=== PATIENT | male | born 1945 | race Caucasian/White ===

== ENCOUNTER 2019-10-04 13:32 | Emergency (ER) | payer MEDICARE, SELFPAY ==
[2019-10-04 13:59] VITALS: BP 127/77; PULSE 81; RESP 18; TEMP 36.5; O2SAT 96
[2019-10-04 14:19] LABS: Basophils Absolute Auto 0.03 K/mm3 (0.00-0.10); Basophils Percent Auto 0.5 % (0.0-1.0); Eosinophils Absolute Auto 0.07 K/mm3 (0.02-0.50); Eosinophils Percent Auto 1.1 % (1.0-6.0); Hematocrit 43.9 % (37.0-46.0); Immature Granulocyte Absolute 0.02 K/mm3 (0.00-0.00); Immature Granulocyte Percent A 0.3 % (0.0-0.0); Lymphocytes Absolute Auto 1.16 K/mm3 (1.10-4.50); Lymphocytes Percent Auto 17.7 % (18.0-42.0); Mean Corpuscular HGB Conc 34.2 g/dL (32.0-36.0); Mean Corpuscular Hemoglobin 31.3 pg (27.0-31.0); Mean Corpuscular Volume 91.6 fL (78.0-102.0); Monocytes Absolute Auto 0.43 K/mm3 (0.10-0.90); Monocytes Percent Auto 6.6 % (2.0-11.0); Neutrophils Absolute Auto 4.8 K/mm3 (1.7-7.2); Neutrophils Percent Auto 73.8 % (50.0-70.0); Platelet Count Result 186 K/mm3 (150-420); Red Blood Count 4.79 M/mm3 (4.70-6.10); Red Cell Distribution Width 12.9 % (11.6-14.4); White Blood Count 6.6 K/mm3 (4.8-10.8)
--- NOTE | 2019-10-04 14:21 | ED.GENADULT ---
HPI - General Adult General Chief complaint: Extremity Injury, Upper Stated complaint: reaction to medication muscle cramps History of Present Illness HPI narrative: Edgardo is a 73-year-old man with a past medical history of COPD and heart attack that presented to the ER with muscle cramps and tingling in his left hand. He reports that when he got out of the truck he had bilateral calf cramping as well as pain in his right buttock muscles. around the same time he had numbness in his left hand. He had no decreased coordination hand, decreased strength, or pain. he was started on a Medrol Dosepak and Levaquin 6 days ago For a COPD exacerbation. He believes this is the cause. he has had no redness, or swelling in his calves as well as no prolonged sedentary periods. He has had no chest pain, syncope/near syncope or shortness of breath as well as nausea and vomiting. Related Data Home Medications Medication Instructions Recorded Confirmed ipratropium-albuterol 3 ml INHALATION PRN 10/04/19 10/04/19 ipratropium-albuterol [Combivent 1 puff INHALATION DAILY 10/04/19 10/04/19 Respimat] levofloxacin 500 mg PO DAILY 10/04/19 10/04/19 methylprednisolone 4 mg PO DAILY 10/04/19 10/04/19 Allergies Allergy/AdvReac Type Severity Reaction Status Date / Time No Known Allergies Allergy Verified 10/04/19 13:58 Review of Systems Constitutional: Constitutional: Denies chills and Denies fever(s) Eyes: Eyes: Reports no additional eye complaints ENT: Reports system reviewed and no additional complaints, except as documented Cardiovascular: Cardiovascular: Denies chest pain, Denies rapid heart rate and Denies radiating jaw, neck or arm pain Respiratory: Comments: cough and shortness of breath is not worse than usual Gastrointestinal: Gastrointestinal: Reports no additional gastrointestinal complaints Genitourinary: Genitourinary: Reports no additional male genitourinary complaints Musculoskeletal: Musculoskeletal: Reports no additional musculoskeletal complaints Integumentary/Breasts: Skin/Breast: Reports system reviewed and no additional complaints, except as docu Neurologic: Reports system reviewed and no additional complaints, except as documented Psychiatric: Psychiatric: Reports no additional psychiatric complaints Hematologic/Lymphatic: Hematologic/Lymphatic: Reports no additional hematologic/lymphatic complaints Exam Const: General: no acute distress and alert Orientation/consciousness: patient oriented x3 Limitations: No altered mental status HENMT: Other: normocephalic, atraumatic Eyes: Conjunctivae: conjunctivae normal Pupils: Equal, round and reactive pupils present Neck: Neck: normal visual inspection Chest: Chest palpation & inspection: normal inspection of the chest Resp: Effort & Inspection: normal respiratory effort, not labored, no retractions and no use of accessory muscles Cardio: Rate: regular rate Rhythm: regular rhythm Heart sounds: no murmurs GI: GI Palp: Yes Soft to palpation and No Tenderness to palpation present (GI) Skin: General skin exam: normal color Rashes: no rashes Neuro: General: patient oriented x3 and moves all extremities Extrem: General: normal to inspection Other: Tenderness to palpation over the right piriformis muscle, tenderness over the gastrocnemius Achilles junction bilaterally. Positive Phalen's and prior test on the left hand. 5/5 manager inventory management strength in both hands. normal strength in lower extremities in all planes of motion tested. Psych: Mental Status: mental status grossly normal Course Course Emergency Course: Edgardo was seen and evaluated. While symptoms are likely iatrogenic from Levaquin will order labs to assess for other causes of myalgia /tendinitis. Vital Signs Vital signs: Vital Signs Temperature 36.5 C 10/04/19 13:59 Pulse Rate 81 10/04/19 13:59 Respiratory Rate 18 10/04/19 13:59 Blood Pressure 127/77 10/04/19 13:59 Pulse Oxi
[2019-10-04 14:34] LABS: Alanine Aminotransferase 25 U/L (16-63); Alkaline Phosphatase 61 U/L (46-116); Anion Gap 13.1 mmol/L (7-16); Aspartate Amino Transferase 24 U/L (15-37); Bilirubin,Total 0.4 mg/dL (0.00-1.00); Blood Urea Nitrogen 27 mg/dL (7-18); Calcium 8.9 mg/dL (8.5-10.1); Carbon Dioxide 27 mmol/L (21-32); Chloride 100 mmol/L (98-108); Creatine Kinase 127 U/L (39-308); Estimated CRCL calculation 44 ml/min; Estimated Glomerular Filt Rate > 60; Glucose 111 mg/dL (70-99); Osmolality Calculated 288 mOsm/kg (285-295); Potassium 4.1 mmol/L (3.5-5.1); Sodium 136 mmol/L (136-145); Total Protein 6.6 g/dL (6.4-8.2)
[2019-10-04 15:09] VITALS: RESP 15
== END 2019-10-04 15:10 | disposition home or self-care (01) ==
PROVIDERS: Emergency Provider Family Medicine; PCP Family Medicine
DX: M76.62 Achilles tendinitis, left leg (principal); M76.61 Achilles tendinitis, right leg; J44.9 Chronic obstructive pulmonary disease, unspecified
CPT/HCPCS: 36415; 80053; 82550; 85025; 99282; 99283

== ENCOUNTER 2020-06-06 17:50 | Inpatient (IN) | payer MEDICARE, SELFPAY ==
[2020-06-06] VITALS (12 sets, daily range): BP systolic 117–142; BP diastolic 59–82; PULSE 68–90; RESP 18–32; TEMP 36.4–37.1; O2SAT 88–100; BMI 20.9
--- NOTE | ~2020-06-06 | XR_ITS ---
EXAMINATION: XR chest 1V portable DATE: 06/06/2020 18:30 INDICATION: COPD presenting with shortness of breath TECHNIQUE: frontal view of the chest was obtained. COMPARISON: Chest radiograph dated 10/01/[address] dated 03/19/2019 FINDINGS: Hyperexpansion of lungs consistent with emphysema. Bibasilar linear atelectasis/scarring. Small nodul e in the left lower lung zone projecting over the anterior left seventh rib which can be seen on CT d ated 09/22/2018 likely sequela of old granulomatous disease. No pulmonary edema, pleural effusion or pn eumothorax. The cardiomediastinal silhouette is normal. IMPRESSION: 1. Emphysema with mild bibasilar atelectasis/scarring. Reviewed, dictated and finalized at [facility]. S AND PARTS ATTENDANT
--- NOTE | 2020-06-06 18:04 | ECG_ITS ---
Measurements Intervals [place] Rate: 80 P: 89 WV: 148 QRS: -23 QRSD: 96 T: 72 QT: 352 QTc: 408 Interpretive Statements SINUS RHYTHM INCOMPLETE RIGHT BUNDLE BRANCH BLOCK LOW QRS VOLTAGE IN LIMB LEADS BASELINE ARTIFACT- AVR, AVL, V1-V6 BORDERLINE ECG Electronically Signed On 06-06-2020 18:56:23 CASING TRIMMER by Hector Vicente D.O.
[2020-06-06 18:39] LABS: Base Excess ABG 2.2 mmol/L (0-2); HCO3 ABG 29.7 mmol/L (23-29); Oxygen Content ABG 19.4 %vol (16.0-22.0); Oxygen Saturation ABG 99.6 % (95-97); Oxyhemoglobin 94.5 % (94-100); PCO2 ABG 58.1 mmHg (35-45); Total Hemoglobin 14.4 g/dL; pH ABG 7.33 (7.35-7.45)
[2020-06-06 18:42] LABS: Basophils Absolute Auto 0.03 K/mm3 (0.00-0.10); Basophils Percent Auto 0.5 % (0.0-1.0); Eosinophils Absolute Auto 0.16 K/mm3 (0.02-0.50); Eosinophils Percent Auto 2.5 % (1.0-6.0); Hematocrit 42.4 % (37.0-46.0); Hemoglobin 13.9 g/dL (12.4-15.3); Immature Granulocyte Absolute 0.02 K/mm3 (0.00-0.00); Immature Granulocyte Percent A 0.3 % (0.0-0.0); Immature Platelet Fraction Pct 9.8 % (1.0-7.0); Lymphocytes Absolute Auto 0.67 K/mm3 (1.10-4.50); Lymphocytes Percent Auto 10.4 % (18.0-42.0); Mean Corpuscular HGB Conc 32.8 g/dL (32.0-36.0); Mean Corpuscular Hemoglobin 31.7 pg (27.0-31.0); Mean Corpuscular Volume 96.8 fL (78.0-102.0); Mean Platelet Volume 11.9 fl (8.7-11.0); Monocytes Absolute Auto 0.38 K/mm3 (0.10-0.90); Monocytes Percent Auto 5.9 % (2.0-11.0); Neutrophils Absolute Auto 5.2 K/mm3 (1.7-7.2); Neutrophils Percent Auto 80.4 % (50.0-70.0); Platelet Count Result 147 K/mm3 (150-420); Red Blood Count 4.38 M/mm3 (4.70-6.10); Red Cell Distribution Width 13.4 % (11.6-14.4); White Blood Count 6.4 K/mm3 (4.8-10.8)
[2020-06-06 18:43] LABS: Device NASAL CANNULA; Modified Allen's Test Pass; Site Drawn RIGHT RADIAL
[2020-06-06 18:50] LABS: D Dimer 0.49 mg/L (0.19-0.50)
[2020-06-06 18:54] LABS: BNP 17.7 pg/mL (0-100)
[2020-06-06 18:57] LABS: Alanine Aminotransferase 26 U/L (16-63); Albumin Level 4.1 g/dL (3.4-5.0); Alkaline Phosphatase 94 U/L (46-116); Anion Gap 5 mmol/L (8-16); Aspartate Amino Transferase 25 U/L (15-37); Bilirubin,Total 0.3 mg/dL (0.00-1.00); Blood Urea Nitrogen 20 mg/dL (7-18); Calcium 8.9 mg/dL (8.5-10.1); Carbon Dioxide 32 mmol/L (21-32); Chloride 102 mmol/L (98-108); Estimated CRCL calculation 53 ml/min; Estimated Glomerular Filt Rate > 60; Glucose 106 mg/dL (70-99); Osmolality Calculated 290 mOsm/kg (285-295); Potassium 4.3 mmol/L (3.5-5.1); SARS-CoV-2 Ag Negative (Negative); Sodium 139 mmol/L (136-145); Total Protein 7.2 g/dL (6.4-8.2)
[2020-06-06 18:58] LABS: Troponin I < 0.02 ng/mL (0.00-0.056)
--- NOTE | 2020-06-06 19:32 | ED.SOB ---
HPI - SOB/Dyspnea General Chief Complaint: Shortness of Breath/Dyspnea Stated Complaint: amb Time Seen by Provider: 06/06/20 18:30 Source: patient Mode of arrival: ambulatory Limitations: no limitations History of Present Illness HPI Narrative: Patient states he has been short of breath for the past several days. He has had no chest pain, no fever, no chills. He has not had any more cough than that of his usual. Shortness of breath has been moderately severe and has been ongoing, not relieved by measures at home. That is to say, his shortness was not relieved by a nebulizer at home. He went out to feed the animals and was short of breath enough he could not make it back. Related Data Home Medications Medication Instructions Recorded Confirmed ipratropium-albuterol 3 ml INHALATION Q4-5H PRN 10/04/19 06/06/20 ipratropium-albuterol [Combivent 1 puff INHALATION DAILY 10/04/19 06/06/20 Respimat] Allergies Allergy/AdvReac Type Severity Reaction Status Date / Time No Known Allergies Allergy Verified 10/04/19 13:58 Review of Systems Constitutional: Constitutional: Reports no additional constitutional complaints Comments: no fever, no chills Eyes: Eyes: Reports no additional eye complaints ENT: Reports system reviewed and no additional complaints, except as documented Cardiovascular: Cardiovascular: Reports no additional cardiovascular complaints Gastrointestinal: Gastrointestinal: Reports no additional gastrointestinal complaints Genitourinary: Genitourinary: Reports no additional male genitourinary complaints Musculoskeletal: Musculoskeletal: Reports no additional musculoskeletal complaints Integumentary/Breasts: Skin/Breast: Reports system reviewed and no additional complaints, except as docu Neurologic: Reports system reviewed and no additional complaints, except as documented Psychiatric: Psychiatric: Reports no additional psychiatric complaints Endocrine: Endocrine: Reports no additional endocrine complaints Hematologic/Lymphatic: Hematologic/Lymphatic: Reports no additional hematologic/lymphatic complaints Allergic/Immunologic: Allergic/Immunologic: Reports no additional allergic/immunologic complaints FOR[facility]LY [facility] Past Medical History Medical History Myocardial infarction acute Surgical History Surgical History H/O elbow surgery H/O knee surgery Family History Family History Father CAD in [place] artery Mother CHF exacerbation Social History Social History Smoking packs per day: 0.75 Smoking cigarettes per day: 15.0 Years smoked: 60 Smoking pack-years: 45.00 Smoking status: Current every day smoker Tobacco type: cigarettes Gender identity (if verbalized by the patient): Male Exam Const: General: alert and ill appearing Orientation/consciousness: patient oriented x3 Other: Appears acutely short of breath. This was after he was given albuterol 5mg in the ambulance, and a steroid. HENMT: Head: normal to inspection Face and sinus: normal facial exam Throat: posterior oropharynx normal Eyes: Conjunctivae: conjunctivae normal Pupils: Equal, round and reactive pupils present Neck: Neck: normal visual inspection Chest: Chest palpation & inspection: normal inspection of the chest Resp: Effort & Inspection: labored and uses accessory muscles Other: mild increased work of breathing, wheezes throughout, decreased breath sounds throughout. Cardio: Rate: regular rate Rhythm: regular rhythm GI: GI Palp: Yes Soft to palpation Other: nontender Back/Spine/Pelvis: Back: no CVA tenderness Skin: General skin exam: normal color Neuro: General: patient oriented x3 and moves all extremities Speech: normal speech Extrem: General: normal to inspection Psych: Men
[2020-06-06] MEDS: ALBUTEROL SULFATE NEB 2.5 MG/3 ML INH 5 MG INHALATION (19:33)
[2020-06-06] MEDS: DEXAMETHASONE SOD PHOS INJ 4 MG/ML VIAL IV PUSH ×2 (19:40→23:55)
--- NOTE | 2020-06-06 20:31 | PC.NURSE ---
2014 PT HAVING DISTRESS DOCTOR CALLED TO ROOM PTS DISCHARGE CANCELED AND PT IS BEING ADMITTED NOW
--- NOTE | 2020-06-06 21:20 | PC.NURSE ---
Patient admitted to room 209 from ER per stretcher. Patient noted to have tripod positioning and dyspnea. O2 is on @ 3 lpm/nc. Patient able to answer admission questions with breaks in between questions to try and catch his breath. Lungs very diminished in all lung car. Call light in reach.
[2020-06-06] MEDS: NICOTINE (*PBKC) 21 MG PATCH 1 PATCH (21:50)
--- NOTE | 2020-06-06 22:09 | ADMGEN ---
This patient, Edgardo Cain, was admitted to 2nd Floor Room 209-1. Patient oriented to hospital policies and general routines including ID bracelet, bed and alarms, visiting hours, pain management, procedures, bathroom and other care routines, personal items, smoking policy, room service/diet, and visiting hours. Information on how to activate the Rapid Response Team has been discussed. Patient are encouraged to report perceived risks to care and to ask questions if they do not understand what they are told or what they should do.
[2020-06-06] MEDS: IPRATROPIUM 0.5 MG/ALBUTEROL SULFATE 2.5 MG AMPUL.NEB 3 ML INHALATION (23:16)
--- NOTE | 2020-06-06 23:20 | PC.NURSE ---
Patient lying in bed with dyspnea noted. Patient currently doing nebulizer treatment per J Counts RT. Per RT patient's dyspnea is the same as when he was in ER.
[2020-06-06] MEDS: methylPREDNISolone SOD SUCC 125 MG VIAL 60 MG IV PUSH (23:54)
[2020-06-07] VITALS (17 sets, daily range): BP systolic 99–144; BP diastolic 55–84; PULSE 64–94; RESP 16–24; TEMP 36.6–37.1; O2SAT 92–100
--- NOTE | 2020-06-07 02:50 | PC.NURSE ---
Patient sitting on side of bed with obvious dyspnea. Patient has dry cough and is requesting something to help him catch his breath and stop the coughing. SpO2 is 95% on 3 lpm/nc. Patient has his cannula in his mouth, saying it helps better because his nose is stuffed up and the oxygen can't get through. Charge nurse notified of patient's request. Call light in reach.
--- NOTE | 2020-06-07 02:58 | PC.NURSE ---
Dr. Medina notified of pt's c/o coughing and shortness of breath. SAO2 is 95% with oxygen on at 3 liters per nasal cannula. New orders received and noted.
[2020-06-07] MEDS: guaiFENesin/CODEINE 100/10 MG 5 ML SYRUP 10 ML PO (03:10)
--- NOTE | 2020-06-07 03:45 | PC.NURSE ---
Patient lying back in bed. Dyspnea improved but not completely. O2 continues @ 3 lpm/nc. Patient has the cannula in his nose now. Patient says the cough syrup has helped and he's going to try to get some sleep now.
[2020-06-07] MEDS: methylPREDNISolone SOD SUCC 125 MG VIAL 60 MG IV PUSH ×3 (05:17→16:59)
[2020-06-07] MEDS: DEXAMETHASONE SOD PHOS INJ 4 MG/ML VIAL IV PUSH (05:18)
[2020-06-07] MEDS: IPRATROPIUM 0.5 MG/ALBUTEROL SULFATE 2.5 MG AMPUL.NEB 3 ML INHALATION ×5 (05:40→22:41)
--- NOTE | 2020-06-07 06:10 | PC.NURSE ---
Patient says he's feeling a little bit better now. O2 continues @ 3 lpm/nc. Patient sitting on side of bed drinking coffee. Call light in reach.
[2020-06-07 07:47] LABS: Troponin I < 0.02 ng/mL (0.00-0.056)
--- NOTE | 2020-06-07 08:51 | PC.NURSE ---
called to room, feeling more sob, states always happens when done eating, rescue inhaler was taken from him, oxygen level 90-91% room air, oxygen re applied 2 L NC at this time
[2020-06-07] MEDS: NICOTINE (*PBKC) 21 MG PATCH 1 PATCH TRANSDERM (08:56)
[2020-06-07] MEDS: AZITHROMYCIN 250 MG TABLET 500 MG PO (08:57)
--- NOTE | 2020-06-07 10:59 | PC.NURSE ---
walked to bathroom and noted worsening dyspnea, states felt like it did last night, not able to get his air, noted discoloration to face, oxygen re applied and increased to 4 L NC for sats upper 70's, slowly increased to 90-92% on 4 L NC at this time, still feels air hunger and will call to see if we can get his neb treatment early
--- NOTE | 2020-06-07 11:08 | PC.NURSE ---
less distress at this time, receiving neb, oxygen decreased back to 2 L NC while on neb
--- NOTE | 2020-06-07 13:06 | PM.IMHP ---
H&P: HPI History of Present Illness Date/Time: 06/07/20 13:06 <ASAF Etienne - Last Filed: 06/07/20 13:30> Chief complaint: COPD EXCERBATION <ASAF Etienne - Last Filed: 06/07/20 13:30> Narrative: Edgardo Cain is a 74 year old male that presented to our ED with shortness of breath. Patient has a past medical history of CVA , tobacco dependence and COPD. According to patient for approximately 2 months he has been feeling short of breath with an excessive productive cough with yellowish sputum according to patient. Notes that he has been having chest, flank and mid back pain discomfort due to excessive coughing. Patient noted that approximately 2 week ago his appetite started decreasing he became more fatigued. Patient noted that this day of admission into the ED he attempted to go outside to feed his animals and was unable to make it back home due to his shortness of breath. Patient is anxious to discharge home he has a with sciatic issues and is unable to walk. I explained to patient that he must first take care of himself, if he is unable to breathe he will not be able to take care of . Patient agreed to stay in the hospital for 1 more day for treatment. The patient denies CP, palpitation, extremity numbness, lightheadedness, dizziness, constipation, diarrhea, chills, or fever. <ASAF Etienne - Last Filed: 06/07/20 13:30> Review of Systems Review of Systems: All systems reviewed & are unremarkable except as noted in HPI and below (10 point system review) <ASAF Etienne - Last Filed: 06/07/20 13:30> [facility] Past Medical History Medical History: Medical History Myocardial infarction acute <ASAF Etienne - Last Filed: 06/07/20 13:30> Surgical History Surgical History: Surgical History H/O elbow surgery H/O knee surgery <ASAF Etienne - Last Filed: 06/07/20 13:30> Family History Family History: Family History Father CAD in [place] artery Mother CHF exacerbation <ASAF Etienne - Last Filed: 06/07/20 13:30> Social History Social History: Social History Smoking packs per day: 1 Smoking cigarettes per day: 20.0 Years smoked: 60 Smoking pack-years: 60.00 Smoking status: Current every day smoker Tobacco type: cigarettes Alcohol intake: former Substance use: never Gender identity (if verbalized by the patient): Male Sexual Orientation (if Verbalized by the Patient): Straight or Heterosexual Spiritual care concerns: No <ASAF Etienne - Last Filed: 06/07/20 13:30> Meds Home Medications and Allergies Home medications: Home Medications Medication Instructions Recorded Confirmed Type ipratropium-albuterol 3 ml INHALATION Q4-5H PRN 10/04/19 06/06/20 History ipratropium-albuterol [Combivent 1 puff INHALATION DAILY 10/04/19 06/06/20 History Respimat] dexamethasone 8 mg PO DAILY #10 tablet 06/06/20 Rx sulfamethoxazole-trimethoprim 1 tablet PO Q12H #14 tablet 06/06/20 Rx [Bactrim DS] <ASAF Etienne - Last Filed: 06/07/20 13:30> Allergies/Adverse reactions: Allergies Allergy/AdvReac Type Severity Reaction Status Date / Time levofloxacin AdvReac Intermediate Other Unverified 06/07/20 13:25 <ASAF Etienne - Last Filed: 06/07/20 13:30> Vital Signs Vital Signs - 24 hr 06/06/20 18:00 06/06/20 18:08 06/06/20 18:16 Temperature 98.7 F Pulse Rate 87 86 Respiratory Rate 22 H 32 H Blood Pressure 142/80 H 142/82 H Pulse Oximetry 100 98 98 06/06/20 18:32 06/06/20 19:00 06/06/20 19:34 Temperature Pulse Rate 86 74 81 Respiratory Rate 22 H 20 Blood Pressure 117/59 L Pulse Oximetry 100 99 06/06/20 19:47
--- NOTE | 2020-06-07 14:10 | PC.NURSE ---
Increased WALKER using urinal, oxygen in creased due to feeling more SOB, sats 89% before increase
--- NOTE | 2020-06-07 16:31 | PC.NURSE ---
Patient called nurse and c/o chest pain. When asking patient to show where the pain was he ran his hand up and down the left side of his body and stated the pain was like a muscular pain and rated it as a 2 out of 10. Patient continues to work hard at breathing. Vital signs BP 143/72, P 82, RESP 22, SPO2 97% with O2 @ 2LPM/NC, temp 99.2. Attempted to call MD, unable to reach MD will try again.
--- NOTE | 2020-06-07 16:44 | PC.NURSE ---
notified of patient c/o chest pain. New order received to Tylenol 1 Gram.
[2020-06-07] MEDS: BENZONATATE 100 MG CAPSULE PO (16:46)
[2020-06-07] MEDS: ACETAMINOPHEN 500 MG TABLET 1000 MG PO (17:00)
[2020-06-08] VITALS (17 sets, daily range): BP systolic 102–118; BP diastolic 52–67; PULSE 20–102; RESP 14–24; TEMP 36.6–37.3; O2SAT 94–100
[2020-06-08] MEDS: methylPREDNISolone SOD SUCC 125 MG VIAL 60 MG IV PUSH ×4 (00:34→17:38)
[2020-06-08] MEDS: IPRATROPIUM 0.5 MG/ALBUTEROL SULFATE 2.5 MG AMPUL.NEB 3 ML INHALATION ×7 (02:35→22:30)
[2020-06-08] MEDS: BENZONATATE 100 MG CAPSULE PO ×2 (09:03→12:27)
[2020-06-08] MEDS: NICOTINE (*PBKC) 21 MG PATCH 1 PATCH TRANSDERM (09:03)
[2020-06-08] MEDS: ENOXAPARIN 40 MG/0.4 ML SYRINGE SUB-Q (09:04)
[2020-06-08 09:25] LABS: Hematocrit 41.9 % (37.0-46.0); Hemoglobin 13.6 g/dL (12.4-15.3); Mean Corpuscular HGB Conc 32.5 g/dL (32.0-36.0); Mean Corpuscular Hemoglobin 31.3 pg (27.0-31.0); Mean Corpuscular Volume 96.3 fL (78.0-102.0); Mean Platelet Volume 11.4 fl (8.7-11.0); Platelet Count Result 160 K/mm3 (150-420); Red Blood Count 4.35 M/mm3 (4.70-6.10); Red Cell Distribution Width 13.2 % (11.6-14.4); White Blood Count 15.3 K/mm3 (4.8-10.8)
[2020-06-08 09:26] LABS: Base Excess ABG 2.3 mmol/L (0-2); Oxygen Content ABG 18.9 %vol (16.0-22.0); Oxygen Saturation ABG 96.7 % (95-97); Oxyhemoglobin 95.3 % (94-100); PCO2 ABG 47.4 mmHg (35-45); Total Hemoglobin 14.1 g/dL; pH ABG 7.39 (7.35-7.45)
[2020-06-08 09:27] LABS: Device NASAL CANNULA; Modified Allen's Test Pass; Site Drawn RIGHT RADIAL
[2020-06-08 09:45] LABS: Alanine Aminotransferase 29 U/L (16-63); Albumin Level 3.8 g/dL (3.4-5.0); Alkaline Phosphatase 85 U/L (46-116); Anion Gap 6 mmol/L (8-16); Aspartate Amino Transferase 32 U/L (15-37); Bilirubin,Total 0.2 mg/dL (0.00-1.00); Blood Urea Nitrogen 30 mg/dL (7-18); Calcium 9.1 mg/dL (8.5-10.1); Carbon Dioxide 32 mmol/L (21-32); Chloride 98 mmol/L (98-108); Estimated CRCL calculation 42 ml/min; Estimated Glomerular Filt Rate > 60; Glucose 214 mg/dL (70-99); Osmolality Calculated 294 mOsm/kg (285-295); Potassium 4.6 mmol/L (3.5-5.1); Sodium 136 mmol/L (136-145); Total Protein 6.9 g/dL (6.4-8.2)
--- NOTE | 2020-06-08 11:01 | WPDPN ---
Progress Note: A&P Assessment and Plan (1) COPD exacerbation: Code(s): J44.1 - Chronic obstructive pulmonary disease with (acute) exacerbation Status: Acute Assessment and Plan: Chest x-ray indicates emphysema Blood gas indicated respiratory acidosis Troponin negative times 2 BNP 17.7 Covid negative EKG sinus rhythm with a heart rate of 80 Levaquin originally started on patient discontinued due to history of tendon rupture started azithromycin Continue nebulizers in inhalers, and guaifenesin COPD education provided Patient will have to follow-up with the physical therapy manager on discharge (2) Shortness of breath: Code(s): R06.02 - Shortness of breath Status: Acute Assessment and Plan: Secondary to COPD referred to COPD (3) COVID-19 ruled out: Code(s): Z03.818 - Encounter for observation for suspected exposure to other biological agents ruled out Status: Acute Assessment and Plan: Covid negative (4) Decreased appetite: Code(s): R63.0 - Anorexia Status: Acute Assessment and Plan: Possibly secondary to COPD exacerbation Review of Systems Review of Systems: All systems reviewed & are unremarkable except as noted in HPI and below (10 point system review) Exam Narrative: Exam Narrative: GENERAL: Frail elderly man, in no apparent distress. HEAD: normocephalic, atraumatic. EYES: PERRL. Sclera clear/white. Vision is grossly intact. EARS: External ears normal, auditory canals clear and without drainage, TMs normal without perforation. Hearing grossly intact. NOSE: External nose normal with no obvious nasal discharge, nares without redness, no rhinorrhea. THROAT: Mucous membranes moist, posterior pharynx clear. NECK: Neck supple, non-tender without lymphadenopathy, masses or thyromegaly. CARDIOVASCULAR: Regular rate and rhythm without murmurs, gallops, or rubs. RESPIRATORY: Wheezes with diminished breath sounds throughout and labored breathing GASTROINTESTINAL: Abdomen soft, non-tender, nondistended. Bowel sounds are active. No hepato-splenomegaly, or palpable masses. No guarding. SKIN: warm, intact with no suspicious lesions or rash, good texture and turgor. NEURO: awake, alert, and oriented to person, place and time. There were no obvious focal neurologic abnormalities. Steady gait EXTREMITIES: Normal range of motion. No edema. No calf tenderness. Negative Homans sign bilaterally. BACK: Nontender without deformity or crepitance. No flank tenderness. Objective Data Vital Signs Vital Signs: Vital Signs - 24 hr 06/07/20 11:06 06/07/20 11:13 06/07/20 12:00 Temperature Pulse Rate 83 84 90 Respiratory Rate 24 H 22 H 22 H Blood Pressure Pulse Oximetry 98 98 92 06/07/20 16:00 06/07/20 16:56 06/07/20 17:04 Temperature 98.7 F Pulse Rate 78 87 78 Respiratory Rate 22 H 20 22 H Blood Pressure 118/74 Pulse Oximetry 94 96 99 06/07/20 19:17 06/07/20 19:26 06/07/20 19:52 Temperature 98.0 F Pulse Rate 71 68 65 Respiratory Rate 20 20 18 Blood Pressure 99/62 L Pulse Oximetry 97 99 98 06/07/20 22:42 06/07/20 22:50 06/07/20 23:52 Temperature 98.1 F Pulse Rate 86 94 64 Respiratory Rate 24 H 22 H 16 Blood Pressure 101/62 Pulse Oximetry 93 98 100 06/08/20 02:37 06/08/20 02:57 06/08/20 04:00 Temperature 98.6 F Pulse Rate 63 60 74 Respiratory Rate 16 14 16 Blood Pressure 118/67 Pulse Oximetry 100 100 99 06/08/20 05:36 06/08/20 05:47 06/08/20 07:30 Temperature 98 F Pulse Rate 84 84 88 Respiratory Rate 22 H 20 20 Blood Pressure 102/52 L Pulse Oximetry 98 99 98 06/08/20 10:08 06/08/20 10:16 Temperature Pulse Rate 75 76 Respiratory Rate 20 20 Blood Pressure Pulse Oximetry 97 99 Intake/Output Intake/Output: Intake & Output 06/05/20 06/06/20 06/07/20 06/08/20 23:59 23:59 23:59 23:59 Intake Total 1230 450 Output Total 675 Balance 555 450 Meds/Results Medications: Active Medi
[2020-06-08] MEDS: ACETYLCYSTEINE 20% INHAL SOLN 800 MG/4 ML VIAL 200 MG INHALATION ×2 (14:41→22:18)
[2020-06-09] VITALS (13 sets, daily range): BP systolic 99–111; BP diastolic 52–65; PULSE 64–88; RESP 14–22; TEMP 36.6–36.8; O2SAT 87–99
[2020-06-09] MEDS: methylPREDNISolone SOD SUCC 125 MG VIAL 60 MG IV PUSH ×2 (00:04→05:28)
[2020-06-09] MEDS: IPRATROPIUM 0.5 MG/ALBUTEROL SULFATE 2.5 MG AMPUL.NEB 3 ML INHALATION ×2 (05:31→10:04)
[2020-06-09] MEDS: ACETYLCYSTEINE 20% INHAL SOLN 800 MG/4 ML VIAL 200 MG INHALATION (05:32)
[2020-06-09 08:03] LABS: Hematocrit 42.5 % (37.0-46.0); Hemoglobin 13.9 g/dL (12.4-15.3); Mean Corpuscular HGB Conc 32.7 g/dL (32.0-36.0); Mean Corpuscular Hemoglobin 31.4 pg (27.0-31.0); Mean Corpuscular Volume 95.9 fL (78.0-102.0); Mean Platelet Volume 11.5 fl (8.7-11.0); Platelet Count Result 158 K/mm3 (150-420); Red Blood Count 4.43 M/mm3 (4.70-6.10); Red Cell Distribution Width 13.4 % (11.6-14.4); White Blood Count 14.3 K/mm3 (4.8-10.8)
[2020-06-09 08:37] LABS: Alanine Aminotransferase 38 U/L (16-63); Albumin Level 3.7 g/dL (3.4-5.0); Alkaline Phosphatase 75 U/L (46-116); Anion Gap 6 mmol/L (8-16); Aspartate Amino Transferase 37 U/L (15-37); Bilirubin,Total 0.3 mg/dL (0.00-1.00); Blood Urea Nitrogen 34 mg/dL (7-18); Calcium 9.1 mg/dL (8.5-10.1); Carbon Dioxide 31 mmol/L (21-32); Chloride 100 mmol/L (98-108); Estimated CRCL calculation 54 ml/min; Estimated Glomerular Filt Rate > 60; Glucose 165 mg/dL (70-99); Osmolality Calculated 295 mOsm/kg (285-295); Potassium 4.7 mmol/L (3.5-5.1); Sodium 137 mmol/L (136-145); Total Protein 6.7 g/dL (6.4-8.2)
--- NOTE | 2020-06-09 08:46 | HOMEO2EVAL ---
Home Oxygen Evaluation RC: Home Oxygen (O2) Evaluation Start: 06/09/20 07:56 Freq: ONCE Status: Active Protocol: RPE Activity Type Activity Date Activity User E-Sign Co-Sign Detail Recorded Client Recorded Date Recorded By Document 06/09/20 08:26 CARLITOS [id number] 06/09/20 08:46 CARLITOS Document 06/09/20 08:28 CARLITOS [id number] 06/09/20 08:46 CARLITOS Document 06/09/20 08:30 CARLITOS [id number] 06/09/20 08:46 CARLITOS 06/09/20 06/09/20 06/09/20 08:26 08:28 08:30 Home O2 Evaluation Test Phase Resting Exercise Exercise Oxygen Delivery Room Air Room Air Nasal Cannula Oxygen Flow Rate (L/min) 2 Pulse Oximetry (90-100 %) 94 87 L 93 Pulse Rate (60-100 beats/min) 74 88 88 Activity Tolerance Good Good Rating of Perceived Dyspnea (PD) +3 Moderate +2 Mild, Some Difficulty, But Difficulty, Can Continue Noticeable to the Observer Rate of Perceived Exertion (PE) 12 12 Ambulation Distance (feet) 115 215 Home Oxygen Evaluation Comments patient walked Sp02 >92% on n/ 115 feet on c at 2 lpm room air during exercise pushing wheelchair, Sp02 dropped to 87%. will add 02 at 2 lpm Treatment Charges O2 Evaluation
[2020-06-09] MEDS: ENOXAPARIN 40 MG/0.4 ML SYRINGE SUB-Q (09:16)
[2020-06-09] MEDS: NICOTINE (*PBKC) 21 MG PATCH 1 PATCH TRANSDERM (09:16)
--- NOTE | 2020-06-09 10:20 | PM.DS ---
DS: Admitting Diagnosis Admitting Diagnosis Admitting Diagnosis: COPD EXCERBATION DS: Discharge Diagnosis Discharge Diagnosis (1) COPD exacerbation: Code(s): J44.1 - Chronic obstructive pulmonary disease with (acute) exacerbation Status: Acute Assessment and Plan: Chest x-ray indicates emphysema Blood gas indicated respiratory acidosis Troponin negative times 2 BNP 17.7 Covid negative EKG sinus rhythm with a heart rate of 80 Levaquin originally started on patient discontinued due to history of tendon rupture started azithromycin Continue nebulizers in inhalers, and guaifenesin COPD education provided Patient will have to follow-up with the specialties operator on discharge . Appt with Dr. Jerez made Patient will discharge home with brovana bid , pulmicort 0.25 mcg and ipratropium-albuterol 3ml q4-5h prn ordered for nebulization. Patient will also discharge with prednisone 40 mg for 1 week and 20 there after, and zithro for 10 day. Patient educated on smoking cession and informed that smoking worsen his copd Home oxygen eval indicate he require 2l nc with activity. Appointment made with specialties operator Dr. Jerez. (2) Shortness of breath: Code(s): R06.02 - Shortness of breath Status: Acute Assessment and Plan: improved Secondary to COPD referred to COPD (3) COVID-19 ruled out: Code(s): Z03.818 - Encounter for observation for suspected exposure to other biological agents ruled out Status: Acute Assessment and Plan: Covid negative (4) Decreased appetite: Code(s): R63.0 - Anorexia Status: Acute Assessment and Plan: Possibly secondary to COPD exacerbation DS: Summary Time Spent with Patient Time attestation: Total time spent providing and/or coordinating discharge services: Exam Narrative: Exam Narrative: GENERAL: Frail elderly man, in no apparent distress. HEAD: normocephalic, atraumatic. EYES: PERRL. Sclera clear/white. Vision is grossly intact. EARS: External ears normal, auditory canals clear and without drainage, TMs normal without perforation. Hearing grossly intact. NOSE: External nose normal with no obvious nasal discharge, nares without redness, no rhinorrhea. THROAT: Mucous membranes moist, posterior pharynx clear. NECK: Neck supple, non-tender without lymphadenopathy, masses or thyromegaly. CARDIOVASCULAR: Regular rate and rhythm without murmurs, gallops, or rubs. RESPIRATORY: Wheezes with diminished breath sounds throughout no longer with labored breathing GASTROINTESTINAL: Abdomen soft, non-tender, nondistended. Bowel sounds are active. No hepato-splenomegaly, or palpable masses. No guarding. SKIN: warm, intact with no suspicious lesions or rash, good texture and turgor. NEURO: awake, alert, and oriented to person, place and time. There were no obvious focal neurologic abnormalities. Steady gait EXTREMITIES: Normal range of motion. No edema. No calf tenderness. Negative Homans sign bilaterally. BACK: Nontender without deformity or crepitance. No flank tenderness. DS: Data Data Completed and Pending Labs on day of discharge: Labs from last 24 hours 06/09/20 06/09/20 07:49 07:49 WBC 14.3 H RBC 4.43 L Hgb 13.9 Hct 42.5 MCV 95.9 MCH 31.4 H MCHC 32.7 RDW 13.4 Plt Count 158 MPV 11.5 H Sodium 137 Potassium 4.7 Chloride 100 Carbon Dioxide 31 Anion Gap 6 L BUN 34 H Creatinine 0.87 Estim Creat Clear Calc 54 Estimated GFR > 60 Glucose 165 H Calculated Osmolality 295 Calcium 9.1 Total Bilirubin 0.3 AST 37 ALT 38 Alkaline Phosphatase 75 Total Protein 6.7 Albumin 3.7 Discharge Plan Discharge Attending physician on discharge: Wilfrido Durbin Discharging Clinician: Marcellus Mills Anticipated Discharge Date/Time: 06/09/20 07:49 Patient Disposition: Home, Self-Care Activity: as tolerated Diet: heart healthy Discharge Instructi
--- NOTE | 2020-06-09 13:41 | PC.NURSE ---
1300 oxygen delivered. called to check on him, explained that he is discharged. explained the need to follow up with dr. mendoza in [place] for the first one and then after that appointment can do the rest of follow ups in [place] office.she vocalizes an understanding.
--- NOTE | 2020-06-12 11:24 | PC.NURSE ---
Patient's states the pharmacy didn't receive his medication scripts. Anesthesiology Physician Assistant investigating. Also states the IV was left in place. removed catheter at home.
== END 2020-06-09 13:15 | disposition home or self-care (01) | DRG 192 ==
LOC: CHSED 20:18 → CHS2ND 21:03
PROVIDERS: Nurse Practitioner; Admitting Provider Emergency Medicine; Emergency Provider Emergency Medicine; Visit Provider Emergency Medicine
DX: J44.1 Chronic obstructive pulmonary disease with (acute) exacerbation (principal); I25.2 Old myocardial infarction; Z20.828 Contact with and (suspected) exposure to other viral communicable diseases; Z87.891 Personal history of nicotine dependence
CPT/HCPCS: 36415; 36600; 71045; 80053; 82805; 83880; 84484; 85025; 85027; 85055; 85380; 87426; 93005; 94618; 94640; 94667; 94668; 96374; 99285; A9270; J0456; J1100; J1650; J1956; J2930

== ENCOUNTER 2021-10-04 18:50 | Emergency (ER) | payer MEDICARE, SELFPAY ==
--- NOTE | ~2021-10-04 | CT_ITS ---
CT lumbar spine wo con DATE: 10/04/2021 19:24 INDICATION: Lower back pain radiating to both legs, with numbness, after lifting injury TECHNIQUE: Axial images through the lumbar spine. Sagittal and coronal reconstructions. Exam dose: 183.96 mGy-cm total exam DLP. COMPARISON: None FINDINGS: There is prominent diffuse osteopenia. There is minimal anterior wedge compression fracture of L3 No other fracture, bone destruction, spondylolysis or spondylolisthesis is evident. There is moderate degenerative disc disease at L5-S1 and mild degenerative change at the remaining rain mbar interspaces. There is evidence of fusiform infrarenal abdominal aortic aneurysm, not completely included in this e xamination and therefore not able to be measured. IMPRESSION: Mild anterior wedge compression fracture deformity of L3 of uncertain age Severe osteopenia Moderate degenerative disease at L5-S1, mild degenerative change at the remainder of the lumbar spine Infrarenal abdominal aortic aneurysm Reviewed, dictated and finalized at [facility]. Reviewed, dictated and finalized at [facility]. IMPRESSION: Mild anterior wedge compression fracture deformity of L3 of uncerta in age Severe osteopenia Moderate degenerative disease at L5-S1, mild degenerative change at the remaind er of the lumbar spine Infrarenal abdominal aortic aneurysm
[2021-10-04 19:00] VITALS: BP 144/64; PULSE 71; RESP 20; TEMP 36.8; O2SAT 96
--- NOTE | 2021-10-04 19:46 | ED.BACK ---
HPI - Back Pain/Injury General Chief Complaint: Back Pain/Injury Stated Complaint: amb Time Seen by Provider: 10/04/21 19:46 Source: patient and EMS Mode of arrival: EMS Limitations: no limitations History of Present Illness HPI Narrative: this is a 75-year-old gentleman brought in by EMS after he was doing some lifting heard a pop in his lower back and causing some radiation into his right lower leg with no paresthesias no saddle paresthesias no fever chills pain level currently is about a 3/10, the patient did not take any medication prior to arrival. MD elicited complaint: back pain and back injury Onset (ago): hour(s) Timing: other ( pain tolerable when lying still) Severity: mild Pain scale (0-10): 3 Similar Symptoms Previously: No Location: lumbar spine Radiation: right upper leg Exacerbating factors: movement and walking Relieving factors: immobilization Related Data Home Medications Medication Instructions Recorded Confirmed ipratropium-albuterol 3 ml INHALATION Q4-5H PRN 10/04/19 10/04/21 ipratropium-albuterol [Combivent 2 puff INHALATION DAILY 10/04/21 10/04/21 Respimat] montelukast 10 mg PO DAILY 10/04/21 10/04/21 Allergies Allergy/AdvReac Type Severity Reaction Status Date / Time levofloxacin AdvReac Intermediate Other Verified 06/08/20 13:05 Review of Systems Review of Systems: All systems reviewed & are unremarkable except as noted in HPI and below PMFSH Past Medical History Medical History Myocardial infarction acute Surgical History Surgical History H/O elbow surgery H/O knee surgery Family History Family History Father CAD in [place] artery Mother CHF exacerbation Social History Social History Smoking packs per day: 1 Smoking cigarettes per day: 20.0 Years smoked: 60 Smoking pack-years: 60.00 Smoking status: Current every day smoker Tobacco type: cigarettes Alcohol intake: former Substance use: never Gender identity (if verbalized by the patient): Male Sexual Orientation (if Verbalized by the Patient): Straight or Heterosexual Spiritual care concerns: No Exam Const: General: no acute distress Orientation/consciousness: patient oriented x3 Eyes: Conjunctivae: conjunctivae normal Pupils: Equal, round and reactive pupils present Neck: Neck: normal visual inspection Chest: Chest palpation & inspection: normal inspection of the chest Resp: Effort & Inspection: normal respiratory effort Cardio: Rate: regular rate Rhythm: regular rhythm GI: Auscultation: normal bowel sounds : Testes: Testes normal Back/Spine/Pelvis: Back: no CVA tenderness Skin: General skin exam: normal color Neuro: General: patient oriented x3 Extrem: Other: Lower back pain with a positive straight leg raising test on the right Psych: Mental Status: mental status grossly normal Affect: normal affect Course Course Emergency Course: CT scan of lumbar spine reviewed with patient, the patient declined any pain medication. Critical Care Time Critical Care Time Critical Care Time: No Discharge Plan Discharge Clinical Impression: Lumbar radiculopathy Sciatica Qualifiers: Laterality: right Qualified Code(s): M54.31 - Sciatica, right side Compression fracture of lumbar vertebra Qualifiers: Encounter type: initial encounter Lumbar vertebra fracture level: L3 Qualified Code(s): S32.030A - Wedge compression fracture of third lumbar vertebra, initial encounter for closed fracture Patient Disposition: Home, Self-Care Condition: Stable Instructions: Antibiotic Form, Sciatica (ED), Lumbar Radiculopathy (ED) Additional Instructions: Advised take Tylenol or Motrin for back pain and follow-up primary care physician if symptoms persist
[2021-10-04 20:11] VITALS: BP 150/74; PULSE 77; RESP 20; TEMP 36.6; O2SAT 94
== END 2021-10-04 20:17 | disposition home or self-care (01) ==
PROVIDERS: Emergency Provider Emergency Medicine
DX: M54.16 Radiculopathy, lumbar region (principal); S32.030A Wedge compression fracture of third lumbar vertebra, initial encounter for closed fracture; X50.9XXA Other and unspecified overexertion or strenuous movements or postures, initial encounter
CPT/HCPCS: 72131; 99284

== ENCOUNTER 2021-12-18 19:43 | Emergency (ER) | payer MEDICARE, SELFPAY ==
--- NOTE | ~2021-12-18 | XR_ITS ---
EXAMINATION: XR lumbar spine 2-3V DATE: 12/18/2021 20:40 INDICATION: Low back pain TECHNIQUE: Anteroposterior and lateral views of the lumbar spine, and cone-down lateral view of the l umbosacral junction were obtained. COMPARISON: CT, 10/04/2021 FINDINGS: There are superior endplate fractures of the L3 and L4 vertebral bodies, [facility] Bone alignment is normal. There is moderate loss of intervertebral disc space height at L4-5. Calcified atherosclerosis is noted. IMPRESSION: 1. Compression fractures of L3 and L4, new since the comparison CT examination. Reviewed, dictated and finalized at [facility].
--- NOTE | ~2021-12-18 | CT_ITS ---
EXAMINATION: CTA chest PE protocol DATE: 12/18/2021 21:50 INDICATION: Shortness of breath TECHNIQUE: Computed tomography angiography (CTA) of the chest was performed with 100 mL Omnipaque-350 intravenous contrast timed to evaluate the pulmonary arteries. Coronal maximum intensity projection 3D-reconstructions were created by the technologist. The dose-length product (DLP) was 189.02 mGy-cm. Automated exposure control and iterative reconstruction technique were employed. COMPARISON: 03/19/2019 FINDINGS: The pulmonary arteries are well-opacified. No pulmonary embolism is identified. There is ch ronic elevation of the right hemidiaphragm. No pathologically enlarged thoracic lymph nodes are ident ified. The heart size is normal. There is moderate emphysema. The lungs are free of acute opacities. There appear to be secretions in the bilateral mainstem bronchi. There is no pleural effusion or pneu mothorax. There is mild atelectasis. Compression fractures have developed in the T4, T5, T6, T7, T8, and L3 vertebral bodies. IMPRESSION: 1. No pulmonary embolism or acute cardiopulmonary abnormality. 2. New compression fractures of the upper thoracic spine and of L3. Reviewed, dictated and finalized at location [facility].
--- NOTE | ~2021-12-18 | XR_ITS ---
EXAMINATION: XR chest 1V portable INDICATION: Shortness of breath TECHNIQUE: Portable AP chest at 2024 hours COMPARISON: 06/06/2020 FINDINGS: The lungs are hyperinflated but free of acute opacities. There is mild atelectasis of the l klaudia bases. There is no pleural effusion or pneumothorax. The cardiomediastinal silhouette is normal. IMPRESSION: 1. No acute cardiopulmonary abnormality. Reviewed, dictated and finalized at [facility].
[2021-12-18 19:50] VITALS: BP 135/68; PULSE 71; RESP 28; TEMP 36.9; O2SAT 97
--- NOTE | 2021-12-18 19:54 | ED.SOB ---
HPI - SOB/Dyspnea General Chief Complaint: Shortness of Breath/Dyspnea Stated Complaint: amb Time Seen by Provider: 12/18/21 19:54 Source: patient Mode of arrival: ambulatory History of Present Illness HPI Narrative: 76-year-old male, smoker with a history of COPD on home oxygen and oral steroid, recent L3 compression fracture presents to the ER with -- worsening shortness of breath. He got Solu-Medrol breathing treatment en route to the hospital. -- Worsening of his low back pain. He was out in the sun working in his yard today. MD elicited complaint: shortness of breath and cough Pertinent past history: COPD Onset (ago): day(s) ( started today) Context: occurred during exertion and trauma/injury ( worsening back pain) Timing: intermittent Severity: severe Relieving factors: oxygen Known history of: COPD Treatment prior to arrival: oxygen, bronchodilator and other ( Solu-Medrol) Related Data Home oxygen amount: 2 liters Home Medications Medication Instructions Recorded Confirmed ipratropium 0.5 mg-albuterol 3 mg 3 ml inhalation Q4-5H PRN 10/04/19 12/18/21 (2.5 mg base)/3 mL nebulization Shortness Of Breath soln ipratropium 20 mcg-albuterol 100 2 puff inhalation DAILY 10/04/21 12/18/21 mcg/actuation mist for inhalation (Combivent Respimat) prednisone 10 mg tablet 10 tablet PO DAILY 12/18/21 12/18/21 Allergies Allergy/AdvReac Type Severity Reaction Status Date / Time levofloxacin AdvReac Intermediate Other Verified 06/08/20 13:05 Review of Systems Review of Systems: All systems reviewed & are unremarkable except as noted in HPI and below Constitutional: Constitutional: Reports as per HPI and Reports no additional constitutional complaints Eyes: Eyes: Reports as per HPI and Reports no additional eye complaints ENT: Reports system reviewed and no additional complaints, except as documented and Reports as per HPI Cardiovascular: Cardiovascular: Reports as per HPI and Reports no additional cardiovascular complaints Respiratory: Respiratory: Reports as per HPI, Reports chest congestion, Reports cough, Reports dyspnea and Reports wheezing Gastrointestinal: Gastrointestinal: Reports as per HPI and Reports no additional gastrointestinal complaints Genitourinary: Genitourinary: Reports no additional male genitourinary complaints and Reports as per HPI Musculoskeletal: Musculoskeletal: Reports back pain Comments: severe lumbar back pain since September. His back pain became he started working out dose today Integumentary/Breasts: Skin/Breast: Reports system reviewed and no additional complaints, except as docu Neurologic: Reports system reviewed and no additional complaints, except as documented and Reports as per HPI Psychiatric: Psychiatric: Reports no additional psychiatric complaints and Reports as per HPI Endocrine: Endocrine: Reports no additional endocrine complaints and Reports as per HPI Hematologic/Lymphatic: Hematologic/Lymphatic: Reports no additional hematologic/lymphatic complaints and Reports as per HPI Allergic/Immunologic: Allergic/Immunologic: Reports no additional allergic/immunologic complaints and Reports as per HPI PMFSH Past Medical History Medical History Myocardial infarction acute Surgical History Surgical History H/O elbow surgery H/O knee surgery Family History Family History Father CAD in [place] artery Mother CHF exacerbation Social History Social History Smoking packs per day: 1 Smoking cigarettes per day: 20.0 Years smoked: 60 Smoking pack-years: 60.00 Smoking status: Current every day smoker Tobacco type: cigarettes Alcohol intake: former Substance use: never Gender identity (if verbalized by the patient): Male Sexual Or
--- NOTE | 2021-12-18 19:56 | ECG_ITS ---
Measurements Intervals [place] Rate: 62 P: 80 IA: 131 QRS: 75 QRSD: 98 T: 76 QT: 415 QTc: 424 Interpretive Statements SINUS RHYTHM INCOMPLETE RIGHT BUNDLE BRANCH BLOCK LOW QRS VOLTAGE IN PRECORDIAL LEADS ST ELEVATION IN ANT/INF LEADS- PROBABLY EARLY REPOLARIZATION ABNORMALITY BASELINE ARTIFACT- I, II, III, V1-V4 BORDERLINE ECG Electronically Signed On 12-18-2021 20:42:55 CDT by Hector Vicente D.O.
[2021-12-18 20:05] VITALS: PULSE 64
[2021-12-18] MEDS: IPRATROPIUM 0.5 MG/ALBUTEROL SULFATE 2.5 MG AMPUL.NEB 3 ML INHALATION (20:06)
[2021-12-18 20:10] LABS: Basophils Absolute Auto 0.04 K/mm3 (0.00-0.10); Basophils Percent Auto 0.6 % (0.0-1.0); Eosinophils Absolute Auto 0.27 K/mm3 (0.02-0.50); Eosinophils Percent Auto 4.4 % (1.0-6.0); Hematocrit 37.3 % (37.0-46.0); Hemoglobin 11.7 g/dL (12.4-15.3); Immature Granulocyte Absolute 0.03 K/mm3 (0.00-0.00); Immature Granulocyte Percent A 0.5 % (0.0-0.0); Lymphocytes Absolute Auto 1.54 K/mm3 (1.10-4.50); Mean Corpuscular HGB Conc 31.4 g/dL (32.0-36.0); Mean Corpuscular Volume 98.7 fL (78.0-102.0); Mean Platelet Volume 11.5 fl (8.7-11.0); Monocytes Absolute Auto 0.54 K/mm3 (0.10-0.90); Monocytes Percent Auto 8.8 % (2.0-11.0); Neutrophils Absolute Auto 3.8 K/mm3 (1.7-7.2); Neutrophils Percent Auto 60.7 % (50.0-70.0); Platelet Count Result 161 K/mm3 (150-420); Red Blood Count 3.78 M/mm3 (4.70-6.10); Red Cell Distribution Width 13.9 % (11.6-14.4); White Blood Count 6.2 K/mm3 (4.8-10.8)
[2021-12-18 20:14] VITALS: PULSE 60; RESP 20; O2SAT 100
[2021-12-18] MEDS: KETOROLAC 30 MG/ML VIAL (*BKC) IV PUSH (20:15)
[2021-12-18 20:25] LABS: Partial Thromboplastin Time 25.8 SEC (23.90-30.70); Prothrombin Time 10.4 Seconds (9.50-12.10)
[2021-12-18 20:29] LABS: D Dimer 0.61 mg/L (0.19-0.50)
[2021-12-18 20:33] LABS: Alanine Aminotransferase 22 U/L (16-63); Albumin Level 3.5 g/dL (3.4-5.0); Alkaline Phosphatase 103 U/L (46-116); Anion Gap 5 mmol/L (8-16); Aspartate Amino Transferase 20 U/L (15-37); Bilirubin,Total 0.3 mg/dL (0.00-1.00); Blood Urea Nitrogen 29 mg/dL (7-18); Calcium 8.8 mg/dL (8.5-10.1); Carbon Dioxide 33 mmol/L (21-32); Chloride 103 mmol/L (98-108); Estimated CRCL calculation 43 ml/min; Estimated Glomerular Filt Rate > 60; Glucose 94 mg/dL (70-99); NT Pro B Type Natriuretic Pept 79 pg/mL (0-450); Osmolality Calculated 297 mOsm/kg (285-295); Potassium 3.7 mmol/L (3.5-5.1); Sodium 141 mmol/L (136-145); Total Protein 6.2 g/dL (6.4-8.2); Troponin I 10.1 ng/L (0.00-60.4)
[2021-12-18 21:05] VITALS: BP 119/72; PULSE 68; RESP 20; O2SAT 97
[2021-12-18 21:18] LABS: Add Urine Microscopic? YES; Appearance Urine Clear (Clear); Bilirubin Urine 1+ (Negative); Blood Urine Negative (Negative); Color Urine Dark Yellow (Yellow); Glucose Urine UA Negative (Negative); Ketones Urine Negative (Negative); Leukocyte Esterase Ur Negative (Negative); Nitrate Urine Negative (Negative); Protein Urine Trace (Negative); Specific Grav Ur >= 1.030 (1.010-1.020); Urobilinogen Urine 0.2 mg/dL (0.2-1.0); pH Urine 5.5 (5.0-8.0)
[2021-12-18 21:22] LABS: Bacteria Urine Trace /hpf; Mucus Urine Heavy /lpf; RBC Urine 0-2 /hpf (0-2); WBC Urine 0-3 /hpf (0-3)
[2021-12-18] MEDS: LACTATED RINGERS 500 ML 999 ML IV CONT (21:27)
[2021-12-18 22:17] VITALS: BP 119/68; PULSE 61; RESP 20; O2SAT 97
[2021-12-18 22:20] VITALS: BP 122/70; PULSE 65; RESP 20; TEMP 36.6; O2SAT 98
== END 2021-12-18 22:36 | disposition home or self-care (01) ==
PROVIDERS: Emergency Provider Internal Medicine Critical Care Medicine
DX: J44.1 Chronic obstructive pulmonary disease with (acute) exacerbation (principal); S32.039A Unspecified fracture of third lumbar vertebra, initial encounter for closed fracture; S32.049A Unspecified fracture of fourth lumbar vertebra, initial encounter for closed fracture; F17.200 Nicotine dependence, unspecified, uncomplicated
CPT/HCPCS: 36415; 71045; 71275; 72100; 80053; 81001; 83880; 84484; 85025; 85380; 85610; 85730; 93005; 94640; 96361; 96374; 99284; J1885; J7120; Q9967

== ENCOUNTER 2022-01-01 21:21 | Emergency (ER) | payer MEDICARE, SELFPAY ==
--- NOTE | ~2022-01-01 | XR_ITS ---
XR chest 1V portable DATE: 01/01/2022 23:17 INDICATION: Dyspnea. COPD. TECHNIQUE: Portable upright AP chest on 01/01/2022 at 2322 hours COMPARISON: 12/18/2021 CTA chest FINDINGS: There is mild atelectasis at the lung bases, right greater than left. Bilateral hyperinflation consistent with COPD. Heart size appears normal. Is aortic calcification and mild unfolding. Prominent central pulmonary arteries, suggesting pulmonary hypertension. Diffuse osteopenia. IMPRESSION: Mild infiltrate or atelectasis at the lung bases, greater on the right COPD with suggestion of pulmonary hypertension Aortic atherosclerosis Osteopenia Reviewed, dictated and finalized at [facility]. IMPRESSION: Mild infiltrate or atelectasis at the lung bases, greater on the ri ght COPD with suggestion of pulmonary hypertension Aortic atherosclerosis Osteopenia
[2022-01-01 22:26] VITALS: BP 115/66; PULSE 75; RESP 19; TEMP 36.6; O2SAT 97
[2022-01-01 22:30] VITALS: BP 109/67; PULSE 53; RESP 17; O2SAT 96
[2022-01-01 23:01] VITALS: BP 117/74; PULSE 55; RESP 16; O2SAT 100
--- NOTE | 2022-01-01 23:03 | ECG_ITS ---
Measurements Intervals [place] Rate: 55 P: 85 ME: 151 QRS: 12 QRSD: 92 T: 71 QT: 354 QTc: 339 Interpretive Statements SINUS BRADYCARDIA NONSPECIFIC ST AND T-WAVE ABNORMALITIES ABNORMAL ECG COMPARED TO ECG 12/18/2021 20:11:17 SINUS BRADYCARDIA NOW PRESENT T-WAVE ABNORMALITY NOW PRESENT Electronically Signed On 01-02-2022 10:02:36 CDT by Beto Owens M.D.
[2022-01-01 23:32] LABS: Base Excess ABG 4.5 mmol/L (0-2); HCO3 ABG 29.7 mmol/L (23-29); Oxygen Content ABG 16.3 %vol (16.0-22.0); Oxygen Saturation ABG 94.5 % (95-97); Oxyhemoglobin 93.8 % (94-100); PCO2 ABG 46.9 mmHg (35-45); Total Hemoglobin 12.3 g/dL (12.0-18.0); pH ABG 7.42 (7.35-7.45)
[2022-01-01 23:35] LABS: Basophils Absolute Auto 0.01 K/mm3 (0.00-0.10); Basophils Percent Auto 0.2 % (0.0-1.0); Eosinophils Absolute Auto 0.19 K/mm3 (0.02-0.50); Eosinophils Percent Auto 3.3 % (1.0-6.0); Hematocrit 35.5 % (37.0-46.0); Hemoglobin 11.3 g/dL (12.4-15.3); Immature Granulocyte Absolute 0.02 K/mm3 (0.00-0.00); Immature Granulocyte Percent A 0.3 % (0.0-0.0); Lymphocytes Absolute Auto 0.72 K/mm3 (1.10-4.50); Lymphocytes Percent Auto 12.4 % (18.0-42.0); Mean Corpuscular HGB Conc 31.8 g/dL (32.0-36.0); Mean Corpuscular Hemoglobin 30.9 pg (27.0-31.0); Mean Platelet Volume 10.7 fl (8.7-11.0); Monocytes Absolute Auto 0.45 K/mm3 (0.10-0.90); Monocytes Percent Auto 7.8 % (2.0-11.0); Neutrophils Absolute Auto 4.4 K/mm3 (1.7-7.2); Platelet Count Result 186 K/mm3 (150-420); Red Blood Count 3.66 M/mm3 (4.70-6.10); Red Cell Distribution Width 14.3 % (11.6-14.4); White Blood Count 5.8 K/mm3 (4.8-10.8)
[2022-01-01 23:39] LABS: Device NASAL CANNULA; Modified Allen's Test Pass; Site Drawn RIGHT RADIAL
[2022-01-01] MEDS: ACETAMINOPHEN 325 MG TABLET 650 MG PO (23:44)
[2022-01-01 23:58] LABS: Alanine Aminotransferase 23 U/L (16-63); Albumin Level 3.4 g/dL (3.4-5.0); Alkaline Phosphatase 134 U/L (46-116); Anion Gap 4 mmol/L (8-16); Aspartate Amino Transferase 22 U/L (15-37); Bilirubin,Total 0.4 mg/dL (0.00-1.00); Blood Urea Nitrogen 36 mg/dL (7-18); CRP < 0.2 mg/dL (0.0-0.9); Calcium 8.9 mg/dL (8.5-10.1); Carbon Dioxide 34 mmol/L (21-32); Chloride 101 mmol/L (98-108); D Dimer 0.74 mg/L (0.19-0.50); Estimated CRCL calculation 40 ml/min; Estimated Glomerular Filt Rate > 60; Glucose 110 mg/dL (70-99); Magnesium 2.4 mg/dL (1.8-2.4); NT Pro B Type Natriuretic Pept 118 pg/mL (0-450); Osmolality Calculated 297 mOsm/kg (285-295); Potassium 3.9 mmol/L (3.5-5.1); Sodium 139 mmol/L (136-145); Total Protein 6.3 g/dL (6.4-8.2); Troponin I 11.2 ng/L (0.00-60.4)
[2022-01-02] VITALS: BP 116/64; PULSE 54; RESP 15; O2SAT 98
--- NOTE | 2022-01-02 00:04 | ED.GENADULT ---
HPI - General Adult General Chief complaint: Shortness of Breath/Dyspnea Stated complaint: AMB History of Present Illness HPI narrative: The patient is a 76-year-old male with history of COPD, who continues to smoke but has decreased his cigarette use significantly. He will use 1 cigarette today. He is normally on 2 L nasal cannula for COPD, and he increases that as needed. Has a history of a myocardial infarction. He was seen here 12/18/2021 for COPD exacerbation. At that time, the D-dimer was minimally elevated. CT scan of the lungs revealed no pulmonary embolus or significant pneumonia. He was discharged home on prednisone. He now returns with worsening shortness of breath over the last 1-2 days. EMS was notified. He was given an albuterol treatment on route. He is placed on 5 L nasal cannula with saturations of 90% arrival. He did have wheezing. He also has back pain at the site of a lumbar compression fracture that was diagnosed recently and a CT scan of the chest. He has dyspnea, and a cough but it is nonproductive. He feels fatigued. No chest pain or pressure. No abdominal pain. No nausea vomiting. No fevers or chills or diaphoresis or rhinorrhea or nasal congestion or sore throat or urinary symptoms. Related Data Home Medications Medication Instructions Recorded Confirmed ipratropium 0.5 mg-albuterol 3 mg 3 ml inhalation Q4-5H PRN 10/04/19 01/01/22 (2.5 mg base)/3 mL nebulization Shortness Of Breath soln ipratropium 20 mcg-albuterol 100 2 puff inhalation DAILY 10/04/21 01/01/22 mcg/actuation mist for inhalation (Combivent Respimat) Allergies Allergy/AdvReac Type Severity Reaction Status Date / Time levofloxacin AdvReac Intermediate Other Verified 01/01/22 22:25 Review of Systems Review of Systems: All systems reviewed & are unremarkable except as noted in HPI and below Constitutional: Constitutional: Reports no additional constitutional complaints, Denies anorexia, Denies body ache(s), Denies chills, Denies excessive sweating, Reports fatigue, Denies fever(s), Denies frequent falls, Denies headache(s), Reports malaise and Denies poor appetite Eyes: Eyes: Reports no additional eye complaints, Denies blurry vision, Denies change in vision, Denies irritation, Denies itchy eyes and Denies photophobia ENT: Reports system reviewed and no additional complaints, except as documented, Reports Normal hearing present, Denies change in voice, Denies dysphagia, Denies vertigo, Denies dizziness, Denies ear discharge, Denies headache(s), Denies hearing loss, Denies hoarseness, Denies nasal congestion, Denies neck pain, Denies sinus pressure, Denies sore throat and Denies throat swelling Cardiovascular: Cardiovascular: Reports no additional cardiovascular complaints, Denies chest pain, Denies syncope, Denies rapid heart rate, Denies irregular heart rhythm, Denies leg edema, Reports dyspnea and Denies slow heart rate Respiratory: Respiratory: Reports no additional respiratory complaints, Reports cough, Reports dyspnea, Denies stridor and Reports wheezing Gastrointestinal: Gastrointestinal: Reports no additional gastrointestinal complaints, Denies abdominal pain, Denies melena, Denies hematochezia, Denies dysphagia, Denies diarrhea, Denies nausea and Denies vomiting Genitourinary: Genitourinary: Denies hematuria, Denies oliguria, Denies dysuria, Denies flank pain, Denies urinary frequency and Denies urinary urgency Musculoskeletal: Musculoskeletal: Reports no additional musculoskeletal complaints, Denies abnormal gait, Denies back pain, Denies myalgias, Denies arthralgias, Denies joint swelling, Denies limited range of motion, Denies muscle cramps, Denies muscle weakness, Denies neck pain and Denies numbness Integumentary/Breasts: Skin/Breast: Reports system reviewed and no additional complaints, except as docu, Denies breast pain, Denies change in pigmentation, Denies pruritus, Denies erythema and Denies wounds Neur
[2022-01-02 00:13] LABS: Influenza A QL RT-PCR Negative (Negative); Influenza B QL RT-PCR Negative (Negative); SARS-CoV-2 RNA PCR Negative (Negative)
[2022-01-02 00:14] LABS: Lactic Acid Reflex 0.8 mmol/L (0.4-2.0)
[2022-01-02] MEDS: IPRATROPIUM 0.5 MG/ALBUTEROL SULFATE 2.5 MG AMPUL.NEB 3 ML INHALATION (00:23)
[2022-01-02 00:24] VITALS: PULSE 57; RESP 16; O2SAT 94
[2022-01-02] MEDS: methylPREDNISolone SOD SUCC 125 MG VIAL IV PUSH (00:28)
[2022-01-02] MEDS: MAGNESIUM SULF 2 GM/WATER 50ML 2 GM/50 ML BAG IVPB (00:29)
[2022-01-02 00:35] VITALS: PULSE 49; RESP 16
[2022-01-02 00:49] LABS: Erythrocyte Sedimentation Rate 22 mm/hr (0-20)
[2022-01-02 01:01] VITALS: BP 114/73; PULSE 53; RESP 16; O2SAT 96
[2022-01-02] MEDS: AZITHROMYCIN 250 MG TABLET 500 MG PO (01:17)
[2022-01-02 01:56] VITALS: BP 121/70; PULSE 53; RESP 17; TEMP 36.3; O2SAT 95
== END 2022-01-02 01:59 | disposition home or self-care (01) ==
PROVIDERS: Emergency Provider Emergency Medicine
DX: J44.1 Chronic obstructive pulmonary disease with (acute) exacerbation (principal); J18.9 Pneumonia, unspecified organism; Z20.822 Contact with and (suspected) exposure to COVID-19; F17.200 Nicotine dependence, unspecified, uncomplicated
CPT/HCPCS: 36600; 71045; 80053; 82805; 83605; 83735; 83880; 84484; 85025; 85380; 85652; 86140; 87502; 93005; 94640; 96365; 96367; 96375; 99284; A9270; C9803; J0692; J2930; J3475; U0003; U0005

== ENCOUNTER 2022-01-24 10:11 | Outpatient (CLI) | payer MEDICARE, SELFPAY ==
--- NOTE | ~2022-01-24 | DEXA_ITS ---
Bone Density Report Name: MARCELLO FERGUSON Age: 76 Sex: Male Ethnicity: White Date of : 1945 Indication: screening for osteoporosis; Referring Provider: Rigo Jules Study: Bone densitometry was performed. Exam Date: January 24, 2022 Accession number: [id number] Bone Density: Region BMD T-score Z-score Classification AP Spine(L1-L4) 0.692 -3.6 -2.5 Osteoporosis Femoral Neck (Left) 0.483 -3.3 -1.9 Osteoporosis Total Hip (Left) 0.618 -2.7 -1.8 Osteoporosis Femoral Neck (Right) 0.527 -3.0 -1.5 Osteoporosis Total Hip (Right) 0.647 -2.6 -1.6 Osteoporosis Femoral Neck Mean 0.505 -3.1 -1.7 Osteoporosis Total Hip Mean 0.633 -2.6 -1.7 Osteoporosis World Health Organization criteria for BMD impression classify patients as: Normal (T-score at or above -1.0), Osteopenia (T-score between -1.0 and -2.5), or Osteoporosis (T-score at or below -2.5). 10-year Fracture Risk: FRAX not reported because: Some T-score for Spine Total or Hip Total or Femoral Neck at or below -2.5 Clinical Information Provided by Patient: Smokes Patient maximum height was 66 No regular weight bearing exercise Drinks caffeinated beverages Impression: The patient has osteoporosis, based on the Total Spine T-score. The patient has risk factors, including: smoking. Discussion: HIGH RISK OF FRACTURE. BONE DENSITY IS UNDESIRABLY LOW AT ONE OR MORE SKELETAL SITES, CONSISTENT WITH OSTEOPOROSIS. ALSO, BONE DENSITY IS LOWER THAN EXPECTED FOR AGE, SEX AND RACE AT ONE OR MORE SKELETAL SITES; RECOMMEND A DILIGENT SEARCH FOR SECONDARY CAUSES OF BONE LOSS. This patient's lowest T-score meets the World Health Organization's (WHO) criteria for osteoporosis at one or more sites (T-score -2.5 or below). In untreated patients, the risk of osteoporotic fracture increases approximately two-fold for each 1.0 SD decrease in T-score. Low bone density is not the only risk factor for fracture; also consider factors such as patient's age, frailty or poor health, risk of falling, risk of injury, previous osteoporotic fracture, family history of osteoporosis, cigarette smoking, low body weight, etc. Not everyone with low bone mineral density has osteoporosis; osteomalacia and other metabolic bone disorders should also be considered. Patients who have osteoporosis should be evaluated for specific diseases and conditions (secondary causes) that may cause or contribute to bone loss. The National Osteoporosis Foundation (NOF) recommends pharmacologic intervention for men with BMD at this level (a T-score of -2.5 or below). Also, this patient's bone mineral density is below the range considered normal for healthy age-, sex and race-matched controls at least one site (Z-score -2.0 or below). This warrants careful evaluation for diseases and condit
== END 2022-01-24 10:12 | disposition home or self-care (01) ==
LOC: CHSIMG 10:13
PROVIDERS: PCP Family Medicine; Visit Provider Family Medicine
DX: M48.56XA Collapsed vertebra, not elsewhere classified, lumbar region, initial encounter for fracture (principal)
CPT/HCPCS: 77080

== ENCOUNTER 2022-05-11 17:04 | Observation (INO) | payer MEDICARE, SELFPAY ==
[2022-05-11] VITALS (8 sets, daily range): BP systolic 136–152; BP diastolic 66–86; PULSE 54–85; RESP 18–26; TEMP 36.3–36.7; O2SAT 95–98; BMI 17.8
--- NOTE | ~2022-05-11 | XR_ITS ---
EXAMINATION: XR chest 1V portable DATE: 05/11/2022 17:51 INDICATION: Dyspnea, cough and wheezing TECHNIQUE: frontal view of the chest was obtained. COMPARISON: Chest radiograph dated 01/01/2022 FINDINGS: No interval change in mild linear discoid atelectasis/scarring at the bilateral lower lung zones. No new airspace opacities, pulmonary edema, pleural effusion or pneumothorax. The cardiomediastinal silh ouette is normal. A couple chronic midthoracic compression fractures. IMPRESSION: 1. Unchanged mild linear discoid atelectasis/scarring at the bilateral lower lung zones. Reviewed, dictated and finalized at location A. IMPRESSION: 1. Unchanged mild linear discoid atelectasis/scarring at the bilateral lower rain ng zones.
--- NOTE | ~2022-05-11 | CT_ITS ---
EXAMINATION: CTA chest PE protocol DATE: 05/12/2022 11:17 INDICATION: Shortness of breath TECHNIQUE: Computed tomography angiography (CTA) of the chest was performed with 100 mL Omnipaque-350 intravenous contrast timed to evaluate the pulmonary arteries. Coronal maximum intensity projection 3D-reconstructions were created by the technologist. The dose-length product (DLP) was 262.16 mGy-cm. Automated exposure control and iterative reconstruction technique were employed. COMPARISON: 12/18/2021 FINDINGS: The pulmonary arteries are well-opacified. No pulmonary embolism is identified. There is mo derate emphysema. There is mild atelectasis of the lower lobes. No pleural effusion or pneumothorax. No pathologically enlarged thoracic lymph nodes are identified. The heart size is normal. There are m ultiple compression fractures of thoracic spine. There is a new burst fracture of T12 and a worsening compression fracture of L2. There are multiple healing right-sided rib fractures IMPRESSION: 1. No pulmonary embolus. 2. Mild atelectasis of the lower lobes. 3. New burst fracture of T12 an multiple healing right-sided rib fractures. Reviewed, dictated and finalized at location F.
--- NOTE | 2022-05-11 17:32 | ED.GENADULT ---
HPI - General Adult General Chief complaint: Shortness of Breath/Dyspnea Stated complaint: ambulance Time Seen by Provider: 05/11/22 17:15 History of Present Illness HPI narrative: The patient is a 76-year-old male with a history of COPD, on 2 L oxygen most of the time. He does continue to smoke. He presents with a chronic smoker's cough which is nonproductive. Over the last 2-3 days, the patient has experienced worsening dyspnea. He is taking his nebulizers that he uses at home but he still has shortness of breath. he called EMS due to worsening dyspnea as well as chest discomfort. The discomfort is located in his ribs as he coughs. It is worse by deep breathing or coughing. He does have wheezing. He is referred here for further evaluation by EMS. EMS administered Solu-Medrol 125 mg and increase his oxygen from 2 L to 4 L. One DuoNeb was also administered. He does have compression fractures of the lumbar spine as noted on the CT PE protocol November 2021. He has intermittent spasms of the mid thoracic back. The patient denies any fevers or chills or diaphoresis. No abdominal pain. No nausea vomiting. No other complaints. Related Data Home Medications Medication Instructions Recorded Confirmed ipratropium 0.5 mg-albuterol 3 mg 3 ml inhalation Q4-5H PRN 10/04/19 05/11/22 (2.5 mg base)/3 mL nebulization Shortness Of Breath soln ipratropium 20 mcg-albuterol 100 2 puff inhalation DAILY 10/04/21 05/11/22 mcg/actuation mist for inhalation (Combivent Respimat) Allergies Allergy/AdvReac Type Severity Reaction Status Date / Time levofloxacin AdvReac Intermediate Other Verified 05/11/22 17:15 Review of Systems Review of Systems: All systems reviewed & are unremarkable except as noted in HPI and below Constitutional: Constitutional: Reports no additional constitutional complaints, Denies body ache(s), Denies chills, Denies excessive sweating, Reports fatigue, Denies fever(s), Denies frequent falls, Denies headache(s), Reports malaise and Denies poor appetite Eyes: Eyes: Reports no additional eye complaints, Denies blurry vision, Denies change in vision, Denies irritation, Denies itchy eyes and Denies photophobia ENT: Reports system reviewed and no additional complaints, except as documented, Reports Normal hearing present, Denies change in voice, Denies dysphagia, Denies vertigo, Denies dizziness, Denies ear discharge, Denies headache(s), Denies hearing loss, Denies hoarseness, Denies nasal congestion, Denies neck pain, Denies sinus pressure, Denies sore throat and Denies throat swelling Cardiovascular: Cardiovascular: Reports no additional cardiovascular complaints, Reports chest pain, Denies syncope, Denies rapid heart rate, Denies irregular heart rhythm, Denies leg edema, Denies radiating jaw, neck or arm pain, Denies dyspnea and Denies slow heart rate Respiratory: Respiratory: Reports no additional respiratory complaints, Reports chest congestion, Reports cough, Reports dyspnea, Denies stridor and Reports wheezing Gastrointestinal: Gastrointestinal: Reports no additional gastrointestinal complaints, Denies abdominal pain, Denies melena, Denies hematochezia, Denies dysphagia, Denies diarrhea, Denies nausea and Denies vomiting Genitourinary: Genitourinary: Denies hematuria, Denies oliguria, Denies dysuria, Denies flank pain, Denies urinary frequency and Denies urinary urgency Musculoskeletal: Musculoskeletal: Reports no additional musculoskeletal complaints, Reports abnormal gait, Reports back pain, Denies myalgias, Denies arthralgias, Denies joint swelling, Denies limited range of motion, Reports muscle cramps, Denies muscle weakness, Denies neck pain and Denies numbness Integumentary/Breasts: Skin/Breast: Reports system reviewed and no additional complaints, except as docu, Denies breast pain, Denies change in pigmentation, Denies pruritus, Denies erythema and Denies wounds Neurologic: Reports system reviewed and no addition
--- NOTE | 2022-05-11 17:37 | ECG_ITS ---
Measurements Intervals [place] Rate: 58 P: 69 NM: 154 QRS: -34 QRSD: 92 T: 52 QT: 362 QTc: 357 Interpretive Statements SINUS BRADYCARDIA WITH OCCASIONAL VENTRICULAR PREMATURE COMPLEXES LEFT AXIS DEVIATION [QRS AXIS < -30] LOW QRS VOLTAGE IN PRECORDIAL LEADS [QRS DEFLECTION < 1.0 mV IN CHEST LEADS] NONSPECIFIC T-WAVE CHANGES BASELINE ARTIFACT COMPARED TO ECG 01/01/2022 23:13:39 NO SIGNIFICANT CHANGE Electronically Signed On 05-11-2022 18:56:55 CDT by Cielo Sharif M.D.
[2022-05-11] MEDS: MORPHINE SULFATE (*CRX) 4 MG/ML INJ IV PUSH ×2 (17:59→20:34)
[2022-05-11] MEDS: MAGNESIUM SULF 2 GM/WATER 50ML 2 GM/50 ML BAG IVPB (18:01)
[2022-05-11] MEDS: IPRATROPIUM 0.5 MG/ALBUTEROL SULFATE 2.5 MG AMPUL.NEB 3 ML INHALATION (18:04)
[2022-05-11 18:25] LABS: Base Excess ABG 3.4 mmol/L (0-2); HCO3 ABG 28.8 mmol/L (23-29); Oxygen Saturation ABG 96.9 % (95-97); Oxyhemoglobin 95.1 % (94-100); PCO2 ABG 46.8 mmHg (35-45); Total Hemoglobin 13.4 g/dL (12.0-18.0); pH ABG 7.41 (7.35-7.45)
[2022-05-11 18:26] LABS: Basophils Absolute Auto 0.02 K/mm3 (0.00-0.10); Basophils Percent Auto 0.4 % (0.0-1.0); Device NASAL CANNULA; Eosinophils Absolute Auto 0.09 K/mm3 (0.02-0.50); Eosinophils Percent Auto 1.9 % (1.0-6.0); Hematocrit 36.2 % (37.0-46.0); Hemoglobin 11.6 g/dL (12.4-15.3); Immature Granulocyte Absolute 0.02 K/mm3 (0.00-0.00); Immature Granulocyte Percent A 0.4 % (0.0-0.0); Lymphocytes Absolute Auto 0.45 K/mm3 (1.10-4.50); Lymphocytes Percent Auto 9.5 % (18.0-42.0); Mean Corpuscular Hemoglobin 31.8 pg (27.0-31.0); Mean Corpuscular Volume 99.2 fL (78.0-102.0); Modified Allen's Test Pass; Monocytes Absolute Auto 0.21 K/mm3 (0.10-0.90); Monocytes Percent Auto 4.4 % (2.0-11.0); Neutrophils Percent Auto 83.4 % (50.0-70.0); Platelet Count Result 154 K/mm3 (150-420); Red Blood Count 3.65 M/mm3 (4.70-6.10); Red Cell Distribution Width 13.4 % (11.6-14.4); Site Drawn RIGHT RADIAL; White Blood Count 4.7 K/mm3 (4.8-10.8)
[2022-05-11 18:48] LABS: D Dimer 0.52 mg/L (0.19-0.50)
[2022-05-11 18:55] LABS: Alanine Aminotransferase 21 U/L (16-63); Albumin Level 3.5 g/dL (3.4-5.0); Alkaline Phosphatase 101 U/L (46-116); Anion Gap 6 mmol/L (8-16); Aspartate Amino Transferase 24 U/L (15-37); Bilirubin,Total 0.1 mg/dL (0.00-1.00); Blood Urea Nitrogen 32 mg/dL (7-18); Calcium 8.6 mg/dL (8.5-10.1); Carbon Dioxide 33 mmol/L (21-32); Chloride 107 mmol/L (98-108); Estimated CRCL calculation 38 ml/min; Estimated Glomerular Filt Rate > 60; Glucose 135 mg/dL (70-99); Magnesium 2.2 mg/dL (1.8-2.4); NT Pro B Type Natriuretic Pept 190 pg/mL (0-450); Osmolality Calculated 310 mOsm/kg (285-295); Potassium 3.4 mmol/L (3.5-5.1); Sodium 146 mmol/L (136-145); Total Protein 6.3 g/dL (6.4-8.2); Troponin I 16.9 ng/L (0.00-60.4)
[2022-05-11 18:59] LABS: CRP < 0.5 mg/dL (0.0-0.9)
[2022-05-11 19:31] LABS: SARS-CoV-2 RNA PCR Negative (Negative)
[2022-05-11 19:41] LABS: Erythrocyte Sedimentation Rate 18 mm/hr (0-20)
[2022-05-11] MEDS: POTASSIUM BICARBONATE 25 MEQ TABEF 50 MEQ PO (19:49)
--- NOTE | 2022-05-11 19:59 | PC.NURSE ---
Addendum entered by Malena Jesus RN 05/11/22 20:00: spasms when attempted to get from stretcher to w/c to go home. pt states he will not beable to go home like this, in so much pain. pt requesting to speak with the er physician and requesting to be admitted. erp notified and will be at bedside masood to discuss plan of care. Original Note: pt treatment completed. discharge instructions provided and signed by pt. pt c/o of sever back
--- NOTE | 2022-05-11 20:05 | PC.NURSE ---
pt's friend toni is at bedside conversing with pt. pt sitting on bedside waiting erp
[2022-05-11] MEDS: ORPHENADRINE CITRATE 30 MG/ML 2 ML VIAL 60 MG IV PUSH (20:35)
--- NOTE | 2022-05-11 20:38 | PC.NURSE ---
bp - 139/79. pt denies pain at this time after morphine administered.
--- NOTE | 2022-05-11 21:18 | ADMGEN ---
This patient, Edgardo Cain, was admitted to 2nd Floor Room 226-2. Patient/family oriented to hospital policies and general routines including ID bracelet, bed and alarms, visiting hours, pain management, procedures, bathroom and other care routines, personal items, smoking policy, room service/diet, and visiting hours. Information on how to activate the Rapid Response Team has been discussed. Patient/Family are encouraged to report perceived risks to care and to ask questions if they do not understand what they are told or what they should do.
[2022-05-11] MEDS: guaiFENesin 12 HR 600 MG TABCR PO (21:50)
[2022-05-11] MEDS: methylPREDNISolone SOD SUCC 40 MG VIAL IV PUSH (21:52)
[2022-05-11] MEDS: BENZONATATE 100 MG CAPSULE 200 MG PO (21:52)
[2022-05-12] VITALS (12 sets, daily range): BP systolic 130–142; BP diastolic 65–84; PULSE 47–78; RESP 12–20; TEMP 36.5–37; O2SAT 95–100
[2022-05-12] MEDS: IPRATROPIUM 0.5 MG/ALBUTEROL SULFATE 2.5 MG AMPUL.NEB 3 ML INHALATION ×3 (00:13→12:10)
[2022-05-12 05:47] LABS: Hematocrit 37.9 % (37.0-46.0); Hemoglobin 11.6 g/dL (12.4-15.3); Mean Corpuscular HGB Conc 30.6 g/dL (32.0-36.0); Mean Corpuscular Hemoglobin 30.5 pg (27.0-31.0); Mean Corpuscular Volume 99.7 fL (78.0-102.0); Mean Platelet Volume 11.7 fl (8.7-11.0); Platelet Count Result 154 K/mm3 (150-420); Red Cell Distribution Width 13.2 % (11.6-14.4); White Blood Count 5.7 K/mm3 (4.8-10.8)
[2022-05-12 06:04] LABS: Alanine Aminotransferase 18 U/L (16-63); Albumin Level 3.4 g/dL (3.4-5.0); Alkaline Phosphatase 97 U/L (46-116); Anion Gap 7 mmol/L (8-16); Aspartate Amino Transferase 23 U/L (15-37); Bilirubin,Total 0.2 mg/dL (0.00-1.00); Blood Urea Nitrogen 26 mg/dL (7-18); Calcium 8.5 mg/dL (8.5-10.1); Carbon Dioxide 32 mmol/L (21-32); Chloride 104 mmol/L (98-108); Estimated CRCL calculation 55 ml/min; Estimated Glomerular Filt Rate > 60; Glucose 140 mg/dL (70-99); Magnesium 2.2 mg/dL (1.8-2.4); Osmolality Calculated 302 mOsm/kg (285-295); Potassium 4.4 mmol/L (3.5-5.1); Sodium 143 mmol/L (136-145); Total Protein 6.3 g/dL (6.4-8.2)
[2022-05-12] MEDS: guaiFENesin 12 HR 600 MG TABCR PO ×2 (09:26→21:24)
[2022-05-12] MEDS: BENZONATATE 100 MG CAPSULE 200 MG PO ×3 (09:27→16:59)
--- NOTE | 2022-05-12 09:30 | PC.NURSE ---
Pt short of breath after searching through his personal belongings while laying in bed. Asked Are you sure I'm okay to go home? SOCIAL STUDIES TEACHER notified of situation.
--- NOTE | 2022-05-12 09:45 | PC.NURSE ---
Pt called out yelling that he could not breathe. Refused to put oxygen in nose. Insistent that it only works with nasal canula in mouth. ROOF PANEL HANGER called to room. O2 sat 88-91%. Pt states he can't go home, because he won't be there long.
--- NOTE | 2022-05-12 09:50 | PM.IMHP ---
H&P: HPI History of Present Illness Date/Time: 05/12/22 09:50 Chief Complaint: Shortness of breath dyspnea Narrative: This is a 76-year-old male that presented to the emergency department with complaints of shortness of breath. Patient has a past medical history of COPD home oxygen at 2 L and nicotine dependence. According to patient for the last 2 days he has been experiencing worsening shortness of breath. Patient does have a nebulizer and has increased his use of his nebulizers due to shortness of breath. He also has a chronic uncontrolled cough more than likely due to smoking. Patient did inform me that his passed on Friday which should be causing him more anxiety. Patient was adamant about discharging today according to patient he had things to do and one of them was going to get his urn. While preparing to discharge patient screamed that he cannot breathe his sats were 87 and above which is probably baseline for him. He also continues to complain of back pain and spasms due to a old fracture patient will remain for an additional day. 139/84, 95% on 2 L nasal cannula, 12, 47, 97.7, WBCs 4.7, hemoglobin 11.6, hematocrit 36.2, platelets 154, sodium 146, potassium 3.4, BUN 32, creatinine 0.90, glucose 135, magnesium 2.2, AST 24, ALT 21, total bilirubin 0.1, troponin 16.9, BNP 190, COVID-negative chest x-ray unchanged EKG with sinus bradycardia heart rate of 58 which is not new for patient his last EKG on 01/01/2022 also indicated sinus bradycardia. Patient continues to complain of shortness of breath and back pain. Review of Systems Review of Systems: All systems reviewed & are unremarkable except as noted in HPI and below PMFSH Past Medical History Medical History Myocardial infarction acute Surgical History Surgical History H/O elbow surgery H/O knee surgery Family History Family History Father CAD in [place] artery Mother CHF exacerbation Social History Social History Smoking packs per day: 1 Smoking cigarettes per day: 20.0 Years smoked: 60 Smoking pack-years: 60.00 Smoking status: Heavy tobacco smoker Tobacco type: cigarettes Alcohol intake: former Substance use: never Substance use type: does not use Gender identity (if verbalized by the patient): Male Sexual Orientation (if Verbalized by the Patient): Straight or Heterosexual Spiritual care concerns: No Has the Lack of Transportation Kept You From Medical Appointments or From Getting Medications?: Yes Within the Past 12 Months, Were You Worried Whether Your Food Would Run Out Before You Got Money to Buy More?: Never True What is Your Housing Situation Today?: I Have Housing Are You Worried That in the Next 2 Months, You May Not Have Your Own Housing to Live In?: No Do You Have Trouble Paying Your Heating Or Electricity Bill?: No Do You Have Trouble Paying For Medicines?: No Are You Currently Unemployed and Looking for Work?: No Highest Level of Education Completed: Trade/Vocational Certificate Do You Have Trouble With Childcare or the Care of a Family Member?: No Meds Home Medications and Allergies Home Medications Medication Instructions Recorded Confirmed Type ipratropium 0.5 mg-albuterol 3 mg 3 ml inhalation Q4-5H PRN 10/04/19 05/11/22 History (2.5 mg base)/3 mL nebulization Shortness Of Breath soln arformoterol 15 mcg/2 mL solution 2 ml inhalation BID #120 mL 06/09/20 05/11/22 Rx for nebulization (Brovana) budesonide 0.25 mg/2 mL suspension 0.25 mg (2 mL) inhalation BID #60 06/09/20 05/11/22 Rx for nebulization (Pulmicort) mL ipratropium 20 mcg-albuterol 100 2 puff inhalation DAILY 10/04/21 05/11/22 History mcg/actuation mist for inhalation (Combivent Respimat) benzonatate 1
[2022-05-12] MEDS: HYDROcodone/acetaminophen (*CRX) 5-325 MG TABLET 1 TAB PO (16:58)
[2022-05-12] MEDS: ARFORMOTEROL TARTRATE 15 MCG/2 ML NEB 30 MCG INHALATION (17:53)
[2022-05-12] MEDS: BUDESONIDE RESPULE NEB 0.25 MG/2 ML AMP INHALATION (17:53)
--- NOTE | 2022-05-12 18:50 | PC.NURSE ---
Charting by Radha Perla, student nurse reviewed and agreed with by this nurse.
[2022-05-12] MEDS: traZODone HCL 50 MG TABLET PO (21:24)
[2022-05-12] MEDS: CYCLOBENZAPRINE HCL 10 MG TABLET PO (21:24)
--- NOTE | 2022-05-12 22:28 | PC.NURSE ---
Yasir Mills, Hospitalist notified of CTA results.
[2022-05-13] VITALS: BP 145/72; PULSE 56; RESP 20; TEMP 36.9; O2SAT 98
[2022-05-13] MEDS: HYDROcodone/acetaminophen (*CRX) 5-325 MG TABLET 1 TAB PO ×2 (03:22→13:04)
[2022-05-13 05:32] LABS: Hemoglobin 10.7 g/dL (12.4-15.3); Immature Platelet Fraction Pct 9.3 % (1.0-7.0); Mean Corpuscular HGB Conc 30.6 g/dL (32.0-36.0); Mean Corpuscular Hemoglobin 30.8 pg (27.0-31.0); Mean Corpuscular Volume 100.9 fL (78.0-102.0); Mean Platelet Volume 11.5 fl (8.7-11.0); Platelet Count Result 138 K/mm3 (150-420); Red Blood Count 3.47 M/mm3 (4.70-6.10); Red Cell Distribution Width 13.4 % (11.6-14.4); White Blood Count 5.3 K/mm3 (4.8-10.8)
[2022-05-13 08:00] VITALS: BP 152/71; PULSE 52; RESP 24; TEMP 37.2; O2SAT 100
[2022-05-13] MEDS: BUDESONIDE RESPULE NEB 0.25 MG/2 ML AMP INHALATION (08:03)
[2022-05-13] MEDS: BENZONATATE 100 MG CAPSULE 200 MG PO (08:05)
[2022-05-13] MEDS: guaiFENesin 12 HR 600 MG TABCR PO (08:05)
[2022-05-13 09:13] VITALS: PULSE 57; RESP 18; O2SAT 95
[2022-05-13] MEDS: ARFORMOTEROL TARTRATE 15 MCG/2 ML NEB 30 MCG INHALATION (09:13)
--- NOTE | 2022-05-13 11:09 | PM.DS ---
DS: Admitting Diagnosis Discharge Date 05/13/2022 Admitting Diagnosis copd exacerbation, DS: Discharge Diagnosis Discharge Diagnosis (1) COPD exacerbation: Code(s): J44.1 - Chronic obstructive pulmonary disease with (acute) exacerbation Status: Acute Assessment and Plan: More than like end-stage COPD Patient with 2 L nasal cannula at home Patient continues to Will continue Solu-Medrol along with DuoNeb azithromycin and Rocephin Continue oxygen as needed (2) Anxiety: Code(s): F41.9 - Anxiety disorder, unspecified Status: Acute Assessment and Plan: Due to a recent loss of his Patient will discharge home with Ativan instructed to contact his primary care physician if he experience any depression (3) Back pain: Code(s): M54.9 - Dorsalgia, unspecified Status: Acute Assessment and Plan: Due to low back fractures, found to have a new T12 fracture Will continue pain medication along with muscle relaxant Patient will discharge home with muscle relaxant, [place], abdominal binder for stability to back and a follow-up with orthopedic surgery Patient declined PT OT (4) Shortness of breath: Code(s): R06.02 - Shortness of breath Status: Acute Assessment and Plan: Secondary to COPD and smoking Continue home oxygen COVID-negative (5) Elevated d-dimer: Code(s): R79.89 - Other specified abnormal findings of blood chemistry Status: Acute Assessment and Plan: Chronic elevated D-dimer CTA negative for PE (6) Electrolyte imbalance: Code(s): E87.8 - Other disorders of electrolyte and fluid balance, not elsewhere classified Status: Acute Assessment and Plan: Potassium 3.4>wnl [id number] (7) Nicotine abuse: Code(s): Z72.0 - Tobacco use Status: Acute Assessment and Plan: Educated on sensation (8) T12 burst fracture: Code(s): S22.081A - Stable burst fracture of T11-T12 vertebra, initial encounter for closed fracture Status: Acute Assessment and Plan: CTA indicate T12 burst fx appointment made for orth surgeon to f/u with pt/ot declined by patient Patient will discharge with ABD binder to stabilized back, not able to order TLSO. will need to get from ortho. He will also discharge with pain medication DS: Summary Hospital Course Reason for hospitalization: sob and back pain Hospital Course: This is a 76-year-old male that presented to the emergency department with complaints of shortness of breath.? Patient has a past medical history of COPD home oxygen at 2 L and nicotine dependence.? According to patient for the last 2 days he has been experiencing worsening shortness of breath.? Patient does have a nebulizer and has increased his use of his nebulizers due to shortness of breath.? He also has a chronic uncontrolled cough more than likely due to smoking.? Patient did inform me that his passed on Friday which should be causing him more anxiety.? Patient was adamant about discharging today according to patient he had things to do and one of them was going to get his urn.? While preparing to discharge patient screamed that he cannot breathe and his back hurt . patient was found to have a new t12 fx. He does have a history of having multiple spinal fractures diagnosed with osteoporosis and receives monthly shots. I did speak with patient's primary care physician Dr. Skinner who recommended Dr. Marley is orthopedic surgeon. Dr. May does not see spinal fractures and recommended as a orthopedic surgeon to specialize in spinal fractures. Patient will need to follow-up with the orthopedic surgeon. We will will to get him TLSO patient will discharge home with a abdominal binder for stability. He was instructed to be careful to prevent fall due to the use of narcotics. The patient denies CP, palpitation, extremity numbness, lightheadedness, dizziness, constipatio
[2022-05-13 11:33] VITALS: BP 152/71; PULSE 52; RESP 24; TEMP 37.2; O2SAT 99
[2022-05-13 14:30] VITALS: O2SAT 98
--- NOTE | 2022-05-20 11:13 | PC.NURSE ---
Unable to contact for discharge call back.
== END 2022-05-13 14:30 | disposition home or self-care (01) ==
LOC: CHSED 19:14 → CHS2ND 20:29
PROVIDERS: Nurse Practitioner; Admitting Provider Internal Medicine; Emergency Provider Emergency Medicine; PCP Family Medicine; Visit Provider Internal Medicine
DX: J44.1 Chronic obstructive pulmonary disease with (acute) exacerbation (principal); S22.081A Stable burst fracture of T11-T12 vertebra, initial encounter for closed fracture; E87.8 Other disorders of electrolyte and fluid balance, not elsewhere classified; M81.0 Age-related osteoporosis without current pathological fracture; R79.1 Abnormal coagulation profile; I25.2 Old myocardial infarction; F41.9 Anxiety disorder, unspecified; F17.210 Nicotine dependence, cigarettes, uncomplicated; Z20.822 Contact with and (suspected) exposure to COVID-19; Z99.81 Dependence on supplemental oxygen
CPT/HCPCS: 36415; 36600; 71045; 71275; 80053; 82805; 83735; 83880; 84484; 85025; 85027; 85055; 85380; 85652; 86140; 87040; 93005; 94640; 96365; 96366; 96367; 96368; 96375; 96376; 99285; A9270; C9803; G0378; J0456; J0696; J2270; J2360; J2920; J3475; Q9967; U0003; U0005

== ENCOUNTER 2022-07-17 20:43 | Emergency (ER) | payer MEDICARE, SELFPAY ==
[2022-07-17] VITALS (22 sets, daily range): BP systolic 152–190; BP diastolic 79–103; PULSE 58–79; RESP 20; TEMP 36.7; O2SAT 95–100
--- NOTE | ~2022-07-17 | CT_ITS ---
EXAMINATION: CTA abdomen pelvis DATE: 07/17/2022 22:57 INDICATION: rectal bleeding, abdominal pain TECHNIQUE: Computed tomography (CT) of the abdomen and pelvis was performed with 100 mL Omnipaque-350 intravenous contrast timed to the arterial phase. Automated exposure control and iterative reconstru ction technique were employed. The dose-length product was 271.15 mGy-cm. COMPARISON: CTPA 05/12/2022, CT lumbar spine 10/04/2021. FINDINGS: Lower thorax: Emphysematous change. Right basilar scarring. Liver: Normal. Biliary/Gallbladder: Gallbladder is normal. No bile duct dilation. Pancreas: No mass or duct dilation. Spleen: Normal. Adrenals:No mass. Kidneys: Bilateral cortical thinning. No suspicious mass. No hydronephrosis or obstructing calculus. GI tract: Hyperdense material layering in the dependent gastric fundus. Small focus of mild hyperdens ity projecting over the distal sigmoid (image [id number]). No small or large bowel dilation. Appendix no t visualized and may be surgically absent or obscured by the paucity of abdominal fat. Mesentery/Peritoneum: No ascites, mass, or free air. Retroperitoneum: No mass. Atherosclerotic abdominal aortic and/or arterial calcifications. 3.4 cm fus iform infrarenal abdominal aortic aneurysm. Pelvis: Bladder wall thickening likely secondary to outlet compromise from marked prostatomegaly. Soft Tissues: Soft tissues and body wall unremarkable. Bones: No acute osseous finding. Unchanged T12 compression fracture. Multilevel superior endplate de formities as can be seen with osteoporosis. IMPRESSION: 1. Dependent hyperdensity in the gastric fundus may represent hyperdense ingested material versus con trast extravasation. Correlate with clinical findings and consider referral for endoscopy. 2. Hyperdense focus over the distal sigmoid likely representing normal bowel content noting that smal l volume extravasation could appear similar. If there are symptoms of lower GI bleeding consider a [facility] medicine GI bleeding study. Reviewed, dictated and finalized at location K. SCAPING SUPERVISOR IMPRESSION: 1. Dependent hyperdensity in the gastric fundus may represent hyperdense ingest ed material versus contrast extravasation. Correlate with clinical findings and consider referral for endoscopy. 2. Hyperdense focus over the distal sigmoid likely representing normal bowel co ntent noting that small volume extravasation could appear similar. If there are symptoms of lower GI bleeding consider a nuclear medicine GI bleeding study.
--- NOTE | ~2022-07-17 | XR_ITS ---
EXAMINATION: XR chest 1V portable Exam Date/Time: 07/17/2022 21:12 MOBILE EQUIPMENT OPERATOR HISTORY: dyspnea, diarrhea today hx mi, smoker, on 4L NC Comparison: 05/11/2022. RESULT: Lines, tubes, and devices: None. Lungs and pleura: Emphysematous change. Left basilar scar/atelectasis. Cardiomediastinal silhouette: Stable. Other: No acute osseous or upper abdominal finding. IMPRESSION: No acute cardiopulmonary process. Reviewed, dictated and finalized at location K. LE EQUIPMENT OPERATOR
--- NOTE | 2022-07-17 21:04 | ED.GENADULT ---
HPI - General Adult General Chief complaint: GI Bleed Stated complaint: ambulance Time Seen by Provider: 07/17/22 21:03 History of Present Illness HPI narrative: Edgarod is a 76M with a PMH of COPD, osteoporosis, T12 fx, and previous PR that came in with rectal bleeding. He reports that he has been on the toilet with watery diarrhea all day. About 2 hours ago he noticed blood coming from his rectum and it was on the floor. After this he called EMS. He admits being tired and having some dyspnea but no chest pain, vomiting, fevers, chills or cough. Related Data Home Medications Medication Instructions Recorded Confirmed ipratropium 0.5 mg-albuterol 3 mg 3 ml inhalation Q4-5H PRN 10/04/19 07/17/22 (2.5 mg base)/3 mL nebulization Shortness Of Breath soln ipratropium 20 mcg-albuterol 100 2 puff inhalation DAILY 10/04/21 07/17/22 mcg/actuation mist for inhalation (Combivent Respimat) Allergies Allergy/AdvReac Type Severity Reaction Status Date / Time levofloxacin AdvReac Intermediate Other Verified 05/11/22 17:15 Review of Systems Review of Systems: All systems reviewed & are unremarkable except as noted in HPI and below PMFSH Past Medical History Medical History Myocardial infarction acute Surgical History Surgical History H/O elbow surgery H/O knee surgery Family History Family History Father CAD in [place] artery Mother CHF exacerbation Social History Social History Smoking packs per day: 1 Smoking cigarettes per day: 20.0 Years smoked: 60 Smoking pack-years: 60.00 Smoking status: Heavy tobacco smoker Tobacco type: cigarettes Alcohol intake: former Substance use: never Substance use type: does not use Lack of Transportation: YES Lack of Food: Never True Current Housing: I Have Housing Concerned About Future Housing: No Difficulty Paying Gas/Electric Bills: No Difficulty Paying for Meds: No Currently Unemployed: No Education: Trade/Vocational Certificate Difficulty w/ Childcare or Family Care: No Gender identity (if verbalized by the patient): Male Sexual Orientation (if Verbalized by the Patient): Straight or Heterosexual Spiritual care concerns: No Exam Const: General: no acute distress, alert and ill appearing chronically; No confusion Nutritional Appearance: well nourished Orientation/consciousness: patient oriented x3 Limitations: no limitations and No altered mental status Other: cachectic appearing HENMT: Head: normal to inspection Ears: external ears normal Face/Nose/Sinus: Normal external nose present Eyes: Conjunctivae: conjunctivae normal Pupils: Equal, round and reactive pupils present EOM: EOMs intact bilaterally Neck: Neck: normal visual inspection Chest: Chest palpation & inspection: normal inspection of the chest Resp: Effort & Inspection: normal respiratory effort Auscultation: clear to auscultation bilaterally Other: Very prolonged expiratory phase Cardio: Rate: regular rate Rhythm: regular rhythm GI: Inspection: non-distended GI Palp: Yes Tenderness to palpation present (GI), Yes Guarding due to palpation present (GI), No Rigid due to palpation and Yes Rebound tenderness present Auscultation: normal bowel sounds Other: Diffusely TTP, worst in the epigastric region Dried blood around rectum and in undergarments : General: Yes no CVA tenderness Skin: General skin exam: normal color Neuro: General: patient oriented x3 and moves all extremities Cranial nerves: Yes Nystagmus not present Extrem: General: normal to inspection Psych: Mental Status: mental status grossly normal Course Course Emergency Course: Ordered labs, CXR, morphine and fluids EXAMINATION:? XR chest 1V port
[2022-07-17 21:15] LABS: Basophils Absolute Auto 0.02 K/mm3 (0.00-0.10); Basophils Percent Auto 0.2 % (0.0-1.0); Eosinophils Absolute Auto 0.01 K/mm3 (0.02-0.50); Eosinophils Percent Auto 0.1 % (1.0-6.0); Hematocrit 41.2 % (37.0-46.0); Hemoglobin 13.5 g/dL (12.4-15.3); Immature Granulocyte Absolute 0.06 K/mm3 (0.00-0.00); Immature Granulocyte Percent A 0.5 % (0.0-0.0); Lymphocytes Absolute Auto 0.45 K/mm3 (1.10-4.50); Lymphocytes Percent Auto 3.4 % (18.0-42.0); Mean Corpuscular HGB Conc 32.8 g/dL (32.0-36.0); Mean Corpuscular Hemoglobin 32.1 pg (27.0-31.0); Mean Corpuscular Volume 97.9 fL (78.0-102.0); Mean Platelet Volume 12.2 fl (8.7-11.0); Monocytes Absolute Auto 0.53 K/mm3 (0.10-0.90); Neutrophils Absolute Auto 12.3 K/mm3 (1.7-7.2); Neutrophils Percent Auto 91.8 % (50.0-70.0); Platelet Count Result 147 K/mm3 (150-420); Red Blood Count 4.21 M/mm3 (4.70-6.10); Red Cell Distribution Width 13.3 % (11.6-14.4); White Blood Count 13.3 K/mm3 (4.8-10.8)
[2022-07-17] MEDS: MORPHINE SULFATE (*CRX) 4 MG/ML INJ IV PUSH (21:17)
[2022-07-17] MEDS: SODIUM CHLORIDE 0.9% IV 1,000 ML 999 ML IV CONT (21:17)
[2022-07-17 21:28] LABS: Prothrombin Time 10.9 Seconds (9.50-12.10)
[2022-07-17 21:30] LABS: Alanine Aminotransferase 22 U/L (16-63); Albumin Level 3.6 g/dL (3.4-5.0); Alkaline Phosphatase 165 U/L (46-116); Anion Gap 4 mmol/L (8-16); Aspartate Amino Transferase 32 U/L (15-37); Bilirubin,Total 0.4 mg/dL (0.00-1.00); Blood Urea Nitrogen 17 mg/dL (7-18); Calcium 8.8 mg/dL (8.5-10.1); Carbon Dioxide 44 mmol/L (21-32); Chloride 98 mmol/L (98-108); Estimated Glomerular Filt Rate > 60; Glucose 169 mg/dL (70-99); Lipase 35 U/L (16-77); Magnesium 2.4 mg/dL (1.8-2.4); Osmolality Calculated 307 mOsm/kg (285-295); Sodium 146 mmol/L (136-145); Total Protein 6.6 g/dL (6.4-8.2)
[2022-07-17 21:32] LABS: CRP < 0.5 mg/dL (0.0-0.9); Potassium 2.2 mmol/L (3.5-5.1)
--- NOTE | 2022-07-17 21:33 | ECG_ITS ---
Measurements Intervals [place] Rate: 61 P: 68 [place]: 157 QRS: -58 QRSD: 94 T: 61 QT: 380 QTc: 384 Interpretive Statements SINUS RHYTHM WITH OCCASIONAL SUPRAVENTRICULAR PREMATURE COMPLEXES LEFT AXIS DEVIATION [QRS AXIS < -30] COMPARED TO ECG 05/11/2022 17:59:01 NO DIFFERENCE Electronically Signed On 07-19-2022 14:33:05 HEEL NAILING MACHINE OPERATOR by Russell Jones M.D.
[2022-07-17 21:35] LABS: Lactic Acid Reflex 2.3 mmol/L (0.4-2.0)
[2022-07-17] MEDS: PANTOPRAZOLE SODIUM IV 40 MG VIAL 80 MG IV PUSH (21:37)
[2022-07-17] MEDS: POTASSIUM CHLORIDE 20 MEQ TABLET 40 MEQ PO (21:39)
[2022-07-17] MEDS: KCL 20 MEQ/SW 100 ML 100 ML 50 MEQ IVPB (21:39)
[2022-07-17 22:28] LABS: Appearance Urine Clear (Clear); Bilirubin Urine Negative (Negative); Blood Urine Negative (Negative); Glucose Urine UA Negative (Negative); Ketones Urine Negative (Negative); Leukocyte Esterase Ur Negative LEU/UL (Negative); Nitrate Urine Negative (Negative); Protein Urine Trace (Negative); Urobilinogen Urine 0.2 mg/dL (0.2-1.0)
[2022-07-17 22:34] LABS: Add Urine Microscopic? YES; Color Urine Dark Yellow (Yellow)
[2022-07-17 22:35] LABS: Bacteria Urine Trace /hpf; RBC Urine 0-2 /hpf (0-2); WBC Urine 0-3 /hpf (0-3)
[2022-07-18] VITALS: BP 158/92; PULSE 63; O2SAT 98
[2022-07-18 00:01] VITALS: PULSE 63; O2SAT 98
[2022-07-18 00:13] LABS: Reflex Lactic Acid Yes or No Add Lactic
[2022-07-18 00:15] VITALS: PULSE 66; O2SAT 100
[2022-07-18 00:30] VITALS: PULSE 62; O2SAT 100
[2022-07-18 00:45] VITALS: PULSE 62; O2SAT 100
[2022-07-18 00:54] LABS: Lactic Acid 1.5 mmol/L (0.4-2.0)
[2022-07-18 01:22] VITALS: BP 154/84; PULSE 60; RESP 20; TEMP 36.7; O2SAT 99
== END 2022-07-18 01:23 | disposition short-term general hospital (02) ==
PROVIDERS: Emergency Provider Family Medicine; PCP Family Medicine
DX: K62.5 Hemorrhage of anus and rectum (principal); R06.00 Dyspnea, unspecified; J44.9 Chronic obstructive pulmonary disease, unspecified; M81.0 Age-related osteoporosis without current pathological fracture; I25.2 Old myocardial infarction; F17.210 Nicotine dependence, cigarettes, uncomplicated; Z79.51 Long term (current) use of inhaled steroids
CPT/HCPCS: 36415; 71045; 74174; 80053; 81001; 83605; 83690; 83735; 85025; 85610; 86140; 93005; 96365; 96366; 96368; 96375; 99285; A9270; C9113; J0696; J2270; J3480; J7030; Q9967

== ENCOUNTER 2025-01-30 14:13 | Inpatient (IN) | payer MEDICARE, SELFPAY ==
[2025-01-30] VITALS (19 sets, daily range): BP systolic 121–158; BP diastolic 70–97; PULSE 50–75; RESP 20–35; TEMP 36.3–36.7; O2SAT 97–100; BMI 18.7
--- NOTE | ~2025-01-30 | XR_ITS ---
XR chest 1V portable Ordering provider: Vic Juarez MD History: 79 years Male with . Fall/ weakness/ AMS . Comparison: July 17, 2022 FINDINGS: MEDIASTINUM: The cardiac silhouette is not enlarged. Slightly prominent moraima. LUNGS: No infiltrates, effusions or pneumothorax. Underlying fibrotic changes OTHER: No free air under the diaphragm. IMPRESSION: No acute cardiopulmonary pathology. Reviewed, dictated and finalized at location A.
--- NOTE | ~2025-01-30 | CT_ITS ---
CT brain wo con Ordering provider: Vic Juarez MD History: 79 years Male with . Fall/ weakness/ AMS . Comparison: None. Technique: CT of the head without contrast. Radiation reduction technique utilized.The dose-length pr oduct was 605.33 mGy-cm. FINDINGS: BRAIN PARENCHYMA AND CSF SPACES: Mild leukoaraiosis and diffuse cortical atrophy. Mild atheromatous d isease. 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 No midline shift, mass effect or hemorrhage. The brain parenchyma and CSF spaces are otherwise normal. VISUALIZED PARANASAL SINUSES: Right maxillary sinus disease. Bilateral ethmoid sinus disease. Otherwi se, Well aerated. MASTOIDS: Well aerated. BONES: The bones appear intact. SOFT TISSUES: Visualized nasopharynx is normal. Superficial soft tissues are normal. IMPRESSION: No acute intracranial findings. Reviewed, dictated and finalized at location A.
--- OUTSIDE RECORDS SUMMARY | 2025-01-30 14:16 | XMS_ITS | Clinical Summary ---
Author Organization [facility] Address [address] [place] [address] Care Team Providers Care Cell Operation Supervisor Name Role Phone Rigo Jules MD Primary Care Provider [phone] Allergies Active Allergy Reactions Criticality Noted Date Comments Levofloxacin Unknown 07/18/2022 Medications COMBIVENT RESPIMAT 20-100 MCG/ACT inhaler Inhale 1 puff into the lungs 4 (four) times daily. 07/03/2022 Active montelukast (SINGULAIR) 10 MG tablet Take 1 tablet (10 mg total) by mouth nightly at bedtime. Active ibandronate (BONIVA) 150 MG tablet Take 1 tablet (150 mg total) by mouth every 30 (thirty) days. Active Active Problems Problem Noted Date Diagnosed Date Acute respiratory failure wi th hypoxia and hypercapnia ([facility]) 03/14/2024 Rectal bleeding 07/18/2022 Immunizations Immunization Administration Dates Next Due Fluzone 6 Months+ Quad (0.5 mL Prefilled Syringe) 07/19/2022(Deferred: Patient/family declined) Social History Tobacco Use Types Packs/Day Years Used Date Smoking Tobacco: Smoker, Current Status Unknown Smokeless Tobacco: Never Tobacco Cessation:Ready to Q uit: Not Asked; Counseling Given: Not Answered Alcohol Use Standard Drinks/Week Comments Not Currently 0 (1 standard drink = 0.6 oz pur e alcohol) [facility] Utilities Answer Date Recorded In the past 12 months has th e electric, gas, oil, or water company threatened to shut off services in your home? Patient unable to answer 03/15/2024 Humiliation, Afraid, Rape, a nd Kick questionnaire Answer Date Recorded Within the last year, have y ou been afraid of your partner or ex-partner? Patient unable to answer 03/15/2024 Within the last year, have y ou been humiliated or emotionally abused in other ways by your partner or ex-partner? Patient unable to answer 03/15/2024 Within the last year, have y ou been kicked, hit, slapped, or otherwise physically hurt by your partner or ex-partner? Patient unable to answer 03/15/2024 Within the last year, have y ou been raped or forced to have any kind of sexual activity by your partner or ex-partner? Patient unable to answer 03/15/2024 Overall Financial Resource Strain (CARDIA) Answe r Date Recorded How hard is it for you to pa y for the very basics like food, housing, medical care, and heating? Patient unable to answer 03/15/2024 Hunger Vital Sign Answer Date Recorded Within the past 12 months, y ou worried that your food would run out before you got the money to buy more. Patient unable to answer 03/15/2024 Within the past 12 months, t he food you bought just didn't last and you didn't have money to get more. Patient unable to answer 03/15/2024 PRAPARE - Transportation Answer Date Re corded In the past 12 months, has l ack of transportation kept you from medical appointments or from getting medications? Patient unable to answer 03/15/2024 In the past 12 months, has l ack of transportation kept you from meetings, work, or from getting things needed for daily living? Patient unable to answer 03/15/2024 Housing Stability Vital Sign Answer Cristobal e Recorded In the last 12 months, was t here a time when you were not able to pay the mortgage or rent on time? No 07/18/2022 In the last 12 months, how many places have you lived? 1 07/18/2022 In the last 12 months, was t here a time when you did not have a steady place to sleep or slept in a assisted (including now)? No 07/18/2022 Housing Stability Vital Sign Answer Cristobal e Recorded In the last 12 months, was t here a time when you were not able to pay the mortgage or rent on time? Patient unable to answer 03/15/2024 In the past 12 months, how m any times have you moved where you were living? 0 03/15/2024 At any time in the past 12 m [facility], were you homeless or living in a assisted (including now)? Patient unable to answer 03/15/2024 Sex and Gender Information Value Date Recorded Sex Assigned at Not on file Legal Sex Male 5:12 PM CDT Gender Identity Not on file Sexual Orientation Not on file Last Filed Vital Signs Vital Sign Reading Time Taken Comments Blood Pressure 100/50 03/26/2024 8:41 AM CDT Pulse 64 03/26/2024 8:41 AM CDT Temperature 36.4 C (97.5 F) 03/26/2024 8:41 AM CDT Respiratory Rate 18 03/26/2024 8:41 AM CDT Oxygen Saturation 96% 03/26/2024 8:41 AM CDT Inhaled Oxygen Concentration - - Weight 57.7 kg (127 lb 3.3 oz) 03/16/2024 4:15 A M CDT Height 167.6 cm (5' 6) 03/14/2024 11:55 AM CDT Body Mass Index 20.53 03/14/2024 11:55 AM CDT Plan of Treatment Health Maintenance Due Date Last Done Comments DTaP, Tdap and Td Vaccines ( 1 - Tdap) 11/03/1964 Annual Medicare Wellness Visit 2009 RSV Immunization or 60+ Years (1 - 1-dose 75+ series) 11/03/2019 Zoster Vaccines (2 of 2) 03/06/2021 01/09/2021 COVID-19 Vaccine (4 - 2023-2 5 season) 2024 06/09/2023, 11/03/2020, 10/06/2020 Pneumococcal Vaccine: 50+ Years Completed 01/31/2022, 03/23/2021 Meningococcal B Vaccine Aged Out No l onger eligible based on patient's age to complete this topic Meningococcal Vaccine Aged Out No guy yosvany eligible based on patient's age to complete this topic RSV Immunizations Under 20 Months Aged Out No longer eligible b ased on patient's age to complete this topic Goals Goal Patient Goal Type Associated Problems Recent Progress Patient-Stated? Author Safety - able to safely ambulate at home; tripping hazards removed from the home Lifestyle No Rajeev Maldonadona M, RN Insurance MEDICARE [facility] Advance Directives * Full Code (Latest Code Status on File) Date Activated Date Inactivated Comments 03/15/2024 12:13 PM 03/26/2024 3:59 PM * Full Code Date Activated Date Inactivated Comments 07/18/2022 2:30 AM 07/20/2022 10:46 AM Care Teams Cell Operation Supervisor Relationship Specialty Start Date End Date Rigo Jules MD [address] [place] [address] PCP - General FAMILY PRACTICE 03/15/24
--- OUTSIDE RECORDS SUMMARY | 2025-01-30 14:16 | XMS_ITS ---
Author Organization Unknown Address [address] [place] [phone] Phone Care Team Providers Care Telehealth Case Manager Name Role Phone SAMUEL MENARDPORFIRIO Attending Unavailable HENRIK SR [facility] Provider Immunization Immunization Date Status Additional Notes Code Code System pneumococcal polysaccharide PPV23 01/31/2022 Completed 33 CVX Pneumococcal conjugate PCV 13 03/23/2021 Completed 133 CVX Influenza, split virus, quadrivalent, PF 03/23/2021 Completed 150 CVX zoster recombinant 01/09/2021 Completed 187 CVX Influenza, adjuvanted, quadrivalent, PF 06/09/2023 Completed 205 CVX COVID-19, mRNA, LNP-S, PF, 1 00 mcg/0.5mL dose or 50 mcg/0.25mL dose 10/06/2020 Completed 207 CVX COVID-19, mRNA, LNP-S, PF, 1 00 mcg/0.5mL dose or 50 mcg/0.25mL dose 11/03/2020 Completed 207 CVX COVID-19, mRNA, LNP-S, PF, maryann-sucrose, 30 mcg/0.3 mL 06/09/2023 Completed 309 CVX Results LACTIC ACID - Collect Date/T sheng: 03/13/2024 03:50 [facility] ID: [id number] [place], [place], [phone] LOINC: 49622-9 Test Value Unit Reference Range Code Code System Flag LACTIC ACID 0.7 mmol/L L=0.7 H=2.1 61277-1 LOINC ARTERIAL BLOOD GAS - Collect Date/Time: 03/13/2024 02:00 [facility] ID: [id number] [address] [place], [place], [phone] LOINC: 57638-9 Test Value Unit Reference Range Code Code System Flag pH 7.43 L=7.35 H=7.45 2753-2 LOINC PO2 138.0 mmHg L=80.0 H=100 34666-9 LOINC H PCO2 53.0 mmHg L=35.0 H=45.0 18115-3 LOINC H BE 9.9 mmol/L L=0.0 H=2.0 00793-9 LOINC H BEecf 10.6 mmol/L L=0.0 H=2.0 73151-6 LOINC H HCO3 35.2 mmol/L L=22.0 H=26.0 14513-7 LOINC H A-aDO2 52 mmHg L=7 H=13 40491-1 LOINC H O2Hb 93.8 % L=85.0 H=100 49059-2 LOINC sO2m 99.0 % L=85.0 H=100 [place] [address]-0 LOINC PUNCTURE SITE RIGHT RADIAL FIO2 36 % RESPIRATORY 4 PLEX COVID FLU RSV PCR - Collect Date/Time: 03/13/2024 01:45 [facility] ID: [id number] [address] [place] [address], [id number] LOINC: 29980-7 Test Value Unit Reference Range Code Code System Flag SARS CoV2 PCR NEGATIVE FLU A PCR NEGATIVE FLU B PCR NEGATIVE RSV PCR NEGATIVE SEND TO [facility]? NO COMPREHENSIVE METABOLIC PANE L - Collect Date/Time: 03/13/2024 00:25 [facility] ID: [id number] [address] [place] [address], [phone] LOINC: 77920-7 Test Value Unit Reference Range Code Code System Flag FASTING UNKNOWN BUN 17 mg/dL L=7 H=20 3094-0 LOINC CREATININE 0.80 mg/dL L=0.66 H=1.25 2160-0 LOINC GLUCOSE 143 mg/dL L=74 H=106 2345-7 LOINC H SODIUM 140 mmol/L L=132 H=144 2951-2 LOINC POTASSIUM 4.3 mmol/L L=3.5 H=5.1 2823-3 LOINC CHLORIDE 99 mmol/L L=98 H=107 2075-0 LOINC CO2 33.0 mmol/L L=22.0 H=30.0 2028-9 LOINC H ANION GAP 12 L=10 H=20 83077-4 LOINC OSMOLALITY 294 mOs/kG L=280 H=296 26455-3 LOINC BUN/CREAT 21.3 3097-3 LOINC CALCIUM 9.1 mg/dL L=8.3 H=10.5 11841-7 LOINC AST 35 U/L L=15 H=46 1920-8 LOINC ALT 20 U/L L=9 H=72 1742-6 LOINC ALKALINE PHOS 67 U/L L=38 H=126 6768-6 LOINC TOTAL BILI 0.6 mg/dL L=0.2 H=1.3 1975-2 LOINC ALBUMIN 4.5 G/dL L=3.5 H=5.0 1751-7 LOINC TOTAL PROTEIN 7.3 g/L L=6.3 H=8.2 2885-2 LOINC A/G RATIO 1.6 80871-0 LOINC AGE 78 75802-7 LOINC eGFR NON-AFR 99 ml/min eGFR AFR AMER 120 ml/min LACTIC ACID - Collect Date/T sheng: 03/13/2024 00:25 [facility] ID: [id number] [place] [address], [id number] LOINC: 10470-0 Test Value Unit Reference Range Code Code System Flag LACTIC ACID 1.9 mmol/L L=0.7 H=2.1 76621-8 LOINC PROCALCITONIN - Collect Date /Time: 03/13/2024 00:25 [facility] ID: [id number] [place] [address], [id number] LOINC: 36462-8 Test Value Unit Reference Range Code Code System Flag PROCALCITONIN 0.11 ng/mL L=0.00 H=0.08 H PROTIME - Collect Date/Time: 03/13/2024 00:25 [facility] ID: [id number] [address] [place] [address], [phone] LOINC: 65335-9 Test Value Unit Reference Range Code Code System Flag PT 10.6 Sec L=9.7 H=11.7 25367-8 LOINC INR 1.0 Sec L=0.9 H=1.1 66915-7 LOINC PTT - Collect Date/Time: 00:25 [facility] ID: [id number] [address] [place] [address], [phone] LOINC: 54156-8 Test Value Unit Reference Range Code Code System Flag PTT 25.4 Sec L=23.0 H=31.2 CBC W/ DIFF - Collect Date/T sheng: 03/13/2024 00:25 [facility] ID: [id number] [address] [place] [address], [phone] LOINC: 30612-3 Test Value Unit Reference Range Code Code System Flag WBC 9.3 10^3uL L=4.8 H=10.8 RBC 3.91 10^6uL L=4.60 H=6.20 L HEMOGLOBIN 11.9 g/dL L=14.0 H=18.0 718-7 LOINC L HEMATOCRIT 38.2 VOL% L=42.0 H=52.0 4544-3 LOINC L MCV 97.7 fL L=80.0 H=94.0 H MCH 30.4 pg L=27.0 H=32.0 MCHC 31.2 g/dL L=32.0 H=36.0 L PLATELETS 125 10^3uL L=100 H=400 59313-5 LOINC RDW 13.7 % L=11.7 H=15.5 %GRAN 87.8 % L=40.0 H=70.0 94102-1 LOINC H %LYMPH 4.5 % L=20.0 H=45.0 736-9 LOINC L %MONO 6.3 % L=2.0 H=10.0 57276-1 LOINC %EOS 0.6 % L=0.0 H=6.0 713-8 LOINC %BASO 0.1 % L=0.0 H=3.0 706-2 LOINC #NEUT 8.2 10^3uL L=1.9 H=7.6 87656-7 LOINC H #LYMPH 0.4 10^3uL L=0.9 H=4.9 18443-6 LOINC L #MONO 0.6 10^3uL L=0.1 H=0.9 57038-8 LOINC #EOS 0.1 10^3uL L=0.0 H=0.6 712-0 LOINC #BASO 0.01 10^3uL L=0.00 H=0.10 20020-7 LOINC #IM GRANS 0.1 10^3uL L=0.0 H=7.0 34771-9 LOINC %IM GRANS 0.7 % L=0.0 H=5.0 97204-2 LOINC %NRB 0.0 L=0.0 H=0.2 61203-9 LOINC #NRB 0.000 L=0.000 H=0.012 59322-5 LOINC MANUAL DIFF NOT INDICATED RBC MORPH NOT INDICATED TROPONIN LEVEL - Collect Cristobal e/Time: 03/13/2024 00:25 [facility] ID: [id number] [address] [place], [place], [phone] LOINC: 57774-3 Test Value Unit Reference Range Code Code System Flag TROPONIN < 0.012 ng/mL L=0.000 H=0.033 98787-3 LOINC CHEST 1V - Completed: 2023 01:23 LOINC: EXAM DESCRIPTION: CHEST 1V REASON FOR STUDY: Shortness of Breath HX COPD Home O2 4-5liters Smoker Comparison 04-14-15 Duration: 25 years TECHNIQUE: Single radiographic view of the chest acquired. COMPARISON: Chest x-ray of April 14, 2015. FINDINGS: LUNGS/PLEURA: No focal consolidation or pneumothorax. No pleural effusion. HEART/MEDIASTINUM: Cardiac silhouette is within normal limits. There is atherosclerosis of the aorta. The descending aorta is tortuous. Remaining mediastinal silhouettes are unremarkable. HARDWARE/LINES/TUBES: EKG leads overlie the film. BONES: No acute findings. IMPRESSION: No acute cardiopulmonary abnormality. THIS IS AN ELECTRONICALLY VERIFIED FINAL REPORT 03/13/2024 2:06 AM - Electronically signed by Sherry Balbuena M.D. SN: SN Report ID: [id number] Reading Location: [id number] Social History Type Status Start Date End Date Code Code Syst em Smoking History Current every day smoker 965386275 SNOMED CT Sex Male Vital Signs Vital Sign Value Unit Phillips Value Phillips Unit Date/Time Recent/Initial? Code Code System Body Mass Index 18.30 kg/m2 03/13/2024 05:19 Initial 90918 -5 [facility] Systolic Blood Pressure 118 mm[Hg] 03/13/2024 09:38 Most Recent 8480- 6 INC Diastolic Blood Pressure 65 mm[Hg] 03/13/2024 09:38 Most Recent 8462- 4 [facility] Systolic Blood Pressure 133 mm[Hg] 03/13/2024 05:11 Initial 8480- 6 INC Diastolic Blood Pressure 76 mm[Hg] 03/13/2024 05:11 Initial 8462- 4 INC Body Surface Area 1.51 m2 03/13/2024 05:19 Initial 3140- 1 LOINC Height 165.100 0 cm 65.00 in 03/13/2024 05:19 Initial 8302- 2 LOINC O2 Saturation 99 % 2023 10:45 Most Recent 39960 -5 LOINC O2 Saturation 97 % 2023 05:11 Initial 42731 -5 LOINC Inhaled Oxygen Flow Rate 3.00 L/min 03/13/2024 10:45 Most Recent 3151- 8 LOINC Inhaled Oxygen Flow Rate 4.50 L/min 03/13/2024 05:11 Initial 3151- 8 LOINC Pulse 64.0 /min 03/13/2024 10:45 Most Recent 8867- 4 LOINC Pulse 74.0 /min 03/13/2024 05:11 Initial 8867- 4 LOINC Respiration 18 /min 03/13/20 10:45 Most Recent 9279- 1 LOINC Respiration 18 /min 03/13/20 05:11 Initial 9279- 1 LOINC Temperature 36.6 Nicolasa 97.9 F 03/13/20 09:38 Most Recent 8310- 5 LOINC Temperature 36.7 Nicolasa 98.1 F 03/13/20 05:11 Initial 8310- 5 LOINC Weight 49.90 kg 110.00 lbs 03/13/2024 05:19 Initial 23641 -7 [facility] Medications Medication Start Date End Date Route Frequency Dose Code Code System Medication Instructions Home Meds guaiFENesin DM 10MG/5ML-100MG/5ML Oral Syrup 03/13/2024 03/26/2024 ORAL NEEDED EVERY 4 HOURS 10 mL 701759 RxNorm TAKE 10 mL ORAL NEEDED EVERY 4 HOURS Combivent Respimat 100MCG-20MCG/1Act Inhalation [place] 03/13/2024 Unknown INHALAT ION FOUR TIMES A DAY 1 unit( s) 8404157 RxNorm 1 EACH INHALATIO N FOUR TIMES A DAY Ipratropium [place]oshoni-Albuterol Sulfate 0.5MG/3ML-3MG/3ML Inhalation Solution 03/13/2024 03/26/2024 INHALAT ION TWICE A DAY 1 unit( s) 5745719 RxNorm 1 EACH INHALATIO N TWICE A DAY predniSONE 20MG Oral Tablet 03/13/2024 03/26/2024 BY MOUTH TWICE A DAY 2 TABLE T 087811 RxNorm TAKE 2 TABLET BY MOUTH TWICE A DAY x 3 days. thenTAKE 2 TABLET BY MOUTH ONCE A DAY x 3 days Zithromax 500MG Oral Tablet 03/13/2024 03/26/2024 BY MOUTH ONCE A DAY 1 TABLE T 623266 RxNorm TAKE 1 TABLET BY MOUTH ONCE A DAY starting on 03/14/2024 Benzonatate 100MG Oral Capsule, Liquid Filled 04/07/2024 Unknown ORAL NEEDED 3 TIMES A DAY 100 SHANNON GRAMS 917977 RxNorm TAKE 100 MILLIGRAM S ORAL NEEDED 3 TIMES A DAY Budesonide 0.5MG/2ML Inhalation Suspension 04/07/2024 Unknown NEBULIZ ER RESP BID 0.5 SHANNON GRAMS 311452 RxNorm 0.5 MILLIGRAM S NEBULIZER RESP BID Ibandronate Sodium 150MG Oral Tablet 04/07/2024 Unknown ORAL MONTHLY 150 SHANNON GRAMS 202278 RxNorm TAKE 150 MILLIGRAM S ORAL MONTHLY Montelukast Sodium 10MG Oral Tablet 04/07/2024 Unknown ORAL AT BEDTIME 10 SHANNON GRAMS 167234 RxNorm TAKE 10 MILLIGRAM S ORAL AT BEDTIME amLODIPine Besylate 10MG Oral Tablet 04/07/2024 Unknown ORAL ONCE A DAY 10 SHANNON GRAMS 264724 RxNorm TAKE 10 MILLIGRAM S ORAL ONCE A DAY insulin lispro 100U/1ML Injection Solution 04/07/2024 Unknown SUBCUTA NEOUS SLIDING SCALE 822176 RxNorm INJECT INTO 0-6 EACH SUBCUTANE OUS SLIDING SCALE Assessment You had the following problems:MODERATE COPDTOBACCO USE DISORDERACUTE HYPOXEMIC AND HYPERCAPNIC RESPIRATORY FAILURECHRONIC RESPIRATORY FAILURE WITH HYPOXIATYPE 2 DMPRIMARY HYPERTENSION Hospital Discharge Instructions Should you have any questions prior to discharge, please contact a member of your healthcare team. If you have left the hospital and have any questions, please contact your primary care physician. Discharge Date:03/13/24 Discharge Time:11:11 Mode of Discharge:Wheelchair. Diet:Regular. Activity:Stay indoors as much as possible for the next one week Pending Lab Results:no pending lab results IV Site Information:Observe area for, redness, swelling, pain, drainage, or red streaks.If these symptoms occur, please contact your physician.Gauge: ,Location: , Date inserted:. Additional Information:Resume normal home oxygen use Belongings:Home medications sent with patient, Belongings sent with patient. Answer Below for DC to Home ONLYD/C to home Notify Physician For:Fever, Cough, Symptoms/Condition worsen. Symptoms To Look For After Discharge:Activity intolerance, increased work at breathing, increased wheezing.increased oxygen needs, any other abnormal symptoms. Discharge Plan:Education given on Diagnosis(es), Medication list & instructions given.New med changes or DC'd meds discussed, Educated on anticipated problems.Aware of symptom mngment & interventions, Educated on diet and activity.Aware of follow up appt within 1 week.Aware of signs&symptoms that may develop, Discussed when to call MD or 911. Acknowledges Receipt/Understanding Of:Discharge instructions, Follow up appointment.Follow up instructions for no PCP. Reason For Referral Reason for Referral: Call and schedule a follow up appointment with your PCP after discharge from hospital. Receiving Provider: [place] [address] Procedures Procedure Name Date Status Code Code Systcornelio m Closed fracture of left arm completed 00966942 1740958 SNOMEDCT Arthroscopic procedure of knee joint completed 819462072 SNOMEDCT Problems Problem Start Date Resolved Date Status Code Code System MODERATE COPD active 926149323 SNOMED -CT TOBACCO USE DISORDER active 81366283 SNOMED-CT ACUTE HYPOXEMIC AND HYPERCAPNIC RESPIRATORY FAILURE active 513113418 SNOMED-CT CHRONIC RESPIRATORY FAILURE WITH HYPOXIA active 52912636 SNOMED-CT TYPE 2 DM active 58314467 SNOMED-CT PRIMARY HYPERTENSION active 41323937 SNOMED-CT CHRONIC ARTHRITIS 03/13/2024 resolved 69130980 S NOMED-CT SEVERE COPD 03/13/2024 resolved 182931280 SNOMED- CT Allergies and Adverse Reactions Allergy Substance Reaction Severity Start Date Concern Status Co de Code System LEVOFLOXACIN Active 31945 RxNorm Plan of Treatment White Follow Up Visit 03/13/2022 Pulmonary Function Test 01/25/2022 Abdulfattah Established Patient 023 Abdulfattah Established Patient 023 Abdulfattah Established Patient 024 Abdulfattah Established Patient 024 Encounters Encounter Diagnosis Start Date Code Code Sys tem Chronic obstructive pulmonar y disease with (acute) exacerbation 03/13/2024 SNOMED-CT Personal Care Team Section Discharge Summary Notes [facility] 03/13/2024 11:49 Demographics Patient Name Age Sex Visit Number Admission Date/Time Attending Physician Room and Bed MARCELLO CAIN 1945 78 years Male [id number] 03/13/2024 00:22 [place] [address] 03/13/2024 ADMISSION & FINAL DIAGNOSIS: Problem List Moderate COPD Tobacco use disorder Acute hypoxemic and hypercapnic respiratory failure Chronic respiratory failure with hypoxia Full Code Status BRIEF HISTORY: INITIAL OBSERVATION: 03/13/2024: Probation And Parole Officer: Patient is a 78-year-old man with chronic tobacco abuse, COPD oxygen dependent 4 L nasal cannula who had arrived at the emergency room with complaints of worsening shortness of breath. Patient has been woken up early this morning with an acute worsening of shortness of breath and active wheezing. Patient had attempted to improve his symptoms by using the SVN treatments he had at home as well as albuterol inhalers. However, it was not successful in helping him maintain his breathing so he called 911. EMS had given patient a DuoNeb treatment and route prior to his arrival to the emergency room. Prior to this morning patient did not have any worsening of his chronic symptoms. No fevers or chills. No nausea vomiting or diarrhea. Patient does admit to some pleuritic chest discomfort but denies any chest pressure. No constipation or diarrhea. Patient wears his oxygen at home to keep saturations at 88% and above. Patient continues to smoke tobacco on a daily basis. Review of laboratory studies in the emergency room chemistries were unremarkable and noncontributory with the exception of the CO2 which was slightly elevated at 33 and a glucose of 143. Patient's renal function was intact with a GFR greater than 60. Patient's procalcitonin was actually slightly elevated at 0.11 with a lactic acid of 1.9 and 0.7. White blood cell count 9.3, hemoglobin 11.9, MCV of 97.7, platelet count of 125 with a left shift neutrophil predominance 87.8%. Patient's ABG showed a pH of 7.43, PaO2 of 138, pCO2 of 53, bicarb of 35.2. FiO2 of 36%. Respiratory viral panel was negative for RSV, influenza A//B and COVID-19. Blood cultures are currently pending. Troponin was less than 0.012. LFTs were unremarkable and noncontributory. X-ray of the chest showed no acute cardiopulmonary abnormality. Despite multiple SVN DuoNeb treatments in the emergency room as well as magnesium administration and 125 mg of IV Solu-Medrol patient was still having difficulty with short sentences, accessory muscle use and decreased movement even though improved from when he first arrived. Despite all this patient has been able to maintain his oxygen saturations greater than 88% on his home oxygen levels of 4 L. Patient will be placed on observation services for issues of acute COPD exacerbation Active Problem List: -Acute on chronic respiratory failure with hypoxia/hypercapnia -Acute COPD exacerbation -Chronic tobacco use disorder with daily use Medical Decision Making 03/13/2024: -Patient is being placed on observation services for acute COPD exacerbation secondary to an acute on chronic respiratory failure with hypoxia/hypercapnia. It is unclear what the specific trigger is however patient does have evidence of a left shift and elevated procalcitonin despite patient's chest x-ray being relatively negative. That being said we will place patient on 500 mg of IV azithromycin if not for treatment of a possible bacterial bronchitis then to at least help with inflammation. We will continue with Solu-Medrol and scheduled DuoNeb treatments. Incentive spirometry every hour while awake. And antitussives as needed. Diet: Cardiac diet DVT Prophy: Heparin 5000 subcutaneous every 8 hours, SCDs DISCHARGE: Later in the day, 03/13: Dr Robledo: Mr Cain says he is on 4L O2/NC at home and is on that now. He feels almost back to his baseline. He wants to go home today. Exam showed poor air entry, but no wheezing. D/C to home today. Prednisone taper Azithromycin PO x 2 more day. Return if worsening symptoms. SOCIAL DETERMINANTS OF HEALTH (SDOH) IMPACTING CARE: I discussed these social determinants of health with the patient and received the following answers: 1) Food Insecurity - none 2) Housing Instability - none 3) Transportation Needs - none 4) Utility Difficulties - none 5) Interpersonal safety - none EXAM: Most Recent Vital Signs BP (mm/Hg) BP Position/Site Heart Rate Resp Temp (F) SPO2% O2 Device Height (in) Weight (kg) 118/65 Lying/Right Arm 64 18 97.9 Oral 99 % O2 Cannula 65 in 49.9 kg GENERAL: Alert and oriented, in no distress. HEART: Regular rate and rhythm LUNGS: Clear to auscultation bilaterally, but decreased air entry noted. ABDOMEN: Soft, nontender, nondistended EXTREMITIES: No edema. NEUROLOGIC: Without focal neurologic deficits. LABS: Lab Results: Last 8 Hours Test Results Units Reference Range Ordered Collected Status LACTIC ACID 0.7 mmol/L L=0.7 H=2.1 03/13/2024 03:21 03/13/2024 03:50 final MEDICATIONS: Discharge Medications Medication Dosage Route Frequency Prescribing MD Special Instructions guaiFENesin DM 10MG/5ML-100MG/5ML Oral Syrup 10 mL ORAL NEEDED EVERY 4 HOURS PRIMO JIMMY A TAKE 10 mL ORAL NEEDED EVERY 4 HOURS Combivent Respimat 100MCG-20MCG/1Act Inhalation [place] 1 EACH INHALATION FOUR TIMES A DAY PRIMO JIMMY A 1 EACH INHALATION FOUR TIMES A DAY Ipratropium [place]-Albuterol Sulfate 0.5MG/3ML-3MG/3ML Inhalation Solution 1 EACH INHALATION TWICE A DAY PRIMO JIMMY A 1 EACH INHALATION TWICE A DAY predniSONE 20MG Oral Tablet 2 TABLET BY MOUTH TWICE A DAY PRIMO JIMMY A TAKE 2 TABLET BY MOUTH TWICE A DAY x 3 days. then TAKE 2 TABLET BY MOUTH ONCE A DAY x 3 days Zithromax 500MG Oral Tablet 1 TABLET BY MOUTH ONCE A DAY PRIMO JIMMY A TAKE 1 TABLET BY MOUTH ONCE A DAY starting on 03/14/2024 40 minutes of time spent performing discharge services. [facility] HIE Discharge Summary Scanned image Imaging Narrative Notes History and Physical Notes [facility] 03/13/2024 05:13 Active Problem List: -Acute on chronic respiratory failure with hypoxia/hypercapnia -Acute COPD exacerbation -Chronic tobacco use disorder with daily use Medical Decision Making 03/13/2024: -Patient is being placed on observation services for acute COPD exacerbation secondary to an acute on chronic respiratory failure with hypoxia/hypercapnia. It is unclear what the specific trigger is however patient does have evidence of a left shift and elevated procalcitonin despite patient's chest x-ray being relatively negative. That being said we will place patient on 500 mg of IV azithromycin if not for treatment of a possible bacterial bronchitis then to at least help with inflammation. We will continue with Solu-Medrol and scheduled DuoNeb treatments. Incentive spirometry every hour while awake. And antitussives as needed. Diet: Cardiac diet DVT Prophy: Heparin 5000 subcutaneous every 8 hours, SCDs Disposition: Patient is likely to be hospitalized for less than 48 hours As clarification, on 03/13/2024, patient should be admitted for hospital observation services under my care. This encounter was completed via telemedicine (audio/video) with nursing at bedside to assist with clinical exam. SOC Audio/Visual Equipment is using HIPAA compliant web platform. Participants design and sales consultant: Bedside RN, patient, physician on-call Patient Location: [place], [place] Provider Location: [facility] Physician design and sales consultant: John Barboza MD Seen in emergency room awaiting bed placement: Yes Status of patient: Observation Patient aware of remote access and use of Telemedicine and agrees to continue with care. John Barboza MD Internal Medicine Hospitalist Date of service: 03/13/2024 Chief complaint: SOB Allergies: NKDA CODE STATUS: Full Code History: Patient is a 78-year-old man with chronic tobacco abuse, COPD oxygen dependent 4 L nasal cannula who had arrived at the emergency room with complaints of worsening shortness of breath. Patient has been woken up early this morning with an acute worsening of shortness of breath and active wheezing. Patient had attempted to improve his symptoms by using the SVN treatments he had at home as well as albuterol inhalers. However, it was not successful in helping him maintain his breathing so he called 911. EMS had given patient a DuoNeb treatment and route prior to his arrival to the emergency room. Prior to this morning patient did not have any worsening of his chronic symptoms. No fevers or chills. No nausea vomiting or diarrhea. Patient does admit to some pleuritic chest discomfort but denies any chest pressure. No constipation or diarrhea. Patient wears his oxygen at home to keep saturations at 88% and above. Patient continues to smoke tobacco on a daily basis. Review of laboratory studies in the emergency room chemistries were unremarkable and noncontributory with the exception of the CO2 which was slightly elevated at 33 and a glucose of 143. Patient's renal function was intact with a GFR greater than 60. Patient's procalcitonin was actually slightly elevated at 0.11 with a lactic acid of 1.9 and 0.7. White blood cell count 9.3, hemoglobin 11.9, MCV of 97.7, platelet count of 125 with a left shift neutrophil predominance 87.8%. Patient's ABG showed a pH of 7.43, PaO2 of 138, pCO2 of 53, bicarb of 35.2. FiO2 of 36%. Respiratory viral panel was negative for RSV, influenza A//B and COVID-19. Blood cultures are currently pending. Troponin was less than 0.012. LFTs were unremarkable and noncontributory. X-ray of the chest showed no acute cardiopulmonary abnormality. Despite multiple SVN DuoNeb treatments in the emergency room as well as magnesium administration and 125 mg of IV Solu-Medrol patient was still having difficulty with short sentences, accessory muscle use and decreased movement even though improved from when he first arrived. Despite all this patient has been able to maintain his oxygen saturations greater than 88% on his home oxygen levels of 4 L. Patient will be placed on observation services for issues of acute COPD exacerbation Physical Exam: (Clinical exam was done via telemedicine with nursing at bedside to assist with clinical exam, some portions of clinical exam from emergency room provider/nursing was used for reference) General: Mild distress, looks uncomfortable HEENT: NCAT, EOMI, Moist Mucous Membranes CV: S1S2 w/ tachycardia, (-) MRC, peripheral pulses intact and symmetrical Resp: Patient has scattered expiratory wheezing, diminished air movement at the bases of both lungs and midlung car., Prolonged expiration, tachypnea GI: Snt, nd w/ bs Musculoskeletal: MAL, (-) pedal edema Skin: No obvious rash or lesion, normal skin color, appropriate skin turgor, dry Neuro: No acute/new focal/gross neurological deficits appreciated, no facial asymmetry or weakness noted during interview/exam Psych: Alert and oriented x3, appropriate mood and affect Labs/imaging/medications/vitals/relevant electronic medical records have personally been reviewed by me Patient screened for food insecurity, housing instability, transportation needs, utility difficulties, and interpersonal safety. All Problems: No Problems Available All Allergies (Active and Inactive) Allergen Type Reaction Severity Status No Known Drug Allergies Medication active Active Home Meds: No Home Medications Available Ordered & Completed Meds Table Ordered Medication Start Date/Time Dosage Route Frequency Status SOLU-medrol (methylPRED) 40MG/ML AOV 03/13/2024 04:29 40 MG IV PUSH Q8H active IPRATROP/ALBUTE (DUONEB) 0.5MG/2.5MG 3ML 03/13/2024 04:29 3 ML NEBULIZER RESP QID active BENZONATATE (TESSALON) 100MG CAP 03/13/2024 04:30 100 MG ORAL PRN Q8H active guaiFENesin DM 200MG-20MG/10ML 03/13/2024 04:30 10 ML ORAL PRN Q4H active Discharge Medications: No Discharge Medications Available Vital Signs: Last 24 Hours Date/Time BP (mm/Hg) BP Position/Site MAP (mm/Hg) Heart Rate Pulse Site Resp Temp (C) Temp (F) SPO2% O2 L/min FiO2 O2 Device Blood Sugar Pain Score Weight (kg) Weight (lbs/ozs) Scale BSA 03/13/2024 05:11 133/76 Lying/Right Arm 95 74 Radial 18 36.7 Oral 98.1 Oral 97 % 4.50 O2 Cannula Intake/Output: Last 16 Hours: No Intake/Output Available Surgery List: No Surgical History Available Device List(Active and Inactive): No Implantable Devices Available Abnormal Results: Last 24 Hours Test Results Units Reference Range Ordered Collected Status PO2 138.0 H mmHg L=80.0 H=100 03/13/2024 01:22 03/13/2024 02:00 final PCO2 53.0 H mmHg L=35.0 H=45.0 03/13/2024 01:22 03/13/2024 02:00 final BE 9.9 H mmol/L L=0.0 H=2.0 03/13/2024 01:22 03/13/2024 02:00 final BEecf 10.6 H mmol/L L=0.0 H=2.0 03/13/2024 01:22 03/13/2024 02:00 final HCO3 35.2 H mmol/L L=22.0 H=26.0 03/13/2024 01:22 03/13/2024 02:00 final A-aDO2 52 H mmHg L=7 H=13 03/13/2024 01:22 03/13/2024 02:00 final RBC 3.91 L 10^6uL L=4.60 H=6.20 03/13/2024 01:22 03/13/2024 00:25 final HEMOGLOBIN 11.9 L g/dL L=14.0 H=18.0 03/13/2024 01:22 03/13/2024 00:25 final HEMATOCRIT 38.2 L VOL% L=42.0 H=52.0 03/13/2024 01:22 03/13/2024 00:25 final MCV 97.7 H fL L=80.0 H=94.0 03/13/2024 01:22 03/13/2024 00:25 final MCHC 31.2 L g/dL L=32.0 H=36.0 03/13/2024 01:22 03/13/2024 00:25 final %GRAN 87.8 H % L=40.0 H=70.0 03/13/2024 01:22 03/13/2024 00:25 final %LYMPH 4.5 L % L=20.0 H=45.0 03/13/2024 01:22 03/13/2024 00:25 final #NEUT 8.2 H 10^3uL L=1.9 H=7.6 03/13/2024 01:22 03/13/2024 00:25 final #LYMPH 0.4 L 10^3uL L=0.9 H=4.9 03/13/2024 01:22 03/13/2024 00:25 final GLUCOSE 143 H mg/dL L=74 H=106 03/13/2024 01:22 03/13/2024 00:25 final CO2 33.0 H mmol/L L=22.0 H=30.0 03/13/2024 01:22 03/13/2024 00:25 final PROCALCITONIN 0.11 H ng/mL L=0.00 H=0.08 03/13/2024 01:22 03/13/2024 00:25 final Environmental Health: No Environment Available Immunization Last Administered List Pneumococcal conjugate PCV 13, 03/23/2021 COVID-19, mRNA, LNP-S, PF, 100 mcg/0.5mL dose or 50 mcg/0.25mL dose, 11/03/2020 pneumococcal polysaccharide PPV23, 01/31/2022 Influenza vaccine, quadrivalent, adjuvanted, 06/09/2023 COVID-19, mRNA, LNP-S, PF, maryann-sucrose, 30 mcg/0.3 mL, 06/09/2023 zoster recombinant, 01/09/2021 influenza, injectable, quadrivalent, preservative free, 03/23/2021 Smoking Status: Current every day smoker, Cessation Education: Family History List: No Family History Available
--- OUTSIDE RECORDS SUMMARY | 2025-01-30 14:16 | XMS_ITS ---
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 Name Role Phone CITLALY PALENCIA Attending Unavailable HENRIK REMBERTO Primary Unavailable Immunization Immunization Date Status Additional Notes Code [...] 30 mcg/0.3 mL 06/09/2023 Completed 309 CVX Social History Type Status Start Date End Date Code Code Syst em Smoking History Current every day smoker 004258451 SNOMED CT Sex Male Medications Medication Start Date End Date Route Frequency Dose Code Code System Medication Instructions Home Meds guaiFENesin DM 10MG/5ML-100MG/5ML Oral Syrup 03/13/2024 03/26/2024 ORAL NEEDED EVERY 4 HOURS 10 mL [id number] RxNorm TAKE 10 mL ORAL NEEDED EVERY 4 HOURS Combivent Respimat 100MCG-20MCG/1Act Inhalation [place] 03/13/2024 Unknown INHALAT ION FOUR TIMES A DAY 1 unit( s) [id number] RxNorm 1 EACH INHALATIO N FOUR TIMES A DAY Ipratropium [place]-Albuterol Sulfate 0.5MG/3ML-3MG/3ML Inhalation Solution 03/13/2024 03/26/2024 INHALAT ION TWICE A DAY 1 unit( s) [id number] RxNorm 1 EACH INHALATIO N TWICE A DAY predniSONE 20MG Oral Tablet 03/13/2024 03/26/2024 BY MOUTH TWICE A DAY 2 TABLE T [id number] RxNorm TAKE 2 TABLET BY MOUTH TWICE A DAY x 3 days. thenTAKE 2 TABLET BY MOUTH ONCE A DAY x 3 days Zithromax 500MG Oral Tablet 03/13/2024 03/26/2024 BY MOUTH ONCE A DAY 1 TABLE T [id number] RxNorm TAKE 1 TABLET BY MOUTH ONCE A DAY starting on 03/14/2024 Benzonatate 100MG Oral Capsule, Liquid Filled 04/07/2024 Unknown ORAL NEEDED 3 TIMES A DAY 100 SHANNON GRAMS [id number] RxNorm TAKE 100 MILLIGRAM S ORAL NEEDED 3 TIMES A DAY Budesonide 0.5MG/2ML Inhalation Suspension 04/07/2024 Unknown NEBULIZ ER RESP BID 0.5 SHANNON GRAMS [id number] RxNorm 0.5 MILLIGRAM S NEBULIZER RESP BID Ibandronate Sodium 150MG Oral Tablet 04/07/2024 Unknown ORAL MONTHLY 150 SHANNON GRAMS [id number] RxNorm TAKE 150 MILLIGRAM S ORAL MONTHLY Montelukast Sodium 10MG Oral Tablet 04/07/2024 Unknown ORAL AT BEDTIME 10 SHANNON GRAMS [id number] RxNorm TAKE 10 MILLIGRAM S ORAL AT BEDTIME amLODIPine Besylate 10MG Oral Tablet 04/07/2024 Unknown ORAL ONCE A DAY 10 SHANNON GRAMS [id number] RxNorm TAKE 10 MILLIGRAM S ORAL ONCE A DAY insulin lispro 100U/1ML Injection Solution 04/07/2024 Unknown SUBCUTA NEOUS SLIDING SCALE [id number] RxNorm INJECT INTO 0-6 EACH SUBCUTANE OUS [...] questions, please contact your primary care physician. Reason For Referral No Data Found Problems Problem Start Date Resolved Date Status Code Code System MODERATE COPD active 567943612 SNOMED -CT TOBACCO USE DISORDER active 61343434 SNOMED-CT ACUTE HYPOXEMIC AND HYPERCAPNIC RESPIRATORY FAILURE active 602711641 SNOMED-CT CHRONIC RESPIRATORY FAILURE WITH HYPOXIA active 28017500 SNOMED-CT TYPE 2 DM active 17263474 SNOMED-CT PRIMARY HYPERTENSION active 28639279 SNOMED-CT CHRONIC ARTHRITIS 03/13/2024 resolved 37502523 S NOMED-CT SEVERE COPD 03/13/2024 resolved 912654474 SNOMED- CT Allergies and Adverse Reactions Allergy Substance Reaction Severity Start Date Concern Status Co de Code System LEVOFLOXACIN Active 02235 RxNorm Plan of Treatment White Follow Up Visit 03/13/2022 Pulmonary Function Test 01/25/2022 Abdulfattah Established Patient 023 Abdulfattah Established Patient 023 Abdulfattah Established Patient 024 Abdulfattah Established Patient 024 Encounters Encounter Diagnosis Start Date Code Code Sys tem Chronic obstructive lung disease 12/03/2023 [id number] SNOMED-CT Personal Care Team Section Procedures Notes [facility] 12/13/2023 16:44 Six Minute Walk 6MWT revealed baseline SPO2 at rest on room air 94%. Patient walked less than 50 feet and SPO2 dropped to 85%, patient had significant desaturation with walking and O2 was applied at 2 LPM, with no improvement in SPO2. O2 was increased to 3 LPM with no improvement, so O2 was increased to 4 LPM. SPO2 would only improve to 88%, so O2 was increased to 6 LPM and SPO2 improved to 91-92%. Patient may benefit from using oxygen at 6LPM with activity.
--- OUTSIDE RECORDS SUMMARY | 2025-01-30 14:17 | XMS_ITS ---
Author Organization Unknown Address [id number] [place] [phone] Phone Care Team Providers Care Digester Operator Name Role Phone Unavailable [employer] Unavailable MEENA Gandhi Attending Unavailable HENRIK REMBERTO Primary Unavailable MEENA Gandhi Transferring Provider Immunization Immunization Date Status Additional [...] mcg/0.3 mL 06/09/2023 Completed 309 CVX Results BEDSIDE GLUCOSE - Collect Da te/Time: 04/07/2024 11:41 [facility] ID: [id number] [place], [place], [id number] LOINC: 89043-1 Test Value Unit Reference Range Code Code System Flag BEDSIDE GLUCOSE 172 mg/dl L=74 H=106 56443-2 LOINC H BEDSIDE GLUCOSE - Collect Da te/Time: 04/07/2024 05:55 [facility] ID: [id number] [address] [place] [address], [id number] LOINC: 54687-8 Test Value Unit Reference Range Code Code System Flag BEDSIDE GLUCOSE 107 mg/dl L=74 H=106 12848-7 LOINC H BEDSIDE GLUCOSE - Collect Da te/Time: 04/06/2024 20:07 [facility] ID: [id number] [address] [place] [address], [id number] LOINC: 70374-0 Test Value Unit Reference Range Code Code System Flag BEDSIDE GLUCOSE 157 mg/dl L=74 H=106 19111-0 LOINC H BEDSIDE GLUCOSE - Collect Da te/Time: 04/06/2024 16:36 [facility] ID: [id number] [address] [place] [address], [id number] LOINC: 10534-8 Test Value Unit Reference Range Code Code System Flag BEDSIDE GLUCOSE 99 mg/dl L=74 H=106 46284-8 LOINC BEDSIDE GLUCOSE - Collect Da te/Time: 04/06/2024 12:26 [facility] ID: [id number] [address] [place] [address], [id number] LOINC: 25905-5 Test Value Unit Reference Range Code Code System Flag BEDSIDE GLUCOSE 188 mg/dl L=74 H=106 87773-9 LOINC H BEDSIDE GLUCOSE - Collect Da te/Time: 04/06/2024 06:02 [facility] ID: [id number] [address] [place] [address], [id number] LOINC: 92355-5 Test Value Unit Reference Range Code Code System Flag BEDSIDE GLUCOSE 100 mg/dl L=74 H=106 83637-2 LOINC BEDSIDE GLUCOSE - Collect Da te/Time: 04/05/2024 20:24 [facility] ID: [id number] [address] [place] [address], [id number] LOINC: 81894-1 Test Value Unit Reference Range Code Code System Flag BEDSIDE GLUCOSE 121 mg/dl L=74 H=106 70478-4 LOINC H BEDSIDE GLUCOSE - Collect Da te/Time: 04/05/2024 16:35 [facility] ID: [id number] [address] [place] [address], [id number] LOINC: 45757-1 Test Value Unit Reference Range Code Code System Flag BEDSIDE GLUCOSE 137 mg/dl L=74 H=106 72263-9 LOINC H BEDSIDE GLUCOSE - Collect Da te/Time: 04/05/2024 11:00 [facility] ID: [id number] [address] [place] [address], [id number] LOINC: 01137-1 Test Value Unit Reference Range Code Code System Flag BEDSIDE GLUCOSE 182 mg/dl L=74 H=106 14702-7 LOINC H BEDSIDE GLUCOSE - Collect Da te/Time: 04/05/2024 06:35 [facility] ID: [id number] [address] [place] [address], [id number] LOINC: 24472-6 Test Value Unit Reference Range Code Code System Flag BEDSIDE GLUCOSE 95 mg/dl L=74 H=106 66729-9 LOINC BEDSIDE GLUCOSE - Collect Da te/Time: 04/04/2024 20:45 [facility] ID: [id number] [address] [place] [address], [id number] LOINC: 41584-6 Test Value Unit Reference Range Code Code System Flag BEDSIDE GLUCOSE 107 mg/dl L=74 H=106 84649-1 LOINC H BEDSIDE GLUCOSE - Collect Da te/Time: 04/04/2024 16:27 [facility] ID: [id number] [address] [place] [address], [id number] LOINC: 89552-5 Test Value Unit Reference Range Code Code System Flag BEDSIDE GLUCOSE 80 mg/dl L=74 H=106 50429-3 LOINC BEDSIDE GLUCOSE - Collect Da te/Time: 04/04/2024 11:27 [facility] ID: [id number] [address] [place] [address], [id number] LOINC: 27121-0 Test Value Unit Reference Range Code Code System Flag BEDSIDE GLUCOSE 131 mg/dl L=74 H=106 87901-4 LOINC H BEDSIDE GLUCOSE - Collect Da te/Time: 04/04/2024 05:47 [facility] ID: [id number] [address] [place] [address], [id number] LOINC: 88652-3 Test Value Unit Reference Range Code Code System Flag BEDSIDE GLUCOSE 77 mg/dl L=74 H=106 01967-8 LOINC BEDSIDE GLUCOSE - Collect Da te/Time: 04/03/2024 21:26 [facility] ID: [id number] [address] [place] [address], [id number] LOINC: 88056-4 Test Value Unit Reference Range Code Code System Flag BEDSIDE GLUCOSE 84 mg/dl L=74 H=106 72991-3 LOINC BEDSIDE GLUCOSE - Collect Da te/Time: 04/03/2024 12:04 [facility] ID: [id number] [address] [place] [address], [id number] LOINC: 64818-1 Test Value Unit Reference Range Code Code System Flag BEDSIDE GLUCOSE 100 mg/dl L=74 H=106 82948-4 LOINC BEDSIDE GLUCOSE - Collect Da te/Time: 04/03/2024 06:29 [facility] ID: [id number] [address] [place] [address], [id number] LOINC: 57317-7 Test Value Unit Reference Range Code Code System Flag BEDSIDE GLUCOSE 71 mg/dl L=74 H=106 09238-1 LOINC L BEDSIDE GLUCOSE - Collect Da te/Time: 04/02/2024 20:50 [facility] ID: [id number] [address] [place] [address], [id number] LOINC: 99109-2 Test Value Unit Reference Range Code Code System Flag BEDSIDE GLUCOSE 74 mg/dl L=74 H=106 36318-0 [facility] BEDSIDE GLUCOSE - Collect Da te/Time: 04/02/2024 17:07 [facility] ID: [id number] [address] [place] [address], [id number] LOINC: 78259-4 Test Value Unit Reference Range Code Code System Flag BEDSIDE GLUCOSE 81 mg/dl L=74 H=106 05169-5 [facility] BEDSIDE GLUCOSE - Collect Da te/Time: 04/02/2024 11:27 [facility] ID: [id number] [address] [place] [address], [id number] LOINC: 16849-4 Test Value Unit Reference Range Code Code System Flag BEDSIDE GLUCOSE 82 mg/dl L=74 H=106 43355-9 [facility] BEDSIDE GLUCOSE - Collect Da te/Time: 04/02/2024 06:36 [facility] ID: [id number] [address] [place] [address], [id number] LOINC: 11631-3 Test Value Unit Reference Range Code Code System Flag BEDSIDE GLUCOSE 96 mg/dl L=74 H=106 93863-7 [facility] BEDSIDE GLUCOSE - Collect Da te/Time: 04/01/2024 21:08 [facility] ID: [id number] [address] [place] [address], [id number] LOINC: 51911-7 Test Value Unit Reference Range Code Code System Flag BEDSIDE GLUCOSE 92 mg/dl L=74 H=106 67421-8 LOINC BEDSIDE GLUCOSE - Collect Da te/Time: 04/01/2024 16:33 [facility] ID: [id number] [address] [place] [address], [id number] LOINC: 63197-4 Test Value Unit Reference Range Code Code System Flag BEDSIDE GLUCOSE 104 mg/dl L=74 H=106 32322-5 LOINC BEDSIDE GLUCOSE - Collect Da te/Time: 04/01/2024 11:12 [facility] ID: [id number] [address] [place] [address], [id number] LOINC: 88640-8 Test Value Unit Reference Range Code Code System Flag BEDSIDE GLUCOSE 93 mg/dl L=74 H=106 47409-1 LOINC BEDSIDE GLUCOSE - Collect Da te/Time: 04/01/2024 06:36 [facility] ID: [id number] [address] [place] [address], [id number] LOINC: 80458-0 Test Value Unit Reference Range Code Code System Flag BEDSIDE GLUCOSE 85 mg/dl L=74 H=106 85587-5 LOINC BEDSIDE GLUCOSE - Collect Da te/Time: 03/31/2024 20:43 [facility] ID: [id number] [address] [place] [address], [id number] LOINC: 00605-7 Test Value Unit Reference Range Code Code System Flag BEDSIDE GLUCOSE 121 mg/dl L=74 H=106 49394-7 LOINC H BEDSIDE GLUCOSE - Collect Da te/Time: 03/31/2024 16:36 [facility] ID: [id number] [address] [place] [address], [id number] LOINC: 85188-3 Test Value Unit Reference Range Code Code System Flag BEDSIDE GLUCOSE 160 mg/dl L=74 H=106 92800-6 LOINC H BEDSIDE GLUCOSE - Collect Da te/Time: 03/31/2024 11:12 [facility] ID: [id number] [address] [place], [place], [id number] LOINC: 58605-1 Test Value Unit Reference Range Code Code System Flag BEDSIDE GLUCOSE 145 mg/dl L=74 H=106 92141-8 LOINC H ARTERIAL BLOOD GAS - Collect Date/Time: 03/31/2024 07:58 [facility] ID: [id number] [address] [place] [address], [id number] LOINC: 42438-7 Test Value Unit Reference Range Code Code System Flag pH 7.49 L=7.35 H=7.45 2753-2 LOINC H PO2 83.0 mmHg L=80.0 H=100 04009-1 LOINC PCO2 33.0 mmHg L=35.0 H=45.0 40773-1 LOINC L BE 2.4 mmol/L L=0.0 H=2.0 51886-4 LOINC H BEecf 1.3 mmol/L L=0.0 H=2.0 32402-2 LOINC HCO3 24.9 mmol/L L=22.0 H=26.0 08608-7 LOINC A-aDO2 77 mmHg L=7 H=13 21337-3 LOINC H O2Hb 93.6 % L=85.0 H=100 73178-4 LOINC sO2m 97.0 % L=85.0 H=100 JERSON TEST NOT PERFORMED 31199-3 LOINC PUNCTURE SITE RIGHT BRACHIA FIO2 28 % BEDSIDE GLUCOSE - Collect Da te/Time: 03/31/2024 06:00 [facility] ID: [id number] [address] [place] [address], [id number] LOINC: 59564-4 Test Value Unit Reference Range Code Code System Flag BEDSIDE GLUCOSE 84 mg/dl L=74 H=106 54078-2 LOINC BEDSIDE GLUCOSE - Collect Da te/Time: 03/30/2024 19:58 [facility] ID: [id number] [address] [place] [address], [id number] LOINC: 21497-9 Test Value Unit Reference Range Code Code System Flag BEDSIDE GLUCOSE 120 mg/dl L=74 H=106 56971-6 LOINC H BEDSIDE GLUCOSE - Collect Da te/Time: 03/30/2024 16:18 [facility] ID: [id number] [address] [place] [address], [id number] LOINC: 84286-8 Test Value Unit Reference Range Code Code System Flag BEDSIDE GLUCOSE 133 mg/dl L=74 H=106 72544-3 LOINC H BEDSIDE GLUCOSE - Collect Da te/Time: 03/30/2024 11:12 [facility] ID: [id number] [address] [place] [address], [id number] LOINC: 43625-1 Test Value Unit Reference Range Code Code System Flag BEDSIDE GLUCOSE 123 mg/dl L=74 H=106 25449-7 LOINC H TROPONIN LEVEL - Collect Cristobal e/Time: 03/30/2024 06:30 [facility] ID: [id number] [address] [place] [address], [id number] LOINC: 49734-0 Test Value Unit Reference Range Code Code System Flag TROPONIN < 0.012 ng/mL L=0.000 H=0.033 19753-1 LOINC BEDSIDE GLUCOSE - Collect Da te/Time: 03/30/2024 06:16 [facility] ID: [id number] [address] [place] [address], [id number] LOINC: 70971-7 Test Value Unit Reference Range Code Code System Flag BEDSIDE GLUCOSE 79 mg/dl L=74 H=106 66829-6 LOINC BEDSIDE GLUCOSE - Collect Da te/Time: 03/29/2024 21:24 [facility] ID: [id number] [address] [place] [address], [id number] LOINC: 75101-0 Test Value Unit Reference Range Code Code System Flag BEDSIDE GLUCOSE 105 mg/dl L=74 H=106 45321-3 LOINC BEDSIDE GLUCOSE - Collect Da te/Time: 03/29/2024 16:07 [facility] ID: [id number] [address] [place] [address], [id number] LOINC: 75519-5 Test Value Unit Reference Range Code Code System Flag BEDSIDE GLUCOSE 147 mg/dl L=74 H=106 59642-1 [facility] BEDSIDE [facility]UCOSE - Collect Da te/Time: 03/29/2024 11:04 [facility] ID: [id number] [address] [place] [address], [id number] LOINC: 35679-8 Test Value Unit Reference Range Code Code System Flag BEDSIDE GLUCOSE 88 mg/dl L=74 H=106 76685-3 [facility] BEDSIDE GLUCOSE - Collect Da te/Time: 03/29/2024 05:58 [facility] ID: [id number] [address] [place] [address], [id number] LOINC: 67782-4 Test Value Unit Reference Range Code Code System Flag BEDSIDE GLUCOSE 76 mg/dl L=74 H=106 54576-4 [facility] BEDSIDE GLUCOSE - Collect Da te/Time: 03/28/2024 20:10 [facility] ID: [id number] [address] [place] [address], [id number] LOINC: 78918-9 Test Value Unit Reference Range Code Code System Flag BEDSIDE GLUCOSE 220 mg/dl L=74 H=106 96390-9 LOINC H BEDSIDE GLUCOSE - Collect Da te/Time: 03/28/2024 16:56 [facility] ID: [id number] [address] [place] [address], [id number] LOINC: 41469-6 Test Value Unit Reference Range Code Code System Flag BEDSIDE GLUCOSE 187 mg/dl L=74 H=106 96843-8 LOINC H BEDSIDE GLUCOSE - Collect Da te/Time: 03/28/2024 11:47 [facility] ID: [id number] [address] [place] [address], [id number] LOINC: 25222-0 Test Value Unit Reference Range Code Code System Flag BEDSIDE GLUCOSE 178 mg/dl L=74 H=106 01334-8 LOINC H BEDSIDE GLUCOSE - Collect Da te/Time: 03/28/2024 07:18 [facility] ID: [id number] [address] [place] [address], [id number] LOINC: 67379-6 Test Value Unit Reference Range Code Code System Flag BEDSIDE GLUCOSE 107 mg/dl L=74 H=106 16534-8 LOINC H BEDSIDE GLUCOSE - Collect Da te/Time: 03/27/2024 20:14 [facility] ID: [id number] [address] [place] [address], [id number] LOINC: 69309-1 Test Value Unit Reference Range Code Code System Flag BEDSIDE GLUCOSE 88 mg/dl L=74 H=106 92903-1 LOINC BEDSIDE GLUCOSE - Collect Da te/Time: 03/27/2024 16:49 [facility] ID: [id number] [address] [place] [address], [id number] LOINC: 81992-5 Test Value Unit Reference Range Code Code System Flag BEDSIDE GLUCOSE 80 mg/dl L=74 H=106 93864-1 LOINC BEDSIDE GLUCOSE - Collect Da te/Time: 03/27/2024 11:31 [facility] ID: [id number] [address] [place], [place], [id number] LOINC: 44185-7 Test Value Unit Reference Range Code Code System Flag BEDSIDE GLUCOSE 114 mg/dl L=74 H=106 34611-5 LOINC H COMPREHENSIVE METABOLIC PANE L - Collect Date/Time: 03/27/2024 06:55 [facility] ID: [id number] [address] [place] [address], [id number] LOINC: 62364-5 Test Value Unit Reference Range Code Code System Flag FASTING UNKNOWN BUN 37 mg/dL L=7 H=20 3094-0 LOINC H CREATININE 1.10 mg/dL L=0.66 H=1.25 2160-0 LOINC GLUCOSE 77 mg/dL L=74 H=106 2345-7 LOINC SODIUM 134 mmol/L L=132 H=144 2951-2 LOINC POTASSIUM 4.1 mmol/L L=3.5 H=5.1 2823-3 LOINC CHLORIDE 98 mmol/L L=98 H=107 2075-0 LOINC CO2 30.0 mmol/L L=22.0 H=30.0 8-9 LOINC ANION GAP 10 L=10 H=20 62798-2 LOINC OSMOLALITY 285 mOs/kG L=280 H=296 39737-9 LOINC BUN/CREAT 33.6 3097-3 LOINC CALCIUM 8.7 mg/dL L=8.3 H=10.5 28324-2 LOINC AST 52 U/L L=15 H=46 1920-8 LOINC H ALT 89 U/L L=9 H=72 1742-6 LOINC H ALKALINE PHOS 110 U/L L=38 H=126 6768-6 LOINC TOTAL BILI 0.7 mg/dL L=0.2 H=1.3 1975-2 LOINC ALBUMIN 3.0 G/dL L=3.5 H=5.0 175-7 LOINC L TOTAL PROTEIN 5.5 g/L L=6.3 H=8.2 2885-2 LOINC L A/G RATIO 1.2 25659-1 LOINC AGE 78 26420-6 LOINC eGFR NON-AFR 69 ml/min eGFR AFR AMER 83 ml/min CBC W/ DIFF - Collect Date/T sheng: 03/27/2024 06:55 [facility] ID: [id number] [address] [place], [place], [id number] LOINC: 83864-3 Test Value Unit Reference Range Code Code System Flag WBC 17.7 10^3uL L=4.8 H=10.8 H RBC 3.51 10^6uL L=4.60 H=6.20 L HEMOGLOBIN 10.5 g/dL L=14.0 H=18.0 718-7 LOINC L HEMATOCRIT 32.5 VOL% L=42.0 H=52.0 4544-3 LOINC L MCV 92.6 fL L=80.0 H=94.0 MCH 29.9 pg L=27.0 H=32.0 MCHC 32.3 g/dL L=32.0 H=36.0 PLATELETS 310 10^3uL L=100 H=400 31162-6 LOINC RDW 14.4 % L=11.7 H=15.5 %GRAN 89.7 % L=40.0 H=70.0 87430-4 LOINC H %LYMPH 3.1 % L=20.0 H=45.0 736-9 LOINC L %MONO 6.1 % L=2.0 H=10.0 67421-3 LOINC %EOS 0.1 % L=0.0 H=6.0 713-8 LOINC %BASO 0.1 % L=0.0 H=3.0 706-2 LOINC #NEUT 15.8 10^3uL L=1.9 H=7.6 83747-8 LOINC H #LYMPH 0.6 10^3uL L=0.9 H=4.9 64865-4 LOINC L #MONO 1.1 10^3uL L=0.1 H=0.9 30610-9 LOINC H #EOS 0.0 10^3uL L=0.0 H=0.6 712-0 LOINC #BASO 0.02 10^3uL L=0.00 H=0.10 61982-2 LOINC #IM GRANS 0.2 10^3uL L=0.0 H=7.0 42624-9 LOINC %IM GRANS 0.9 % L=0.0 H=5.0 39609-0 LOINC %NRB 0.0 L=0.0 H=0.2 22601-7 LOINC #NRB 0.000 L=0.000 H=0.012 26321-5 LOINC MANUAL DIFF NOT INDICATED RBC MORPH NOT INDICATED BEDSIDE GLUCOSE - Collect Da te/Time: 03/27/2024 06:06 [facility] ID: [id number] [address] [place] [address], [id number] LOINC: 64830-5 Test Value Unit Reference Range Code Code System Flag BEDSIDE GLUCOSE 72 mg/dl L=74 H=106 11134-4 LOINC L BEDSIDE GLUCOSE - Collect Da te/Time: 03/26/2024 20:38 [facility] ID: [id number] [address] [place] [address], [id number] LOINC: 90805-2 Test Value Unit Reference Range Code Code System Flag BEDSIDE GLUCOSE 125 mg/dl L=74 H=106 81056-2 LOINC H MRSA SCREEN (NASAL ONLY) - C ollect Date/Time: 03/26/2024 17:56 [facility] ID: [id number] [address] [place] [address], [id number] LOINC: 39231-9 Test Value Unit Reference Range Code Code System Flag MRSA SCREEN PRELIM NOT APPLICABLE MRSA SCREEN FINAL NO MRSA COLONIZATION 41561-1 LOINC SEND TO [facility]? NO CHEST 1V - Completed: 2023 08:47 LOINC: EXAM DESCRIPTION: CHEST 1V REASON FOR STUDY: follow up Duration: 03/27 TECHNIQUE: 1 radiographic view(s) of the chest. COMPARISON: 03/13/2024 FINDINGS: LUNGS: Scattered airspace opacities, most prominent in the right and left upper lobes. No pneumothorax. Suspected trace bilateral pleural effusions. There is elevation of the right hemidiaphragm. HEART/MEDIASTINUM: Cardiac silhouette normal in size. Mediastinal and hilar contours appear normal. LINES/TUBES: None. BONES: No acute osseous abnormality. IMPRESSION: Multifocal pneumonia, most prominently involving the right and left upper lobes. Suspected trace bilateral pleural effusions. THIS IS AN ELECTRONICALLY VERIFIED FINAL REPORT 03/31/2024 8:44 AM - Electronically signed by Jr Melgar M.D. KR: ROSANNA Report ID: [id number] Reading Location: [place] [address] CHEST 2V - Completed: 2023 06:32 LOINC: EXAM DESCRIPTION: CHEST 2V REASON FOR STUDY: Possible Aspiration Pneumonia HX COPD Smoker Intubated at [facility] Admitted here 03-26-24 Comparison 03-13-24 Duration: . TECHNIQUE: Frontal and lateral radiographic views of the chest acquired. COMPARISON: Chest x-ray of March 13, 2024. FINDINGS: LUNGS/PLEURA: Lungs are hypoventilatory with diffusely increased interstitial marking through out the lungs bilaterally new patchy airspace disease in the upper lung zones bilaterally. There is blunting of the costophrenic angles bilaterally, new from previous. HEART/MEDIASTINUM: Cardiac silhouette is within normal limits. There is atherosclerosis of the aorta. Remaining mediastinal silhouettes are unremarkable. HARDWARE/LINES/TUBES: None. BONES: No acute findings. IMPRESSION: New bilateral airspace disease suspicious for pneumonia. Small new bilateral pleural effusions. Recommend clinical correlation and follow-up short interval chest x-ray in 4-6 weeks to ensure resolution. THIS IS AN ELECTRONICALLY VERIFIED FINAL REPORT 03/27/2024 6:58 AM - Electronically signed by Sherry Balbuena M.D. SN: SN Report ID: [id number] Reading Location: [place] [id number] Social History Type Status Start Date End Date Code Code Syst em Smoking History Current every day smoker 552404801 SNOMED CT Sex Male Vital Signs Vital Sign Value Unit Posey Value Posey Unit Date/Time Recent/Initial? Code Code System Body Mass Index 17.12 kg/m2 03/26/2024 16:55 Initial 80039 -5 LOINC Systolic Blood Pressure 114 mm[Hg] 04/07/2024 05:17 Most Recent 8480- 6 LOINC Diastolic Blood Pressure 67 mm[Hg] 04/07/2024 05:17 Most Recent 8462- 4 LOINC Systolic Blood Pressure 114 mm[Hg] 03/26/2024 16:55 Initial 8480- 6 LOINC Diastolic Blood Pressure 67 mm[Hg] 03/26/2024 16:55 Initial 8462- 4 LOINC Body Surface Area 1.50 m2 03/26/2024 16:55 Initial 3140- 1 LOINC Height 167.640 0 cm 66.00 in 03/26/2024 16:55 Initial 8302- 2 LOINC O2 Saturation 98 % 2023 10:48 Most Recent 17644 -5 LOINC O2 Saturation 98 % 2023 16:56 Initial 92227 -5 LOINC Inhaled Oxygen Flow Rate 2.00 L/min 04/07/2024 10:48 Most Recent 3151- 8 LOINC Inhaled Oxygen Flow Rate 3.00 L/min 03/26/2024 16:56 Initial 3151- 8 LOINC Fraction of Inspired Oxygen 97 % 03/27/2024 05:45 Initial 3150- 0 LOINC Pulse 72.0 /min 04/07/2024 10:48 Most Recent 8867- 4 LOINC Pulse 68.0 /min 03/26/2024 16:55 Initial 8867- 4 LOINC Respiration 18 /min 04/07/20 24 10:48 Most Recent 9279- 1 LOINC Respiration 24 /min 03/26/20 24 16:55 Initial 9279- 1 LOINC Temperature 36.6 Nicolasa 97.9 F 04/07/20 24 05:17 Most Recent 8310- 5 LOINC Temperature 36.7 Nicolasa 98.1 F 03/26/20 24 16:55 Initial 8310- 5 LOINC Weight 41.20 kg 90.83 lbs 04/07/2024 05:17 Most Recent 15305 -7 [facility] Weight 48.10 kg 106.04 lbs 03/26/2024 16:55 Initial 34553 -7 [facility] Medications Medication Start Date End Date Route Frequency Dose Code Code System Medication Instructions Home Meds guaiFENesin DM 10MG/5ML-100MG/5ML Oral Syrup 03/13/2024 03/26/2024 ORAL NEEDED EVERY 4 HOURS 10 mL [id number] RxNorm TAKE 10 mL ORAL NEEDED EVERY 4 HOURS Combivent Respimat 100MCG-20MCG/1Act Inhalation [place] 03/13/2024 Unknown INHALAT ION FOUR TIMES A DAY 1 unit( s) [id number] RxNorm 1 EACH INHALATIO N FOUR TIMES A DAY Ipratropium Bryan-Albuterol Sulfate 0.5MG/3ML-3MG/3ML Inhalation Solution 03/13/2024 03/26/2024 INHALAT ION TWICE A DAY 1 unit( s) [id number] RxNorm 1 EACH INHALATIO N TWICE A DAY predniSONE 20MG Oral Tablet 03/13/2024 03/26/2024 BY MOUTH TWICE A DAY 2 TABLE T [id number] RxNorm TAKE 2 TABLET BY MOUTH TWICE A DAY x 3 days. thenTAKE 2 TABLET BY MOUTH ONCE A DAY x 3 days Zithromax 500MG Oral Tablet 03/13/2024 03/26/2024 BY MOUTH ONCE A DAY 1 TABLE T [id number] RxNorm TAKE 1 TABLET BY MOUTH ONCE A DAY starting on 03/14/2024 Benzonatate 100MG Oral Capsule, Liquid Filled 04/07/2024 Unknown ORAL NEEDED 3 TIMES A DAY 100 SHANNON GRAMS [id number] RxNorm TAKE 100 MILLIGRAM S ORAL NEEDED 3 TIMES A DAY Budesonide 0.5MG/2ML Inhalation Suspension 04/07/2024 Unknown NEBULIZ ER RESP BID 0.5 SHANNON GRAMS [id number] RxNorm 0.5 MILLIGRAM S NEBULIZER RESP BID Ibandronate Sodium 150MG Oral Tablet 04/07/2024 Unknown ORAL MONTHLY 150 SHANNON GRAMS [id number] RxNorm TAKE 150 MILLIGRAM S ORAL MONTHLY Montelukast Sodium 10MG Oral Tablet 04/07/2024 Unknown ORAL AT BEDTIME 10 SHANNON GRAMS [id number] RxNorm TAKE 10 MILLIGRAM S ORAL AT BEDTIME amLODIPine Besylate 10MG Oral Tablet 04/07/2024 Unknown ORAL ONCE A DAY 10 SHANNON GRAMS [id number] RxNorm TAKE 10 MILLIGRAM S ORAL ONCE A DAY insulin lispro 100U/1ML Injection Solution 04/07/2024 Unknown SUBCUTA NEOUS SLIDING SCALE [id number] RxNorm INJECT INTO 0-6 EACH SUBCUTANE OUS [...] please contact your primary care physician. Discharge Date:04/07/24 Discharge Time:14:00 Mode of Discharge:Wheelchair. Diet:3 CHO, pureed food Activity:As tolerated. Help You May Need When You Leave The Hospital:[facility] Discharge Plan:Education given on Diagnosis(es), Medication list & instructions given.New med changes or DC'd meds discussed, Educated on anticipated problems.Aware of symptom mngment & interventions, Educated on diet and activity.Aware of follow up appt within 1 week.Aware of signs&symptoms that may develop, Discussed when to call MD or 911. Additional Information:2L Oxygen Acknowledges Receipt/Understanding Of:Discharge instructions, Medication instructions, Follow up appointment. Reason For Referral Reason for Referral: [facility] WILL FOLLOW AT HOME. Receiving Provider: [facility] [address] Problems Problem Start Date Resolved Date Status Code Code System MODERATE COPD active 743524976 SNOMED -CT TOBACCO USE DISORDER active 34014261 SNOMED-CT ACUTE HYPOXEMIC AND HYPERCAPNIC RESPIRATORY FAILURE active 279334667 SNOMED-CT CHRONIC RESPIRATORY FAILURE WITH HYPOXIA active 79558652 SNOMED-CT TYPE 2 DM active 84751634 SNOMED-CT PRIMARY HYPERTENSION active 80009349 SNOMED-CT CHRONIC ARTHRITIS 03/13/2024 resolved 54202821 S NOMED-CT SEVERE COPD 03/13/2024 resolved 658942643 SNOMED- CT Allergies and Adverse Reactions Allergy Substance Reaction Severity Start Date Concern Status Co de Code System LEVOFLOXACIN Active 27029 RxNorm Plan of Treatment White Follow Up Visit 03/13/2022 Pulmonary Function Test 01/25/2022 [place] Established Patient 023 Abdulfatta Established Patient 023 Abdulfatta Established Patient 024 Abdulfatta Established Patient 024 Encounters Encounter Diagnosis Start Date Code Code Sys tem Pneumonitis due to inhalation of food and vomit 2023 SNOMED-CT Personal Care Team Section Discharge Summary Notes [facility] 04/07/2024 10:56 Demographics Patient Name Age Sex Visit Number Admission Date/Time Attending Physician Room and Bed MARCELLO CAIN 1945 78 years Male [id number] 03/26/2024 15:59 Jimmy Robledo 116 04/07/2024 ADMISSION & FINAL DIAGNOSIS: Problem List Moderate COPD Tobacco use disorder Acute hypoxemic and hypercapnic respiratory failure Chronic respiratory failure with hypoxia Type 2 DM Primary hypertension Full Code Status BRIEF HISTORY: INITIAL SWING BED: 03/27/2024: Dr Robledo: Mr Marcello Cain is a 78 y/o WM who lives at home and is a patient of Dr. Jules. Mr Cain is placed under Swing Bed Status onto the Hospitalist Service this evening for PT/OT status post Aspiration PNA and after being discharged from [facility] in [place], [place] today. 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 He was found unconscious on the ground at home. Mr Cain was intubated and placed in the ICU but was extubated quickly. He was found to have a PNA and most likely an aspiration PNA. Initially on Meropenem and Doxycycline, ID saw and recommended Bactrim to continue after D/C. He had not had the diagnosis of DM 2 or HTN, but was diagnosed with both during this hospitalization. He is on higher dose steroids, which is more than likely the cause of his hyperglycemia. He is admitted here for PT/OT and to finish his PO antibiotics for his PNA. Aspiration PNA - Discussed with: Hospitalist at [facility], [place], [place] Treatments: Bactrim per ID recs PT/OT/ST consulted DISPOSITION: Plan is for PT/OT until he is strong enough to go home. 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 VTE Prophy - Ambulate at least TID with PT/OT CODE STATUS - Full Code per discussion with Mr Cain SWING BED: 04/02: Dr Myers: Notes his fustration about limitations on his diet. ASSESSMENT AND PLAN: 1. Aspiration pneumonia clinically better however patient still has difficulties with swallowing as this treated about his limitations on his diet. States that he wants to start a regular diet and seems to be considering hospice as an option. Plan for family meeting on Friday to further discuss this 2. COPD continue current nebulizers. 3. Diabetes mellitus type 2 4. Hypertension. 5. Tobacco use disorder. SWING BED DISCHARGE: 04/07: Dr Robledo: D/C to home today with [facility] Aspiration PNA - Continue Pureed diet at home. 3 CHO. He feels much better overall. His dietary intake has improved over the past 48 hours. He will go home today on Hospice. 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 This is much better for his hypercapnia Home on 2L/NC Continue nebs. No steroids on board. DM 2 - No insulin needed. He hasn't been on Lantus since we stopped his prednisone. SS insulin has been utilized very infrequently, so he doesn't need a SS insulin for home, assuming he will follow the 3 CHO diet. Primary HTN - Continue Amlodipine upon D/C Tobacco Use Disorder - Mr Cain will continue to smoke after D/C, he says. CODE STATUS - Remains a Full Code upon D/C SOCIAL DETERMINANTS OF HEALTH (SDOH) IMPACTING CARE: I discussed these social determinants of health with the patient and received the following answers: 1) Food Insecurity - none 2) Housing Instability - none 3) Transportation Needs - Lives at home alone, needs help getting to appointment 4) Utility Difficulties - none 5) Interpersonal safety - none EXAM: Most Recent Vital Signs BP (mm/Hg) BP Position/Site Heart Rate Resp Temp (F) SPO2% O2 Device Height (in) Weight (kg) 114/67 Lying/Right Arm 66 18 97.9 Oral 97 % O2 Cannula 66 in 41.2 kg Cardiovascular: Regular rhythm, S1S2 normal. ABSENT: edema Respiratory: Poor Air Entry, minimal scattered wheezes/rales. Abdomen: soft. ABSENT: tenderness, distention LABS: Lab Results: Last 8 Hours Test Results Units Reference Range Ordered Collected Status BEDSIDE GLUCOSE 107 H mg/dl L=74 H=106 04/07/2024 05:55 04/07/2024 05:55 final MEDICATIONS: Discharge Medications Medication Dosage Route Frequency Prescribing MD Special Instructions Combivent Respimat 100MCG-20MCG/1Act Inhalation [place] 1 EACH INHALATION FOUR TIMES A DAY MEENA JIMMY A 1 EACH INHALATION FOUR TIMES A DAY Benzonatate 100MG Oral Capsule, Liquid Filled 100 MILLIGRAMS ORAL NEEDED 3 TIMES A DAY MEENA JIMMY A TAKE 100 MILLIGRAMS ORAL NEEDED 3 TIMES A DAY Budesonide 0.5MG/2ML Inhalation Suspension 0.5 MILLIGRAMS NEBULIZER RESP BID MEENA JIMMY A 0.5 MILLIGRAMS NEBULIZER RESP BID Ibandronate Sodium 150MG Oral Tablet 150 MILLIGRAMS ORAL MONTHLY MEENA JIMMY A TAKE 150 MILLIGRAMS ORAL MONTHLY Montelukast Sodium 10MG Oral Tablet 10 MILLIGRAMS ORAL AT BEDTIME MEENA JIMMY A TAKE 10 MILLIGRAMS ORAL AT BEDTIME amLODIPine Besylate 10MG Oral Tablet 10 MILLIGRAMS ORAL ONCE A DAY MEENA JIMMY A TAKE 10 MILLIGRAMS ORAL ONCE A DAY insulin lispro 100U/1ML Injection Solution SUBCUTANEOUS SLIDING SCALE MEENA JIMMY A INJECT INTO 0-6 EACH SUBCUTANEOUS SLIDING SCALE 45 minutes of time spent performing discharge services. [facility] HIE Discharge Summary Scanned image Imaging Narrative Notes History and Physical Notes [facility] 03/26/2024 18:02 Demographics Patient Name Age Sex Visit Number Admission Date/Time Attending Physician Room and Bed MARCELLO CAINAYNE 1945 78 years Male [id number] 03/26/2024 15:59 Jimmy Meena 116 03/26/2024 HISTORY OF PRESENT ILLNESS: Mr Marcello Cain is a 78 y/o WM who lives at home and is a patient of Dr. Jules. Mr Cain is placed under Swing Bed Status onto the Hospitalist Service this evening for PT/OT status post Aspiration PNA and after being discharged from [facility] in [place], [place] today. 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 He was found unconscious on the ground at home. Mr Cain was intubated and placed in the ICU but was extubated quickly. He was found to have a PNA and most likely an aspiration PNA. Initially on Meropenem and Doxycycline, ID saw and recommended Bactrim to continue after D/C. He had not had the diagnosis of DM 2 or HTN, but was diagnosed with both during this hospitalization. He is on higher dose steroids, which is more than likely the cause of his hyperglycemia. He is admitted here for PT/OT and to finish his PO antibiotics for his PNA. FAMILY HISTORY: Family History List: No Family History Available PAST SURGICAL HISTORY: Surgery List Closed fracture of left arm, Arthroscopic procedure of knee joint, SOCIAL HISTORY: Smoking Status: Current every day smoker, Cessation Education: Home Meds List insulin lispro 100U/1ML Injection Solution amLODIPine Besylate 10MG Oral Tablet Benzonatate 100MG Oral Capsule, Liquid Filled Sulfamethoxazole/Trimethoprim 800MG-160MG Oral Tablet Budesonide 0.5MG/2ML Inhalation Suspension Lantus 100U/1ML Subcutaneous Solution predniSONE 20MG Oral Tablet Montelukast Sodium 10MG Oral Tablet Combivent Respimat 100MCG-20MCG/1Act Inhalation [place] Boniva 150MG Oral Tablet REVIEW OF SYSTEMS: Constitutional: DENIES: fatigue, weakness, chills, fever, weight change Eyes: DENIES: vision change Cardiovascular: DENIES: chest pain, chest pressure, edema, palpitations/fluttering Respiratory: REPORTS: Cough, mild. Dyspnea on exertion Gastrointestinal: DENIES: abdominal pain, constipation, diarrhea, nausea, vomiting Genitourinary: REPORTS: no symptoms Musculoskeletal: DENIES: back pain, joint pain, Psychiatric: DENIES: anxiety, depression, hallucinations-auditory, hallucinations-visual, panic attack, suicidal ideations ALLERGIES: Allergy List LEVOFLOXACIN, Medication HOME MEDICATION(S): I reviewed the patient's medicine list, see Med Rec which I performed, as well as discussion in the A/P below PHYSICAL EXAM: Constitutional: well-developed, cachectic NAD Integumentary: dry, warm Head: atraumatic, normocephalic Eyes: EOMs intact Cardiovascular: Regular rhythm, S1S2 normal. ABSENT: edema Respiratory: Poor Air Entry, mild scattered wheezes/rales. Abdomen: soft. ABSENT: tenderness, distention Musculoskeletal/Extremities: ROM grossly intact Neurological: ABSENT: gross deficits Psychiatric: affect appropriate, alert, insight appropriate Psychiatric: Orientation: oriented to : person, place time VITALS: Most Recent Vital Signs BP (mm/Hg) BP Position/Site Heart Rate Resp Temp (F) SPO2% O2 Device Height (in) Weight (kg) 114/67 Lying/Left Arm 68 24 98.1 Oral 98 % O2 Cannula 66 in 48.1 kg LABS: Abnormal Results: Last 8 Hours: No Labs Available Ordered Meds List: No Current Medications Available MEDICAL DECISION MAKING: ASSESSMENT AND PLAN: INITIAL SWING BED: 03/27/2024: Dr Robledo: Aspiration PNA - Discussed with: Hospitalist at [place], [place] Treatments: Bactrim per ID recs PT/OT/ST consulted DISPOSITION: Plan is for PT/OT until he is strong enough to go home. 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 VTE Prophy - Ambulate at least TID with PT/OT CODE STATUS - Full Code per discussion with Mr Cain SOCIAL DETERMINANTS OF HEALTH (SDOH) IMPACTING CARE: I discussed these social determinants of health with the patient and received the following answers: 1) Food Insecurity - none 2) Housing Instability - none 3) Transportation Needs - Lives at home alone, needs help getting to appointment 4) Utility Difficulties - none 5) Interpersonal safety - none Progress Notes [facility] 04/02/2024 12:11 Demographics Patient Name Age Sex Visit Number Admission Date/Time Attending Physician Room and Bed MARCELLO CAIN 1945 78 years Male [id number] 03/26/2024 15:59 Jimmy Robledo 116 04/02/2024 Hospital Course 78-year-old male with a history of COPD who was hospitalized in [place] in ICU for acute respiratory failure and pneumonia and was transferred here for further physical therapy occupational therapy. He is very frustrated with his limitations of his diet due to concern of aspiration speech therapy is working with him he is talking about potentially wanting to stop all treatment and restarted regular diet with consideration for hospice. Will have a family meeting on Friday to further discuss what his wishes are with his family and what he prefers. SUBJECTIVE DATA: Notes his fustration about limitations on his diet. OBJECTIVE DATA: Vital signs have been reviewed Lab(s) have been ordered and/or reviewed Intake/Output has been reviewed Radiologic/Diagnostic testing has been ordered and/or reviewed Home Meds List Combivent Respimat 100MCG-20MCG/1Act Inhalation [place] amLODIPine Besylate 10MG Oral Tablet Benzonatate 100MG Oral Capsule, Liquid Filled Budesonide 0.5MG/2ML Inhalation Suspension Lantus 100U/1ML Subcutaneous Solution insulin lispro 100U/1ML Injection Solution Sulfamethoxazole/Trimethoprim 800MG-160MG Oral Tablet predniSONE 20MG Oral Tablet Montelukast Sodium 10MG Oral Tablet Ibandronate Sodium 150MG Oral Tablet Ordered Meds List accucheck, ACHS ACETAMINOPHEN (TYLENOL) 325MG TAB, PRN Q6H ONDANSETRON ODT (ZOFRAN) 4MG TAB, PRN Q6H FAMOTIDINE (PEPCID) 20MG TAB, PRN BID CALCIUM CARB (TUMS) 200 EL: 500MG TAB, PRN QID POLYETHYLENE GLYCOL (MIRALAX) : 17GM PKG, PRN DAILY SENNA (SENOKOT) 8.6MG TAB, PRN BID MELATONIN 3MG TABLET, QHS INSULIN ASPART (NovoLOG) 100UNITS/ML PEN, PRN amLODIPine (NORVASC) 5MG TAB, DAILY BENZONATATE (TESSALON) 100MG CAP, PRN TID MONTELUKAST (SINGULAIR) 10MG TAB, QHS IPRATROP/ALBUTE (DUONEB) 0.5MG/2.5MG 3ML, RESP QID IPRATROP/ALBUTE (DUONEB) 0.5MG/2.5MG 3ML, PRN Q6H BUDESONIDE (PULMICORT) 0.5MG/2ML NEB, RESP BID zzNF-IBANDRONATE 150MG, MONTHLY SULFAMETHOX/TRIMETHO DS 800MG/160MG TAB, BID LAB(S): Lab Results: Last 8 Hours Test Results Units Reference Range Ordered Collected Status BEDSIDE GLUCOSE 82 mg/dl L=74 H=106 04/02/2024 11:27 04/02/2024 11:27 final BEDSIDE GLUCOSE 96 mg/dl L=74 H=106 04/02/2024 06:36 04/02/2024 06:36 final PHYSICAL EXAM: Most Recent Vital Signs BP (mm/Hg) BP Position/Site Heart Rate Resp Temp (F) SPO2% O2 Device Height (in) Weight (kg) 103/68 Lying/Left Arm 71 22 97.8 Oral 95 % hfnc 66 in 43.4 kg GENERAL: Alert and oriented, in no distress. HEART: Regular rate and rhythm, S1, S2, no murmur. LUNGS: Diminished bilaterally ABDOMEN: Soft, nontender, nondistended. Bowel sounds present. EXTREMITIES: No edema. No calf tenderness. Good distal pulses. Moving extremities. DIAGNOSTICS: ASSESSMENT AND PLAN: 1. Aspiration pneumonia clinically better however patient still has difficulties with swallowing as this treated about his limitations on his diet. States that he wants to start a regular diet and seems to be considering hospice as an option. Plan for family meeting on Friday to further discuss this 2. COPD continue current nebulizers. 3. Diabetes mellitus type 2 4. Hypertension. 5. Tobacco use disorder. Patient's CODE STATUS to be changed to DNR/DNI per patient's request SOCIAL DETERMINANTS OF HEALTH (SDOH) IMPACTING CARE:none Critical Care Time: (If applicable) Tobacco Cessation/Time: (If applicable) Total Clinical Time: (If applicable)
--- NOTE | 2025-01-30 14:19 | ED.FALL ---
HPI - Fall General Chief Complaint: Weakness Stated Complaint: eval for SNF placement Time Seen by Provider: 01/30/25 14:18 Source: patient, EMS and RN notes reviewed Mode of arrival: EMS Limitations: dementia History of Present Illness HPI Narrative: patient is an 79-year-old male with mild dementia and declining illness on hospice for COPD using 3 L nasal cannula here with a fall and general weakness. Patient has been at various nursing homes and recently moved home with a new addition to the house for him however the family has not been able to take care of him anymore at this time. Hospice has sent this patient in for further evaluation of his weakness and fall. His only obvious injuries per the patient and per findings is his left wrist skin tear. Patient claims he did not hit his head or neck or any other injuries as he sat himself down to the floor. EMS found him sitting on the floor which correlated with his story. He said he has been trying to do more walking from bed bound. Hospice called Adult Services recently as he is not been taken care of properly at home and was sent in for further planning for half-way placements due to poor living arrangements. Patient is here for the weakness and fall. MD complaint: fall Onset (ago): hour(s) ( One) Fall from: standing Fall witnessed: no Place fall occurred: home Loss of consciousness: unsure Prolonged down time: no Symptoms prior to fall: dizziness Context: other ( patient was trying to walk and got dizzy and sat down on the floor/ mild fall without obvious injuries except left wrist skin tear) Location of injury: genitals ( patient also has a left penis nodular irritation which he claims is due to him picking at his skin) and other ( left wrist skin tear) Severity: mild Severity scale (1-10): 1 Quality: other ( no pain in general) Associated symptoms (after fall): weakness, shortness of breath ( chronically) and other ( dizziness initially which appears to be resolved at this time) Related Data Home Medications ?Medication ?Instructions ?Recorded ?Confirmed ?Last Taken ?Type ipratropium 0.5 mg-albuterol 3 mg 3 ml inhalation Q4-5H PRN 10/04/19 07/17/22 07/17/22 History (2.5 mg base)/3 mL nebulization Shortness Of Breath 0.5 soln ipratropium 20 mcg-albuterol 100 2 puff inhalation DAILY 10/04/21 07/17/22 07/17/22 History mcg/actuation mist for inhalation 2 (Combivent Respimat) Allergies Allergy/AdvReac Type Severity Reaction Status Date / Time levofloxacin AdvReac Intermediate Other Verified 01/30/25 14:25 Review of Systems Review of Systems: All systems reviewed & are unremarkable except as noted in HPI and below Constitutional: Constitutional: Reports no additional constitutional complaints Eyes: Eyes: Reports no additional eye complaints ENT: Reports system reviewed and no additional complaints, except as documented Cardiovascular: Cardiovascular: Reports no additional cardiovascular complaints Respiratory: Respiratory: Reports no additional respiratory complaints Gastrointestinal: Gastrointestinal: Reports no additional gastrointestinal complaints Genitourinary: Genitourinary: Reports no additional male genitourinary complaints Musculoskeletal: Musculoskeletal: Reports no additional musculoskeletal complaints Integumentary/Breasts: Skin/Breast: Reports system reviewed and no additional complaints, except as docu Neurologic: Reports system reviewed and no additional complaints, except as documented Psychiatric: Psychiatric: Reports no additional psychiatric complaints Endocrine: Endocrine: Reports no additional endocrine complaints Hematologic/Lymphatic: Hematologic/Lymphatic: Reports no additional hematologic/lymphatic complaints Allergic/Immunologic: Allergic/Immunologic: Reports no additional allergic/immunologic complaints PMFSH Past Medical History Medical History Myocardial infarction acute Surgical History Surgical History H/O knee surgery H/O elbow surgery Family History Family History Father CAD in [place] & [place] artery Mother CHF exacerbation Social History Social History Smoking packs per day: 1 Smoking cigarettes per day: 20.0 Years smoked: 60 Smoking pack-years: 60.00 Smoking status: Heavy tobacco smoker Tobacco type: cigarettes Alcohol intake: former Substance use: never Substance use type: does not use Lack of Transportation: YES Lack of Food: Never True Current Housing: I Have Housing Concerned About Future Housing: No Difficulty Paying Gas/Electric Bills: No Difficulty Paying for Meds: No Currently Unemployed: No Education: Trade/Vocational Certificate Difficulty w/ Childcare or Family Care: No Gender identity (if verbalized by the patient): Male Sexual Orientation (if Verbalized by the Patient): Straight or Heterosexual Spiritual care concerns: No Exam Const: General: no acute distress Nutritional Appearance: thin Orientation/consciousness: No patient oriented x3 ( x2 oriented) Limitations: other limitations ( Baseline mild dementia) HENMT: Head: normal to inspection Ears: external ears normal Face/Nose/Sinus: Normal external nose present Eyes: Conjunctivae: conjunctivae normal Pupils: Equal, round and reactive pupils present EOM: EOMs intact bilaterally Neck: Neck: normal visual inspection Chest: Chest palpation & inspection: normal inspection of the chest Resp: Effort & Inspection: normal respiratory effort and not labored Auscultation: clear to auscultation bilaterally and no crackles Cardio: Rate: regular rate Rhythm: regular rhythm Heart sounds: no murmurs GI: Inspection: non-distended GI Palp: Yes Soft to palpation and No Tenderness to palpation present (GI) Auscultation: normal bowel sounds : General: Yes bladder normal to palpation Penis: No normal penis ( left lateral penis has a half a cm nodularity /no infection) Back/Spine/Pelvis: Back: no CVA tenderness Skin: General skin exam: normal color Rashes: no rashes Wounds: wound noted Neuro: General: No patient oriented x3 ( oriented x2), moves all extremities, no meningeal signs, no focal motor deficits and CN's II-XI intact bilaterally Cranial nerves: Yes Nystagmus not present Speech: normal speech Gait exam (Neuro): gait abnormal ( poor gait chronically) Other: fast exam negative, NIH is 0, GCS is 15 Extrem: General: abnormal to inspection Other: left wrist flexor surface thenar side has a small skin tear with flap and no infection Psych: Affect: normal affect Attitude: cooperative Course Vital Signs Vital signs: Vital Signs Temperature 36.7 C 01/30/25 14:13 Pulse Rate 57 L 01/30/25 14:13 Respiratory Rate 24 H 01/30/25 14:13 Blood Pressure 137/85 01/30/25 14:13 Pulse Oximetry 99 01/30/25 14:13 Oxygen Delivery Nasal Cannula 01/30/25 14:13 Oxygen Flow Rate 3 01/30/25 14:13 Temperature 36.7 C 01/30/25 14:13 Pulse Rate 57 L 01/30/25 14:13 Respiratory Rate 24 H 01/30/25 14:13 Blood Pressure 137/85 01/30/25 14:13 Pulse Oximetry 99 01/30/25 14:13 Oxygen Delivery Nasal Cannula 01/30/25 14:13 Oxygen Flow Rate 3 01/30/25 14:13 MDM - Fall MDM Narrative Medical decision making narrative: patient is an 79-year-old male on hospice due to COPD/0 2 and here for weakness and a fall today. Patient will get a workup at this time for weakness and further likely admit for safety and half-way placement again at this time. Hospice did not feel that he was taking care of properly at home and the authorities were already notified. we will admit patient for generalized weakness and evaluation. Further he does not feel safe at home/ hospice concerned about home environment and we will admit for observation at this time for further executive secretary social welfare evaluation and half-way placement. Patient was in the process of half-way placement at this time. Lab Data Attestation: I reviewed the patient's lab results. 01/30/25 14:36 01/30/25 14:36 Labs: Lab Results 01/30/25 01/30/25 Range/Units 14:36 15:34 WBC 9.8 (4.8-10.8) K/mm3 RBC 4.32 L (4.70-6.10) M/mm3 Hgb 12.9 (12.4-15.3) g/dL Hct 41.2 (37.0-46.0) % MCV 95.4 (78.0-102.0) fL MCH 29.9 (27.0-31.0) pg MCHC 31.3 L (32-36) g/dL RDW 14.3 (11.6-14.4) % Plt Count 238 (150-420) K/mm3 MPV 10.5 (8.7-11.0) fl Immature Gran % (Auto) Yarn Texturing Machine Operator Neut % (Auto) Yarn Texturing Machine Operator Lymph % (Auto) Yarn Texturing Machine Operator Walker % (Auto) Yarn Texturing Machine Operator Eos % (Auto) Yarn Texturing Machine Operator Baso % (Auto) Yarn Texturing Machine Operator Lymph # (Auto) Yarn Texturing Machine Operator Walker # (Auto) Yarn Texturing Machine Operator Eos # (Auto) Yarn Texturing Machine Operator Baso # (Auto) Yarn Texturing Machine Operator Abs Immat Gran (auto) Yarn Texturing Machine Operator Absolute Neuts (auto) Yarn Texturing Machine Operator Absolute Nucleated RBC Yarn Texturing Machine Operator Total Counted 100 Neutrophils % (Manual) 85 H (46-73) % Band Neutrophils % 0 (0-6) % Lymphocytes % (Manual) 8 L (18-44) % Monocytes % (Manual) 3 (3-9) % Eosinophils % (Manual) 2 (1-6) % Myelocytes % 2 % Nucleated RBC % Yarn Texturing Machine Operator Abs Neuts (Manual) 8.33 H (1.3-6.7) K/mm3 Abs Lymphs (Manual) 0.78 L (1.1-4.5) K/mm3 Abs Monocytes (Manual) 0.29 (0.1-0.90) K/mm3 Absolute Eos (Manual) 0.19 (0.02-0.50) K/mm3 Platelet Estimate Adequate (Adequate) Schistocytes Not Reportable Sodium 139 (137-145) mmol/L Potassium 4.1 (3.4-5.0) mmol/L Chloride 102 (98-107) mmol/L Carbon Dioxide 30 (22-30) mmol/L Anion Gap 7 (4-12) mmol/L BUN 20 (9-20) mg/dL Creatinine 0.93 (0.7-1.3) mg/dL Estim Creat Clear Calc 52 ml/min Estimated GFR > 60 (59 - ) Glucose 135 H (65-110) mg/dL Calculated Osmolality 292 (285-295) mOsm/kg Lactic Acid 2.7 H (0.4-2.0) mmol/L Calcium 9.0 (8.4-10.2) mg/dL Total Bilirubin 0.6 (0.2-1.3) mg/dL AST 37 (17-59) U/L ALT 38 (6-50) U/L Alkaline Phosphatase 84 (38-126) U/L Troponin I < 0.012 (0.000-0.034) ng/mL Total Protein 6.5 (6.3-8.2) g/dL Albumin 3.9 (3.5-5.1) g/dL Urine Color Light yellow (Yellow) Urine Appearance Sl cloudy A (Clear) Urine pH 7.5 (5.0-8.0) Ur Specific [place] 1.015 (1.010-1.020) Urine Protein Negative (Negative) Urine Glucose (UA) Negative (Negative) Urine Ketones Negative (Negative) Ur Blood (Man) Negative (Negative) Urine Nitrate Negative (Negative) Urine Bilirubin Negative (Negative) Urine Urobilinogen 0.2 (0.2-1.0) mg/dL Leukocyte Esterase Rfl 3+ H (Negative) GIL/UL Urine RBC None seen (0-2) /hpf Urine WBC 21-30 H (0-3) /hpf Urine Bacteria 2+ H (None) /hpf Imaging Data Attestation: I personally reviewed and interpreted this imaging study as follows: Radiologist's impression: chest x-ray is negative for acute process CT scan of the head is negative for acute process ECG Data EKG #1: Attestation: I personally reviewed and interpreted this ECG as follows: ECG completion date: 01/30/25 ECG completion time: 14:37 Interpretation: low voltage EKG Interpretation: bradycardia, sinus rhythm, no ectopy, non-specific ST changes, normal QRS, normal QT and left axis Discharge Plan Discharge Clinical Impression: General weakness, Feels unsafe at home, Dehydration Patient Disposition: [facility] Condition: Stable Patient Language: Macedonian Prescriptions: No Action ipratropium-albuterol 0.5 mg-3 mg(2.5 mg base)/3 mL solution for nebulization 3 ml INHALATION Q4-5H PRN (Reason: Shortness Of Breath) arformoterol [Brovana] 15 mcg/2 mL solution for nebulization 2 ml inhalation BID Qty: 120 3RF budesonide [Pulmicort] 0.25 mg/2 mL suspension for nebulization 0.25 mg inhalation BID Qty: 60 2RF Combivent Respimat 20-100 mcg/actuation mist 2 puff INHALATION DAILY cyclobenzaprine 10 mg Tablet 10 mg PO Q8H PRN (Reason: Muscle Spasm) Qty: 30 0RF benzonatate 100 mg Capsule 200 mg PO TID Qty: 30 0RF cefdinir 300 mg capsule 300 mg PO Q12H 7 Days Qty: 14 0RF guaifenesin [Mucus Relief ER] 600 mg Tablet Extended Release 12hr 600 mg PO Q12HR Qty: 30 0RF lorazepam [Ativan] 1 mg tablet 1 mg PO TID PRN (Reason: anxiety) Qty: 30 0RF methylprednisolone [Medrol (Ricardo)] 4 mg tablets,dose pack See Rx Instructions .ROUTE .COMPLEX Qty: 21 0RF Rx Instructions: orally per package directions hydrocodone-acetaminophen 10-325 mg tablet 1 tablet PO Q6H PRN (Reason: pain) Qty: 30 0RF Follow-up/Referrals: UNKNOWN,DOCTOR [Non-Staff] - Time of Disposition: 15:43
--- NOTE | 2025-01-30 14:24 | ECG_ITS ---
Test Date: 2025-01-30 14:45:11 Measurements Intervals Moore Rate: 55 P: 50 TN: 160 QRS: -33 QRSD: 85 T: 31 QT: 428 QTc: 411 Interpretive Statements SINUS BRADYCARDIA POSSIBLE RIGHT VENTRICULAR CONDUCTION DELAY [RSR (QR) IN V1/V2] No previous ECG available for comparison Electronically Signed On 01-31-2025 15:49:17 CDT by Scott Palacios M.D.
[2025-01-30 14:47] LABS: Hematocrit 41.2 % (37.0-46.0); Hemoglobin 12.9 g/dL (12.4-15.3); Mean Corpuscular HGB Conc 31.3 g/dL (32-36); Mean Corpuscular Hemoglobin 29.9 pg (27.0-31.0); Mean Corpuscular Volume 95.4 fL (78.0-102.0); Platelet Count Result 238 K/mm3 (150-420); Red Blood Count 4.32 M/mm3 (4.70-6.10); White Blood Count 9.8 K/mm3 (4.8-10.8)
[2025-01-30] MEDS: TETANUS,DIPHTHERIA,AC PERTUSSIS ADULT 0.5 ML (ADACEL) IM (14:50)
[2025-01-30 14:53] LABS: Alanine Aminotransferase 38 U/L (6-50); Albumin Level 3.9 g/dL (3.5-5.1); Alkaline Phosphatase 84 U/L (38-126); Anion Gap 7 mmol/L (4-12); Aspartate Amino Transferase 37 U/L (17-59); Bilirubin,Total 0.6 mg/dL (0.2-1.3); Blood Urea Nitrogen 20 mg/dL (9-20); Calcium 9.0 mg/dL (8.4-10.2); Carbon Dioxide 30 mmol/L (22-30); Chloride 102 mmol/L (98-107); Estimated CRCL calculation 52 ml/min; Estimated Glomerular Filt Rate > 60; Glucose 135 mg/dL (65-110); Osmolality Calculated 292 mOsm/kg (285-295); Potassium 4.1 mmol/L (3.4-5.0); Sodium 139 mmol/L (137-145); Total Protein 6.5 g/dL (6.3-8.2)
[2025-01-30 14:55] LABS: Band Neutrophils Percent 0 % (0-6); Eosinophils Absolute Manual 0.19 K/mm3 (0.02-0.50); Eosinophils Percent Manual 2 % (1-6); Lymphocytes Absolute Manual 0.78 K/mm3 (1.1-4.5); Lymphocytes Percent Manual 8 % (18-44); Monocytes Absolute Manual 0.29 K/mm3 (0.1-0.90); Monocytes Percent Manual 3 % (3-9); Myelocytes Percent 2 %; Neutrophils Absolute Manual 8.33 K/mm3 (1.3-6.7); Neutrophils Percent Manual 85 % (46-73); Total Cells Counted 100
[2025-01-30 15:04] LABS: Troponin I < 0.012 ng/mL (0.000-0.034)
[2025-01-30] MEDS: SODIUM CHLORIDE 0.9% IV 500 ML 999 ML IV CONT (15:09)
--- OUTSIDE RECORDS SUMMARY | 2025-01-30 15:23 | XMS_ITS ---
Author Organization Unknown Address [address] [place] [address] [phone] Phone Care Team Providers Care Loader Operator Supervisor Name Role Phone CITLALY PALENCIA Attending Unavailable [...] em Smoking History Current every day smoker 359443027 SNOMED CT Sex Male Medications Medication Start Date End Date Route Frequency Dose Code Code System Medication Instructions Home Meds guaiFENesin DM 10MG/5ML-100MG/5ML Oral Syrup 03/13/2024 03/26/2024 ORAL NEEDED EVERY 4 HOURS 10 mL 345120 RxNorm TAKE 10 mL ORAL NEEDED EVERY 4 HOURS Combivent Respimat 100MCG-20MCG/1Act Inhalation Bessie 03/13/2024 Unknown INHALAT ION FOUR TIMES A DAY 1 unit( s) 6554739 RxNorm 1 EACH INHALATIO N FOUR TIMES A DAY Ipratropium Monroe-Albuterol Sulfate 0.5MG/3ML-3MG/3ML Inhalation Solution 03/13/2024 03/26/2024 INHALAT ION TWICE A DAY 1 unit( s) [id number] RxNorm 1 EACH INHALATIO N TWICE A DAY predniSONE 20MG Oral Tablet 03/13/2024 03/26/2024 BY MOUTH TWICE A DAY 2 TABLE T [id number] RxNorm TAKE 2 TABLET BY MOUTH TWICE A DAY x 3 days. thenTAKE 2 TABLET BY MOUTH ONCE A DAY x 3 days Zithromax 500MG Oral Tablet 03/13/2024 03/26/2024 BY MOUTH ONCE A DAY 1 TABLE T [id number] RxNorm TAKE 1 TABLET BY MOUTH ONCE A DAY starting on 03/14/2024 Benzonatate 100MG Oral Capsule, Liquid Filled 04/07/2024 Unknown ORAL NEEDED 3 TIMES A DAY 100 SHANNON GRAMS [id number] RxNorm TAKE 100 MILLIGRAM S ORAL NEEDED 3 TIMES A DAY Budesonide 0.5MG/2ML Inhalation Suspension 04/07/2024 Unknown NEBULIZ ER RESP BID 0.5 SHANNON GRAMS [id number] RxNorm 0.5 MILLIGRAM S NEBULIZER RESP BID Ibandronate Sodium 150MG Oral Tablet 04/07/2024 Unknown ORAL MONTHLY 150 SHANNON GRAMS [id number] RxNorm TAKE 150 MILLIGRAM S ORAL MONTHLY Montelukast Sodium 10MG Oral Tablet 04/07/2024 Unknown ORAL AT BEDTIME 10 SHANNON GRAMS [id number] RxNorm TAKE 10 MILLIGRAM S ORAL AT BEDTIME amLODIPine Besylate 10MG Oral Tablet 04/07/2024 Unknown ORAL ONCE A DAY 10 SHANNON GRAMS [id number] RxNorm TAKE 10 MILLIGRAM S ORAL ONCE A DAY insulin lispro 100U/1ML Injection Solution 04/07/2024 Unknown SUBCUTA NEOUS SLIDING SCALE [id number] RxNorm INJECT INTO 0-6 EACH SUBCUTANE OUS [...] Status Code Code System MODERATE COPD active 243867219 SNOMED -CT TOBACCO USE DISORDER active 21489184 SNOMED-CT ACUTE HYPOXEMIC AND HYPERCAPNIC RESPIRATORY FAILURE active 700735370 SNOMED-CT CHRONIC RESPIRATORY FAILURE WITH HYPOXIA active 31420269 SNOMED-CT TYPE 2 DM active 44838000 SNOMED-CT PRIMARY HYPERTENSION active 54034618 SNOMED-CT CHRONIC ARTHRITIS 03/13/2024 resolved 96731227 S NOMED-CT SEVERE COPD 03/13/2024 resolved 231544926 SNOMED- CT Allergies and Adverse Reactions Allergy Substance Reaction Severity Start Date Concern Status Co de Code System LEVOFLOXACIN Active 42238 RxNorm Plan of Treatment White Follow Up Visit 03/13/2022 Pulmonary Function Test 01/25/2022 Abdulfattah Established Patient 023 Abdulfattah Established Patient 023 Abdulfattah Established Patient 024 Abdulfattah Established Patient 024 Encounters Encounter Diagnosis Start Date Code Code Sys tem Chronic obstructive lung disease 12/03/2023 86128950 SNOMED-CT Personal Care Team Section Procedures Notes [facility] 12/13/2023 16:44 Six Minute Walk 6MWT revealed [...]
--- OUTSIDE RECORDS SUMMARY | 2025-01-30 15:23 | XMS_ITS | Clinical Summary ---
Author Organization [facility] Address [address] [place] [address] Care Team Providers Care Mechanic Assistant Name Role Phone Rigo Jules MD Primary Care Provider [phone] Allergies Active Allergy Reactions Criticality Noted Date [...] respiratory failure wi th hypoxia and hypercapnia ([facility]) 03/14/2024 Rectal bleeding 07/18/2022 Immunizations Immunization Administration [...] drink = 0.6 oz pur e alcohol) [facility] Utilities Answer Date Recorded In the [...] place to sleep or slept in a retirement (including now)? No 07/18/2022 Housing Stability Vital [...] any time in the past 12 m [facility], were you homeless or living in a retirement (including now)? Patient unable to answer 03/15/2024 [...] No Rajeev Maldonadona M, RN Insurance MEDICARE [facility] Advance Directives * Full Code (Latest Code Status on File) Date Activated Date Inactivated Comments 03/15/2024 12:13 PM 03/26/2024 3:59 PM * Full Code Date Activated Date Inactivated Comments 07/18/2022 2:30 AM 07/20/2022 10:46 AM Care Teams Mechanic Assistant Relationship Specialty Start Date End Date Rigo Jules MD [address] [place] [address] PCP - General FAMILY PRACTICE 03/15/24
--- OUTSIDE RECORDS SUMMARY | 2025-01-30 15:23 | XMS_ITS ---
Author Organization Unknown Address [address] [place] [phone] Phone Care Team Providers Care Splitting Machine Operator Name Role Phone SAMUEL MENARDPORFIRIO Attending Unavailable HENRIK SR Primary [facility] Transferring Provider Immunization Immunization Date Status Additional [...] ACID - Collect Date/T sheng: 03/13/2024 03:50 [facility] ID: [id number] [place], [place], [phone] LOINC: 18566-8 Test Value Unit Reference Range Code Code System Flag LACTIC ACID 0.7 mmol/L L=0.7 H=2.1 60799-9 LOINC ARTERIAL BLOOD GAS - Collect Date/Time: 03/13/2024 02:00 [facility] ID: [id number] [address] [place] [address], [phone] LOINC: 97051-7 Test Value Unit Reference Range Code Code System Flag pH 7.43 L=7.35 H=7.45 2753-2 LOINC PO2 138.0 mmHg L=80.0 H=100 05429-0 LOINC H PCO2 53.0 mmHg L=35.0 H=45.0 70608-0 LOINC H BE 9.9 mmol/L L=0.0 H=2.0 34689-0 LOINC H BEecf 10.6 mmol/L L=0.0 H=2.0 03192-4 LOINC H HCO3 35.2 mmol/L L=22.0 H=26.0 88683-9 LOINC H A-aDO2 52 mmHg L=7 H=13 74571-7 LOINC H O2Hb 93.8 % L=85.0 H=100 32081-0 LOINC sO2m 99.0 % L=85.0 H=100 [place] [address]-8 LOINC PUNCTURE SITE RIGHT RADIAL FIO2 36 % RESPIRATORY 4 PLEX COVID FLU RSV PCR - Collect Date/Time: 03/13/2024 01:45 [facility] ID: [id number] [address] [place] [address], [phone] LOINC: 97947-0 Test Value Unit Reference Range Code Code System Flag SARS CoV2 PCR NEGATIVE FLU A PCR NEGATIVE FLU B PCR NEGATIVE RSV PCR NEGATIVE SEND TO [facility]? NO COMPREHENSIVE METABOLIC PANE L - Collect Date/Time: 03/13/2024 00:25 [facility] ID: [id number] [address] [place] [address], [phone] LOINC: 31303-2 Test Value Unit Reference Range Code Code [...] LOINC H ANION GAP 12 L=10 H=20 33085-3 LOINC OSMOLALITY 294 mOs/kG L=280 H=296 49937-4 LOINC BUN/CREAT 21.3 3097-3 LOINC CALCIUM 9.1 mg/dL L=8.3 H=10.5 66530-1 LOINC AST 35 U/L L=15 H=46 1920-8 LOINC ALT 20 U/L L=9 H=72 1742-6 LOINC ALKALINE PHOS 67 U/L L=38 H=126 6768-6 LOINC TOTAL BILI 0.6 mg/dL L=0.2 H=1.3 1975-2 LOINC ALBUMIN 4.5 G/dL L=3.5 H=5.0 1751-7 LOINC TOTAL PROTEIN 7.3 g/L L=6.3 H=8.2 2885-2 LOINC A/G RATIO 1.6 16252-2 LOINC AGE 78 51872-9 LOINC eGFR NON-AFR 99 ml/min eGFR AFR AMER 120 ml/min LACTIC ACID - Collect Date/T sheng: 03/13/2024 00:25 [facility] ID: [id number] [address] [place] [address], [phone] LOINC: 88932-8 Test Value Unit Reference Range Code Code System Flag LACTIC ACID 1.9 mmol/L L=0.7 H=2.1 93217-7 LOINC PROCALCITONIN - Collect Date /Time: 03/13/2024 00:25 [facility] ID: [id number] [address] [place] [address], [phone] LOINC: 34606-3 Test Value Unit Reference Range Code Code System Flag PROCALCITONIN 0.11 ng/mL L=0.00 H=0.08 H PROTIME - Collect Date/Time: 03/13/2024 00:25 [facility] ID: [id number] [address] [place] [address], [phone] LOINC: 26516-5 Test Value Unit Reference Range Code Code System Flag PT 10.6 Sec L=9.7 H=11.7 54147-6 LOINC INR 1.0 Sec L=0.9 H=1.1 59197-7 LOINC PTT - Collect Date/Time: 00:25 [facility] ID: [id number] [address] [place] [address], [phone] LOINC: 58544-0 Test Value Unit Reference Range Code Code System Flag PTT 25.4 Sec L=23.0 H=31.2 CBC W/ DIFF - Collect Date/T sheng: 03/13/2024 00:25 [facility] ID: [id number] [address] [place] [address], [phone] LOINC: 12558-8 Test Value Unit Reference Range Code Code System Flag WBC 9.3 10^3uL L=4.8 H=10.8 RBC 3.91 10^6uL L=4.60 H=6.20 L HEMOGLOBIN 11.9 g/dL L=14.0 H=18.0 718-7 LOINC L HEMATOCRIT 38.2 VOL% L=42.0 H=52.0 4544-3 LOINC L MCV 97.7 fL L=80.0 H=94.0 H MCH 30.4 pg L=27.0 H=32.0 MCHC 31.2 g/dL L=32.0 H=36.0 L PLATELETS 125 10^3uL L=100 H=400 04713-1 LOINC RDW 13.7 % L=11.7 H=15.5 %GRAN 87.8 % L=40.0 H=70.0 65905-3 LOINC H %LYMPH 4.5 % L=20.0 H=45.0 736-9 LOINC L %MONO 6.3 % L=2.0 H=10.0 88384-2 LOINC %EOS 0.6 % L=0.0 H=6.0 713-8 LOINC %BASO 0.1 % L=0.0 H=3.0 706-2 LOINC #NEUT 8.2 10^3uL L=1.9 H=7.6 73931-2 LOINC H #LYMPH 0.4 10^3uL L=0.9 H=4.9 60326-5 LOINC L #MONO 0.6 10^3uL L=0.1 H=0.9 79774-2 LOINC #EOS 0.1 10^3uL L=0.0 H=0.6 712-0 LOINC #BASO 0.01 10^3uL L=0.00 H=0.10 92085-9 LOINC #IM GRANS 0.1 10^3uL L=0.0 H=7.0 79440-3 LOINC %IM GRANS 0.7 % L=0.0 H=5.0 82786-3 LOINC %NRB 0.0 L=0.0 H=0.2 81267-8 LOINC #NRB 0.000 L=0.000 H=0.012 92700-4 LOINC MANUAL DIFF NOT INDICATED RBC MORPH NOT INDICATED TROPONIN LEVEL - Collect Cristobal e/Time: 03/13/2024 00:25 [facility] ID: [id number] [address] [place], [place], [phone] LOINC: 13836-2 Test Value Unit Reference Range Code Code System Flag TROPONIN < 0.012 ng/mL L=0.000 H=0.033 66688-8 LOINC CHEST 1V - Completed: 2023 01:23 [...] Sherry Balbuena M.D. SN: SN Report ID: [id number] Reading Location: [id number] Social History Type Status Start Date End Date Code Code Syst em Smoking History Current every day smoker 349609014 SNOMED CT Sex Male Vital Signs Vital Sign Value Unit Tensas Value Tensas Unit Date/Time Recent/Initial? Code Code System Body Mass Index 18.30 kg/m2 03/13/2024 05:19 Initial 35708 -5 [facility] Systolic Blood Pressure 118 mm[Hg] 03/13/2024 09:38 Most Recent 8480- 6 INC Diastolic Blood Pressure 65 mm[Hg] 03/13/2024 09:38 Most Recent 8462- 4 [facility] Systolic Blood Pressure 133 mm[Hg] 03/13/2024 05:11 Initial 8480- 6 INC Diastolic Blood Pressure 76 mm[Hg] 03/13/2024 05:11 Initial 8462- 4 INC Body Surface Area 1.51 m2 03/13/2024 05:19 Initial 3140- 1 LOINC Height 165.100 0 cm 65.00 in 03/13/2024 05:19 Initial 8302- 2 LOINC O2 Saturation 99 % 2023 10:45 Most Recent 68523 -5 LOINC O2 Saturation 97 % 2023 05:11 Initial 65704 -5 LOINC Inhaled Oxygen Flow Rate 3.00 [...] 49.90 kg 110.00 lbs 03/13/2024 05:19 Initial 79341 -7 [facility] Medications Medication Start Date End Date Route Frequency Dose Code Code System Medication Instructions Home Meds guaiFENesin DM 10MG/5ML-100MG/5ML Oral Syrup 03/13/2024 03/26/2024 ORAL NEEDED EVERY 4 HOURS 10 mL 730528 RxNorm TAKE 10 mL ORAL NEEDED EVERY 4 HOURS Combivent Respimat 100MCG-20MCG/1Act Inhalation Eldon 03/13/2024 Unknown INHALAT ION FOUR TIMES A DAY 1 unit( s) 0366433 RxNorm 1 EACH INHALATIO N FOUR TIMES A DAY Ipratropium [place]lejo-Albuterol Sulfate 0.5MG/3ML-3MG/3ML Inhalation Solution 03/13/2024 03/26/2024 INHALAT ION TWICE A DAY 1 unit( s) 0102275 RxNorm 1 EACH INHALATIO N TWICE A DAY predniSONE 20MG Oral Tablet 03/13/2024 03/26/2024 BY MOUTH TWICE A DAY 2 TABLE T 890186 RxNorm TAKE 2 TABLET BY MOUTH TWICE A DAY x 3 days. thenTAKE 2 TABLET BY MOUTH ONCE A DAY x 3 days Zithromax 500MG Oral Tablet 03/13/2024 03/26/2024 BY MOUTH ONCE A DAY 1 TABLE T 847013 RxNorm TAKE 1 TABLET BY MOUTH ONCE A DAY starting on 03/14/2024 Benzonatate 100MG Oral Capsule, Liquid Filled 04/07/2024 Unknown ORAL NEEDED 3 TIMES A DAY 100 SHANNON GRAMS 367931 RxNorm TAKE 100 MILLIGRAM S ORAL NEEDED 3 TIMES A DAY Budesonide 0.5MG/2ML Inhalation Suspension 04/07/2024 Unknown NEBULIZ ER RESP BID 0.5 SHANNON GRAMS 843607 RxNorm 0.5 MILLIGRAM S NEBULIZER RESP BID Ibandronate Sodium 150MG Oral Tablet 04/07/2024 Unknown ORAL MONTHLY 150 SHANNON GRAMS 116776 RxNorm TAKE 150 MILLIGRAM S ORAL MONTHLY Montelukast Sodium 10MG Oral Tablet 04/07/2024 Unknown ORAL AT BEDTIME 10 SHANNON GRAMS 153809 RxNorm TAKE 10 MILLIGRAM S ORAL AT BEDTIME amLODIPine Besylate 10MG Oral Tablet 04/07/2024 Unknown ORAL ONCE A DAY 10 SHANNON GRAMS 449467 RxNorm TAKE 10 MILLIGRAM S ORAL ONCE A DAY insulin lispro 100U/1ML Injection Solution 04/07/2024 Unknown SUBCUTA NEOUS SLIDING SCALE 399536 RxNorm INJECT INTO 0-6 EACH SUBCUTANE OUS [...] from hospital. Receiving Provider: [place] [address] Procedures Procedure Name Date Status Code Code Systcornelio m Closed fracture of left arm completed 42031878 6586489 SNOMEDCT Arthroscopic procedure of knee joint completed 131900411 SNOMEDCT Problems Problem Start Date Resolved Date Status Code Code System MODERATE COPD active 520825027 SNOMED -CT TOBACCO USE DISORDER active 24680175 SNOMED-CT ACUTE HYPOXEMIC AND HYPERCAPNIC RESPIRATORY FAILURE active 683962956 SNOMED-CT CHRONIC RESPIRATORY FAILURE WITH HYPOXIA active 01183228 SNOMED-CT TYPE 2 DM active 02985544 SNOMED-CT PRIMARY HYPERTENSION active 96608807 SNOMED-CT CHRONIC ARTHRITIS 03/13/2024 resolved 72312806 S NOMED-CT SEVERE COPD 03/13/2024 resolved 721374371 SNOMED- CT Allergies and Adverse Reactions Allergy Substance Reaction Severity Start Date Concern Status Co de Code System LEVOFLOXACIN Active 14136 RxNorm Plan of Treatment White Follow Up Visit 03/13/2022 Pulmonary Function Test 01/25/2022 Abdulfattah Established Patient 023 Abdulfattah Established Patient 023 Abdulfattah Established Patient 024 Abdulfattah Established Patient 024 Encounters Encounter Diagnosis Start Date Code Code Sys tem Chronic obstructive pulmonar y disease with (acute) exacerbation 03/13/2024 SNOMED-CT Personal Care Team Section Discharge Summary Notes [facility] 03/13/2024 11:49 Demographics Patient Name Age Sex Visit Number Admission Date/Time Attending Physician Room and Bed MARCELLO CAIN 1945 78 years Male [id number] 03/13/2024 00:22 [place] [address] 03/13/2024 ADMISSION & FINAL DIAGNOSIS: Problem List Moderate COPD Tobacco use disorder Acute hypoxemic and hypercapnic respiratory failure Chronic respiratory failure with hypoxia Full Code Status BRIEF HISTORY: INITIAL OBSERVATION: 03/13/2024: Multimedia Artist: Patient is a 78-year-old man with chronic [...] EVERY 4 HOURS Combivent Respimat 100MCG-20MCG/1Act Inhalation Eldon 1 EACH INHALATION FOUR TIMES A DAY PRIMO JIMMY A 1 EACH INHALATION FOUR TIMES A DAY Ipratropium [place]-Albuterol Sulfate 0.5MG/3ML-3MG/3ML Inhalation Solution 1 EACH INHALATION [...] minutes of time spent performing discharge services. [facility] HIE Discharge Summary Scanned image Imaging Narrative Notes History and Physical Notes [facility] 03/13/2024 05:13 Active Problem List: -Acute on [...] is using HIPAA compliant web platform. Participants button bradder: Bedside RN, patient, physician on-call Patient Location: [place], [place] Provider Location: [facility] Physician button bradder: John Barboza MD Seen in emergency room [...]
--- OUTSIDE RECORDS SUMMARY | 2025-01-30 15:24 | XMS_ITS ---
Author Organization Unknown Address [address] [place] [phone] Phone Care Team Providers Care Admission Nurse Coordinator Name Role Phone Unavailable Xwatchlist Unavailable PRIMO Gandhi Attending Unavailable HENRIK REMBERTO Primary Unavailable PRIMO Gandhi Transferring Provider [phone] Immunization Immunization Date Status Additional Notes Code [...] GLUCOSE - Collect Da te/Time: 04/07/2024 11:41 [facility] ID: [id number] [place], [address] LOINC: 43894-2 Test Value Unit Reference Range Code Code System Flag BEDSIDE GLUCOSE 172 mg/dl L=74 H=106 27399-4 LOINC H BEDSIDE GLUCOSE - Collect Da te/Time: 04/07/2024 05:55 [facility] ID: [id number] [address] [place], [address] LOINC: 11794-6 Test Value Unit Reference Range Code Code System Flag BEDSIDE GLUCOSE 107 mg/dl L=74 H=106 18959-6 LOINC H BEDSIDE GLUCOSE - Collect Da te/Time: 04/06/2024 20:07 [facility] ID: [id number] [address] [place], [address] LOINC: 43842-9 Test Value Unit Reference Range Code Code System Flag BEDSIDE GLUCOSE 157 mg/dl L=74 H=106 51557-0 LOINC H BEDSIDE GLUCOSE - Collect Da te/Time: 04/06/2024 16:36 [facility] ID: [id number] [address] [place], [address] LOINC: 38334-9 Test Value Unit Reference Range Code Code System Flag BEDSIDE GLUCOSE 99 mg/dl L=74 H=106 05453-9 LOINC BEDSIDE GLUCOSE - Collect Da te/Time: 04/06/2024 12:26 [facility] ID: [id number] [address] [place], [address] LOINC: 42139-0 Test Value Unit Reference Range Code Code System Flag BEDSIDE GLUCOSE 188 mg/dl L=74 H=106 35052-2 LOINC H BEDSIDE GLUCOSE - Collect Da te/Time: 04/06/2024 06:02 [facility] ID: [id number] [address] [place], [address] LOINC: 04276-8 Test Value Unit Reference Range Code Code System Flag BEDSIDE GLUCOSE 100 mg/dl L=74 H=106 11316-7 LOINC BEDSIDE GLUCOSE - Collect Da te/Time: 04/05/2024 20:24 [facility] ID: [id number] [address] [place], [address] LOINC: 06708-4 Test Value Unit Reference Range Code Code System Flag BEDSIDE GLUCOSE 121 mg/dl L=74 H=106 25473-8 LOINC H BEDSIDE GLUCOSE - Collect Da te/Time: 04/05/2024 16:35 [facility] ID: [id number] [address] [place], [address] LOINC: 58181-0 Test Value Unit Reference Range Code Code System Flag BEDSIDE GLUCOSE 137 mg/dl L=74 H=106 19936-1 LOINC H BEDSIDE GLUCOSE - Collect Da te/Time: 04/05/2024 11:00 [facility] ID: [id number] [address] [place], [address] LOINC: 72750-6 Test Value Unit Reference Range Code Code System Flag BEDSIDE GLUCOSE 182 mg/dl L=74 H=106 92382-5 LOINC H BEDSIDE GLUCOSE - Collect Da te/Time: 04/05/2024 06:35 [facility] ID: [id number] [address] [place], [address] LOINC: 26656-1 Test Value Unit Reference Range Code Code System Flag BEDSIDE GLUCOSE 95 mg/dl L=74 H=106 48688-1 LOINC BEDSIDE GLUCOSE - Collect Da te/Time: 04/04/2024 20:45 [facility] ID: [id number] [address] [place], [address] LOINC: 67002-0 Test Value Unit Reference Range Code Code System Flag BEDSIDE GLUCOSE 107 mg/dl L=74 H=106 21989-6 LOINC H BEDSIDE GLUCOSE - Collect Da te/Time: 04/04/2024 16:27 [facility] ID: [id number] [address] [place], [address] LOINC: 26308-6 Test Value Unit Reference Range Code Code System Flag BEDSIDE GLUCOSE 80 mg/dl L=74 H=106 55336-8 LOINC BEDSIDE GLUCOSE - Collect Da te/Time: 04/04/2024 11:27 [facility] ID: [id number] [address] [place], [address] LOINC: 77203-8 Test Value Unit Reference Range Code Code System Flag BEDSIDE GLUCOSE 131 mg/dl L=74 H=106 77881-0 LOINC H BEDSIDE GLUCOSE - Collect Da te/Time: 04/04/2024 05:47 [facility] ID: [id number] [address] [place], [address] LOINC: 68933-0 Test Value Unit Reference Range Code Code System Flag BEDSIDE GLUCOSE 77 mg/dl L=74 H=106 60774-8 LOINC BEDSIDE GLUCOSE - Collect Da te/Time: 04/03/2024 21:26 [facility] ID: [id number] [address] [place], [address] LOINC: 76407-2 Test Value Unit Reference Range Code Code System Flag BEDSIDE GLUCOSE 84 mg/dl L=74 H=106 20306-3 LOINC BEDSIDE GLUCOSE - Collect Da te/Time: 04/03/2024 12:04 [facility] ID: [id number] [address] [place], [address] LOINC: 27888-7 Test Value Unit Reference Range Code Code System Flag BEDSIDE GLUCOSE 100 mg/dl L=74 H=106 47280-6 LOINC BEDSIDE GLUCOSE - Collect Da te/Time: 04/03/2024 06:29 [facility] ID: [id number] [address] [place], [address] LOINC: 15028-2 Test Value Unit Reference Range Code Code System Flag BEDSIDE GLUCOSE 71 mg/dl L=74 H=106 67960-4 [facility] BEDSIDE GLUCOSE - Collect Da te/Time: 04/02/2024 20:50 [facility] ID: [id number] [address] [place], [address] LOINC: 20903-4 Test Value Unit Reference Range Code Code System Flag BEDSIDE GLUCOSE 74 mg/dl L=74 H=106 08297-1 [facility] BEDSIDE GLUCOSE - Collect Da te/Time: 04/02/2024 17:07 [facility] ID: [id number] [address] [place], [address] LOINC: 31809-6 Test Value Unit Reference Range Code Code System Flag BEDSIDE GLUCOSE 81 mg/dl L=74 H=106 92323-8 [facility] BEDSIDE GLUCOSE - Collect Da te/Time: 04/02/2024 11:27 [facility] ID: [id number] [address] [place], [address] LOINC: 68520-2 Test Value Unit Reference Range Code Code System Flag BEDSIDE GLUCOSE 82 mg/dl L=74 H=106 39747-8 [facility] BEDSIDE GLUCOSE - Collect Da te/Time: 04/02/2024 06:36 [facility] ID: [id number] [address] [place], [address] LOINC: 33313-8 Test Value Unit Reference Range Code Code System Flag BEDSIDE GLUCOSE 96 mg/dl L=74 H=106 26003-9 [facility] BEDSIDE GLUCOSE - Collect Da te/Time: 04/01/2024 21:08 [facility] ID: [id number] [address] [place], [address] LOINC: 73008-3 Test Value Unit Reference Range Code Code System Flag BEDSIDE GLUCOSE 92 mg/dl L=74 H=106 39336-6 [facility] BEDSIDE GLUCOSE - Collect Da te/Time: 04/01/2024 16:33 [facility] ID: [id number] [address] [place], [address] LOINC: 84759-5 Test Value Unit Reference Range Code Code System Flag BEDSIDE GLUCOSE 104 mg/dl L=74 H=106 52223-4 [facility] BEDSIDE GLUCOSE - Collect Da te/Time: 04/01/2024 11:12 [facility] ID: [id number] [address] [place] [address], [address] LOINC: 94338-2 Test Value Unit Reference Range Code Code System Flag BEDSIDE GLUCOSE 93 mg/dl L=74 H=106 50913-1 [facility] BEDSIDE GLUCOSE - Collect Da te/Time: 04/01/2024 06:36 [facility] ID: [id number] [address] [place] [address], [address] LOINC: 07027-1 Test Value Unit Reference Range Code Code System Flag BEDSIDE GLUCOSE 85 mg/dl L=74 H=106 84003-2 [facility] BEDSIDE GLUCOSE - Collect Da te/Time: 03/31/2024 20:43 [facility] ID: [id number] [address] [place], [address] LOINC: 28478-0 Test Value Unit Reference Range Code Code System Flag BEDSIDE GLUCOSE 121 mg/dl L=74 H=106 84714-0 LOINC H BEDSIDE GLUCOSE - Collect Da te/Time: 03/31/2024 16:36 [facility] ID: [id number] [address] [place], [address] LOINC: 75715-4 Test Value Unit Reference Range Code Code System Flag BEDSIDE GLUCOSE 160 mg/dl L=74 H=106 62936-3 LOINC H BEDSIDE GLUCOSE - Collect Da te/Time: 03/31/2024 11:12 [facility] ID: [id number] [address] [place], [address] LOINC: 13431-4 Test Value Unit Reference Range Code Code System Flag BEDSIDE GLUCOSE 145 mg/dl L=74 H=106 86164-7 LOINC H ARTERIAL BLOOD GAS - Collect Date/Time: 03/31/2024 07:58 [facility] ID: [id number] [address] [place], [address] LOINC: 31574-0 Test Value Unit Reference Range Code Code System Flag pH 7.49 L=7.35 H=7.45 2753-2 LOINC H PO2 83.0 mmHg L=80.0 H=100 92974-0 LOINC PCO2 33.0 mmHg L=35.0 H=45.0 69961-8 LOINC L BE 2.4 mmol/L L=0.0 H=2.0 46380-3 LOINC H BEecf 1.3 mmol/L L=0.0 H=2.0 08196-5 LOINC HCO3 24.9 mmol/L L=22.0 H=26.0 64144-1 LOINC A-aDO2 77 mmHg L=7 H=13 83338-1 LOINC H O2Hb 93.6 % L=85.0 H=100 63229-1 LOINC sO2m 97.0 % L=85.0 H=100 JERSON TEST NOT PERFORMED 66666-2 LOINC PUNCTURE SITE RIGHT BRACHIA FIO2 28 % BEDSIDE GLUCOSE - Collect Da te/Time: 03/31/2024 06:00 [facility] ID: [id number] [address] [place], [address] LOINC: 15557-4 Test Value Unit Reference Range Code Code System Flag BEDSIDE GLUCOSE 84 mg/dl L=74 H=106 40268-1 LOINC BEDSIDE GLUCOSE - Collect Da te/Time: 03/30/2024 19:58 [facility] ID: [id number] [address] [place], [address] LOINC: 63050-6 Test Value Unit Reference Range Code Code System Flag BEDSIDE GLUCOSE 120 mg/dl L=74 H=106 57573-8 LOINC H BEDSIDE GLUCOSE - Collect Da te/Time: 03/30/2024 16:18 [facility] ID: [id number] [address] [place], [address] LOINC: 55136-5 Test Value Unit Reference Range Code Code System Flag BEDSIDE GLUCOSE 133 mg/dl L=74 H=106 09605-0 LOINC H BEDSIDE GLUCOSE - Collect Da te/Time: 03/30/2024 11:12 [facility] ID: [id number] [address] [place] [address], [address] LOINC: 47246-9 Test Value Unit Reference Range Code Code System Flag BEDSIDE GLUCOSE 123 mg/dl L=74 H=106 99483-0 LOINC H TROPONIN LEVEL - Collect Cristobal e/Time: 03/30/2024 06:30 [facility] ID: [id number] [address] [place], [address] LOINC: 54177-1 Test Value Unit Reference Range Code Code System Flag TROPONIN < 0.012 ng/mL L=0.000 H=0.033 86419-6 LOINC BEDSIDE GLUCOSE - Collect Da te/Time: 03/30/2024 06:16 [facility] ID: [id number] [address] [place], [address] LOINC: 37586-8 Test Value Unit Reference Range Code Code System Flag BEDSIDE GLUCOSE 79 mg/dl L=74 H=106 87644-8 LOINC BEDSIDE GLUCOSE - Collect Da te/Time: 03/29/2024 21:24 [facility] ID: [id number] [address] [place], [address] LOINC: 49094-3 Test Value Unit Reference Range Code Code System Flag BEDSIDE GLUCOSE 105 mg/dl L=74 H=106 57935-7 [facility] BEDSIDE GLUCOSE - Collect Da te/Time: 03/29/2024 16:07 [facility] ID: [id number] [address] [place], [address] LOINC: 61934-4 Test Value Unit Reference Range Code Code System Flag BEDSIDE GLUCOSE 147 mg/dl L=74 H=106 28251-4 [facility] H BEDSIDE GLUCOSE - Collect Da te/Time: 03/29/2024 11:04 [facility] ID: [id number] [address] [place], [address] LOINC: 12458-9 Test Value Unit Reference Range Code Code System Flag BEDSIDE GLUCOSE 88 mg/dl L=74 H=106 64539-5 [facility] BEDSIDE GLUCOSE - Collect Da te/Time: 03/29/2024 05:58 [facility] ID: [id number] [address] [place], [address] LOINC: 28460-3 Test Value Unit Reference Range Code Code System Flag BEDSIDE GLUCOSE 76 mg/dl L=74 H=106 57681-0 LOINC BEDSIDE GLUCOSE - Collect Da te/Time: 03/28/2024 20:10 [facility] ID: [id number] [address] [place], [address] LOINC: 96510-5 Test Value Unit Reference Range Code Code System Flag BEDSIDE GLUCOSE 220 mg/dl L=74 H=106 69735-0 LOINC H BEDSIDE GLUCOSE - Collect Da te/Time: 03/28/2024 16:56 [facility] ID: [id number] [address] [place] [address], [address] LOINC: 58740-4 Test Value Unit Reference Range Code Code System Flag BEDSIDE GLUCOSE 187 mg/dl L=74 H=106 15452-9 LOINC H BEDSIDE GLUCOSE - Collect Da te/Time: 03/28/2024 11:47 [facility] ID: [id number] [address] [place], [address] LOINC: 85354-3 Test Value Unit Reference Range Code Code System Flag BEDSIDE GLUCOSE 178 mg/dl L=74 H=106 79400-3 LOINC H BEDSIDE GLUCOSE - Collect Da te/Time: 03/28/2024 07:18 [facility] ID: [id number] [address] [place] [address], [address] LOINC: 50439-1 Test Value Unit Reference Range Code Code System Flag BEDSIDE GLUCOSE 107 mg/dl L=74 H=106 55683-4 LOINC H BEDSIDE GLUCOSE - Collect Da te/Time: 03/27/2024 20:14 [facility] ID: [id number] [address] [place], [address] LOINC: 56519-2 Test Value Unit Reference Range Code Code System Flag BEDSIDE GLUCOSE 88 mg/dl L=74 H=106 84760-6 LOINC BEDSIDE GLUCOSE - Collect Da te/Time: 03/27/2024 16:49 [facility] ID: [id number] [address] [place], [address] LOINC: 72676-6 Test Value Unit Reference Range Code Code System Flag BEDSIDE GLUCOSE 80 mg/dl L=74 H=106 90585-1 LOINC BEDSIDE GLUCOSE - Collect Da te/Time: 03/27/2024 11:31 [facility] ID: [id number] [address] [place], [address] LOINC: 50065-7 Test Value Unit Reference Range Code Code System Flag BEDSIDE GLUCOSE 114 mg/dl L=74 H=106 94647-6 LOINC H COMPREHENSIVE METABOLIC PANE L - Collect Date/Time: 03/27/2024 06:55 [facility] ID: [id number] [address] [place], [address] LOINC: 68778-5 Test Value Unit Reference Range Code Code [...] 8-9 LOINC ANION GAP 10 L=10 H=20 68246-8 LOINC OSMOLALITY 285 mOs/kG L=280 H=296 79238-6 LOINC BUN/CREAT 33.6 3097-3 LOINC CALCIUM 8.7 mg/dL L=8.3 H=10.5 14255-6 LOINC AST 52 U/L L=15 H=46 1920-8 LOINC H ALT 89 U/L L=9 H=72 1742-6 LOINC H ALKALINE PHOS 110 U/L L=38 H=126 6768-6 LOINC TOTAL BILI 0.7 mg/dL L=0.2 H=1.3 1975-2 LOINC ALBUMIN 3.0 G/dL L=3.5 H=5.0 1751-7 LOINC L TOTAL PROTEIN 5.5 g/L L=6.3 H=8.2 2885-2 LOINC L A/G RATIO 1.2 19605-7 LOINC AGE 78 89729-5 LOINC eGFR NON-AFR 69 ml/min eGFR AFR AMER 83 ml/min CBC W/ DIFF - Collect Date/T sheng: 03/27/2024 06:55 [facility] ID: [id number] [address] [place], [address] LOINC: 80762-1 Test Value Unit Reference Range Code Code System Flag WBC 17.7 10^3uL L=4.8 H=10.8 H RBC 3.51 10^6uL L=4.60 H=6.20 L HEMOGLOBIN 10.5 g/dL L=14.0 H=18.0 718-7 LOINC L HEMATOCRIT 32.5 VOL% L=42.0 H=52.0 4544-3 LOINC L MCV 92.6 fL L=80.0 H=94.0 MCH 29.9 pg L=27.0 H=32.0 MCHC 32.3 g/dL L=32.0 H=36.0 PLATELETS 310 10^3uL L=100 H=400 64346-9 LOINC RDW 14.4 % L=11.7 H=15.5 %GRAN 89.7 % L=40.0 H=70.0 95436-0 LOINC H %LYMPH 3.1 % L=20.0 H=45.0 736-9 LOINC L %MONO 6.1 % L=2.0 H=10.0 20365-6 LOINC %EOS 0.1 % L=0.0 H=6.0 713-8 LOINC %BASO 0.1 % L=0.0 H=3.0 706-2 LOINC #NEUT 15.8 10^3uL L=1.9 H=7.6 91558-8 LOINC H #LYMPH 0.6 10^3uL L=0.9 H=4.9 13717-5 LOINC L #MONO 1.1 10^3uL L=0.1 H=0.9 89604-1 LOINC H #EOS 0.0 10^3uL L=0.0 H=0.6 712-0 LOINC #BASO 0.02 10^3uL L=0.00 H=0.10 13756-0 LOINC #IM GRANS 0.2 10^3uL L=0.0 H=7.0 90832-1 LOINC %IM GRANS 0.9 % L=0.0 H=5.0 67186-6 LOINC %NRB 0.0 L=0.0 H=0.2 04597-5 LOINC #NRB 0.000 L=0.000 H=0.012 69233-1 LOINC MANUAL DIFF NOT INDICATED RBC MORPH NOT INDICATED BEDSIDE GLUCOSE - Collect Da te/Time: 03/27/2024 06:06 [facility] ID: [id number] [address] [place], [address] LOINC: 60529-0 Test Value Unit Reference Range Code Code System Flag BEDSIDE GLUCOSE 72 mg/dl L=74 H=106 52309-0 LOINC L BEDSIDE GLUCOSE - Collect Da te/Time: 03/26/2024 20:38 [facility] ID: [id number] [address] [place], [address] LOINC: 00256-3 Test Value Unit Reference Range Code Code System Flag BEDSIDE GLUCOSE 125 mg/dl L=74 H=106 21296-0 LOINC H MRSA SCREEN (NASAL ONLY) - C ollect Date/Time: 03/26/2024 17:56 [facility] ID: [id number] [address] [place], [address] LOINC: 44230-8 Test Value Unit Reference Range Code Code System Flag MRSA SCREEN PRELIM NOT APPLICABLE MRSA SCREEN FINAL NO MRSA COLONIZATION 94170-5 LOINC SEND TO [facility]? NO CHEST 1V - Completed: 2023 08:47 [...] Electronically signed by Jr Melgar M.D. KR: KR Report ID: [id number] Reading Location: [place] [address] CHEST 2V - Completed: 2023 06:32 LOINC: EXAM DESCRIPTION: CHEST 2V REASON FOR STUDY: Possible Aspiration Pneumonia HX COPD Smoker Intubated at [facility] Admitted here 03-26-24 Comparison 03-13-24 Duration: . [...] Sherry Balbuena M.D. SN: SN Report ID: [id number] Reading Location: [id number] Social History Type Status Start Date End Date Code Code Syst em Smoking History Current every day smoker 098201335 SNOMED CT Sex Male Vital Signs Vital Sign Value Unit Sauk Value Sauk Unit Date/Time Recent/Initial? Code Code System Body Mass Index 17.12 kg/m2 03/26/2024 16:55 Initial 14352 -5 LOINC Systolic Blood Pressure 114 mm[Hg] [...] Saturation 98 % 2023 10:48 Most Recent 38126 -5 LOINC O2 Saturation 98 % 2023 16:56 Initial 58693 -5 LOINC Inhaled Oxygen Flow Rate 2.00 L/min 04/07/2024 10:48 Most Recent 3151- 8 LOINC Inhaled Oxygen Flow Rate 3.00 L/min 03/26/2024 16:56 Initial 3151- 8 LOINC Fraction of Inspired Oxygen 97 % 03/27/2024 05:45 Initial 3150- 0 LOINC Pulse 72.0 /min 04/07/2024 10:48 Most Recent 8867- 4 LOINC Pulse 68.0 /min 03/26/2024 16:55 Initial 8867- 4 LOINC Respiration 18 /min 04/07/20 10:48 Most Recent 9279- 1 LOINC Respiration 24 /min 03/26/20 16:55 Initial 9279- 1 LOINC Temperature 36.6 Nicolasa 97.9 F 04/07/20 05:17 Most Recent 8310- 5 LOINC Temperature 36.7 Nicolasa 98.1 F 03/26/20 16:55 Initial 8310- 5 LOINC Weight 41.20 kg 90.83 lbs 04/07/2024 05:17 Most Recent 28640 -7 LOINC Weight 48.10 kg 106.04 lbs 03/26/2024 16:55 Initial 29014 -7 LOINC Medications Medication Start Date End Date Route Frequency Dose Code Code System Medication Instructions Home Meds guaiFENesin DM 10MG/5ML-100MG/5ML Oral Syrup 03/13/2024 03/26/2024 ORAL NEEDED EVERY 4 HOURS 10 mL 040753 RxNorm TAKE 10 mL ORAL NEEDED EVERY 4 HOURS Combivent Respimat 100MCG-20MCG/1Act Inhalation Mcwilliams 03/13/2024 Unknown INHALAT ION FOUR TIMES A DAY 1 unit( s) 5959990 RxNorm 1 EACH INHALATIO N FOUR TIMES A DAY Ipratropium [place]-Albuterol Sulfate 0.5MG/3ML-3MG/3ML Inhalation Solution 03/13/2024 03/26/2024 INHALAT ION TWICE A DAY 1 unit( s) 3217396 RxNorm 1 EACH INHALATIO N TWICE A DAY predniSONE 20MG Oral Tablet 03/13/2024 03/26/2024 BY MOUTH TWICE A DAY 2 TABLE T [id number] RxNorm TAKE 2 TABLET BY MOUTH TWICE A DAY x 3 days. thenTAKE 2 TABLET BY MOUTH ONCE A DAY x 3 days Zithromax 500MG Oral Tablet 03/13/2024 03/26/2024 BY MOUTH ONCE A DAY 1 TABLE T [id number] RxNorm TAKE 1 TABLET BY MOUTH ONCE A DAY starting on 03/14/2024 Benzonatate 100MG Oral Capsule, Liquid Filled 04/07/2024 Unknown ORAL NEEDED 3 TIMES A DAY 100 SHANNON GRAMS [id number] RxNorm TAKE 100 MILLIGRAM S ORAL NEEDED 3 TIMES A DAY Budesonide 0.5MG/2ML Inhalation Suspension 04/07/2024 Unknown NEBULIZ ER RESP BID 0.5 SHANNON GRAMS [id number] RxNorm 0.5 MILLIGRAM S NEBULIZER RESP BID Ibandronate Sodium 150MG Oral Tablet 04/07/2024 Unknown ORAL MONTHLY 150 SHANNON GRAMS 164355 RxNorm TAKE 150 MILLIGRAM S ORAL MONTHLY Montelukast Sodium 10MG Oral Tablet 04/07/2024 Unknown ORAL AT BEDTIME 10 SHANNON GRAMS [id number] RxNorm TAKE 10 MILLIGRAM S ORAL AT BEDTIME amLODIPine Besylate 10MG Oral Tablet 04/07/2024 Unknown ORAL ONCE A DAY 10 SHANNON GRAMS 684286 RxNorm TAKE 10 MILLIGRAM S ORAL ONCE A DAY insulin lispro 100U/1ML Injection Solution 04/07/2024 Unknown SUBCUTA NEOUS SLIDING SCALE 970265 RxNorm INJECT INTO 0-6 EACH SUBCUTANE OUS [...] You May Need When You Leave The Hospital:[facility] Discharge Plan:Education given on Diagnosis(es), Medication [...] appointment. Reason For Referral Reason for Referral: [facility] WILL FOLLOW AT HOME. Receiving Provider: [facility] [place] [address] Problems Problem Start Date Resolved Date Status Code Code System MODERATE COPD active 148060428 SNOMED -CT TOBACCO USE DISORDER active 14178358 SNOMED-CT ACUTE HYPOXEMIC AND HYPERCAPNIC RESPIRATORY FAILURE active 103219665 SNOMED-CT CHRONIC RESPIRATORY FAILURE WITH HYPOXIA active 20511360 SNOMED-CT TYPE 2 DM active 72923951 SNOMED-CT PRIMARY HYPERTENSION active 36127031 SNOMED-CT CHRONIC ARTHRITIS 03/13/2024 resolved 66688043 S NOMED-CT SEVERE COPD 03/13/2024 resolved 217214956 SNOMED- CT Allergies and Adverse Reactions Allergy Substance Reaction Severity Start Date Concern Status Co de Code System LEVOFLOXACIN Active 10355 RxNorm Plan of Treatment White Follow Up Visit 03/13/2022 Pulmonary Function Test 01/25/2022 Abdulfattah Established Patient 023 Abdulfattah Established Patient 023 Abdulfattah Established Patient 024 Abdulfattah Established Patient 024 Encounters Encounter Diagnosis Start Date Code Code Sys tem Pneumonitis due to inhalation of food and vomit 2023 SNOMED-CT Personal Care Team Section Discharge Summary Notes [facility] 04/07/2024 10:56 Demographics Patient Name Age Sex Visit Number Admission Date/Time Attending Physician Room and Bed MARCELLO CAIN EMILI 1945 78 years Male [id number] 03/26/2024 15:59 Major Robledo 116 04/07/2024 ADMISSION & FINAL DIAGNOSIS: [...] Aspiration PNA and after being discharged from [facility] in [place], [place] today. Mr Cain's significant medical history includes: COPD with chronic Hypoxic and Hypercapnic Respiratory Failure (3L O2/NC at home) / Tobacco Use Disorder / H TN / DM 2 Mr Cain was admitted to [facility] on 03/14 for acute on chronic hypercapnic [...] Aspiration PNA - Discussed with: Hospitalist at [facility], [place], [place] Treatments: Bactrim per ID recs PT/OT/ST [...] Dr Robledo: D/C to home today with [facility] Aspiration PNA - Continue Pureed diet at [...] MD Special Instructions Combivent Respimat 100MCG-20MCG/1Act Inhalation [place] 1 EACH INHALATION FOUR TIMES A DAY PRIMO MAJOR A 1 EACH INHALATION FOUR TIMES A DAY Benzonatate 100MG Oral Capsule, Liquid Filled 100 MILLIGRAMS ORAL NEEDED 3 TIMES A DAY PRIMO MAJOR A TAKE 100 MILLIGRAMS ORAL NEEDED 3 TIMES A DAY Budesonide 0.5MG/2ML Inhalation Suspension 0.5 MILLIGRAMS NEBULIZER RESP BID PRIMO MAJOR A 0.5 MILLIGRAMS NEBULIZER RESP BID Ibandronate Sodium 150MG Oral Tablet 150 MILLIGRAMS ORAL MONTHLY PRIMO MAJOR A TAKE 150 MILLIGRAMS ORAL MONTHLY Montelukast Sodium 10MG Oral Tablet 10 MILLIGRAMS ORAL AT BEDTIME PRIMO MAJOR A TAKE 10 MILLIGRAMS ORAL AT BEDTIME amLODIPine Besylate 10MG Oral Tablet 10 MILLIGRAMS ORAL ONCE A DAY PRIMO MAJOR A TAKE 10 MILLIGRAMS ORAL ONCE A DAY insulin lispro 100U/1ML Injection Solution SUBCUTANEOUS SLIDING SCALE PRIMO MAJOR A INJECT INTO 0-6 EACH SUBCUTANEOUS SLIDING SCALE 45 minutes of time spent performing discharge services. [facility] HIE Discharge Summary Scanned image Imaging Narrative Notes History and Physical Notes [facility] 03/26/2024 18:02 Demographics Patient Name Age Sex Visit Number Admission Date/Time Attending Physician Room and Bed MARCELLO CAIN 1945 78 years Male [id number] 03/26/2024 15:59 Major Robledo 116 03/26/2024 HISTORY OF PRESENT ILLNESS: Mr Marcello Cain is a 78 y/o WM who lives at home and is a patient of Dr. Jules. Mr Cain is placed under Swing Bed Status onto the Hospitalist Service this evening for PT/OT status post Aspiration PNA and after being discharged from [facility] in [place], [place] today. Mr Cain's significant medical history includes: COPD with chronic Hypoxic and Hypercapnic Respiratory Failure (3L O2/NC at home) / Tobacco Use Disorder / H TN / DM 2 Mr Cain was admitted to [facility] on 03/14 for acute on chronic hypercapnic [...] 10MG Oral Tablet Combivent Respimat 100MCG-20MCG/1Act Inhalation Mcwilliams Boniva 150MG Oral Tablet REVIEW OF SYSTEMS: [...] Aspiration PNA - Discussed with: Hospitalist at [facility], [place], [place] Treatments: Bactrim per ID recs PT/OT/ST [...] 5) Interpersonal safety - none Progress Notes [facility] 04/02/2024 12:11 Demographics Patient Name Age Sex Visit Number Admission Date/Time Attending Physician Room and Bed MARCELLO CAIN 1945 78 years Male [id number] 03/26/2024 15:59 Majorjohn Robledo 116 04/02/2024 Hospital Course 78-year-old male with a history of COPD who was hospitalized in [place] in ICU for acute respiratory failure and [...] Home Meds List Combivent Respimat 100MCG-20MCG/1Act Inhalation Mcwilliams amLODIPine Besylate 10MG Oral Tablet Benzonatate 100MG [...]
[2025-01-30 15:37] LABS: Add Urine Microscopic? YES; Appearance Urine Sl Cloudy (Clear); Glucose Urine UA Negative (Negative); Leukocyte Esterase Ur 3+ LEU/UL (Negative); Nitrate Urine Negative (Negative); Specific Grav Ur 1.015 (1.010-1.020)
[2025-01-30] MEDS: cefTRIAXone 1 GM in SODIUM CHLORIDE 0.9% IV 50 ML 100 ML IVPB (15:56)
--- NOTE | 2025-01-30 16:30 | ADMGEN ---
This patient, Edgardo Cain, was admitted to 2nd Floor Room 206-1. Patient/family oriented to hospital policies and general routines including ID bracelet, bed and alarms, visiting hours, pain management, procedures, bathroom and other care routines, personal items, smoking policy, room service/diet, and visiting hours. Information on how to activate the Rapid Response Team has been discussed. Patient/Family are encouraged to report perceived risks to care and to ask questions if they do not understand what they are told or what they should do.
[2025-01-31] VITALS: BP 125/77; PULSE 56; RESP 17; TEMP 36.3; O2SAT 98
--- NOTE | 2025-01-31 01:46 | PC.NURSE ---
Amairani from [facility] called for status update. Update given, Amairani states her team will likely call again tomorrow. # for [facility] [phone], if anything is needed.
[2025-01-31 05:30] VITALS: O2SAT 98
[2025-01-31 07:51] VITALS: BP 137/66; PULSE 48; RESP 18; TEMP 36.7; O2SAT 97
--- NOTE | 2025-01-31 09:58 | PM.SD2 ---
Same Day Admit/Disch: HPI History of Present Illness Chief complaint: GENERALIZED WEAKNESS UTI ENDSTAGE COPD Narrative: Edgardo Cain is a 79 year old male [facility] Past Medical History Medical History Myocardial infarction acute Surgical History Surgical History H/O knee surgery H/O elbow surgery Family History Family History Father CAD in [place] artery Mother CHF exacerbation Social History Social History Smoking packs per day: 1 Smoking cigarettes per day: 20.0 Years smoked: 60 Smoking pack-years: 60.00 Smoking status: Never smoker Tobacco type: cigarettes Alcohol intake: never Substance use: never Substance use type: does not use Lack of Transportation: YES Lack of Food: Never True Current Housing: I Have Housing Concerned About Future Housing: No Difficulty Paying Gas/Electric Bills: No Difficulty Paying for Meds: No Currently Unemployed: No Education: Trade/Vocational Certificate Difficulty w/ Childcare or Family Care: No Gender identity (if verbalized by the patient): Male Sexual Orientation (if Verbalized by the Patient): Straight or Heterosexual Spiritual care concerns: No Same Day Admit/Disch: Med Pre-admit Medications Home Medications ?Medication ?Instructions ?Recorded ?Confirmed ?Type ipratropium 0.5 mg-albuterol 3 mg 3 ml inhalation Q4-5H PRN 10/04/19 01/30/25 History (2.5 mg base)/3 mL nebulization Shortness Of Breath soln hydrocodone 10 mg-acetaminophen 1 tablet PO Q6H PRN pain #30 tabs 05/13/22 01/30/25 Rx 325 mg tablet ibandronate 150 mg tablet 150 mg PO MONTHLY 01/30/25 01/30/25 History lorazepam 1 mg tablet (Ativan) 0.5 mg PO Q4H PRN anxiety 01/30/25 01/30/25 History polyethylene glycol 3350 17 17 g PO DAILY@0630 PRN constipation 01/30/25 01/30/25 History gram/dose oral powder prednisone 10 mg tablet 10 mg PO DAILY 01/30/25 01/30/25 History DS: Data Data Completed and Pending Labs on day of discharge: Labs from last 24 hours 01/30/25 01/30/25 01/30/25 15:55 15:34 14:36 WBC 9.8 RBC 4.32 L Hgb 12.9 Hct 41.2 MCV 95.4 MCH 29.9 MCHC 31.3 L RDW 14.3 Plt Count 238 MPV 10.5 Immature Gran % (Auto) Director Of Employer Services Neut % (Auto) Director Of Employer Services Lymph % (Auto) Director Of Employer Services [place] % (Auto) Director Of Employer Services Eos % (Auto) Director Of Employer Services Baso % (Auto) Director Of Employer Services Lymph # (Auto) Director Of Employer Services [place] # (Auto) Director Of Employer Services Eos # (Auto) Director Of Employer Services Baso # (Auto) Director Of Employer Services Abs Immat Gran (auto) Director Of Employer Services Absolute Neuts (auto) Director Of Employer Services Absolute Nucleated RBC Director Of Employer Services Total Counted 100 Neutrophils % (Manual) 85 H Band Neutrophils % 0 Lymphocytes % (Manual) 8 L Monocytes % (Manual) 3 Eosinophils % (Manual) 2 Myelocytes % 2 Nucleated RBC % [employer] Of Employer Services Abs Neuts (Manual) 8.33 H Abs Lymphs (Manual) 0.78 L Abs Monocytes (Manual) 0.29 Absolute Eos (Manual) 0.19 Platelet Estimate Adequate Schistocytes Not Reportable Sodium 139 Potassium 4.1 Chloride 102 Carbon Dioxide 30 Anion Gap 7 BUN 20 Creatinine 0.93 Estim Creat Clear Calc 52 Estimated GFR > 60 Glucose 135 H Calculated Osmolality 292 Lactic Acid 2.3 H 2.7 H Calcium 9.0 Total Bilirubin 0.6 AST 37 ALT 38 Alkaline Phosphatase 84 Troponin I < 0.012 Total Protein 6.5 Albumin 3.9 Urine Color Light yellow Urine Appearance Sl cloudy A Urine pH 7.5 Ur Specific [place] 1.015 Urine Protein Negative Urine Glucose (UA) Negative Urine Ketones Negative Ur Blood (Man) Negative Urine Nitrate Negative Urine Bilirubin Negative Urine Urobilinogen 0.2 Leukocyte Esterase Rfl 3+ H Urine RBC None seen Urine WBC 21-30 H Urine Bacteria 2+ H DS: Summary Time Spent with Patient Time attestation: Total time spent providing and/or coordinating discharge services: Discharge Plan Discharge Attending physician on discharge: Sohail Li Consulting providers: Jessica Casillas Discharging Clinician: Jessica Casillas Anticipated Discharge Date/Time: 01/31/25 09:56 Patient Disposition: Hospice - Home Activity: may shower and as tolerated Diet: regular Discharge Instructions: 1). UTI I have prescribed an oral antibiotic please take incomplete as indicated 2). Hospice care continue with comfort focused care currently with [facility] recommend regular diet and protein shakes with each meal Patient Instructions: Antibiotic Form Patient Language: Welsh Stand Alone Forms: General Discharge Information Follow-up/Referrals: Rigo Jules MD [Primary Care Provider] - Call for Appointment Discharge Medications: Continued ipratropium-albuterol 0.5 mg-3 mg(2.5 mg base)/3 mL solution for nebulization 3 ml INHALATION Q4-5H PRN (Reason: Shortness Of Breath) hydrocodone-acetaminophen 10-325 mg tablet 1 tablet PO Q6H PRN (Reason: pain) Qty: 30 0RF polyethylene glycol 3350 17 gram/dose powder 17 g PO DAILY@0630 PRN (Reason: constipation) lorazepam [Ativan] 1 mg tablet 0.5 mg PO Q4H PRN (Reason: anxiety) prednisone 10 mg tablet 10 mg PO DAILY ibandronate 150 mg tablet 150 mg PO MONTHLY Patient Comments: Give on of the month Date of admission: 01/30/25 15:40 Primary Care Provider: Rigo Jules Admitting Provider: Sohail Li Attending physician on admission: Sohail Li Condition: Stable
--- NOTE | 2025-01-31 11:48 | P.HP_ITS ---
H&P: HPI History of Present Illness Date/Time: 01/31/25 11:48 Chief Complaint: Fall/weakness/unsafe discharge to home Narrative: Patient is a 79 year old male who presented to the emergency department after EMS was called due to potential fall at home and [facility] hospice nurse. Per medical chart [facility] nurse recommended patient come in for evaluation after his son who he currently lives with found him on the ground and thought he had fallen. As stated in the ED reports Adenikegretchen had reported family to EPS for concerns of poor unsafe living conditions. Patient is currently on hospice care living with his son who states he can no longer care for him since he works all day. Patient is not the best historian but reports he is on hospice for end stage COPD and failure to thrive. Patient reported he did not fall but sat down on the floor after he was ambulating to the bathroom and became to weak to make it back to his bed. Patient states he is mostly bedridden but has been trying to get more active but becomes to weak. Patient denied any pain, CP, SOB, N/V, or dizziness. In the ED: Evaluation in the ED showed negative CT head, labs unremarkable other then possible UTI with positive leukocytes, cloudy, bacteria and WBC+. Patient on 3L supplemental oxygen which he chronically wears. Patient was admitted overnight to the medical unit for treatment of UTI and unsafe discharge to home. Patient seen today in no acute distress and no complaints. He is alert and oriented x 4 stated he wanted to return back home. CC is assisting on safe discharge patient owes 2 separate NH and outstanding debt but patient can not return to his own house because there is no labor relations director or running water at this time the son also reports he can not safely care for him anymore. Review of Systems Review of Systems: All systems reviewed & are unremarkable except as noted in HPI and below PMFSH Past Medical History Medical History Failure to thrive Chronic respiratory failure with hypoxia Myocardial infarction acute Surgical History Surgical History H/O knee surgery H/O elbow surgery Family History Family History Father CAD in [place] artery Mother CHF exacerbation Social History Social History Smoking packs per day: 1 Smoking cigarettes per day: 20.0 Years smoked: 60 Smoking pack-years: 60.00 Smoking status: Never smoker Tobacco type: cigarettes Alcohol intake: never Substance use: never Substance use type: does not use Lack of Transportation: YES Lack of Food: Never True Current Housing: I Have Housing Concerned About Future Housing: No Difficulty Paying Gas/Electric Bills: No Difficulty Paying for Meds: No Currently Unemployed: No Education: Trade/Vocational Certificate Difficulty w/ Childcare or Family Care: No Gender identity (if verbalized by the patient): Male Sexual Orientation (if Verbalized by the Patient): Straight or Heterosexual Spiritual care concerns: No Meds Home Medications and Allergies Home Medications ?Medication ?Instructions ?Recorded ?Confirmed ?Type ipratropium 0.5 mg-albuterol 3 mg 3 ml inhalation Q4-5H PRN 10/04/19 01/30/25 History (2.5 mg base)/3 mL nebulization Shortness Of Breath soln hydrocodone 10 mg-acetaminophen 1 tablet PO Q6H PRN pain #30 tabs 05/13/22 01/30/25 Rx 325 mg tablet ibandronate 150 mg tablet 150 mg PO MONTHLY 01/30/25 01/30/25 History lorazepam 1 mg tablet (Ativan) 0.5 mg PO Q4H PRN anxiety 01/30/25 01/30/25 History polyethylene glycol 3350 17 17 g PO DAILY@0630 PRN constipation 01/30/25 01/30/25 History gram/dose oral powder prednisone 10 mg tablet 10 mg PO DAILY 01/30/25 01/30/25 History Allergies Allergy/AdvReac Type Severity Reaction Status Date / Time levofloxacin AdvReac Intermediate Other Verified 01/30/25 14:25 Vital Signs Vital Signs - 24 hr 01/30/25 14:13 01/30/25 14:30 01/30/25 14:33 Temperature 98.0 F Pulse Rate 57 L 58 L 57 L Respiratory Rate 24 H 29 H Blood Pressure 137/85 Pulse Oximetry 99 99 Oxygen Delivery Nasal Cannula Oxygen Flow Rate 3 01/30/25 14:45 01/30/25 14:46 01/30/25 14:48 Temperature Pulse Rate 59 L 70 75 Respiratory Rate 26 H 21 H 30 H Blood Pressure 121/91 H 129/89 Pulse Oximetry 98 98 97 Oxygen Delivery Oxygen Flow Rate 01/30/25 15:02 01/30/25 15:15 01/30/25 15:30 Temperature Pulse Rate 55 L 59 L 58 L Respiratory Rate 28 H 22 H Blood Pressure Pulse Oximetry 97 99 100 Oxygen Delivery Oxygen Flow Rate 01/30/25 15:39 01/30/25 15:45 01/30/25 15:46 Temperature Pulse Rate 58 L 60 63 Respiratory Rate 30 H 20 35 H Blood Pressure 144/78 H 153/97 H Pulse Oximetry 100 98 99 Oxygen Delivery Oxygen Flow Rate 01/30/25 16:00 01/30/25 16:00 01/30/25 16:01 Temperature Pulse Rate 57 L 61 56 L Respiratory Rate 21 H 25 H Blood Pressure 136/89 Pulse Oximetry 99 100 Oxygen Delivery Oxygen Flow Rate 01/30/25 16:22 01/30/25 16:30 01/30/25 16:45 Temperature 97.9 F 97.4 F L Pulse Rate 60 50 L Respiratory Rate 28 H 20 Blood Pressure 158/88 H 143/70 H Pulse Oximetry 97 97 98 Oxygen Delivery Nasal Cannula Nasal Cannula Oxygen Flow Rate 3 3 3 01/30/25 17:13 01/30/25 20:00 01/31/25 00:00 Temperature 97.3 F L Pulse Rate 50 L 56 L Respiratory Rate 20 17 Blood Pressure 125/77 Pulse Oximetry 98 98 98 Oxygen Delivery Nasal Cannula Nasal Cannula Nasal Cannula Oxygen Flow Rate 3 3 3 01/31/25 07:51 Temperature 98.1 F Pulse Rate 48 L Respiratory Rate 18 Blood Pressure 137/66 Pulse Oximetry 97 Oxygen Delivery Nasal Cannula Oxygen Flow Rate 3 Exam Const: General: comfortable and no acute distress Other: Cachectic male on 3L supplemental oxygen HENMT: Ears: TM's normal bilaterally Face/Nose/Sinus: Normal nares present Mouth: Yes moist mucous membranes Eyes: General: appearance normal, both eyes and all related structures Sclera: sclerae normal Pupils: Equal, round and reactive pupils present Neck: Neck: supple and no JVD Resp: Effort & Inspection: normal respiratory effort Auscultation: wheezes (scant) Other: Chronically on 3L supplemental oxygen Cardio: Rate: regular rate Rhythm: regular rhythm GI: GI Palp: Yes Soft to palpation Auscultation: normal bowel sounds Skin: General skin exam: no rashes or lesions noted Wounds: no wounds Other: deep tissue bruising Neuro: Speech: normal speech Sensory Exam: normal sensation Extrem: General: normal to inspection Psych: Mental Status: mental status grossly normal Affect: normal affect H&P: Results Labs Labs: Short CBC 01/30/25 Range/Units 14:36 WBC 9.8 (4.8-10.8) K/mm3 Hgb 12.9 (12.4-15.3) g/dL Hct 41.2 (37.0-46.0) % Plt Count 238 (150-420) K/mm3 BMP 01/30/25 14:36 Sodium 139 Potassium 4.1 Chloride 102 Carbon Dioxide 30 BUN 20 Creatinine 0.93 Glucose 135 H Calcium 9.0 Cardiac Enzymes 01/30/25 Range/Units 14:36 Troponin I < 0.012 (0.000-0.034) ng/mL Liver Function 01/30/25 Range/Units 14:36 Total Bilirubin 0.6 (0.2-1.3) mg/dL AST 37 (17-59) U/L ALT 38 (6-50) U/L Alkaline Phosphatase 84 (38-126) U/L Albumin 3.9 (3.5-5.1) g/dL Urine 01/30/25 Range/Units 15:34 Urine Color Light yellow (Yellow) Urine Appearance Sl cloudy A (Clear) Urine pH 7.5 (5.0-8.0) Ur Specific [place] 1.015 (1.010-1.020) Urine Protein Negative (Negative) Urine Glucose (UA) Negative (Negative) Assessment and Plan Assessment and plan (1) Chronic respiratory failure with hypoxia: Code(s): J96.11 - Chronic respiratory failure with hypoxia Status: Acute Assessment and Plan: Patient on 3L supplemental oxygen at home * Oxygen as needed * continue hospice care at discharge with [facility] (2) COPD (chronic obstructive pulmonary disease): Code(s): J44.9 - Chronic obstructive pulmonary disease, unspecified Status: Acute Assessment and Plan: SEE ABOVE (3) Failure to thrive: Status: Acute Assessment and Plan: Patient on hospice care with [facility] * Continued norco and ativan * Oxygen as needed * regular diet * add protein shake to each meal (4) UTI (urinary tract infection): Code(s): N39.0 - Urinary tract infection, site not specified Status: Acute Assessment and Plan: UA suspicious of UTI * IV Rocephin pending cultures (5) Feels unsafe at home: Code(s): R45.89 - Other symptoms and signs involving emotional state Status: Acute Assessment and Plan: CC and [facility] assisting with discharge plans currently unsafe to return home, EPS has been notified. Review H&P notes (6) General weakness: Code(s): R53.1 - Weakness Status: Acute Assessment and Plan: Secondary to COPD/Failure to thrive an UTI Plan Code status: DNR/DNI/Comfort care Hospice Disposition: Admitted due to weakness and unsafe living conditions unable to return home on hopce care. CC and [facility] Hospice care assisting on safe discharge plans. Quality If No VTE Prophylaxis Answer both mechanical and pharmacologic: Reason no mechanical VTE proph: patient/caregiver refusal Pharmacological Therapy Reason no anticoagulant at DC if Afib or Aflutter: patient/caregiver refusal -Patient's previous records reviewed on admission -ER notes reviewed in detail on admission -discussed all findings and current treatment plan with patient/Family/POA -Consultations reviewed for recommendations -Patient's disposition for safe discharge discussed with shoe parts caser Dictation performed by Videdressing direct speech recognition software, therefore nanofabrication specialist variants and typographical errors may occur. Hospitalist [facility] Advance Care Plan I have confirmed that the patient's Advanced Care Plan is present, code status is documented, or surrogate decision maker is listed in patient medical record.: Yes Medication Reconciliation I have utilized all available resources to obtain, update and review the patients current medications (includes all prescriptions, OTC, herbals, cannabis, and nutritional supplements).: Yes The patient is not eligible for med reconciliation; the patient is in a emergent medical situation where delaying treatment would jeopardize the patients health.: No
--- NOTE | 2025-01-31 15:02 | PC.NURSE ---
IV site discontinued due to patient c/o discomfort at site and no IV medications ordered at this time. Patient awaiting discharge pending placement.
[2025-01-31 16:00] VITALS: BP 126/72; PULSE 52; RESP 16; TEMP 36.4; O2SAT 98
--- NOTE | 2025-01-31 16:23 | PC.NURSE ---
DC order for Discharge placed r/t patient not being discharged today. Placement could not be found by end of day. Will reassess tomorrow. Hospice involved with finding placement.
[2025-01-31 20:00] VITALS: PULSE 55; RESP 16; O2SAT 98
[2025-02-01] VITALS (7 sets, daily range): BP systolic 95–138; BP diastolic 57–70; PULSE 50–95; RESP 14–50; TEMP 36.3–36.5; O2SAT 94–100
--- NOTE | 2025-02-01 08:34 | P.PNIM_ITS ---
Progress Note: A&P Assessment and Plan (1) Chronic respiratory failure with hypoxia: Code(s): J96.11 - Chronic respiratory failure with hypoxia Status: Acute Assessment and Plan: Patient on 3L supplemental oxygen at home * Oxygen as needed * continue hospice care at discharge with [facility] (2) COPD (chronic obstructive pulmonary disease): Code(s): J44.9 - Chronic obstructive pulmonary disease, unspecified Status: Acute Assessment and Plan: SEE ABOVE (3) Failure to thrive: Status: Acute Assessment and Plan: Patient on hospice care with [facility] * Continued norco and ativan * Oxygen as needed * regular diet * add protein shake to each meal (4) UTI (urinary tract infection): Code(s): N39.0 - Urinary tract infection, site not specified Status: Acute Assessment and Plan: UA suspicious of UTI * IV Rocephin pending cultures (5) Feels unsafe at home: Code(s): R45.89 - Other symptoms and signs involving emotional state Status: Acute Assessment and Plan: CC and [facility] assisting with discharge plans currently unsafe to return home, EPS has been notified. Review H&P notes (6) General weakness: Code(s): R53.1 - Weakness Status: Acute Assessment and Plan: Secondary to COPD/Failure to thrive an UTI Plan Code status: DNR/DNI/Comfort care Hospice Disposition: Admitted due to weakness and unsafe living conditions unable to return home on hopsice care. CC and [facility] assisting on safe discharge plans. Time Spent With Patient Time with patient: 15 - 25 minutes Subjective Date/time seen: 02/01/25 08:34 Interval history: Patient is a 79 year old male who presented to the emergency department after EMS was called due to potential fall at home and [facility]ice nurse requested he get evaluated. continues admission for safe discharge planning needs currently his living situation has been reported to EPS. Anna and our CC working of placement. Also treating for possible UTI. 02/01/2025 Patient with no complaints today reports pain is controlled. No CP or worsening SOB. Working on placement. Review of Systems Review of Systems: All systems reviewed & are unremarkable except as noted in HPI and below Exam Const: General: comfortable and no acute distress Other: Cachectic male on 3L supplemental oxygen HENMT: Ears: TM's normal bilaterally Face/Nose/Sinus: Normal nares present Mouth: Yes moist mucous membranes Eyes: General: appearance normal, both eyes and all related structures Sclera: sclerae normal Pupils: Equal, round and reactive pupils present Neck: Neck: supple and no JVD Resp: Effort & Inspection: normal respiratory effort Auscultation: wheezes (scant) Other: Chronically on 3L supplemental oxygen Cardio: Rate: regular rate Rhythm: regular rhythm GI: Auscultation: normal bowel sounds Skin: General skin exam: no rashes or lesions noted Wounds: no wounds Other: deep tissue bruising Neuro: Cranial nerves: Yes Equal, round and reactive pupils present Speech: normal speech Sensory Exam: normal sensation Extrem: General: normal to inspection Psych: Mental Status: mental status grossly normal Affect: normal affect Objective Data Vital Signs Vital Signs: Vital Signs - 24 hr 01/31/25 16:00 01/31/25 20:00 02/01/25 00:00 Temperature 97.6 F 97.4 F L Pulse Rate 52 L 55 L 50 L Respiratory Rate 16 16 20 Blood Pressure 126/72 114/60 Pulse Oximetry 98 98 100 Oxygen Delivery Nasal Cannula Nasal Cannula Nasal Cannula Oxygen Flow Rate 3 3 3 02/01/25 07:48 Temperature 97.7 F Pulse Rate 56 L Respiratory Rate 18 Blood Pressure 138/70 Pulse Oximetry 98 Oxygen Delivery Room Air Oxygen Flow Rate Intake/Output Intake/Output: Intake & Output 01/29/25 01/30/25 01/31/25 02/01/25 23:59 23:59 23:59 23:59 Intake Total 900 1065 300 Output Total 1125 300 Balance 900 -60 0 Meds/Results Medications: Active Medications Generic Name Dose Route Start Last Admin Trade Name Freq PRN Reason Stop Dose Admin Hydrocodone Bitart/Acetaminophen 1 tab 01/30/25 18:44 Hydrocodone/Acetaminophen (*Crx) 10-325 Mg Tablet PO Q6H PRN Pain Rated 7-10 Albuterol/Ipratropium 3 ml 01/30/25 18:54 Ipratropium 0.5 Mg/Albuterol Sulfate 2.5 Mg Ampul.Neb 3 Ml INHALATION Q2H PRN Shortness Of Breath Lorazepam 0.5 mg 01/30/25 19:41 Lorazepam (*Crx) 0.5 Mg Tablet PO Q4H PRN anxiety Polyethylene Glycol 17 gm 01/31/25 06:30 Polyethylene Glycol 3350 17 Gm Powd.Pack PO DAILY@0630 PRN constipation Prednisone 10 mg 01/31/25 09:00 01/31/25 08:58 Prednisone 10 Mg Tablet PO 10 mg DAILY STEPHANE Administration Radiology Results: ITS Impressions Chest X-Ray 01/30/25 15:07 IMPRESSION: No acute cardiopulmonary pathology. Head CT 01/30/25 15:15 IMPRESSION: No acute intracranial findings. Quality Pharmacological Therapy Reason no anticoagulant at DC if Afib or Aflutter: patient/caregiver refusal -Patient's previous records reviewed on admission -ER notes reviewed in detail on admission -discussed all findings and current treatment plan with patient/Family/POA -Consultations reviewed for recommendations -Patient's disposition for safe discharge discussed with correctional casework specialist Dictation performed by [employer] direct speech recognition software, therefore secondary spanish teacher variants and typographical errors may occur. Hospitalist MIPS Advance Care Plan I have confirmed that the patient's Advanced Care Plan is present, code status is documented, or surrogate decision maker is listed in patient medical record.: Yes Medication Reconciliation I have utilized all available resources to obtain, update and review the patients current medications (includes all prescriptions, OTC, herbals, cannabis, and nutritional supplements).: Yes The patient is not eligible for med reconciliation; the patient is in a emergent medical situation where delaying treatment would jeopardize the patients health.: No
--- NOTE | 2025-02-01 09:11 | PC.NURSE ---
Patient has ST with full flap loss that occurred at home on his L wrist. Camp Dishwasher removed soiled dressing, cleansed with NS and applied non stick dressing and paper tape. No s/s infection. Minimal clear drainage noted.
[2025-02-01] MEDS: HYDROcodone/acetaminophen (*CRX) 10-325 MG TABLET 1 TAB PO (12:06)
[2025-02-01] MEDS: LORazepam (*CRX) 0.5 MG TABLET PO (12:42)
--- NOTE | 2025-02-01 12:45 | PC.NURSE ---
Patient had difficulty breathing after interview with [facility] for jail placement. Patient respirations went up to 50 although SPO2 remained 94 to 95% on 3L n/c. Patient repositioned with head more elevated. PRN ativan administered. Patient respirations decreased at this time to 30 and SPO2 at 97%.
--- NOTE | 2025-02-01 14:12 | PC.NURSE ---
Patient resting comfortably. Respirations at 16 and even and unlabored.
[2025-02-02] VITALS (7 sets, daily range): BP systolic 105–130; BP diastolic 59–66; PULSE 50–64; RESP 14–20; TEMP 36.2–36.4; O2SAT 95–100
[2025-02-02] MEDS: HYDROcodone/acetaminophen (*CRX) 10-325 MG TABLET 1 TAB PO (08:02)
[2025-02-02] MEDS: LORazepam (*CRX) 0.5 MG TABLET PO ×2 (08:02→17:20)
[2025-02-02] MEDS: CEPHALEXIN 250 MG CAPSULE PO ×3 (09:45→17:20)
--- NOTE | 2025-02-02 10:36 | P.PNIM_ITS ---
Progress Note: A&P Assessment and Plan (1) Chronic respiratory failure with hypoxia: Code(s): J96.11 - Chronic respiratory failure with hypoxia Status: Acute Assessment and Plan: Patient on 3L supplemental oxygen at home * Oxygen as needed * continue hospice care at discharge with [facility] * Duonebs * continued home prednisone (2) COPD (chronic obstructive pulmonary disease): Code(s): J44.9 - Chronic obstructive pulmonary disease, unspecified Status: Acute Assessment and Plan: SEE ABOVE (3) Failure to thrive: Status: Acute Assessment and Plan: Patient on hospice care with [facility] * Continued norco and ativan * Oxygen as needed * regular diet * add protein shake to each meal (4) UTI (urinary tract infection): Code(s): N39.0 - Urinary tract infection, site not specified Status: Acute Assessment and Plan: UA Proteus mirabilis/penneri * oral kelfex added pending sensitivities (5) Feels unsafe at home: Code(s): R45.89 - Other symptoms and signs involving emotional state Status: Acute Assessment and Plan: CC and Anna assisting with discharge plans currently unsafe to return home, EPS has been notified. Review H&P notes (6) General weakness: Code(s): R53.1 - Weakness Status: Acute Assessment and Plan: Secondary to COPD/Failure to thrive an UTI Plan Code status: DNR/DNI/Comfort care Hospice Disposition: Admitted due to weakness and unsafe living conditions unable to return home on hopsice care. CC and [facility] assisting on safe discharge plans. Time Spent With Patient Time with patient: 15 - 25 minutes Subjective Date/time seen: 02/02/25 10:36 Interval history: Patient is a 79 year old male who presented to the emergency department after EMS was called due to potential fall at home and [facility] hospice nurse requested he get evaluated. continues admission for safe discharge planning needs currently his living situation has been reported to EPS. [facility] and our CC working of placement. Also treating for possible UTI. 02/01/2025 Patient up in chair feeling SOB will schedule duonebs otherwise no other complaints is on is chronic 3L NC. still waiting on placement Review of Systems Review of Systems: All systems reviewed & are unremarkable except as noted in HPI and below Exam Const: General: comfortable and no acute distress Other: Cachectic male on 3L supplemental oxygen HENMT: Ears: TM's normal bilaterally Face/Nose/Sinus: Normal nares present Mouth: Yes moist mucous membranes Eyes: General: appearance normal, both eyes and all related structures Sclera: sclerae normal Pupils: Equal, round and reactive pupils present Neck: Neck: supple and no JVD Resp: Effort & Inspection: normal respiratory effort Auscultation: wheezes (scant) Other: Chronically on 3L supplemental oxygen Cardio: Rate: regular rate Rhythm: regular rhythm GI: Auscultation: normal bowel sounds Skin: General skin exam: no rashes or lesions noted Wounds: no wounds Other: deep tissue bruising Neuro: Cranial nerves: Yes Equal, round and reactive pupils present Speech: normal speech Sensory Exam: normal sensation Extrem: General: normal to inspection Psych: Mental Status: mental status grossly normal Affect: normal affect Objective Data Vital Signs Vital Signs: Vital Signs - 24 hr 02/01/25 12:30 02/01/25 12:41 02/01/25 16:00 Temperature 97.3 F L Pulse Rate 95 79 51 L Respiratory Rate 50 H 30 H 14 Blood Pressure 95/57 L Pulse Oximetry 94 97 97 Oxygen Delivery Nasal Cannula Nasal Cannula Room Air Oxygen Flow Rate 3 3 02/01/25 20:00 02/02/25 00:00 02/02/25 08:00 Temperature 97.5 F L 97.1 F L Pulse Rate 51 L 64 54 L Respiratory Rate 14 18 20 Blood Pressure 105/66 130/61 Pulse Oximetry 97 98 99 Oxygen Delivery Nasal Cannula Nasal Cannula Nasal Cannula Oxygen Flow Rate 3 3 3 Intake/Output Intake/Output: Intake & Output 01/30/25 01/31/25 02/01/25 02/02/25 23:59 23:59 23:59 23:59 Intake Total 900 1065 1070 360 Output Total 1125 600 500 Balance 900 -60 470 -140 Meds/Results Medications: Active Medications Generic Name Dose Route Start Last Admin Trade Name Freq PRN Reason Stop Dose Admin Hydrocodone Bitart/Acetaminophen 1 tab 01/30/25 18:44 02/02/25 08:02 Hydrocodone/Acetaminophen (*Crx) 10-325 Mg Tablet PO 1 tab Q6H PRN Administration Pain Rated 7-10 Albuterol/Ipratropium 3 ml 02/02/25 10:35 Ipratropium 0.5 Mg/Albuterol Sulfate 2.5 Mg Ampul.Neb 3 Ml INHALATION Q6HRT PRN Shortness Of Breath Albuterol/Ipratropium 3 ml 02/02/25 12:30 Ipratropium 0.5 Mg/Albuterol Sulfate 2.5 Mg Ampul.Neb 3 Ml INHALATION Q6HRT STEPHANE Cephalexin HCl 250 mg 02/02/25 09:00 02/02/25 09:45 Cephalexin 250 Mg Capsule PO 250 mg Q6HR STEPHANE Administration Lorazepam 0.5 mg 01/30/25 19:41 02/02/25 08:02 Lorazepam (*Crx) 0.5 Mg Tablet PO 0.5 mg Q4H PRN Administration anxiety Polyethylene Glycol 17 gm 01/31/25 06:30 Polyethylene Glycol 3350 17 Gm Powd.Pack PO DAILY@0630 PRN constipation Prednisone 10 mg 01/31/25 09:00 02/02/25 08:02 Prednisone 10 Mg Tablet PO 10 mg DAILY STEPHANE Administration Radiology Results: ITS Impressions Chest X-Ray 01/30/25 15:07 IMPRESSION: No acute cardiopulmonary pathology. Head CT 01/30/25 15:15 IMPRESSION: No acute intracranial findings. Quality Pharmacological Therapy Reason no anticoagulant at DC if Afib or Aflutter: patient/caregiver refusal -Patient's previous records reviewed on admission -ER notes reviewed in detail on admission -discussed all findings and current treatment plan with patient/Family/POA -Consultations reviewed for recommendations -Patient's disposition for safe discharge discussed with vocational case manager Dictation performed by [employer] direct speech recognition software, therefore criminalist technician variants and typographical errors may occur. Hospitalist MIPS Advance Care Plan I have confirmed that the patient's Advanced Care Plan is present, code status is documented, or surrogate decision maker is listed in patient medical record.: Yes Medication Reconciliation I have utilized all available resources to obtain, update and review the patients current medications (includes all prescriptions, OTC, herbals, cannabis, and nutritional supplements).: Yes The patient is not eligible for med reconciliation; the patient is in a emergent medical situation where delaying treatment would jeopardize the patients health.: No
[2025-02-02] MEDS: IPRATROPIUM 0.5 MG/ALBUTEROL SULFATE 2.5 MG AMPUL.NEB 3 ML INHALATION ×2 (11:48→18:24)
[2025-02-03] VITALS (13 sets, daily range): BP systolic 102–114; BP diastolic 58–71; PULSE 47–65; RESP 14–18; TEMP 36.3–36.5; O2SAT 96–100
[2025-02-03] MEDS: CEPHALEXIN 250 MG CAPSULE PO ×4 (00:59→17:27)
[2025-02-03] MEDS: IPRATROPIUM 0.5 MG/ALBUTEROL SULFATE 2.5 MG AMPUL.NEB 3 ML INHALATION ×4 (01:01→16:50)
--- NOTE | 2025-02-03 09:29 | P.PNIM_ITS ---
Progress Note: A&P Assessment and Plan (1) Chronic respiratory failure with hypoxia: Code(s): J96.11 - Chronic respiratory failure with hypoxia Status: Acute Assessment and Plan: Patient on 3L supplemental oxygen at home * Oxygen as needed * continue hospice care at discharge with [facility] * Duonebs * continued home prednisone (2) COPD (chronic obstructive pulmonary disease): Code(s): J44.9 - Chronic obstructive pulmonary disease, unspecified Status: Acute Assessment and Plan: SEE ABOVE (3) Failure to thrive: Status: Acute Assessment and Plan: Patient on hospice care with [facility] * Continued norco and ativan * Oxygen as needed * regular diet * add protein shake to each meal (4) UTI (urinary tract infection): Code(s): N39.0 - Urinary tract infection, site not specified Status: Acute Assessment and Plan: UA Proteus mirabilis/penneri * oral kelfex added pending sensitivities (5) Feels unsafe at home: Code(s): R45.89 - Other symptoms and signs involving emotional state Status: Acute Assessment and Plan: CC and Anna assisting with discharge plans currently unsafe to return home, EPS has been notified. Review H&P notes (6) General weakness: Code(s): R53.1 - Weakness Status: Acute Assessment and Plan: Secondary to COPD/Failure to thrive an UTI Plan Code status: DNR/DNI/Comfort care Hospice Disposition: Admitted due to weakness and unsafe living conditions unable to return home on hopsice care. CC and [facility] assisting on safe discharge plans. Time Spent With Patient Time with patient: 15 - 25 minutes Subjective Date/time seen: 02/03/25 09:29 Interval history: Patient is a 79 year old male who presented to the emergency department after EMS was called due to potential fall at home and [facility] hospice nurse requested he get evaluated. continues admission for safe discharge planning needs currently his living situation has been reported to [facility]. Anna and our CC working of placement. Also treating for possible UTI. 02/03/2025 Patient in no acute distress resting comfortably reports breathing easier after scheduling nebulizers still remains on his 3 L nasal cannula with no acute distress and no complaints at this time does appear withdrawn and quiet denied any chest pain, dizziness, nausea, vomiting or abdominal pain still currently waiting on potential placement EPS is coming to speak with patient today regarding safe discharge planning. Review of Systems Review of Systems: All systems reviewed & are unremarkable except as noted in HPI and below Exam Const: General: comfortable and no acute distress Other: Cachectic male on 3L supplemental oxygen HENMT: Ears: TM's normal bilaterally Face/Nose/Sinus: Normal nares present Mouth: Yes moist mucous membranes Eyes: General: appearance normal, both eyes and all related structures Sclera: sclerae normal Pupils: Equal, round and reactive pupils present Neck: Neck: supple and no JVD Resp: Effort & Inspection: normal respiratory effort Auscultation: wheezes (scant) Other: Chronically on 3L supplemental oxygen Cardio: Rate: regular rate Rhythm: regular rhythm GI: Auscultation: normal bowel sounds Skin: General skin exam: no rashes or lesions noted Wounds: no wounds Other: deep tissue bruising Neuro: Cranial nerves: Yes Equal, round and reactive pupils present Speech: normal speech Sensory Exam: normal sensation Extrem: General: normal to inspection Psych: Mental Status: mental status grossly normal Affect: normal affect Objective Data Vital Signs Vital Signs: Vital Signs - 24 hr 02/02/25 11:49 02/02/25 12:00 02/02/25 16:00 Temperature 97.5 F L Pulse Rate 52 L 54 L 50 L Respiratory Rate 14 14 18 Blood Pressure 110/59 L Pulse Oximetry 95 96 98 Oxygen Delivery Nasal Cannula Oxygen Flow Rate 3 3 3 02/02/25 20:00 02/03/25 00:00 02/03/25 01:00 Temperature 97.7 F Pulse Rate 55 L 65 65 Respiratory Rate 18 16 18 Blood Pressure 102/71 Pulse Oximetry 100 100 99 Oxygen Delivery Nasal Cannula Nasal Cannula Oxygen Flow Rate 3 3 3 02/03/25 01:10 02/03/25 06:02 02/03/25 06:12 Temperature Pulse Rate 63 50 L 54 L Respiratory Rate 16 16 16 Blood Pressure Pulse Oximetry 99 99 100 Oxygen Delivery Oxygen Flow Rate 3 3 3 Intake/Output Intake/Output: Intake & Output 01/31/25 02/01/25 02/02/25 02/03/25 23:59 23:59 23:59 23:59 Intake Total 1065 1070 1380 300 Output Total 0701 248 3961 600 Balance -60 470 280 -300 Meds/Results Medications: Active Medications Generic Name Dose Route Start Last Admin Trade Name Freq PRN Reason Stop Dose Admin Hydrocodone Bitart/Acetaminophen 1 tab 01/30/25 18:44 02/02/25 08:02 Hydrocodone/Acetaminophen (*Crx) 10-325 Mg Tablet PO 1 tab Q6H PRN Administration Pain Rated 7-10 Albuterol/Ipratropium 3 ml 02/02/25 10:35 Ipratropium 0.5 Mg/Albuterol Sulfate 2.5 Mg Ampul.Neb 3 Ml INHALATION Q6HRT PRN Shortness Of Breath Albuterol/Ipratropium 3 ml 02/02/25 12:30 02/03/25 06:01 Ipratropium 0.5 Mg/Albuterol Sulfate 2.5 Mg Ampul.Neb 3 Ml INHALATION 3 ml Q6HRT STEPHANE Administration Cephalexin HCl 250 mg 02/02/25 09:00 02/03/25 06:28 Cephalexin 250 Mg Capsule PO 250 mg Q6HR STEPHANE Administration Lorazepam 0.5 mg 01/30/25 19:41 02/02/25 17:20 Lorazepam (*Crx) 0.5 Mg Tablet PO 0.5 mg Q4H PRN Administration anxiety Polyethylene Glycol 17 gm 01/31/25 06:30 Polyethylene Glycol 3350 17 Gm Powd.Pack PO DAILY@0630 PRN constipation Prednisone 10 mg 01/31/25 09:00 02/02/25 08:02 Prednisone 10 Mg Tablet PO 10 mg DAILY STEPHANE Administration Radiology Results: ITS Impressions Chest X-Ray 01/30/25 15:07 IMPRESSION: No acute cardiopulmonary pathology. Head CT 01/30/25 15:15 IMPRESSION: No acute intracranial findings. Quality VTE Prophylaxis VTE prophylaxis: mechanical ordered Pharmacological Therapy Reason no anticoagulant at DC if Afib or Aflutter: patient/caregiver refusal -Patient's previous records reviewed on admission -ER notes reviewed in detail on admission -discussed all findings and current treatment plan with patient/Family/POA -Consultations reviewed for recommendations -Patient's disposition for safe discharge discussed with case hardener Dictation performed by [employer] direct speech recognition software, therefore aircraft launch and recovery technician variants and typographical errors may occur. Hospitalist MIPS Advance Care Plan I have confirmed that the patient's Advanced Care Plan is present, code status is documented, or surrogate decision maker is listed in patient medical record.: Yes Medication Reconciliation I have utilized all available resources to obtain, update and review the patients current medications (includes all prescriptions, OTC, herbals, cannabis, and nutritional supplements).: Yes The patient is not eligible for med reconciliation; the patient is in a emergent medical situation where delaying treatment would jeopardize the patients health.: No
[2025-02-04] VITALS (14 sets, daily range): BP systolic 105–112; BP diastolic 54–70; PULSE 50–60; RESP 14–17; TEMP 36.2–36.7; O2SAT 96–100
[2025-02-04] MEDS: IPRATROPIUM 0.5 MG/ALBUTEROL SULFATE 2.5 MG AMPUL.NEB 3 ML INHALATION ×5 (00:16→23:38)
[2025-02-04] MEDS: CEPHALEXIN 250 MG CAPSULE PO ×5 (00:16→23:36)
--- NOTE | 2025-02-04 10:49 | P.PNIM_ITS ---
Progress Note: A&P Assessment and Plan (1) Chronic respiratory failure with hypoxia: Code(s): J96.11 - Chronic respiratory failure with hypoxia Status: Acute Assessment and Plan: Patient on 3L supplemental oxygen at home * Oxygen as needed * continue hospice care at discharge with [facility] * Duonebs * continued home prednisone (2) COPD (chronic obstructive pulmonary disease): Code(s): J44.9 - Chronic obstructive pulmonary disease, unspecified Status: Acute Assessment and Plan: SEE ABOVE (3) Failure to thrive: Status: Acute Assessment and Plan: Patient on hospice care with [facility] * Continued norco and ativan * Oxygen as needed * regular diet * add protein shake to each meal (4) UTI (urinary tract infection): Code(s): N39.0 - Urinary tract infection, site not specified Status: Acute Assessment and Plan: UA Proteus mirabilis/penneri * oral kelfex added pending sensitivities (5) Feels unsafe at home: Code(s): R45.89 - Other symptoms and signs involving emotional state Status: Acute Assessment and Plan: CC and [facility] assisting with discharge plans currently unsafe to return home, EPS has been notified. Review H&P notes (6) General weakness: Code(s): R53.1 - Weakness Status: Acute Assessment and Plan: Secondary to COPD/Failure to thrive an UTI Plan Code status: DNR/DNI/Comfort care Hospice Disposition: Admitted due to weakness and unsafe living conditions unable to return home on hopsice care. CC and [facility] care assisting on safe discharge plans. Time Spent With Patient Time with patient: 15 - 25 minutes Subjective Date/time seen: 02/04/25 10:49 Interval history: Patient is a 79 year old male who presented to the emergency department after EMS was called due to potential fall at home and [facility] hospice nurse requested he get evaluated. continues admission for safe discharge planning needs currently his living situation has been reported to [facility]. Anna and our CC working of placement. Also treating for possible UTI. 02/04/2025 Patient in no acute distress resting comfortably with no complaints appears comfortable says the nebulizer treatments are making his breathing easier. Denies any pain, CP, N/V just weakness. [facility] has cancelled contract with patient still on comfort care while we wait for placement was seen by EPS yesterday for investigation. Review of Systems Review of Systems: All systems reviewed & are unremarkable except as noted in HPI and below Exam Const: General: comfortable and no acute distress Other: Cachectic male on 3L supplemental oxygen HENMT: Ears: TM's normal bilaterally Face/Nose/Sinus: Normal nares present Mouth: Yes moist mucous membranes Eyes: General: appearance normal, both eyes and all related structures Sclera: sclerae normal Pupils: Equal, round and reactive pupils present Neck: Neck: supple and no JVD Resp: Effort & Inspection: normal respiratory effort Auscultation: wheezes (scant) Other: Chronically on 3L supplemental oxygen Cardio: Rate: regular rate Rhythm: regular rhythm GI: Auscultation: normal bowel sounds Skin: General skin exam: no rashes or lesions noted Wounds: no wounds Other: deep tissue bruising Neuro: Cranial nerves: Yes Equal, round and reactive pupils present Speech: normal speech Sensory Exam: normal sensation Extrem: General: normal to inspection Psych: Mental Status: mental status grossly normal Affect: normal affect Objective Data Vital Signs Vital Signs: Vital Signs - 24 hr 02/03/25 11:49 02/03/25 12:00 02/03/25 16:00 Temperature 97.7 F Pulse Rate 64 62 54 L Respiratory Rate 16 14 18 Blood Pressure 114/69 Pulse Oximetry 97 98 97 Oxygen Delivery Room Air Oxygen Flow Rate 3 3 02/03/25 16:51 02/03/25 17:02 02/03/25 20:00 Temperature Pulse Rate 63 63 50 L Respiratory Rate 14 16 16 Blood Pressure Pulse Oximetry 96 98 96 Oxygen Delivery Room Air Oxygen Flow Rate 3 3 02/04/25 00:00 02/04/25 00:16 02/04/25 00:26 Temperature 97.2 F L Pulse Rate 50 L 50 L Respiratory Rate 16 16 Blood Pressure 106/54 L Pulse Oximetry 96 96 97 Oxygen Delivery Nasal Cannula Oxygen Flow Rate 3 3 02/04/25 05:57 02/04/25 06:08 02/04/25 08:00 Temperature 98.1 F Pulse Rate 54 L 52 L 58 L Respiratory Rate 16 16 17 Blood Pressure 112/70 Pulse Oximetry 98 99 98 Oxygen Delivery Nasal Cannula Oxygen Flow Rate 3 3 3 Intake/Output Intake/Output: Intake & Output 02/01/25 02/02/25 02/03/25 02/04/25 23:59 23:59 23:59 23:59 Intake Total 1070 1380 1700 200 Output Total 600 1100 1300 775 Balance 470 280 400 -575 Meds/Results Medications: Active Medications Generic Name Dose Route Start Last Admin Trade Name Freq PRN Reason Stop Dose Admin Hydrocodone Bitart/Acetaminophen 1 tab 01/30/25 18:44 02/02/25 08:02 Hydrocodone/Acetaminophen (*Crx) 10-325 Mg Tablet PO 1 tab Q6H PRN Administration Pain Rated 7-10 Albuterol/Ipratropium 3 ml 02/02/25 10:35 Ipratropium 0.5 Mg/Albuterol Sulfate 2.5 Mg Ampul.Neb 3 Ml INHALATION Q6HRT PRN Shortness Of Breath Albuterol/Ipratropium 3 ml 02/02/25 12:30 02/04/25 05:56 Ipratropium 0.5 Mg/Albuterol Sulfate 2.5 Mg Ampul.Neb 3 Ml INHALATION 3 ml Q6HRT STEPHANE Administration Cephalexin HCl 250 mg 02/02/25 09:00 02/04/25 06:22 Cephalexin 250 Mg Capsule PO 250 mg Q6HR STEPHANE Administration Lorazepam 0.5 mg 01/30/25 19:41 02/02/25 17:20 Lorazepam (*Crx) 0.5 Mg Tablet PO 0.5 mg Q4H PRN Administration anxiety Polyethylene Glycol 17 gm 01/31/25 06:30 Polyethylene Glycol 3350 17 Gm Powd.Pack PO DAILY@0630 PRN constipation Prednisone 10 mg 01/31/25 09:00 02/04/25 09:53 Prednisone 10 Mg Tablet PO 10 mg DAILY STEPHANE Administration Radiology Results: ITS Impressions Chest X-Ray 01/30/25 15:07 IMPRESSION: No acute cardiopulmonary pathology. Head CT 01/30/25 15:15 IMPRESSION: No acute intracranial findings. Quality VTE Prophylaxis VTE prophylaxis: mechanical ordered Pharmacological Therapy Reason no anticoagulant at DC if Afib or Aflutter: patient/caregiver refusal -Patient's previous records reviewed on admission -ER notes reviewed in detail on admission -discussed all findings and current treatment plan with patient/Family/POA -Consultations reviewed for recommendations -Patient's disposition for safe discharge discussed with counseling case manager Dictation performed by [employer] direct speech recognition software, therefore armed guard variants and typographical errors may occur. Hospitalist MIPS Advance Care Plan I have confirmed that the patient's Advanced Care Plan is present, code status is documented, or surrogate decision maker is listed in patient medical record.: Yes Medication Reconciliation I have utilized all available resources to obtain, update and review the patients current medications (includes all prescriptions, OTC, herbals, cannabis, and nutritional supplements).: Yes The patient is not eligible for med reconciliation; the patient is in a emergent medical situation where delaying treatment would jeopardize the patients health.: No
[2025-02-05] VITALS (9 sets, daily range): BP systolic 123–136; BP diastolic 75–76; PULSE 49–56; RESP 17–18; TEMP 36.4–36.8; O2SAT 94–100
[2025-02-05] MEDS: CEPHALEXIN 250 MG CAPSULE PO ×2 (05:35→17:18)
[2025-02-05] MEDS: IPRATROPIUM 0.5 MG/ALBUTEROL SULFATE 2.5 MG AMPUL.NEB 3 ML INHALATION ×2 (05:36→19:19)
[2025-02-05 08:28] LABS: Hematocrit 41.9 % (37.0-46.0); Hemoglobin 13.1 g/dL (12.4-15.3); Mean Corpuscular HGB Conc 31.3 g/dL (32-36); Mean Corpuscular Hemoglobin 29.8 pg (27.0-31.0); Mean Corpuscular Volume 95.2 fL (78.0-102.0); Platelet Count Result 191 K/mm3 (150-420); Red Blood Count 4.40 M/mm3 (4.70-6.10); White Blood Count 8.9 K/mm3 (4.8-10.8)
[2025-02-05 08:39] LABS: Alanine Aminotransferase 43 U/L (6-50); Albumin Level 3.8 g/dL (3.5-5.1); Alkaline Phosphatase 64 U/L (38-126); Anion Gap 3 mmol/L (4-12); Aspartate Amino Transferase 42 U/L (17-59); Bilirubin,Total 0.5 mg/dL (0.2-1.3); Blood Urea Nitrogen 17 mg/dL (9-20); Calcium 8.9 mg/dL (8.4-10.2); Carbon Dioxide 35 mmol/L (22-30); Chloride 101 mmol/L (98-107); Estimated CRCL calculation 53 ml/min; Estimated Glomerular Filt Rate > 60; Glucose 86 mg/dL (65-110); Osmolality Calculated 288 mOsm/kg (285-295); Potassium 3.9 mmol/L (3.4-5.0); Sodium 139 mmol/L (137-145); Total Protein 6.2 g/dL (6.3-8.2)
--- NOTE | 2025-02-05 09:03 | P.PNIM_ITS ---
Progress Note: A&P Assessment and Plan (1) Chronic respiratory failure with hypoxia: Code(s): J96.11 - Chronic respiratory failure with hypoxia Status: Acute Assessment and Plan: Patient on 3L supplemental oxygen at home * Oxygen as needed * continue hospice care at discharge with [facility] * Duonebs * continued home prednisone (2) COPD (chronic obstructive pulmonary disease): Code(s): J44.9 - Chronic obstructive pulmonary disease, unspecified Status: Acute Assessment and Plan: SEE ABOVE (3) Failure to thrive: Status: Acute Assessment and Plan: Patient on hospice care with [facility] * Continued norco and ativan * Oxygen as needed * regular diet * add protein shake to each meal (4) UTI (urinary tract infection): Code(s): N39.0 - Urinary tract infection, site not specified Status: Acute Assessment and Plan: UA Proteus mirabilis/penneri * oral kelfex added pending sensitivities (5) Feels unsafe at home: Code(s): R45.89 - Other symptoms and signs involving emotional state Status: Acute Assessment and Plan: CC and [facility] assisting with discharge plans currently unsafe to return home, EPS has been notified. Review H&P notes (6) General weakness: Code(s): R53.1 - Weakness Status: Acute Assessment and Plan: Secondary to COPD/Failure to thrive an UTI Plan Code status: DNR/DNI/Comfort care Hospice Disposition: Admitted due to weakness and unsafe living conditions unable to return home on hospice care. CC working on placement consulted [facility] Time Spent With Patient Time with patient: 15 - 25 minutes Subjective Date/time seen: 02/05/25 09:03 Interval history: Patient is a 79 year old male who presented to the emergency department after EMS was called due to potential fall at home and [facility] hospice nurse requested he get evaluated. continues admission for safe discharge planning needs currently his living situation has been reported to [facility]. Anna and our CC working of placement. Also treating for possible UTI. 02/05/2025 Patient with no complaints and no acute issues. Labs unremarkable still pending placement for safe discharge. [facility] consulted since Anna had to discharge from their services Review of Systems Review of Systems: All systems reviewed & are unremarkable except as noted in HPI and below Exam Const: General: comfortable and no acute distress Other: Cachectic male on 3L supplemental oxygen HENMT: Ears: TM's normal bilaterally Face/Nose/Sinus: Normal nares present Mouth: Yes moist mucous membranes Eyes: General: appearance normal, both eyes and all related structures Sclera: sclerae normal Pupils: Equal, round and reactive pupils present Neck: Neck: supple and no JVD Resp: Effort & Inspection: normal respiratory effort Auscultation: wheezes (scant) Other: Chronically on 3L supplemental oxygen Cardio: Rate: regular rate Rhythm: regular rhythm GI: Auscultation: normal bowel sounds Skin: General skin exam: no rashes or lesions noted Wounds: no wounds Other: deep tissue bruising Neuro: Cranial nerves: Yes Equal, round and reactive pupils present Speech: normal speech Sensory Exam: normal sensation Extrem: General: normal to inspection Psych: Mental Status: mental status grossly normal Affect: normal affect Objective Data Vital Signs Vital Signs: Vital Signs - 24 hr 02/04/25 11:32 02/04/25 11:42 02/04/25 16:00 Temperature 98.1 F Pulse Rate 56 L 59 L 60 Respiratory Rate 14 14 17 Blood Pressure 105/63 Pulse Oximetry 96 97 96 Oxygen Delivery Nasal Cannula Oxygen Flow Rate 3 3 3 02/04/25 16:58 02/04/25 17:06 02/04/25 23:35 Temperature Pulse Rate 58 L 59 L 53 L Respiratory Rate 14 14 16 Blood Pressure Pulse Oximetry 97 98 98 Oxygen Delivery Oxygen Flow Rate 3 3 3 02/04/25 23:53 02/05/25 00:00 02/05/25 05:35 Temperature 97.6 F Pulse Rate 55 L 54 L 55 L Respiratory Rate 17 17 17 Blood Pressure 123/75 Pulse Oximetry 100 100 97 Oxygen Delivery Nasal Cannula Oxygen Flow Rate 3 3 3 02/05/25 05:50 02/05/25 08:00 Temperature 98.3 F Pulse Rate 54 L 49 L Respiratory Rate 17 18 Blood Pressure 136/76 Pulse Oximetry 100 94 Oxygen Delivery Nasal Cannula Oxygen Flow Rate 3 3 Intake/Output Intake/Output: Intake & Output 02/02/25 02/03/25 02/04/25 02/05/25 23:59 23:59 23:59 23:59 Intake Total 1380 1700 1600 820 Output Total 1100 1300 1675 600 Balance 280 400 -75 220 Meds/Results Medications: Active Medications Generic Name Dose Route Start Last Admin Trade Name Freq PRN Reason Stop Dose Admin Hydrocodone Bitart/Acetaminophen 1 tab 01/30/25 18:44 02/02/25 08:02 Hydrocodone/Acetaminophen (*Crx) 10-325 Mg Tablet PO 1 tab Q6H PRN Administration Pain Rated 7-10 Albuterol/Ipratropium 3 ml 02/02/25 10:35 Ipratropium 0.5 Mg/Albuterol Sulfate 2.5 Mg Ampul.Neb 3 Ml INHALATION Q6HRT PRN Shortness Of Breath Albuterol/Ipratropium 3 ml 02/02/25 12:30 02/05/25 05:36 Ipratropium 0.5 Mg/Albuterol Sulfate 2.5 Mg Ampul.Neb 3 Ml INHALATION 3 ml Q6HRT STEPHANE Administration Cephalexin HCl 250 mg 02/02/25 09:00 02/05/25 05:35 Cephalexin 250 Mg Capsule PO 250 mg Q6HR STEPHANE Administration Lorazepam 0.5 mg 01/30/25 19:41 02/02/25 17:20 Lorazepam (*Crx) 0.5 Mg Tablet PO 0.5 mg Q4H PRN Administration anxiety Polyethylene Glycol 17 gm 01/31/25 06:30 Polyethylene Glycol 3350 17 Gm Powd.Pack PO DAILY@0630 PRN constipation Prednisone 10 mg 01/31/25 09:00 02/05/25 08:38 Prednisone 10 Mg Tablet PO 10 mg DAILY STEPHANE Administration Radiology Results: ITS Impressions Chest X-Ray 01/30/25 15:07 IMPRESSION: No acute cardiopulmonary pathology. Head CT 01/30/25 15:15 IMPRESSION: No acute intracranial findings. Labs Labs: Laboratory Results - last 24 hr 02/05/25 08:19 WBC 8.9 RBC 4.40 L Hgb 13.1 Hct 41.9 MCV 95.2 MCH 29.8 MCHC 31.3 L RDW 14.4 Plt Count 191 MPV 10.6 Sodium 139 Potassium 3.9 Chloride 101 Carbon Dioxide 35 H Anion Gap 3 L BUN 17 Creatinine 0.73 Estim Creat Clear Calc 53 Estimated GFR > 60 Glucose 86 Calculated Osmolality 288 Calcium 8.9 Total Bilirubin 0.5 AST 42 ALT 43 Alkaline Phosphatase 64 Total Protein 6.2 L Albumin 3.8 Quality VTE Prophylaxis VTE prophylaxis: mechanical ordered Pharmacological Therapy Reason no anticoagulant at DC if Afib or Aflutter: patient/caregiver refusal -Patient's previous records reviewed on admission -ER notes reviewed in detail on admission -discussed all findings and current treatment plan with patient/Family/POA -Consultations reviewed for recommendations -Patient's disposition for safe discharge discussed with foster care case manager Dictation performed by [employer] direct speech recognition software, therefore senior salesforce developer variants and typographical errors may occur. Hospitalist MIPS Advance Care Plan I have confirmed that the patient's Advanced Care Plan is present, code status is documented, or surrogate decision maker is listed in patient medical record.: Yes Medication Reconciliation I have utilized all available resources to obtain, update and review the patients current medications (includes all prescriptions, OTC, herbals, cannabis, and nutritional supplements).: Yes The patient is not eligible for med reconciliation; the patient is in a emergent medical situation where delaying treatment would jeopardize the patients health.: No
[2025-02-06] VITALS (12 sets, daily range): BP systolic 101–132; BP diastolic 59–75; PULSE 48–58; RESP 18; TEMP 36.4–37.1; O2SAT 94–100
[2025-02-06] MEDS: IPRATROPIUM 0.5 MG/ALBUTEROL SULFATE 2.5 MG AMPUL.NEB 3 ML INHALATION ×4 (00:35→17:53)
[2025-02-06] MEDS: CEPHALEXIN 250 MG CAPSULE PO ×4 (00:35→17:53)
--- NOTE | 2025-02-06 09:16 | P.PNIM_ITS ---
Progress Note: A&P Assessment and Plan (1) Chronic respiratory failure with hypoxia: Code(s): J96.11 - Chronic respiratory failure with hypoxia Status: Acute Assessment and Plan: Patient on 3L supplemental oxygen at home * Oxygen as needed * continue hospice care at discharge with [facility] * Duonebs * continued home prednisone (2) COPD (chronic obstructive pulmonary disease): Code(s): J44.9 - Chronic obstructive pulmonary disease, unspecified Status: Acute Assessment and Plan: SEE ABOVE (3) Failure to thrive: Status: Acute Assessment and Plan: Patient on hospice care with [facility] * Continued norco and ativan * Oxygen as needed * regular diet * add protein shake to each meal (4) UTI (urinary tract infection): Code(s): N39.0 - Urinary tract infection, site not specified Status: Acute Assessment and Plan: UA Proteus mirabilis/penneri * oral kelfex (5) Feels unsafe at home: Code(s): R45.89 - Other symptoms and signs involving emotional state Status: Acute Assessment and Plan: CC and Anna assisting with discharge plans currently unsafe to return home, EPS has been notified. Review H&P notes (6) General weakness: Code(s): R53.1 - Weakness Status: Acute Assessment and Plan: Secondary to COPD/Failure to thrive an UTI Plan Code status: DNR/DNI/Comfort care Hospice Disposition: Admitted due to weakness and unsafe living conditions unable to return home on hospice care. CC working on placement consulted [facility] Time Spent With Patient Time with patient: 15 - 25 minutes Subjective Date/time seen: 02/06/25 09:16 Interval history: Patient is a 79 year old male who presented to the emergency department after EMS was called due to potential fall at home and [facility] hospice nurse requested he get evaluated. continues admission for safe discharge planning needs currently his living situation has been reported to [facility]. Anna and our CC working of placement. Also treating for possible UTI. 02/06/2025 Patient with no complaints and no acute issues. Pending placement for safe discharge. Review of Systems Review of Systems: All systems reviewed & are unremarkable except as noted in HPI and below Exam Const: General: comfortable and no acute distress Other: Cachectic male on 3L supplemental oxygen HENMT: Ears: TM's normal bilaterally Face/Nose/Sinus: Normal nares present Mouth: Yes moist mucous membranes Eyes: General: appearance normal, both eyes and all related structures Sclera: sclerae normal Pupils: Equal, round and reactive pupils present Neck: Neck: supple and no JVD Resp: Effort & Inspection: normal respiratory effort Auscultation: wheezes (scant) Other: Chronically on 3L supplemental oxygen Cardio: Rate: regular rate Rhythm: regular rhythm GI: Auscultation: normal bowel sounds Skin: General skin exam: no rashes or lesions noted Wounds: no wounds Other: deep tissue bruising Neuro: Cranial nerves: Yes Equal, round and reactive pupils present Speech: normal speech Sensory Exam: normal sensation Extrem: General: normal to inspection Psych: Mental Status: mental status grossly normal Affect: normal affect Objective Data Vital Signs Vital Signs: Vital Signs - 24 hr 02/05/25 16:00 02/05/25 19:20 02/05/25 19:31 Temperature 98.3 F Pulse Rate 49 L 56 L 55 L Respiratory Rate 18 18 18 Blood Pressure 136/76 Pulse Oximetry 94 96 99 Oxygen Delivery Nasal Cannula Oxygen Flow Rate 3 3 3 02/05/25 20:00 02/06/25 00:00 02/06/25 00:30 Temperature 97.6 F Pulse Rate 50 L 48 L 48 L Respiratory Rate 18 18 18 Blood Pressure 101/59 L Pulse Oximetry 99 100 98 Oxygen Delivery Nasal Cannula Room Air Oxygen Flow Rate 3 3 02/06/25 00:58 02/06/25 06:00 02/06/25 06:50 Temperature Pulse Rate 49 L 56 L 49 L Respiratory Rate 18 18 18 Blood Pressure Pulse Oximetry 98 98 99 Oxygen Delivery Oxygen Flow Rate 3 3 3 02/06/25 08:00 Temperature 98.6 F Pulse Rate 50 L Respiratory Rate 18 Blood Pressure 132/75 Pulse Oximetry 98 Oxygen Delivery Nasal Cannula Oxygen Flow Rate 3 Intake/Output Intake/Output: Intake & Output 02/03/25 02/04/25 02/05/25 02/06/25 23:59 23:59 23:59 23:59 Intake Total 1700 1600 1610 490 Output Total 1300 1675 1500 650 Balance 400 -75 110 -160 Meds/Results Medications: Active Medications Generic Name Dose Route Start Last Admin Trade Name Freq PRN Reason Stop Dose Admin Hydrocodone Bitart/Acetaminophen 1 tab 01/30/25 18:44 02/02/25 08:02 Hydrocodone/Acetaminophen (*Crx) 10-325 Mg Tablet PO 1 tab Q6H PRN Administration Pain Rated 7-10 Albuterol/Ipratropium 3 ml 02/02/25 10:35 Ipratropium 0.5 Mg/Albuterol Sulfate 2.5 Mg Ampul.Neb 3 Ml INHALATION Q6HRT PRN Shortness Of Breath Albuterol/Ipratropium 3 ml 02/02/25 12:30 02/06/25 06:29 Ipratropium 0.5 Mg/Albuterol Sulfate 2.5 Mg Ampul.Neb 3 Ml INHALATION 3 ml Q6HRT STEPHANE Administration Cephalexin HCl 250 mg 02/02/25 09:00 02/06/25 06:29 Cephalexin 250 Mg Capsule PO 250 mg Q6HR STEPHANE Administration Lorazepam 0.5 mg 01/30/25 19:41 02/02/25 17:20 Lorazepam (*Crx) 0.5 Mg Tablet PO 0.5 mg Q4H PRN Administration anxiety Polyethylene Glycol 17 gm 01/31/25 06:30 Polyethylene Glycol 3350 17 Gm Powd.Pack PO DAILY@0630 PRN constipation Prednisone 10 mg 01/31/25 09:00 02/06/25 08:38 Prednisone 10 Mg Tablet PO 10 mg DAILY STEPHANE Administration Radiology Results: ITS Impressions Chest X-Ray 01/30/25 15:07 IMPRESSION: No acute cardiopulmonary pathology. Head CT 01/30/25 15:15 IMPRESSION: No acute intracranial findings. Quality VTE Prophylaxis VTE prophylaxis: mechanical ordered Pharmacological Therapy Reason no anticoagulant at DC if Afib or Aflutter: patient/caregiver refusal -Patient's previous records reviewed on admission -ER notes reviewed in detail on admission -discussed all findings and current treatment plan with patient/Family/POA -Consultations reviewed for recommendations -Patient's disposition for safe discharge discussed with watch case polisher Dictation performed by [employer] direct speech recognition software, therefore financial operations clerk variants and typographical errors may occur. Hospitalist MIPS Advance Care Plan I have confirmed that the patient's Advanced Care Plan is present, code status is documented, or surrogate decision maker is listed in patient medical record.: Yes Medication Reconciliation I have utilized all available resources to obtain, update and review the patients current medications (includes all prescriptions, OTC, herbals, cannabis, and nutritional supplements).: Yes The patient is not eligible for med reconciliation; the patient is in a emergent medical situation where delaying treatment would jeopardize the patients health.: No
[2025-02-07] VITALS (14 sets, daily range): BP systolic 100–106; BP diastolic 58–62; PULSE 48–59; RESP 14–20; TEMP 36.2–36.6; O2SAT 95–100
[2025-02-07] MEDS: CEPHALEXIN 250 MG CAPSULE PO ×4 (00:17→17:45)
[2025-02-07] MEDS: IPRATROPIUM 0.5 MG/ALBUTEROL SULFATE 2.5 MG AMPUL.NEB 3 ML INHALATION ×4 (00:18→16:58)
--- NOTE | 2025-02-07 12:41 | P.PNIM_ITS ---
Progress Note: A&P Assessment and Plan (1) Chronic respiratory failure with hypoxia: Code(s): J96.11 - Chronic respiratory failure with hypoxia Status: Acute Assessment and Plan: Patient on 3L supplemental oxygen at home * Oxygen as needed * continue hospice care at discharge with [facility] * Duonebs * continued home prednisone (2) COPD (chronic obstructive pulmonary disease): Code(s): J44.9 - Chronic obstructive pulmonary disease, unspecified Status: Acute Assessment and Plan: SEE ABOVE (3) Failure to thrive: Status: Acute Assessment and Plan: Patient on hospice care with [facility] * Continued norco and ativan * Oxygen as needed * regular diet * add protein shake to each meal (4) UTI (urinary tract infection): Code(s): N39.0 - Urinary tract infection, site not specified Status: Acute Assessment and Plan: UA Proteus mirabilis/penneri * oral kelfex (5) Feels unsafe at home: Code(s): R45.89 - Other symptoms and signs involving emotional state Status: Acute Assessment and Plan: CC and Anna assisting with discharge plans currently unsafe to return home, EPS has been notified. Review H&P notes (6) General weakness: Code(s): R53.1 - Weakness Status: Acute Assessment and Plan: Secondary to COPD/Failure to thrive an UTI Plan Code status: DNR/DNI/Comfort care Hospice Disposition: Admitted due to weakness and unsafe living conditions unable to return home on hospice care. CC working on placement consulted [facility] Subjective Date/time seen: 02/07/25 12:41 Interval history: Patient is a 79 year old male who presented to the emergency department after EMS was called due to potential fall at home and [facility] hospice nurse requested he get evaluated. continues admission for safe discharge planning needs currently his living situation has been reported to EPS. Castillo and our CC working of placement. Also treating for possible UTI. 02/07/2025 Patient with no complaints and no acute issues states he is comfortable and his breathing feels better. Pending placement [facility] will take patient on once placement is found. Review of Systems Review of Systems: All systems reviewed & are unremarkable except as noted in HPI and below Exam Const: General: comfortable and no acute distress Other: Cachectic male on 3L supplemental oxygen HENMT: Ears: TM's normal bilaterally Face/Nose/Sinus: Normal nares present Mouth: Yes moist mucous membranes Eyes: General: appearance normal, both eyes and all related structures Sclera: sclerae normal Pupils: Equal, round and reactive pupils present Neck: Neck: supple and no JVD Resp: Effort & Inspection: normal respiratory effort Auscultation: wheezes (scant) Other: Chronically on 3L supplemental oxygen Cardio: Rate: regular rate Rhythm: regular rhythm GI: Auscultation: normal bowel sounds Skin: General skin exam: no rashes or lesions noted Wounds: no wounds Other: deep tissue bruising Neuro: Cranial nerves: Yes Equal, round and reactive pupils present Speech: normal speech Sensory Exam: normal sensation Extrem: General: normal to inspection Psych: Mental Status: mental status grossly normal Affect: normal affect Objective Data Vital Signs Vital Signs: Vital Signs - 24 hr 02/06/25 12:53 02/06/25 13:03 02/06/25 16:00 Temperature 98.7 F Pulse Rate 54 L 58 L 55 L Respiratory Rate 18 18 Blood Pressure 126/68 Pulse Oximetry 94 96 99 Oxygen Delivery Nasal Cannula Oxygen Flow Rate 3 3 2 02/06/25 18:18 02/06/25 20:00 02/07/25 00:00 Temperature 97.1 F L Pulse Rate 54 L 48 L 48 L Respiratory Rate 18 18 16 Blood Pressure 106/62 Pulse Oximetry 94 94 100 Oxygen Delivery Nasal Cannula Nasal Cannula Oxygen Flow Rate 3 3 3 02/07/25 00:17 02/07/25 00:42 02/07/25 05:58 Temperature Pulse Rate 48 L 48 L 52 L Respiratory Rate 16 16 16 Blood Pressure Pulse Oximetry 99 98 97 Oxygen Delivery Oxygen Flow Rate 3 3 3 02/07/25 06:07 02/07/25 07:40 02/07/25 08:25 Temperature 97.9 F Pulse Rate 52 L 51 L 51 L Respiratory Rate 16 20 20 Blood Pressure 105/59 L Pulse Oximetry 100 97 97 Oxygen Delivery Nasal Cannula Nasal Cannula Oxygen Flow Rate 3 3 02/07/25 11:28 02/07/25 11:38 Temperature Pulse Rate 59 L 57 L Respiratory Rate 14 14 Blood Pressure Pulse Oximetry 95 97 Oxygen Delivery Oxygen Flow Rate 3 3 Intake/Output Intake/Output: Intake & Output 02/04/25 02/05/25 02/06/25 02/07/25 23:59 23:59 23:59 23:59 Intake Total 1600 1610 1130 700 Output Total 1675 1500 900 300 Balance -75 110 230 400 Meds/Results Medications: Active Medications Generic Name Dose Route Start Last Admin Trade Name Freq PRN Reason Stop Dose Admin Hydrocodone Bitart/Acetaminophen 1 tab 01/30/25 18:44 02/02/25 08:02 Hydrocodone/Acetaminophen (*Crx) 10-325 Mg Tablet PO 1 tab Q6H PRN Administration Pain Rated 7-10 Albuterol/Ipratropium 3 ml 02/02/25 10:35 Ipratropium 0.5 Mg/Albuterol Sulfate 2.5 Mg Ampul.Neb 3 Ml INHALATION Q6HRT PRN Shortness Of Breath Albuterol/Ipratropium 3 ml 02/02/25 12:30 02/07/25 11:27 Ipratropium 0.5 Mg/Albuterol Sulfate 2.5 Mg Ampul.Neb 3 Ml INHALATION 3 ml Q6HRT STEPHANE Administration Cephalexin HCl 250 mg 02/02/25 09:00 02/07/25 06:14 Cephalexin 250 Mg Capsule PO 250 mg Q6HR STEPHANE Administration Lorazepam 0.5 mg 01/30/25 19:41 02/02/25 17:20 Lorazepam (*Crx) 0.5 Mg Tablet PO 0.5 mg Q4H PRN Administration anxiety Polyethylene Glycol 17 gm 01/31/25 06:30 Polyethylene Glycol 3350 17 Gm Powd.Pack PO DAILY@0630 PRN constipation Prednisone 10 mg 01/31/25 09:00 02/07/25 09:12 Prednisone 10 Mg Tablet PO 10 mg DAILY STEPHANE Administration Radiology Results: ITS Impressions Chest X-Ray 01/30/25 15:07 IMPRESSION: No acute cardiopulmonary pathology. Head CT 01/30/25 15:15 IMPRESSION: No acute intracranial findings. Quality VTE Prophylaxis VTE prophylaxis: mechanical ordered Pharmacological Therapy Reason no anticoagulant at DC if Afib or Aflutter: patient/caregiver refusal -Patient's previous records reviewed on admission -ER notes reviewed in detail on admission -discussed all findings and current treatment plan with patient/Family/POA -Consultations reviewed for recommendations -Patient's disposition for safe discharge discussed with piano case and bench assembler Dictation performed by [employer] direct speech recognition software, therefore parcel wrapper variants and typographical errors may occur. Hospitalist MIPS Advance Care Plan I have confirmed that the patient's Advanced Care Plan is present, code status is documented, or surrogate decision maker is listed in patient medical record.: Yes Medication Reconciliation I have utilized all available resources to obtain, update and review the patients current medications (includes all prescriptions, OTC, herbals, cannabis, and nutritional supplements).: Yes The patient is not eligible for med reconciliation; the patient is in a emergent medical situation where delaying treatment would jeopardize the patients health.: No
[2025-02-08] VITALS (10 sets, daily range): BP systolic 103–119; BP diastolic 59–76; PULSE 46–61; RESP 14–17; TEMP 36.6–37; O2SAT 96–100
[2025-02-08] MEDS: CEPHALEXIN 250 MG CAPSULE PO ×2 (00:50→06:11)
[2025-02-08] MEDS: IPRATROPIUM 0.5 MG/ALBUTEROL SULFATE 2.5 MG AMPUL.NEB 3 ML INHALATION ×4 (01:12→18:30)
--- NOTE | 2025-02-08 07:59 | P.PNIM_ITS ---
Progress Note: A&P Assessment and Plan (1) Chronic respiratory failure with hypoxia: Code(s): J96.11 - Chronic respiratory failure with hypoxia Status: Acute Assessment and Plan: Patient on 3L supplemental oxygen at home * Oxygen as needed * continue hospice care at discharge with [facility] * Duonebs * continued home prednisone (2) COPD (chronic obstructive pulmonary disease): Code(s): J44.9 - Chronic obstructive pulmonary disease, unspecified Status: Acute Assessment and Plan: SEE ABOVE (3) Failure to thrive: Status: Acute Assessment and Plan: Patient on hospice care with [facility] * Continued norco and ativan * Oxygen as needed * regular diet * add protein shake to each meal (4) UTI (urinary tract infection): Code(s): N39.0 - Urinary tract infection, site not specified Status: Acute Assessment and Plan: UA Proteus mirabilis/penneri * oral kelfex (5) Feels unsafe at home: Code(s): R45.89 - Other symptoms and signs involving emotional state Status: Acute Assessment and Plan: CC and Anna assisting with discharge plans currently unsafe to return home, EPS has been notified. Review H&P notes (6) General weakness: Code(s): R53.1 - Weakness Status: Acute Assessment and Plan: Secondary to COPD/Failure to thrive an UTI Plan Code status: DNR/DNI/Comfort care Hospice Disposition: Admitted due to weakness and unsafe living conditions unable to return home on hospice care. CC working on placement consulted [facility] Subjective Date/time seen: 02/08/25 07:59 Interval history: Patient is a 79 year old male who presented to the emergency department after EMS was called due to potential fall at home and [facility] hospice nurse requested he get evaluated. continues admission for safe discharge planning needs currently his living situation has been reported to EPS. Castillo and our CC working of placement. Also treating for possible UTI. 02/08/2025 Patient waiting breakfast in good spirits, Labs unremarkable and vitals stable. Patient with no complaints and remains on his 3L. One placement is found [facility] will take patient Review of Systems Review of Systems: All systems reviewed & are unremarkable except as noted in HPI and below Exam Const: General: comfortable and no acute distress Other: Cachectic male on 3L supplemental oxygen HENMT: Ears: TM's normal bilaterally Face/Nose/Sinus: Normal nares present Mouth: Yes moist mucous membranes Eyes: General: appearance normal, both eyes and all related structures Sclera: sclerae normal Pupils: Equal, round and reactive pupils present Neck: Neck: supple and no JVD Resp: Effort & Inspection: normal respiratory effort Auscultation: wheezes (scant) Other: Chronically on 3L supplemental oxygen Cardio: Rate: regular rate Rhythm: regular rhythm GI: Auscultation: normal bowel sounds Skin: General skin exam: no rashes or lesions noted Wounds: no wounds Other: deep tissue bruising Neuro: Cranial nerves: Yes Equal, round and reactive pupils present Speech: normal speech Sensory Exam: normal sensation Extrem: General: normal to inspection Psych: Mental Status: mental status grossly normal Affect: normal affect Objective Data Vital Signs Vital Signs: Vital Signs - 24 hr 02/07/25 08:25 02/07/25 11:28 02/07/25 11:38 Temperature Pulse Rate 51 L 59 L 57 L Respiratory Rate 20 14 14 Blood Pressure Pulse Oximetry 97 95 97 Oxygen Delivery Nasal Cannula Oxygen Flow Rate 3 3 3 02/07/25 16:40 02/07/25 16:59 02/07/25 17:09 Temperature 97.6 F Pulse Rate 58 L 58 L 59 L Respiratory Rate 18 14 14 Blood Pressure 100/58 L Pulse Oximetry 97 95 97 Oxygen Delivery Nasal Cannula Oxygen Flow Rate 3 3 3 02/07/25 20:00 02/08/25 00:00 02/08/25 00:50 Temperature 97.9 F Pulse Rate 48 L 46 L 48 L Respiratory Rate 16 16 16 Blood Pressure 119/76 Pulse Oximetry 95 100 100 Oxygen Delivery Nasal Cannula Nasal Cannula Oxygen Flow Rate 3 3 3 02/08/25 01:20 02/08/25 05:50 02/08/25 06:01 Temperature Pulse Rate 50 L 52 L 50 L Respiratory Rate 16 16 16 Blood Pressure Pulse Oximetry 100 98 100 Oxygen Delivery Oxygen Flow Rate 3 3 3 02/08/25 07:45 Temperature 98.3 F Pulse Rate 52 L Respiratory Rate 17 Blood Pressure 108/59 L Pulse Oximetry 98 Oxygen Delivery Nasal Cannula Oxygen Flow Rate 3 Intake/Output Intake/Output: Intake & Output 02/05/25 02/06/25 02/07/25 02/08/25 23:59 23:59 23:59 23:59 Intake Total 1610 1130 1300 480 Output Total 1500 900 950 400 Balance 110 230 350 80 Meds/Results Medications: Active Medications Generic Name Dose Route Start Last Admin Trade Name Freq PRN Reason Stop Dose Admin Hydrocodone Bitart/Acetaminophen 1 tab 01/30/25 18:44 02/02/25 08:02 Hydrocodone/Acetaminophen (*Crx) 10-325 Mg Tablet PO 1 tab Q6H PRN Administration Pain Rated 7-10 Albuterol/Ipratropium 3 ml 02/02/25 10:35 Ipratropium 0.5 Mg/Albuterol Sulfate 2.5 Mg Ampul.Neb 3 Ml INHALATION Q6HRT PRN Shortness Of Breath Albuterol/Ipratropium 3 ml 02/02/25 12:30 02/08/25 05:50 Ipratropium 0.5 Mg/Albuterol Sulfate 2.5 Mg Ampul.Neb 3 Ml INHALATION 3 ml Q6HRT STEPHANE Administration Cephalexin HCl 250 mg 02/02/25 09:00 02/08/25 06:11 Cephalexin 250 Mg Capsule PO 250 mg Q6HR STEPHANE Administration Lorazepam 0.5 mg 01/30/25 19:41 02/02/25 17:20 Lorazepam (*Crx) 0.5 Mg Tablet PO 0.5 mg Q4H PRN Administration anxiety Polyethylene Glycol 17 gm 01/31/25 06:30 Polyethylene Glycol 3350 17 Gm Powd.Pack PO DAILY@0630 PRN constipation Prednisone 10 mg 01/31/25 09:00 02/07/25 09:12 Prednisone 10 Mg Tablet PO 10 mg DAILY STEPHANE Administration Radiology Results: ITS Impressions Chest X-Ray 01/30/25 15:07 IMPRESSION: No acute cardiopulmonary pathology. Head CT 01/30/25 15:15 IMPRESSION: No acute intracranial findings. Quality VTE Prophylaxis VTE prophylaxis: mechanical ordered Pharmacological Therapy Reason no anticoagulant at DC if Afib or Aflutter: patient/caregiver refusal -Patient's previous records reviewed on admission -ER notes reviewed in detail on admission -discussed all findings and current treatment plan with patient/Family/POA -Consultations reviewed for recommendations -Patient's disposition for safe discharge discussed with case planner Dictation performed by [employer] direct speech recognition software, therefore photocomposing machine operator variants and typographical errors may occur. Hospitalist MIPS Advance Care Plan I have confirmed that the patient's Advanced Care Plan is present, code status is documented, or surrogate decision maker is listed in patient medical record.: Yes Medication Reconciliation I have utilized all available resources to obtain, update and review the patients current medications (includes all prescriptions, OTC, herbals, cannabis, and nutritional supplements).: Yes The patient is not eligible for med reconciliation; the patient is in a emergent medical situation where delaying treatment would jeopardize the patients health.: No
[2025-02-08 08:04] LABS: Hematocrit 39.2 % (37.0-46.0); Hemoglobin 12.1 g/dL (12.4-15.3); Mean Corpuscular HGB Conc 30.9 g/dL (32-36); Mean Corpuscular Hemoglobin 29.4 pg (27.0-31.0); Mean Corpuscular Volume 95.1 fL (78.0-102.0); Platelet Count Result 157 K/mm3 (150-420); Red Blood Count 4.12 M/mm3 (4.70-6.10); White Blood Count 8.3 K/mm3 (4.8-10.8)
[2025-02-08 08:16] LABS: Alanine Aminotransferase 40 U/L (6-50); Albumin Level 3.4 g/dL (3.5-5.1); Alkaline Phosphatase 59 U/L (38-126); Anion Gap 1 mmol/L (4-12); Aspartate Amino Transferase 39 U/L (17-59); Bilirubin,Total 0.5 mg/dL (0.2-1.3); Blood Urea Nitrogen 23 mg/dL (9-20); Calcium 8.9 mg/dL (8.4-10.2); Carbon Dioxide 35 mmol/L (22-30); Chloride 102 mmol/L (98-107); Estimated CRCL calculation 50 ml/min; Estimated Glomerular Filt Rate > 60; Glucose 90 mg/dL (65-110); Osmolality Calculated 289 mOsm/kg (285-295); Potassium 4.0 mmol/L (3.4-5.0); Sodium 138 mmol/L (137-145); Total Protein 5.5 g/dL (6.3-8.2)
[2025-02-09] VITALS (13 sets, daily range): BP systolic 106–119; BP diastolic 51–70; PULSE 50–68; RESP 14–18; TEMP 36.1–36.8; O2SAT 94–100
[2025-02-09] MEDS: IPRATROPIUM 0.5 MG/ALBUTEROL SULFATE 2.5 MG AMPUL.NEB 3 ML INHALATION ×4 (00:35→16:51)
--- NOTE | 2025-02-09 18:21 | PC.NURSE ---
Patient in bed watching TV. Alert and oriented. SR up x2. Call light and belongings within reach. Uses call light to make needs known. Able to use urinal. Fed self supper.
[2025-02-10] VITALS (16 sets, daily range): BP systolic 102–105; BP diastolic 64–71; PULSE 50–87; RESP 14–20; TEMP 36.8–37.1; O2SAT 95–100
[2025-02-10] MEDS: IPRATROPIUM 0.5 MG/ALBUTEROL SULFATE 2.5 MG AMPUL.NEB 3 ML INHALATION ×5 (00:18→23:33)
--- NOTE | 2025-02-10 10:15 | P.PNIM_ITS ---
Progress Note: A&P Assessment and Plan (1) Chronic respiratory failure with hypoxia: Code(s): J96.11 - Chronic respiratory failure with hypoxia Status: Acute Assessment and Plan: Patient on 3L supplemental oxygen at home * Oxygen as needed * continue hospice care at discharge with [facility] * Duonebs * continued home prednisone Pending placement then [facility] will take over case since Anna already dropped care due to admission. (2) COPD (chronic obstructive pulmonary disease): Code(s): J44.9 - Chronic obstructive pulmonary disease, unspecified Status: Acute Assessment and Plan: SEE ABOVE (3) Failure to thrive: Status: Acute Assessment and Plan: Patient on hospice care with [facility] * Continued norco and ativan * Oxygen as needed * regular diet * add protein shake to each meal Continue current care, [facility] to take over care on discharge once placement is found (4) UTI (urinary tract infection): Code(s): N39.0 - Urinary tract infection, site not specified Status: Acute Assessment and Plan: UA Proteus mirabilis/penneri * oral kelfex (5) Feels unsafe at home: Code(s): R45.89 - Other symptoms and signs involving emotional state Status: Acute Assessment and Plan: CC and [facility] assisting with discharge plans currently unsafe to return home, EPS has been notified. Review H&P notes Pending placement and [facility] to take over case on discharge. (6) General weakness: Code(s): R53.1 - Weakness Status: Acute Assessment and Plan: Secondary to COPD/Failure to thrive an UTI Plan Code status: DNR/DNI/Comfort care Hospice Disposition: Admitted due to weakness and unsafe living conditions unable to return home on hospice care. CC working on placement consulted [facility] Time Spent With Patient Time with patient: 15 - 25 minutes Subjective Date/time seen: 02/10/25 10:15 Interval history: Patient is a 79 year old male who presented to the emergency department after EMS was called due to potential fall at home and [facility] hospice nurse requested he get evaluated. Continues admission for safe discharge planning needs currently his living situation has been reported to EPS. our CC working of placement. Also treating for possible UTI. [facility] canceled services with admission and equipment already removed from the patient's family's home. Patient has no where to go and does not qualify for Medicaid. 02/10/2025 Patient with no complaints and remains on his 3L. Once placement is found [facility] will take patient. Review of Systems Review of Systems: All systems reviewed & are unremarkable except as noted in HPI and below Exam Const: General: comfortable and no acute distress Other: Cachectic male on 3L supplemental oxygen HENMT: Ears: TM's normal bilaterally Face/Nose/Sinus: Normal nares present Mouth: Yes moist mucous membranes Eyes: General: appearance normal, both eyes and all related structures Sclera: sclerae normal Pupils: Equal, round and reactive pupils present Neck: Neck: supple and no JVD Resp: Effort & Inspection: normal respiratory effort Auscultation: wheezes (scant) Other: Chronically on 3L supplemental oxygen Cardio: Rate: regular rate Rhythm: regular rhythm GI: Auscultation: normal bowel sounds Skin: General skin exam: no rashes or lesions noted Wounds: no wounds Other: deep tissue bruising Neuro: Cranial nerves: Yes Equal, round and reactive pupils present Speech: normal speech Sensory Exam: normal sensation Extrem: General: normal to inspection Psych: Mental Status: mental status grossly normal Affect: normal affect Objective Data Vital Signs Vital Signs: Vital Signs - 24 hr 02/09/25 11:34 02/09/25 11:44 02/09/25 16:50 Temperature 36.8 C Pulse Rate 56 L 58 L 55 L Respiratory Rate 14 14 16 Blood Pressure 106/69 Pulse Oximetry 96 97 98 Oxygen Delivery Room Air Oxygen Flow Rate 3 3 02/09/25 16:53 02/09/25 17:03 02/09/25 20:00 Temperature Pulse Rate 56 L 57 L 68 Respiratory Rate 14 14 18 Blood Pressure Pulse Oximetry 96 97 94 Oxygen Delivery Nasal Cannula Oxygen Flow Rate 3 3 3 02/10/25 00:00 02/10/25 00:18 02/10/25 00:35 Temperature 36.8 C Pulse Rate 50 L 50 L 52 L Respiratory Rate 16 20 16 Blood Pressure 105/71 Pulse Oximetry 98 98 100 Oxygen Delivery Nasal Cannula Oxygen Flow Rate 3 3 3 02/10/25 06:02 02/10/25 06:15 02/10/25 07:45 Temperature 36.8 C Pulse Rate 50 L 54 L 52 L Respiratory Rate 16 16 16 Blood Pressure 102/64 Pulse Oximetry 98 100 98 Oxygen Delivery Nasal Cannula Oxygen Flow Rate 3 3 3 Intake/Output Intake/Output: Intake & Output 07/2102/08/25 02/09/25 02/10/25 23:59 23:59 23:59 23:59 Intake Total 1300 1980 910 100 Output Total 950 1350 750 300 Balance 350 630 160 -200 Meds/Results Medications: Active Medications Generic Name Dose Route Start Last Admin Trade Name Freq PRN Reason Stop Dose Admin Hydrocodone Bitart/Acetaminophen 1 tab 02/09/25 20:49 Hydrocodone/Acetaminophen (*Crx) 5-325 Mg Tablet PO Q6H PRN Pain Rated 4-6 Albuterol/Ipratropium 3 ml 02/02/25 10:35 Ipratropium 0.5 Mg/Albuterol Sulfate 2.5 Mg Ampul.Neb 3 Ml INHALATION Q6HRT PRN Shortness Of Breath Albuterol/Ipratropium 3 ml 02/02/25 12:30 02/10/25 06:02 Ipratropium 0.5 Mg/Albuterol Sulfate 2.5 Mg Ampul.Neb 3 Ml INHALATION 3 ml Q6HRT STEPHANE Administration Lorazepam 0.5 mg 02/09/25 20:49 Lorazepam (*Crx) 0.5 Mg Tablet PO Q4H PRN Anxiety Polyethylene Glycol 17 gm 01/31/25 06:30 Polyethylene Glycol 3350 17 Gm Powd.Pack PO DAILY@0630 PRN constipation Prednisone 10 mg 01/31/25 09:00 02/10/25 09:19 Prednisone 10 Mg Tablet PO 10 mg DAILY STEPHANE Administration Radiology Results: ITS Impressions Chest X-Ray 01/30/25 15:07 IMPRESSION: No acute cardiopulmonary pathology. Head CT 01/30/25 15:15 IMPRESSION: No acute intracranial findings. Pulse Oximetry SpO2 results: 95-100% on 3 LPM NC Attestation: I personally reviewed and interpreted this pulse oximetry as follows: Interpretation: Continue oxygen Quality VTE Prophylaxis VTE prophylaxis: mechanical ordered Pharmacological Therapy Reason no anticoagulant at DC if Afib or Aflutter: patient/caregiver refusal -Patient's previous records reviewed and met with patient case manager -Consultations reviewed for recommendations -Patient's disposition for safe discharge discussed with case making machine operator Dictation performed by [employer] direct speech recognition software, therefore de icer finisher variants and typographical errors may occur. Hospitalist MIPS Advance Care Plan I have confirmed that the patient's Advanced Care Plan is present, code status is documented, or surrogate decision maker is listed in patient medical record.: Yes Medication Reconciliation I have utilized all available resources to obtain, update and review the patients current medications (includes all prescriptions, OTC, herbals, cannabis, and nutritional supplements).: Yes The patient is not eligible for med reconciliation; the patient is in a emergent medical situation where delaying treatment would jeopardize the patients health.: No
[2025-02-10 15:14] LABS: Add Urine Microscopic? NO; Appearance Urine Clear (Clear); Glucose Urine UA Negative (Negative); Leukocyte Esterase Ur Negative LEU/UL (Negative); Nitrate Urine Negative (Negative); Specific Grav Ur 1.015 (1.010-1.020)
[2025-02-11] VITALS (8 sets, daily range): BP systolic 107–114; BP diastolic 61–68; PULSE 50–78; RESP 16–20; TEMP 36.1–36.5; O2SAT 16–98
[2025-02-11] MEDS: IPRATROPIUM 0.5 MG/ALBUTEROL SULFATE 2.5 MG AMPUL.NEB 3 ML INHALATION ×3 (05:59→18:32)
--- NOTE | 2025-02-11 09:27 | P.PNIM_ITS ---
Progress Note: A&P Assessment and Plan (1) Chronic respiratory failure with hypoxia: Code(s): J96.11 - Chronic respiratory failure with hypoxia Status: Acute Assessment and Plan: Patient on 3L supplemental oxygen at home * Oxygen as needed * continue hospice care at discharge with [facility] * Duonebs * continued home prednisone Pending placement then [facility] will take over case since Anna already dropped care due to admission. (2) COPD (chronic obstructive pulmonary disease): Code(s): J44.9 - Chronic obstructive pulmonary disease, unspecified Status: Acute Assessment and Plan: SEE ABOVE (3) Failure to thrive: Status: Acute Assessment and Plan: Patient on hospice care with [facility] * Continued norco and ativan * Oxygen as needed * regular diet * add protein shake to each meal Continue current care, [facility] to take over care on discharge once placement is found (4) UTI (urinary tract infection): Code(s): N39.0 - Urinary tract infection, site not specified Status: Acute Assessment and Plan: UA Proteus mirabilis/penneri * oral kelfex (5) Feels unsafe at home: Code(s): R45.89 - Other symptoms and signs involving emotional state Status: Acute Assessment and Plan: CC and Anna assisting with discharge plans currently unsafe to return home, EPS has been notified. Review H&P notes Pending placement and [facility] to take over case on discharge. (6) General weakness: Code(s): R53.1 - Weakness Status: Acute Assessment and Plan: Secondary to COPD/Failure to thrive an UTI Plan Code status: DNR/DNI/Comfort care Hospice Disposition: Admitted due to weakness and unsafe living conditions unable to return home on hospice care. CC working on placement consulted [facility] Subjective Date/time seen: 02/11/25 09:27 Interval history: Patient is awaiting placement . he denies any pain and or discomfort Exam Const: General: comfortable, no acute distress and thin Nutritional Appearance: thin Orientation/consciousness: No patient oriented x3 ( oriented x2) Limitations: other limitations ( Baseline mild dementia) Other: Cachectic male on 3L supplemental oxygen HENMT: Face/Nose/Sinus: Normal external nose present and Normal nares present Mouth: Yes moist mucous membranes Eyes: General: appearance normal, both eyes and all related structures Sclera: sclerae normal Pupils: Equal, round and reactive pupils present Neck: Neck: normal visual inspection, supple and no JVD Chest: Chest palpation & inspection: normal inspection of the chest Cardio: Rate: regular rate Rhythm: regular rhythm Skin: General skin exam: normal color and no rashes or lesions noted Other: deep tissue bruising Extrem: General: normal to inspection Psych: Mental Status: mental status grossly normal Affect: normal affect Attitude: cooperative Objective Data Vital Signs Vital Signs: Vital Signs - 24 hr 02/10/25 11:33 02/10/25 11:45 02/10/25 16:30 Temperature 98.8 F Pulse Rate 53 L 87 56 L Respiratory Rate 14 14 16 Blood Pressure 102/67 Pulse Oximetry 95 97 97 Oxygen Delivery Nasal Cannula Oxygen Flow Rate 3 3 3 02/10/25 16:48 02/10/25 16:58 02/10/25 20:00 Temperature Pulse Rate 54 L 57 L 57 L Respiratory Rate 14 14 14 Blood Pressure Pulse Oximetry 96 96 96 Oxygen Delivery Nasal Cannula Oxygen Flow Rate 3 3 3 02/10/25 23:31 02/10/25 23:45 02/11/25 00:00 Temperature 97.7 F Pulse Rate 54 L 56 L 56 L Respiratory Rate 16 16 16 Blood Pressure 107/61 Pulse Oximetry 96 98 98 Oxygen Delivery Nasal Cannula Oxygen Flow Rate 3 3 3 02/11/25 06:00 02/11/25 06:10 Temperature Pulse Rate 50 L 56 L Respiratory Rate 16 16 Blood Pressure Pulse Oximetry 98 16 L Oxygen Delivery Oxygen Flow Rate 3 3 Intake/Output Intake/Output: Intake & Output 02/08/25 02/09/25 02/10/25 02/11/25 23:59 23:59 23:59 23:59 Intake Total 1980 910 880 120 Output Total 1350 750 500 300 Balance 630 160 380 -180 Meds/Results Medications: Active Medications Generic Name Dose Route Start Last Admin Trade Name Freq PRN Reason Stop Dose Admin Hydrocodone Bitart/Acetaminophen 1 tab 02/09/25 20:49 Hydrocodone/Acetaminophen (*Crx) 5-325 Mg Tablet PO Q6H PRN Pain Rated 4-6 Albuterol/Ipratropium 3 ml 02/02/25 10:35 Ipratropium 0.5 Mg/Albuterol Sulfate 2.5 Mg Ampul.Neb 3 Ml INHALATION Q6HRT PRN Shortness Of Breath Albuterol/Ipratropium 3 ml 02/02/25 12:30 02/11/25 05:59 Ipratropium 0.5 Mg/Albuterol Sulfate 2.5 Mg Ampul.Neb 3 Ml INHALATION 3 ml Q6HRT STEPHANE Administration Lorazepam 0.5 mg 02/09/25 20:49 Lorazepam (*Crx) 0.5 Mg Tablet PO Q4H PRN Anxiety Polyethylene Glycol 17 gm 01/31/25 06:30 Polyethylene Glycol 3350 17 Gm Powd.Pack PO DAILY@0630 PRN constipation Prednisone 10 mg 01/31/25 09:00 02/11/25 08:50 Prednisone 10 Mg Tablet PO 10 mg DAILY STEPHANE Administration Radiology Results: ITS Impressions Chest X-Ray 01/30/25 15:07 IMPRESSION: No acute cardiopulmonary pathology. Head CT 01/30/25 15:15 IMPRESSION: No acute intracranial findings. Labs Labs: Laboratory Results - last 24 hr 02/10/25 15:08 Urine Color Light yellow Urine Appearance Clear Urine pH 6.5 Ur Specific [place] 1.015 Urine Protein Negative Urine Glucose (UA) Negative Urine Ketones Negative Ur Blood (Man) Negative Urine Nitrate Negative Urine Bilirubin Negative Urine Urobilinogen 0.2 Leukocyte Esterase Rfl Negative Quality Pharmacological Therapy Reason no anticoagulant at DC if Afib or Aflutter: patient/caregiver refusal
--- NOTE | 2025-02-11 21:28 | PC.NURSE ---
Patient asleep in the bed. SR up x3. Bed alarm on. Bedside table within reach. Belongings, call light and urinal within reach. No SOB observed. O2 on. Feeds self meals.
[2025-02-12] VITALS (8 sets, daily range): BP systolic 102–108; BP diastolic 57–61; PULSE 20–68; RESP 15–20; TEMP 36.8–37.2; O2SAT 96–99
[2025-02-12] MEDS: IPRATROPIUM 0.5 MG/ALBUTEROL SULFATE 2.5 MG AMPUL.NEB 3 ML INHALATION ×4 (00:34→18:21)
--- NOTE | 2025-02-12 00:35 | PC.NURSE ---
Pt given a duoneb treatment which he tolerated well.
--- NOTE | 2025-02-12 02:05 | PC.NURSE ---
Pt asleep and respirations remain even and unlabored.
--- NOTE | 2025-02-12 04:07 | PC.NURSE ---
Pt asleep and no signs of discomfort noted.
--- NOTE | 2025-02-12 06:24 | PC.NURSE ---
225 ml of clear, yellow urine emptied from the urinal.
--- NOTE | 2025-02-12 06:34 | PC.NURSE ---
Pt given a nebulizer treatment as ordered.
--- NOTE | 2025-02-12 07:09 | P.PNIM_ITS ---
Progress Note: A&P Assessment and Plan (1) Chronic respiratory failure with hypoxia: Code(s): J96.11 - Chronic respiratory failure with hypoxia Status: Acute Assessment and Plan: Patient on 3L supplemental oxygen at home * Oxygen as needed * continue hospice care at discharge with [facility] * Duonebs * continued home prednisone Pending placement then [facility] will take over case since Anna already dropped care due to admission. (2) COPD (chronic obstructive pulmonary disease): Code(s): J44.9 - Chronic obstructive pulmonary disease, unspecified Status: Acute Assessment and Plan: SEE ABOVE (3) Failure to thrive: Status: Acute Assessment and Plan: Patient on hospice care with [facility] * Continued norco and ativan * Oxygen as needed * regular diet * add protein shake to each meal Continue current care, [facility] to take over care on discharge once placement is found (4) UTI (urinary tract infection): Code(s): N39.0 - Urinary tract infection, site not specified Status: Acute Assessment and Plan: UA Proteus mirabilis/penneri * oral kelfex (5) Feels unsafe at home: Code(s): R45.89 - Other symptoms and signs involving emotional state Status: Acute Assessment and Plan: CC and Anna assisting with discharge plans currently unsafe to return home, EPS has been notified. Review H&P notes Pending placement and [facility] to take over case on discharge. (6) General weakness: Code(s): R53.1 - Weakness Status: Acute Assessment and Plan: Secondary to COPD/Failure to thrive an UTI Plan Code status: DNR/DNI/Comfort care Hospice Disposition: Admitted due to weakness and unsafe living conditions unable to return home on hospice care. CC working on placement consulted [facility] Subjective Date/time seen: 02/12/25 07:09 Interval history: Pt is resting and is anxious to leave but placement is still pending. Exam Const: General: comfortable, no acute distress and thin Nutritional Appearance: thin Orientation/consciousness: No patient oriented x3 ( oriented x2) Limitations: other limitations ( Baseline mild dementia) Other: Cachectic male on 3L supplemental oxygen HENMT: Face/Nose/Sinus: Normal external nose present and Normal nares present Mouth: Yes moist mucous membranes Eyes: General: appearance normal, both eyes and all related structures Sclera: sclerae normal Pupils: Equal, round and reactive pupils present Neck: Neck: normal visual inspection, supple and no JVD Chest: Chest palpation & inspection: normal inspection of the chest Cardio: Rate: regular rate Rhythm: regular rhythm Skin: General skin exam: normal color and no rashes or lesions noted Other: deep tissue bruising Neuro: General: No patient oriented x3 ( oriented x2) Cranial nerves: Yes Equal, round and reactive pupils present Extrem: General: normal to inspection Psych: Mental Status: mental status grossly normal Affect: normal affect Attitude: cooperative Objective Data Vital Signs Vital Signs: Vital Signs - 24 hr 02/11/25 08:00 02/11/25 11:46 02/11/25 16:00 Temperature 97 F L Pulse Rate 72 60 72 Respiratory Rate 20 20 20 Blood Pressure 112/68 114/68 Pulse Oximetry 93 96 97 Oxygen Delivery Nasal Cannula Room Air Oxygen Flow Rate 3 3 02/11/25 18:36 02/12/25 00:00 02/12/25 00:40 Temperature 98.2 F Pulse Rate 78 20 L 47 L Respiratory Rate 20 20 20 Blood Pressure 102/61 Pulse Oximetry 96 99 99 Oxygen Delivery Nasal Cannula Oxygen Flow Rate 3 3 3 02/12/25 01:21 02/12/25 06:35 Temperature Pulse Rate 47 L 47 L Respiratory Rate 20 20 Blood Pressure Pulse Oximetry 99 99 Oxygen Delivery Oxygen Flow Rate 3 3 Intake/Output Intake/Output: Intake & Output 02/09/25 02/10/25 02/11/25 02/12/25 23:59 23:59 23:59 23:59 Intake Total 195 374 1600 50 Output Total 767 087 7098 225 Balance 160 380 -70 -175 Meds/Results Medications: Active Medications Generic Name Dose Route Start Last Admin Trade Name Freq PRN Reason Stop Dose Admin Hydrocodone Bitart/Acetaminophen 1 tab 02/09/25 20:49 Hydrocodone/Acetaminophen (*Crx) 5-325 Mg Tablet PO Q6H PRN Pain Rated 4-6 Albuterol/Ipratropium 3 ml 02/02/25 10:35 Ipratropium 0.5 Mg/Albuterol Sulfate 2.5 Mg Ampul.Neb 3 Ml INHALATION Q6HRT PRN Shortness Of Breath Albuterol/Ipratropium 3 ml 02/02/25 12:30 02/12/25 06:31 Ipratropium 0.5 Mg/Albuterol Sulfate 2.5 Mg Ampul.Neb 3 Ml INHALATION 3 ml Q6HRT STEPHANE Administration Lorazepam 0.5 mg 02/09/25 20:49 Lorazepam (*Crx) 0.5 Mg Tablet PO Q4H PRN Anxiety Polyethylene Glycol 17 gm 01/31/25 06:30 Polyethylene Glycol 3350 17 Gm Powd.Pack PO DAILY@0630 PRN constipation Prednisone 10 mg 01/31/25 09:00 02/11/25 08:50 Prednisone 10 Mg Tablet PO 10 mg DAILY STEPHANE Administration Radiology Results: ITS Impressions Chest X-Ray 01/30/25 15:07 IMPRESSION: No acute cardiopulmonary pathology. Head CT 01/30/25 15:15 IMPRESSION: No acute intracranial findings. Quality Pharmacological Therapy Reason no anticoagulant at DC if Afib or Aflutter: patient/caregiver refusal
[2025-02-13] VITALS (8 sets, daily range): BP systolic 106–130; BP diastolic 60–68; PULSE 51–75; RESP 15–16; TEMP 36.6–37.3; O2SAT 95–99
[2025-02-13] MEDS: IPRATROPIUM 0.5 MG/ALBUTEROL SULFATE 2.5 MG AMPUL.NEB 3 ML INHALATION ×3 (00:43→12:23)
--- NOTE | 2025-02-13 10:34 | P.PNIM_ITS ---
Progress Note: A&P Assessment and Plan (1) Chronic respiratory failure with hypoxia: Code(s): J96.11 - Chronic respiratory failure with hypoxia Status: Acute Assessment and Plan: Patient on 3L supplemental oxygen at home * Oxygen as needed * continue hospice care at discharge with [facility] * Duonebs * continued home prednisone Pending placement then [facility] will take over case since Anna already dropped care due to admission. (2) COPD (chronic obstructive pulmonary disease): Code(s): J44.9 - Chronic obstructive pulmonary disease, unspecified Status: Acute Assessment and Plan: SEE ABOVE (3) Failure to thrive: Status: Acute Assessment and Plan: Patient on hospice care with [facility] * Continued norco and ativan * Oxygen as needed * regular diet * add protein shake to each meal Continue current care, [facility] to take over care on discharge once placement is found (4) UTI (urinary tract infection): Code(s): N39.0 - Urinary tract infection, site not specified Status: Acute Assessment and Plan: UA Proteus mirabilis/penneri * oral kelfex (5) Feels unsafe at home: Code(s): R45.89 - Other symptoms and signs involving emotional state Status: Acute Assessment and Plan: CC and Anna assisting with discharge plans currently unsafe to return home, EPS has been notified. Review H&P notes Pending placement and [facility] to take over case on discharge. (6) General weakness: Code(s): R53.1 - Weakness Status: Acute Assessment and Plan: Secondary to COPD/Failure to thrive an UTI Plan Code status: DNR/DNI/Comfort care Hospice Disposition: Admitted due to weakness and unsafe living conditions unable to return home on hospice care. CC working on placement consulted [facility] Subjective Date/time seen: 02/13/25 10:34 Interval history: Patient laying in the bed and no moving around much. Patient continues to await for placement at this time. He is not able to ambulate. Exam Const: General: comfortable, no acute distress and thin Nutritional Appearance: thin Orientation/consciousness: No patient oriented x3 ( oriented x2) Limitations: other limitations ( Baseline mild dementia) Other: Cachectic male on 3L supplemental oxygen HENMT: Face/Nose/Sinus: Normal external nose present and Normal nares present Mouth: Yes moist mucous membranes Eyes: General: appearance normal, both eyes and all related structures Sclera: sclerae normal Pupils: Equal, round and reactive pupils present Neck: Neck: normal visual inspection, supple and no JVD Chest: Chest palpation & inspection: normal inspection of the chest Cardio: Rate: regular rate Rhythm: regular rhythm Skin: General skin exam: normal color and no rashes or lesions noted Other: deep tissue bruising Neuro: General: No patient oriented x3 ( oriented x2) Cranial nerves: Yes Equal, round and reactive pupils present Extrem: General: normal to inspection Psych: Mental Status: mental status grossly normal Affect: normal affect Attitude: cooperative Objective Data Vital Signs Vital Signs: Vital Signs - 24 hr 02/12/25 16:00 02/13/25 00:00 02/13/25 00:40 Temperature 99 F 98.6 F Pulse Rate 68 64 64 Respiratory Rate 17 16 16 Blood Pressure 108/57 L 106/62 Pulse Oximetry 98 97 97 Oxygen Delivery Nasal Cannula Nasal Cannula Oxygen Flow Rate 3 3 3 02/13/25 00:55 02/13/25 05:48 02/13/25 06:05 Temperature Pulse Rate 70 66 75 Respiratory Rate 16 16 16 Blood Pressure Pulse Oximetry 98 95 96 Oxygen Delivery Oxygen Flow Rate 3 3 02/13/25 07:59 Temperature 99.1 F Pulse Rate 51 L Respiratory Rate 15 Blood Pressure 130/68 Pulse Oximetry 99 Oxygen Delivery Nasal Cannula Oxygen Flow Rate 3 Intake/Output Intake/Output: Intake & Output 02/10/25 02/11/25 02/12/25 02/13/25 23:59 23:59 23:59 23:59 Intake Total 880 1180 1450 240 Output Total 500 1250 825 700 Balance 380 -70 625 -460 Meds/Results Medications: Active Medications Generic Name Dose Route Start Last Admin Trade Name Freq PRN Reason Stop Dose Admin Hydrocodone Bitart/Acetaminophen 1 tab 02/09/25 20:49 Hydrocodone/Acetaminophen (*Crx) 5-325 Mg Tablet PO Q6H PRN Pain Rated 4-6 Albuterol/Ipratropium 3 ml 02/02/25 10:35 Ipratropium 0.5 Mg/Albuterol Sulfate 2.5 Mg Ampul.Neb 3 Ml INHALATION Q6HRT PRN Shortness Of Breath Albuterol/Ipratropium 3 ml 02/02/25 12:30 02/13/25 05:49 Ipratropium 0.5 Mg/Albuterol Sulfate 2.5 Mg Ampul.Neb 3 Ml INHALATION 3 ml Q6HRT STEPHANE Administration Lorazepam 0.5 mg 02/09/25 20:49 Lorazepam (*Crx) 0.5 Mg Tablet PO Q4H PRN Anxiety Polyethylene Glycol 17 gm 01/31/25 06:30 Polyethylene Glycol 3350 17 Gm Powd.Pack PO DAILY@0630 PRN constipation Prednisone 10 mg 01/31/25 09:00 02/13/25 08:38 Prednisone 10 Mg Tablet PO 10 mg DAILY STEPHANE Administration Radiology Results: ITS Impressions Chest X-Ray 01/30/25 15:07 IMPRESSION: No acute cardiopulmonary pathology. Head CT 01/30/25 15:15 IMPRESSION: No acute intracranial findings. Quality Pharmacological Therapy Reason no anticoagulant at DC if Afib or Aflutter: patient/caregiver refusal
[2025-02-14] VITALS (12 sets, daily range): BP systolic 105–119; BP diastolic 63–70; PULSE 50–68; RESP 16–18; TEMP 37.1–37.2; O2SAT 95–100
[2025-02-14] MEDS: IPRATROPIUM 0.5 MG/ALBUTEROL SULFATE 2.5 MG AMPUL.NEB 3 ML INHALATION ×4 (00:35→17:59)
--- NOTE | 2025-02-14 09:47 | P.PN_ITS ---
Progress Note: A&P Assessment and Plan (1) Chronic respiratory failure with hypoxia: Code(s): J96.11 - Chronic respiratory failure with hypoxia Status: Acute Assessment and Plan: Patient on 3L supplemental oxygen at home * Oxygen as needed * continue hospice care at discharge with [facility] * Duonebs * continued home prednisone Pending placement then [facility] will take over case since Anna already dropped care due to admission. (2) COPD (chronic obstructive pulmonary disease): Code(s): J44.9 - Chronic obstructive pulmonary disease, unspecified Status: Acute Assessment and Plan: SEE ABOVE (3) Failure to thrive: Status: Acute Assessment and Plan: Patient on hospice care with [facility] * Continued norco and ativan * Oxygen as needed * regular diet * add protein shake to each meal Continue current care, [facility] to take over care on discharge once placement is found (4) UTI (urinary tract infection): Code(s): N39.0 - Urinary tract infection, site not specified Status: Acute Assessment and Plan: UA Proteus mirabilis/penneri * oral kelfex completed * * Issue resolved (5) Feels unsafe at home: Code(s): R45.89 - Other symptoms and signs involving emotional state Status: Acute Assessment and Plan: CC and Anna assisting with discharge plans currently unsafe to return home, EPS has been notified. Review H&P notes Pending placement and [facility] to take over case on discharge. (6) General weakness: Code(s): R53.1 - Weakness Status: Acute Assessment and Plan: Secondary to COPD/Failure to thrive an UTI resolved Plan Code status: DNR/DNI/Comfort care Hospice Disposition: Admitted due to weakness and unsafe living conditions unable to return home on hospice care. CC working on placement consulted [facility] When discharge notified [facility]. Subjective Date/time seen: 02/14/25 09:47 Interval history: Patient is in the bed asleep and is easily aroused. Patient is awiting bed placement . He denies any discomforts and wants to know when he is able to leave Exam Const: General: comfortable, no acute distress and thin Nutritional Appearance: thin Orientation/consciousness: No patient oriented x3 ( oriented x2) Limitations: other limitations ( Baseline mild dementia) Other: Cachectic male on 3L supplemental oxygen HENMT: Face/Nose/Sinus: Normal external nose present and Normal nares present Mouth: Yes moist mucous membranes Neck: Neck: normal visual inspection, supple and no JVD Chest: Chest palpation & inspection: normal inspection of the chest Cardio: Rate: regular rate Rhythm: regular rhythm Skin: General skin exam: normal color and no rashes or lesions noted Other: deep tissue bruising Neuro: General: No patient oriented x3 ( oriented x2) Cranial nerves: Yes Equal, round and reactive pupils present Extrem: General: normal to inspection Psych: Mental Status: mental status grossly normal Affect: normal affect Attitude: cooperative Objective Data Vital Signs Vital Signs: Vital Signs - 24 hr 02/13/25 16:00 02/14/25 00:00 02/14/25 00:35 Temperature 98 F 98.8 F Pulse Rate 51 L 55 L 60 Respiratory Rate 15 16 16 Blood Pressure 107/60 105/63 Pulse Oximetry 97 98 96 Oxygen Delivery Nasal Cannula Nasal Cannula Oxygen Flow Rate 3 3 3 02/14/25 00:50 02/14/25 06:00 02/14/25 06:12 Temperature Pulse Rate 68 50 L 52 L Respiratory Rate 16 16 16 Blood Pressure Pulse Oximetry 98 97 99 Oxygen Delivery Oxygen Flow Rate 3 3 3 02/14/25 07:49 Temperature 98.7 F Pulse Rate 50 L Respiratory Rate 18 Blood Pressure 116/68 Pulse Oximetry 97 Oxygen Delivery Nasal Cannula Oxygen Flow Rate 3 Intake/Output Intake/Output: Intake & Output 02/11/25 02/12/25 02/13/25 02/14/25 23:59 23:59 23:59 23:59 Intake Total 1180 1450 1940 550 Output Total 1250 825 700 950 Balance -70 625 1240 -400 Meds/Results Medications: Active Medications Generic Name Dose Route Start Last Admin Trade Name Freq PRN Reason Stop Dose Admin Hydrocodone Bitart/Acetaminophen 1 tab 02/09/25 20:49 Hydrocodone/Acetaminophen (*Crx) 5-325 Mg Tablet PO Q6H PRN Pain Rated 4-6 Albuterol/Ipratropium 3 ml 02/02/25 10:35 Ipratropium 0.5 Mg/Albuterol Sulfate 2.5 Mg Ampul.Neb 3 Ml INHALATION Q6HRT PRN Shortness Of Breath Albuterol/Ipratropium 3 ml 02/02/25 12:30 02/14/25 06:11 Ipratropium 0.5 Mg/Albuterol Sulfate 2.5 Mg Ampul.Neb 3 Ml INHALATION Not Given Q6HRT STEPHANE Lorazepam 0.5 mg 02/09/25 20:49 Lorazepam (*Crx) 0.5 Mg Tablet PO Q4H PRN Anxiety Polyethylene Glycol 17 gm 01/31/25 06:30 Polyethylene Glycol 3350 17 Gm Powd.Pack PO DAILY@0630 PRN constipation Prednisone 10 mg 01/31/25 09:00 02/14/25 08:09 Prednisone 10 Mg Tablet PO 10 mg DAILY STEPHANE Administration Radiology Results: ITS Impressions Chest X-Ray 01/30/25 15:07 IMPRESSION: No acute cardiopulmonary pathology. Head CT 01/30/25 15:15 IMPRESSION: No acute intracranial findings. Quality Pharmacological Therapy Reason no anticoagulant at DC if Afib or Aflutter: patient/caregiver refusal
--- NOTE | 2025-02-14 14:39 | PC.NURSE ---
Complete bed bath given to patient including shampoo cap. Patient tolerated well.
[2025-02-15] VITALS (14 sets, daily range): BP systolic 105–126; BP diastolic 62–71; PULSE 47–61; RESP 14–18; TEMP 36.5–37.2; O2SAT 96–100
[2025-02-15] MEDS: IPRATROPIUM 0.5 MG/ALBUTEROL SULFATE 2.5 MG AMPUL.NEB 3 ML INHALATION ×5 (01:06→23:49)
--- NOTE | 2025-02-15 12:16 | P.PNIM_ITS ---
Progress Note: A&P Assessment and Plan (1) Chronic respiratory failure with hypoxia: Code(s): J96.11 - Chronic respiratory failure with hypoxia Status: Acute Assessment and Plan: Patient on 3L supplemental oxygen at home * Oxygen as needed * continue hospice care at discharge with [facility] * Duonebs * continued home prednisone Pending placement then [facility] will take over case since Anna already dropped care due to admission. (2) Failure to thrive: Status: Acute Assessment and Plan: Patient on hospice care with [facility] * Continued norco and ativan * Oxygen as needed * regular diet * add protein shake to each meal Continue current care, [facility] to take over care on discharge once placement is found (3) COPD (chronic obstructive pulmonary disease): Code(s): J44.9 - Chronic obstructive pulmonary disease, unspecified Status: Acute Assessment and Plan: SEE ABOVE (4) UTI (urinary tract infection): Code(s): N39.0 - Urinary tract infection, site not specified Status: Resolved Assessment and Plan: UA Proteus mirabilis/penneri * oral kelfex completed * * Issue resolved (5) Feels unsafe at home: Code(s): R45.89 - Other symptoms and signs involving emotional state Status: Acute Assessment and Plan: CC and Anna assisting with discharge plans currently unsafe to return home, EPS has been notified. Review H&P notes Pending placement and [facility] to take over case on discharge. (6) General weakness: Code(s): R53.1 - Weakness Status: Acute Assessment and Plan: Secondary to COPD/Failure to thrive an UTI resolved Plan Code status: DNR/DNI/Comfort care Hospice Disposition: Admitted due to weakness and unsafe living conditions unable to return home on hospice care. CC working on placement consulted [facility] When discharge notified [facility]. Time Spent With Patient Time with patient: 15 - 25 minutes Subjective Date/time seen: 02/15/25 12:16 Interval history: Patient still has no safe discharge plan. No change in condition. Remains on oxygen. Labs checked today, no major changes/abnormalities to address. Review of Systems Review of Systems: No changes Exam Const: General: comfortable, no acute distress and thin Nutritional A ppearance: thin Orientation/consciousness: No patient oriented x3 ( oriented x2) Limitations: other limitations ( Baseline mild dementia) Other: Cachectic male on 3L supplemental oxygen HENMT: Face/Nose/Sinus: Normal external nose present and Normal nares present Mouth: Yes moist mucous membranes Eyes: Pupils: Equal, round and reactive pupils present Neck: Neck: normal visual inspection, supple and no JVD Chest: Chest palpation & inspection: normal inspection of the chest Resp: Effort & Inspection: normal respiratory effort Other: Chronically on 3L supplemental oxygen Cardio: Rate: regular rate Rhythm: regular rhythm Skin: General skin exam: normal color and no rashes or lesions noted Other: deep tissue bruising Neuro: General: No patient oriented x3 ( oriented x2) Cranial nerves: Yes Equal, round and reactive pupils present Extrem: General: normal to inspection Psych: Mental Status: mental status grossly normal Affect: normal affect Attitude: cooperative Objective Data Vital Signs Vital Signs: Vital Signs - 24 hr 02/14/25 16:00 02/14/25 18:15 02/14/25 20:00 Temperature 37.2 C Pulse Rate 57 L 58 L 58 L Respiratory Rate 16 16 16 Blood Pressure 119/70 Pulse Oximetry 97 99 99 Oxygen Delivery Room Air Nasal Cannula Oxygen Flow Rate 3 3 02/15/25 00:00 02/15/25 01:05 02/15/25 01:28 Temperature 37.2 C Pulse Rate 47 L 51 L 47 L Respiratory Rate 18 18 18 Blood Pressure 108/63 Pulse Oximetry 100 100 100 Oxygen Delivery Nasal Cannula Oxygen Flow Rate 3 3 3 02/15/25 06:13 02/15/25 06:23 02/15/25 08:00 Temperature 36.5 C Pulse Rate 47 L 50 L 49 L Respiratory Rate 16 16 16 Blood Pressure 105/62 Pulse Oximetry 98 99 98 Oxygen Delivery Nasal Cannula Oxygen Flow Rate 3 3 3 02/15/25 11:17 02/15/25 11:26 Temperature Pulse Rate 56 L 57 L Respiratory Rate 14 14 Blood Pressure Pulse Oximetry 96 97 Oxygen Delivery Oxygen Flow Rate 3 3 Intake/Output Intake/Output: Intake & Output 02/12/25 02/13/25 02/14/25 02/15/25 23:59 23:59 23:59 23:59 Intake Total 1450 1940 1160 980 Output Total 438 816 0355 925 Balance 625 7812 -256 97 Meds/Results Medications: Active Medications Generic Name Dose Route Start Last Admin Trade Name Freq PRN Reason Stop Dose Admin Hydrocodone Bitart/Acetaminophen 1 tab 02/09/25 20:49 Hydrocodone/Acetaminophen (*Crx) 5-325 Mg Tablet PO Q6H PRN Pain Rated 4-6 Albuterol/Ipratropium 3 ml 02/02/25 10:35 Ipratropium 0.5 Mg/Albuterol Sulfate 2.5 Mg Ampul.Neb 3 Ml INHALATION Q6HRT PRN Shortness Of Breath Albuterol/Ipratropium 3 ml 02/02/25 12:30 02/15/25 11:17 Ipratropium 0.5 Mg/Albuterol Sulfate 2.5 Mg Ampul.Neb 3 Ml INHALATION 3 ml Q6HRT STEPHANE Administration Lorazepam 0.5 mg 02/09/25 20:49 Lorazepam (*Crx) 0.5 Mg Tablet PO Q4H PRN Anxiety Polyethylene Glycol 17 gm 01/31/25 06:30 Polyethylene Glycol 3350 17 Gm Powd.Pack PO DAILY@0630 PRN constipation Prednisone 10 mg 01/31/25 09:00 02/15/25 08:31 Prednisone 10 Mg Tablet PO 10 mg DAILY STEPHANE Administration Radiology Results: ITS Impressions Chest X-Ray 01/30/25 15:07 IMPRESSION: No acute cardiopulmonary pathology. Head CT 01/30/25 15:15 IMPRESSION: No acute intracranial findings. Pulse Oximetry SpO2 results: 96-99% on 3LPM chronically Attestation: I personally reviewed and interpreted this pulse oximetry as follows: Interpretation: Continue 3LPM Quality Pharmacological Therapy Reason no anticoagulant at DC if Afib or Aflutter: patient/caregiver refusal Hospitalist [facility] Advance Care Plan I have confirmed that the patient's Advanced Care Plan is present, code status is documented, or surrogate decision maker is listed in patient medical record.: Yes Medication Reconciliation I have utilized all available resources to obtain, update and review the patients current medications (includes all prescriptions, OTC, herbals, cannabis, and nutritional supplements).: Yes
[2025-02-15 14:04] LABS: Hematocrit 36.6 % (37.0-46.0); Hemoglobin 11.5 g/dL (12.4-15.3); Immature Granulocyte Percent A 1.6 % (0.0-0.0); Lymphocytes Absolute Auto 1.08 K/mm3 (1.10-4.50); Mean Corpuscular HGB Conc 31.4 g/dL (32-36); Mean Corpuscular Hemoglobin 29.6 pg (27.0-31.0); Mean Corpuscular Volume 94.1 fL (78.0-102.0); Nucleated Red Blood Cells Absolute Auto 0.00 K/mm3 (0.00-0.00); Nucleated Red Blood Cells Perc 0.0 % (0-0.0); Platelet Count Result 148 K/mm3 (150-420); Red Blood Count 3.89 M/mm3 (4.70-6.10); White Blood Count 7.9 K/mm3 (4.8-10.8)
[2025-02-15 14:24] LABS: Alanine Aminotransferase 53 U/L (6-50); Albumin Level 3.2 g/dL (3.5-5.1); Alkaline Phosphatase 58 U/L (38-126); Anion Gap 1 mmol/L (4-12); Aspartate Amino Transferase 45 U/L (17-59); Bilirubin,Total 0.2 mg/dL (0.2-1.3); Blood Urea Nitrogen 24 mg/dL (9-20); Calcium 8.6 mg/dL (8.4-10.2); Carbon Dioxide 32 mmol/L (22-30); Chloride 103 mmol/L (98-107); Estimated CRCL calculation 50 ml/min; Estimated Glomerular Filt Rate > 60; Glucose 146 mg/dL (65-110); Magnesium 2.2 mg/dL (1.6-2.3); Osmolality Calculated 289 mOsm/kg (285-295); Potassium 4.1 mmol/L (3.4-5.0); Sodium 136 mmol/L (137-145); Total Protein 5.4 g/dL (6.3-8.2)
[2025-02-16] VITALS (10 sets, daily range): BP systolic 94–102; BP diastolic 58–65; PULSE 48–74; RESP 14–20; TEMP 36.4–36.9; O2SAT 96–100
[2025-02-16] MEDS: IPRATROPIUM 0.5 MG/ALBUTEROL SULFATE 2.5 MG AMPUL.NEB 3 ML INHALATION ×3 (05:43→16:54)
--- NOTE | 2025-02-16 09:50 | P.PNIM_ITS ---
Progress Note: A&P Assessment and Plan (1) Chronic respiratory failure with hypoxia: Code(s): J96.11 - Chronic respiratory failure with hypoxia Status: Acute Assessment and Plan: Patient on 3L supplemental oxygen at home * Oxygen as needed * continue hospice care at discharge with [place] * Duonebs * continued home prednisone (2) Failure to thrive: Status: Acute Assessment and Plan: Patient on hospice care with [facility] * Continued norco and ativan * Oxygen as needed * regular diet * add protein shake to each meal * PT/OT ordered pending for skilled placement (3) COPD (chronic obstructive pulmonary disease): Code(s): J44.9 - Chronic obstructive pulmonary disease, unspecified Status: Acute Assessment and Plan: SEE ABOVE (4) Feels unsafe at home: Code(s): R45.89 - Other symptoms and signs involving emotional state Status: Acute Assessment and Plan: We had initiated the Medicaid application process however it was found that patient's family had withdrawn his Medicaid application, at this time we will re-initiate Medicaid application process for placement to a shelter facility. plan to transition patient to inpatient status and order physical and occupational therapy for shelter home placement patient could not return to his previous living situation due to unsafe living conditions and this would be an unsafe disposition with no available living situation. Patient was on hospice for end stage COPD on chronic supplemental oxygen and minimal mobility who needs help with ADLS. Patient released from [facility] due to hospitalization. EPS has an open case and has been investigating. (5) General weakness: Code(s): R53.1 - Weakness Status: Acute Assessment and Plan: Secondary to COPD/Failure to thrive an UTI resolved * PT/OT ordered (6) UTI (urinary tract infection): Code(s): N39.0 - Urinary tract infection, site not specified Status: Resolved Assessment and Plan: UA Proteus mirabilis/penneri * oral kelfex completed * * Issue resolved RESOLVED Plan Code status: DNR/DNI/Comfort care Hospice Disposition: patient was transitioned to inpatient will get Physical and Occupational therapy to evaluate for shelter home placement currently patient has unsafe disposition to home no current living situation and patient is on chronic supplemental oxygen initially on hospice care but was released once hospitalized EPS has been in fault in investigating. We had started the Medicaid application process and found out family had withdrawn his application will resume that process. plan is to evaluate patient for discharge to shelter facility [facility] it state they will assist patient back on to hospice care once she finds placement. Time Spent With Patient Time with patient: 15 - 25 minutes Subjective Date/time seen: 02/16/25 09:50 Interval history: Patient is a 79 year old male who presented to the emergency department after EMS was called due to potential fall at home and [facility] nurse requested he get evaluated. continues admission for safe discharge planning needs currently his living situation has been reported to EPS. Anna and our CC working of placement. Also treating for possible UTI. 02/16/2025 Patient with no complaints resting comfortably reviewed labs from yesterday no change. We had initiated the Medicaid application process however it was found that patient's family had withdrawn his Medicaid application, at this time we will re-initiate Medicaid application process for placement to a shelter facility. plan to transition patient to inpatient status and order physical and occupational therapy for shelter home placement patient could not return to his previous living situation due to unsafe living conditions and this would be an unsafe disposition with no available living situation. Patient was on hospice for end stage COPD on chronic supplemental oxygen and minimal mobility who needs help with ADLS. Patient released from [facility] due to hospitalization. EPS has an open case and has been investigating. Review of Systems Review of Systems: No changes All systems reviewed & are unremarkable except as noted in HPI and below Exam Const: General: comfortable, no acute distress and thin Nutritional Appearance: thin Orientation/consciousness: No patient oriented x3 ( oriented x2) Limitations: other limitations ( Baseline mild dementia) Other: Cachectic male on 3L supplemental oxygen HENMT: Ears: TM's normal bilaterally Face/Nose/Sinus: Normal external nose present and Normal nares present Mouth: Yes moist mucous membranes Eyes: General: appearance normal, both eyes and all related structures Sclera: sclerae normal Pupils: Equal, round and reactive pupils present Neck: Neck: normal visual inspection, supple and no JVD Chest: Chest palpation & inspection: normal inspection of the chest Resp: Effort & Inspection: normal respiratory effort Auscultation: wheezes (scant) Other: Chronically on 3L supplemental oxygen Cardio: Rate: regular rate Rhythm: regular rhythm GI: Auscultation: normal bowel sounds Skin: General skin exam: normal color and no rashes or lesions noted Wounds: no wounds Other: deep tissue bruising Neuro: General: No patient oriented x3 ( oriented x2) Cranial nerves: Yes Equal, round and reactive pupils present Speech: normal speech Sensory Exam: normal sensation Extrem: General: normal to inspection Psych: Mental Status: mental status grossly normal Affect: normal affect Attitude: cooperative Objective Data Vital Signs Vital Signs: Vital Signs - 24 hr 02/15/25 11:17 02/15/25 11:26 02/15/25 16:00 Temperature 98.6 F Pulse Rate 56 L 57 L 54 L Respiratory Rate 14 14 16 Blood Pressure 126/71 Pulse Oximetry 96 97 98 Oxygen Delivery Nasal Cannula Oxygen Flow Rate 3 3 3 02/15/25 16:56 02/15/25 17:07 02/15/25 20:00 Temperature Pulse Rate 61 60 60 Respiratory Rate 14 14 14 Blood Pressure Pulse Oximetry 96 97 97 Oxygen Delivery Nasal Cannula Oxygen Flow Rate 3 3 3 02/15/25 23:45 02/16/25 00:00 02/16/25 00:00 Temperature 98.5 F Pulse Rate 57 L 57 L 57 L Respiratory Rate 16 16 16 Blood Pressure 94/61 L Pulse Oximetry 96 98 98 Oxygen Delivery Nasal Cannula Oxygen Flow Rate 3 3 3 02/16/25 05:43 02/16/25 05:53 02/16/25 08:00 Temperature 97.6 F Pulse Rate 48 L 50 L 50 L Respiratory Rate 16 16 18 Blood Pressure 101/65 Pulse Oximetry 98 100 98 Oxygen Delivery Nasal Cannula Oxygen Flow Rate 3 3 3 Intake/Output Intake/Output: Intake & Output 02/13/25 02/14/25 02/15/25 02/16/25 23:59 23:59 23:59 23:59 Intake Total 1940 1160 1620 380 Output Total 700 1425 1176 750 Balance 1240 -775 444 370 Meds/Results Medications: Active Medications Generic Name Dose Route Start Last Admin Trade Name Freq PRN Reason Stop Dose Admin Hydrocodone Bitart/Acetaminophen 1 tab 02/09/25 20:49 Hydrocodone/Acetaminophen (*Crx) 5-325 Mg Tablet PO Q6H PRN Pain Rated 4-6 Albuterol/Ipratropium 3 ml 02/02/25 10:35 Ipratropium 0.5 Mg/Albuterol Sulfate 2.5 Mg Ampul.Neb 3 Ml INHALATION Q6HRT PRN Shortness Of Breath Albuterol/Ipratropium 3 ml 02/02/25 12:30 02/16/25 05:43 Ipratropium 0.5 Mg/Albuterol Sulfate 2.5 Mg Ampul.Neb 3 Ml INHALATION 3 ml Q6HRT STEPHANE Administration Lorazepam 0.5 mg 02/09/25 20:49 Lorazepam (*Crx) 0.5 Mg Tablet PO Q4H PRN Anxiety Polyethylene Glycol 17 gm 01/31/25 06:30 Polyethylene Glycol 3350 17 Gm Powd.Pack PO DAILY@0630 PRN constipation Prednisone 10 mg 01/31/25 09:00 02/16/25 08:32 Prednisone 10 Mg Tablet PO 10 mg DAILY STEPHANE Administration Radiology Results: ITS Impressions Chest X-Ray 01/30/25 15:07 IMPRESSION: No acute cardiopulmonary pathology. Head CT 01/30/25 15:15 IMPRESSION: No acute intracranial findings. Labs Labs: Laboratory Results - last 24 hr 02/15/25 13:59 WBC 7.9 RBC 3.89 L Hgb 11.5 L Hct 36.6 L MCV 94.1 MCH 29.6 MCHC 31.4 L RDW 14.6 H Plt Count 148 L MPV 11.1 H Immature Gran % (Auto) 1.6 H Neut % (Auto) 71.9 H Lymph % (Auto) 13.6 L [place] % (Auto) 7.6 Eos % (Auto) 4.8 Baso % (Auto) 0.5 Lymph # (Auto) 1.08 L [place] # (Auto) 0.60 Eos # (Auto) 0.38 Baso # (Auto) 0.04 Abs Immat Gran (auto) 0.13 H Absolute Neuts (auto) 5.71 Absolute Nucleated RBC 0.00 Nucleated RBC % 0.0 Sodium 136 L Potassium 4.1 Chloride 103 Carbon Dioxide 32 H Anion Gap 1 L BUN 24 H Creatinine 0.78 Estim Creat Clear Calc 50 Estimated GFR > 60 Glucose 146 H Calculated Osmolality 289 Calcium 8.6 Magnesium 2.2 Total Bilirubin 0.2 AST 45 ALT 53 H Alkaline Phosphatase 58 Total Protein 5.4 L Albumin 3.2 L Quality VTE Prophylaxis VTE prophylaxis: mechanical ordered Pharmacological Therapy Reason no anticoagulant at DC if Afib or Aflutter: patient/caregiver refusal -Patient's previous records reviewed on admission -ER notes reviewed in detail on admission -discussed all findings and current treatment plan with patient/Family/POA -Consultations reviewed for recommendations -Patient's disposition for safe discharge discussed with nurse case management Dictation performed by [employer] direct speech recognition software, therefore exceptional children's teacher variants and typographical errors may occur. Hospitalist MIPS Advance Care Plan I have confirmed that the patient's Advanced Care Plan is present, code status is documented, or surrogate decision maker is listed in patient medical record.: Yes Medication Reconciliation I have utilized all available resources to obtain, update and review the patients current medications (includes all prescriptions, OTC, herbals, cannabis, and nutritional supplements).: Yes The patient is not eligible for med reconciliation; the patient is in a emergent medical situation where delaying treatment would jeopardize the patients healt h.: No
--- NOTE | 2025-02-16 10:03 | PC.NURSE ---
Patient changed to in patient status.
[2025-02-17] VITALS (12 sets, daily range): BP systolic 107–116; BP diastolic 61–65; PULSE 48–65; RESP 14–19; TEMP 36.6–37.3; O2SAT 96–100
[2025-02-17] MEDS: IPRATROPIUM 0.5 MG/ALBUTEROL SULFATE 2.5 MG AMPUL.NEB 3 ML INHALATION ×4 (00:36→16:46)
--- NOTE | 2025-02-17 10:15 | P.PNIM_ITS ---
Progress Note: A&P Assessment and Plan (1) Chronic respiratory failure with hypoxia: Code(s): J96.11 - Chronic respiratory failure with hypoxia Status: Acute Assessment and Plan: Patient on 3L supplemental oxygen at home * Oxygen as needed * continue hospice care at discharge with [place] * Duonebs * continued home prednisone (2) Failure to thrive: Status: Acute Assessment and Plan: Patient on hospice care with [facility] * Continued norco and ativan * Oxygen as needed * regular diet * add protein shake to each meal * PT/OT ordered pending for skilled placement (3) COPD (chronic obstructive pulmonary disease): Code(s): J44.9 - Chronic obstructive pulmonary disease, unspecified Status: Acute Assessment and Plan: SEE ABOVE (4) Feels unsafe at home: Code(s): R45.89 - Other symptoms and signs involving emotional state Status: Acute Assessment and Plan: We had initiated the Medicaid application process however it was found that patient's family had withdrawn his Medicaid application, at this time we will re-initiate Medicaid application process for placement to a prison facility. plan to transition patient to inpatient status and order physical and occupational therapy for prison home placement patient could not return to his previous living situation due to unsafe living conditions and this would be an unsafe disposition with no available living situation. Patient was on hospice for end stage COPD on chronic supplemental oxygen and minimal mobility who needs help with ADLS. Patient released from [facility] due to hospitalization. EPS has an open case and has been investigating. (5) General weakness: Code(s): R53.1 - Weakness Status: Acute Assessment and Plan: Secondary to COPD/Failure to thrive an UTI resolved * PT/OT ordered (6) UTI (urinary tract infection): Code(s): N39.0 - Urinary tract infection, site not specified Status: Resolved Assessment and Plan: UA Proteus mirabilis/penneri * oral kelfex completed * * Issue resolved RESOLVED Plan Code status: DNR/DNI/Comfort care Hospice Disposition: patient was transitioned to inpatient will get Physical and Occupational therapy to evaluate for prison home placement currently patient has unsafe disposition to home no current living situation and patient is on chronic supplemental oxygen initially on hospice care but was released once hospitalized EPS has been in fault in investigating. We had started the Medicaid application process and found out family had withdrawn his application will resume that process. plan is to evaluate patient for discharge to prison facility [facility] it state they will assist patient back on to hospice care once she finds placement. Time Spent With Patient Time with patient: 15 - 25 minutes Subjective Date/time seen: 02/17/25 10:15 Interval history: Patient is a 79 year old male who presented to the emergency department after EMS was called due to potential fall at home and [facility] nurse requested he get evaluated. continues admission for safe discharge planning needs currently his living situation has been reported to [facility]. Anna and our CC working of placement. Also treating for possible UTI. 02/16/2025 Patient with no complaints resting comfortably enjoying working with PT. Review of Systems Review of Systems: No changes All systems reviewed & are unremarkable except as noted in HPI and below Exam Const: General: comfortable, no acute distress and thin Nutritional Appearance: thin Orientation/consciousness: No patient oriented x3 ( oriented x2) Limitations: other limitations ( Baseline mild dementia) Other: Cachectic male on 3L supplemental oxygen HENMT: Ears: TM's normal bilaterally Face/Nose/Sinus: Normal external nose present and Normal nares present Mouth: Yes moist mucous membranes Eyes: General: appearance normal, both eyes and all related structures Sclera: sclerae normal Pupils: Equal, round and reactive pupils present Neck: Neck: normal visual inspection, supple and no JVD Chest: Chest palpation & inspection: normal inspection of the chest Resp: Effort & Inspection: normal respiratory effort Auscultation: wheezes (scant) Other: Chronically on 3L supplemental oxygen Cardio: Rate: regular rate Rhythm: regular rhythm GI: Auscultation: normal bowel sounds Skin: General skin exam: normal color and no rashes or lesions noted Wounds: no wounds Other: deep tissue bruising Neuro: General: No patient oriented x3 ( oriented x2) Cranial nerves: Yes Equal, round and reactive pupils present Speech: normal speech Sensory Exam: normal sensation Extrem: General: normal to inspection Psych: Mental Status: mental status grossly normal Affect: normal affect Attitude: cooperative Objective Data Vital Signs Vital Signs: Vital Signs - 24 hr 02/16/25 11:12 02/16/25 11:22 02/16/25 16:00 Temperature 98 F Pulse Rate 56 L 56 L 74 Respiratory Rate 14 14 20 Blood Pressure 102/58 L Pulse Oximetry 96 97 96 Oxygen Delivery Nasal Cannula Oxygen Flow Rate 3 3 3 02/16/25 16:54 02/16/25 17:05 02/17/25 00:00 Temperature 98.2 F Pulse Rate 55 L 56 L 48 L Respiratory Rate 14 14 16 Blood Pressure 114/62 Pulse Oximetry 98 98 99 Oxygen Delivery Nasal Cannula Oxygen Flow Rate 3 3 3 02/17/25 00:35 02/17/25 00:50 02/17/25 06:01 Temperature Pulse Rate 48 L 50 L 48 L Respiratory Rate 16 16 16 Blood Pressure Pulse Oximetry 99 100 98 Oxygen Delivery Oxygen Flow Rate 3 3 3 02/17/25 06:10 02/17/25 08:00 Temperature 98 F Pulse Rate 49 L 48 L Respiratory Rate 16 18 Blood Pressure 107/61 Pulse Oximetry 99 98 Oxygen Delivery Nasal Cannula Oxygen Flow Rate 3 3 Intake/Output Intake/Output: Intake & Output 02/14/25 02/15/25 02/16/25 02/17/25 23:59 23:59 23:59 23:59 Intake Total 1160 1620 1100 480 Output Total 1425 1176 1850 500 Balance -265 444 -750 -20 Meds/Results Medications: Active Medications Generic Name Dose Route Start Last Admin Trade Name Freq PRN Reason Stop Dose Admin Hydrocodone Bitart/Acetaminophen 1 tab 02/09/25 20:49 Hydrocodone/Acetaminophen (*Crx) 5-325 Mg Tablet PO Q6H PRN Pain Rated 4-6 Albuterol/Ipratropium 3 ml 02/02/25 10:35 Ipratropium 0.5 Mg/Albuterol Sulfate 2.5 Mg Ampul.Neb 3 Ml INHALATION Q6HRT PRN Shortness Of Breath Albuterol/Ipratropium 3 ml 02/02/25 12:30 02/17/25 06:01 Ipratropium 0.5 Mg/Albuterol Sulfate 2.5 Mg Ampul.Neb 3 Ml INHALATION 3 ml Q6HRT STEPHANE Administration Lorazepam 0.5 mg 02/09/25 20:49 Lorazepam (*Crx) 0.5 Mg Tablet PO Q4H PRN Anxiety Polyethylene Glycol 17 gm 01/31/25 06:30 Polyethylene Glycol 3350 17 Gm Powd.Pack PO DAILY@0630 PRN constipation Prednisone 10 mg 01/31/25 09:00 02/17/25 08:24 Prednisone 10 Mg Tablet PO 10 mg DAILY STEPHANE Administration Radiology Results: ITS Impressions Chest X-Ray 01/30/25 15:07 IMPRESSION: No acute cardiopulmonary pathology. Head CT 01/30/25 15:15 IMPRESSION: No acute intracranial findings. Quality VTE Prophylaxis VTE prophylaxis: mechanical ordered Pharmacological Therapy Reason no anticoagulant at DC if Afib or Aflutter: patient/caregiver refusal -Patient's previous records reviewed on admission -ER notes reviewed in detail on admission -discussed all findings and current treatment plan with patient/Family/POA -Consultations reviewed for recommendations -Patient's disposition for safe discharge discussed with correctional casework specialist Dictation performed by [employer] direct speech recognition software, therefore imaging account manager variants and typographical errors may occur. Hospitalist MIPS Advance Care Plan I have confirmed that the patient's Advanced Care Plan is present, code status is documented, or surrogate decision maker is listed in patient medical record.: Yes Medication Reconciliation I have utilized all available resources to obtain, update and review the patients current medications (includes all prescriptions, OTC, herbals, cannabis, and nutritional supplements).: Yes The patient is not eligible for med reconciliation; the patient is in a emergent medical situation where delaying treatment would jeopardize the patients health.: No
[2025-02-18] VITALS (14 sets, daily range): BP systolic 104–133; BP diastolic 62–79; PULSE 48–62; RESP 14–21; TEMP 37.1–37.2; O2SAT 94–99
[2025-02-18] MEDS: IPRATROPIUM 0.5 MG/ALBUTEROL SULFATE 2.5 MG AMPUL.NEB 3 ML INHALATION ×5 (01:14→23:33)
--- NOTE | 2025-02-18 08:48 | P.PNIM_ITS ---
Progress Note: A&P Assessment and Plan (1) Chronic respiratory failure with hypoxia: Code(s): J96.11 - Chronic respiratory failure with hypoxia Status: Acute Assessment and Plan: Patient on 3L supplemental oxygen at home * Oxygen as needed * continue hospice care at discharge with [facility] * Duonebs * continued home prednisone (2) Failure to thrive: Status: Acute Assessment and Plan: Patient on hospice care with [facility] * Continued norco and ativan * Oxygen as needed * regular diet * add protein shake to each meal * PT/OT ordered pending for skilled placement (3) COPD (chronic obstructive pulmonary disease): Code(s): J44.9 - Chronic obstructive pulmonary disease, unspecified Status: Acute Assessment and Plan: SEE ABOVE (4) Feels unsafe at home: Code(s): R45.89 - Other symptoms and signs involving emotional state Status: Acute Assessment and Plan: We had initiated the Medicaid application process however it was found that patient's family had withdrawn his Medicaid application, at this time we will re-initiate Medicaid application process for placement to a shelter facility. plan to transition patient to inpatient status and order physical and occupational therapy for shelter home placement patient could not return to his previous living situation due to unsafe living conditions and this would be an unsafe disposition with no available living situation. Patient was on hospice for end stage COPD on chronic supplemental oxygen and minimal mobility who needs help with ADLS. Patient released from [facility] due to hospitalization. EPS has an open case and has been investigating. (5) General weakness: Code(s): R53.1 - Weakness Status: Acute Assessment and Plan: Secondary to COPD/Failure to thrive an UTI resolved * PT/OT ordered (6) UTI (urinary tract infection): Code(s): N39.0 - Urinary tract infection, site not specified Status: Resolved Assessment and Plan: UA Proteus mirabilis/penneri * oral kelfex completed * * Issue resolved RESOLVED Plan Code status: DNR/DNI/Comfort care Hospice Disposition: patient was transitioned to inpatient will get Physical and Occupational therapy to evaluate for shelter home placement currently patient has unsafe disposition to home no current living situation and patient is on chronic supplemental oxygen initially on hospice care but was released once hospitalized EPS has been in fault in investigating. We had started the Medicaid application process and found out family had withdrawn his application will resume that process. plan is to evaluate patient for discharge to shelter facility [facility] it state they will assist patient back on to hospice care once she finds placement. Time Spent With Patient Time with patient: 15 - 25 minutes Subjective Date/time seen: 02/18/25 08:48 Interval history: Patient is a 79 year old male who presented to the emergency department after EMS was called due to potential fall at home and [facility] nurse requested he get evaluated. continues admission for safe discharge planning needs currently his living situation has been reported to [facility]. Anna and our CC working of placement. Also treating for possible UTI. 02/18/2025 Patient feeling good today working with PT and feeling a little stronger, respiratory status unchanged. No complaints or concerns at this time Review of Systems Review of Systems: No changes All systems reviewed & are unremarkable except as noted in HPI and below Exam Const: General: comfortable, no acute distress and thin Nutritional Appearance: thin Orientation/consciousness: No patient oriented x3 ( oriented x2) Limitations: other limitations ( Baseline mild dementia) Other: Cachectic male on 3L supplemental oxygen HENMT: Ears: TM's normal bilaterally Face/Nose/Sinus: Normal external nose present and Normal nares present Mouth: Yes moist mucous membranes Eyes: General: appearance normal, both eyes and all related structures Sclera: sclerae normal Pupils: Equal, round and reactive pupils present Neck: Neck: normal visual inspection, supple and no JVD Chest: Chest palpation & inspection: normal inspection of the chest Resp: Effort & Inspection: normal respiratory effort Auscultation: wheezes (scant) Other: Chronically on 3L supplemental oxygen Cardio: Rate: regular rate Rhythm: regular rhythm GI: Auscultation: normal bowel sounds Skin: General skin exam: normal color and no rashes or lesions noted Wounds: no wounds Other: deep tissue bruising Neuro: General: No patient oriented x3 ( oriented x2) Cranial nerves: Yes Equal, round and reactive pupils present Speech: normal speech Sensory Exam: normal sensation Extrem: General: normal to inspection Psych: Mental Status: mental status grossly normal Affect: normal affect Attitude: cooperative Objective Data Vital Signs Vital Signs: Vital Signs - 24 hr 02/17/25 11:33 02/17/25 11:47 02/17/25 16:00 Temperature 99.1 F Pulse Rate 56 L 56 L 65 Respiratory Rate 14 14 19 Blood Pressure 116/65 Pulse Oximetry 96 98 96 Oxygen Delivery Nasal Cannula Oxygen Flow Rate 3 3 3 02/17/25 16:46 02/17/25 16:59 02/18/25 00:00 Temperature 98.7 F Pulse Rate 61 58 L 56 L Respiratory Rate 14 14 18 Blood Pressure 110/62 Pulse Oximetry 98 98 97 Oxygen Delivery Nasal Cannula Oxygen Flow Rate 3 3 3 02/18/25 01:15 02/18/25 01:25 02/18/25 05:58 Temperature Pulse Rate 55 L 59 L 48 L Respiratory Rate 16 16 16 Blood Pressure Pulse Oximetry 96 98 98 Oxygen Delivery Oxygen Flow Rate 3 3 3 02/18/25 06:08 Temperature Pulse Rate 50 L Respiratory Rate 16 Blood Pressure Pulse Oximetry 99 Oxygen Delivery Oxygen Flow Rate 3 Intake/Output Intake/Output: Intake & Output 02/15/25 02/16/25 02/17/25 02/18/25 23:59 23:59 23:59 23:59 Intake Total 1620 1100 1220 0 Output Total 1176 1850 800 250 Balance 444 -750 420 -250 Meds/Results Medications: Active Medications Generic Name Dose Route Start Last Admin Trade Name Freq PRN Reason Stop Dose Admin Hydrocodone Bitart/Acetaminophen 1 tab 02/09/25 20:49 Hydrocodone/Acetaminophen (*Crx) 5-325 Mg Tablet PO Q6H PRN Pain Rated 4-6 Albuterol/Ipratropium 3 ml 02/02/25 10:35 Ipratropium 0.5 Mg/Albuterol Sulfate 2.5 Mg Ampul.Neb 3 Ml INHALATION Q6HRT PRN Shortness Of Breath Albuterol/Ipratropium 3 ml 02/02/25 12:30 02/18/25 05:57 Ipratropium 0.5 Mg/Albuterol Sulfate 2.5 Mg Ampul.Neb 3 Ml INHALATION 3 ml Q6HRT STEPHANE Administration Lorazepam 0.5 mg 02/09/25 20:49 Lorazepam (*Crx) 0.5 Mg Tablet PO Q4H PRN Anxiety Polyethylene Glycol 17 gm 01/31/25 06:30 Polyethylene Glycol 3350 17 Gm Powd.Pack PO DAILY@0630 PRN constipation Prednisone 10 mg 01/31/25 09:00 02/18/25 08:45 Prednisone 10 Mg Tablet PO 10 mg DAILY STEPHANE Administration Radiology Results: ITS Impressions Chest X-Ray 01/30/25 15:07 IMPRESSION: No acute cardiopulmonary pathology. Head CT 01/30/25 15:15 IMPRESSION: No acute intracranial findings. Quality VTE Prophylaxis VTE prophylaxis: mechanical ordered Pharmacological Therapy Reason no anticoagulant at DC if Afib or Aflutter: patient/caregiver refusal -Patient's previous records reviewed on admission -ER notes reviewed in detail on admission -discussed all findings and current treatment plan with patient/Family/POA -Consultations reviewed for recommendations -Patient's disposition for safe discharge discussed with embedded case manager Dictation performed by [employer] direct speech recognition software, therefore criminal records technician variants and typographical errors may occur. Hospitalist MIPS Advance Care Plan I have confirmed that the patient's Advanced Care Plan is present, code status is documented, or surrogate decision maker is listed in patient medical record.: Yes Medication Reconciliation I have utilized all available resources to obtain, update and review the patients current medications (includes all prescriptions, OTC, herbals, cannabis, and nutritional supplements).: Yes The patient is not eligible for med reconciliation; the patient is in a emergent medical situation where delaying treatment would jeopardize the patients health.: No
--- NOTE | 2025-02-18 21:15 | PC.NURSE ---
Patient in bed. SR up x2. Call light and belongings within reach. Nurse explained to patient about the SNF he will be transferring to. Patient asked nurse a few questions and appeared less nervous after talking over things he did not know.
[2025-02-19] VITALS: BP 117/81; PULSE 57; RESP 16; TEMP 36.9; O2SAT 97
[2025-02-19 05:30] VITALS: O2SAT 99
[2025-02-19] MEDS: IPRATROPIUM 0.5 MG/ALBUTEROL SULFATE 2.5 MG AMPUL.NEB 3 ML INHALATION (05:44)
[2025-02-19 05:45] VITALS: PULSE 57; RESP 16; O2SAT 95
[2025-02-19 06:04] VITALS: PULSE 58; RESP 16; O2SAT 98
[2025-02-19 08:00] VITALS: BP 155/86; PULSE 55; RESP 16; TEMP 37.2; O2SAT 98
--- NOTE | 2025-02-19 10:52 | P.DS_ITS ---
DS: Admitting Diagnosis Discharge Date 02/19/2025 Admitting Diagnosis Failure to thrive/UTI/Unsafe discharge/COPD DS: Discharge Diagnosis Discharge Diagnosis (1) Chronic respiratory failure with hypoxia: Code(s): J96.11 - Chronic respiratory failure with hypoxia Status: Acute (2) Failure to thrive: Status: Acute (3) COPD (chronic obstructive pulmonary disease): Code(s): J44.9 - Chronic obstructive pulmonary disease, unspecified Status: Acute (4) Feels unsafe at home: Code(s): R45.89 - Other symptoms and signs involving emotional state Status: Acute Assessment and Plan: We had initiated the Medicaid application process however it was found that patient's family had withdrawn his Medicaid application, at this time we will re-initiate Medicaid application process for placement to a penitentiary facility. plan to transition patient to inpatient status and order physical and occupational therapy for penitentiary home placement patient could not return to his previous living situation due to unsafe living conditions and this would be an unsafe disposition with no available living situation. Patient was on hospice for end stage COPD on chronic supplemental oxygen and minimal mobility who needs help with ADLS. Patient released from [facility] due to hospitalization. EPS has an open case and has been investigating. (5) General weakness: Code(s): R53.1 - Weakness Status: Acute (6) UTI (urinary tract infection): Code(s): N39.0 - Urinary tract infection, site not specified Status: Resolved Assessment and Plan: UA Proteus mirabilis/penneri * oral kelfex completed * * Issue resolved RESOLVED DS: Summary Hospital Course Reason for hospitalization: Failure to thrive/UTI/Unsafe discharge/COPD Hospital Course: Admission: Patient was a 79 year old male who presented to the emergency department after EMS was called due to potential fall at home and [facility] hospice nurse. Per medical chart [facility] nurse recommended patient come in for evaluation after his son who he currently lives with found him on the ground and thought he had fallen. As stated in the ED reports Anna had reported family to EPS for concerns of poor unsafe living conditions. Patient is currently on hospice care living with his son who states he can no longer care for him since he works all day. Patient is not the best historian but reports he is on hospice for end stage COPD and failure to thrive. Patient reported he did not fall but sat down on the floor after he was ambulating to the bathroom and became to weak to make it back to his bed. Patient states he is mostly bedridden but has been trying to get more active but becomes to weak. Patient denied any pain, CP, SOB, N/V, or dizziness. In the ED: Evaluation in the ED showed negative CT head, labs unremarkable other then possible UTI with positive leukocytes, cloudy, bacteria and WBC+. Patient on 3L supplemental oxygen which he chronically wears. Hospital Course: Patient was admitted to the medical unit for treatment of UTI and unsafe discharge to home. Continue treatment for urinary tract infection and added duo nebulizers for COPD. CC is assisting on safe discharge patient owes 2 separate NH and outstanding debt but patient can not return to his own house because there is no window shade cloth sewer or running water at this time the son also reports he can not safely care for him anymore. patient continues admission while attempting to find placement. We had initiated the Medicaid application process however it was found that patient's family had withdrawn his Medicaid application, at this time we will re-initiate Medicaid application process for placement to a penitentiary facility. plan to transition patient to inpatient status and order physical and occupational therapy for penitentiary home placement patient could not return to his previous living situation due to unsafe living conditions and this would be an unsafe disposition with no available living situation. Patient was on hospice for end stage COPD on chronic supplemental oxygen and minimal mobility who needs help with ADLS. Patient released from [facility] due to hospitalization. EPS has an open case and has been investigating. Patient acutely was medically stable, I did add PT/OT for placement to SNF. Patient was discharged to [facility] SN[facility] with plans to have hospice set-up there. Status at Discharge Functional status at discharge: uses cane/walker Overall status at discharge: patient is back to baseline Time Spent with Patient Time attestation: Total time spent providing and/or coordinating discharge services: Time spent: Greater than 30 minutes Exam Const: General: comfortable, no acute distress and thin Nutritional Appearance: thin Orientation/consciousness: No patient oriented x3 ( oriented x2) Limitations: other limitations ( Baseline mild dementia) Other: Cachectic male on 3L supplemental oxygen HENMT: Ears: TM's normal bilaterally Face/Nose/Sinus: Normal external nose present and Normal nares present Mouth: Yes moist mucous membranes Eyes: General: appearance normal, both eyes and all related structures Sclera: sclerae normal Pupils: Equal, round and reactive pupils present Neck: Neck: normal visual inspection, supple and no JVD Chest: Chest palpation & inspection: normal inspection of the chest Resp: Effort & Inspection: normal respiratory effort Auscultation: wheezes (scant) Other: Chronically on 3L supplemental oxygen Cardio: Rate: regular rate Rhythm: regular rhythm GI: Auscultation: normal bowel sounds Skin: General skin exam: normal color and no rashes or lesions noted Wounds: no wounds Other: deep tissue bruising Neuro: General: No patient oriented x3 ( oriented x2) Cranial nerves: Yes Equal, round and reactive pupils present Speech: normal speech Sensory Exam: normal sensation Extrem: General: normal to inspection Psych: Mental Status: mental status grossly normal Affect: normal affect Attitude: cooperative Discharge Plan Discharge Attending physician on discharge: Sohail Li Consulting providers: Jessica Casillas Discharging Clinician: Jessica Casillas Anticipated Discharge Date/Time: 01/31/25 09:56 Patient Disposition: SNF Activity: may shower and as tolerated Diet: regular Discharge Instructions: 1). UTI * You have completed your antibiotic therapy while hospitalized 2). Hospice care * continue with comfort focused care. Plan for [facility] * recommend regular diet and protein shakes with each meal 3) COPD * Supplemental oxygen 3L * continue with prednisone daily * Duonebs as needed How can you care for yourself at home? ? Keep track of any new symptoms or changes in your symptoms. ? Rest until you feel better. ? Be safe with medicines. Take your medicines exactly as prescribed. Call your doctor if you think you are having a problem with your medicine. ? Do not drive after taking a prescription pain medicine. ? Ensure to follow-up with primary care physician as indicated and provide updated medication list provided to you at discharge. When should you call for help? Call 911 anytime you think you may need emergency care. For example, call if: ? You passed out (lost consciousness). Call your doctor now or seek immediate medical care if: ? You have new symptoms like fever, difficulty breathing, Chest pain, vomiting, or rash. ? You have new or different pain. ? You are confused and are having trouble thinking clearly. ? Your symptoms are getting worse. Watch closely for changes in your health, and be sure to contact your doctor if: ? You do not get better as expected. Patient Instructions: Antibiotic Form Patient Language: Nepalese Stand Alone Forms: General Discharge Information, Group Home Discharge Follow-up/Referrals: Rigo Jules MD [Primary Care Provider] - Call for Appointment Discharge Medications: New hydrocodone-acetaminophen 10-325 mg tablet 1 tablet PO Q6H PRN (Reason: pain) Qty: 30 0RF lorazepam 0.5 mg tablet 0.5 mg PO BID PRN (Reason: anxiety) Qty: 30 0RF Continued ipratropium-albuterol 0.5 mg-3 mg(2.5 mg base)/3 mL solution for nebulization 3 ml INHALATION Q4-5H PRN (Reason: Shortness Of Breath) polyethylene glycol 3350 17 gram/dose powder 17 g PO DAILY@0630 PRN (Reason: constipation) prednisone 10 mg tablet 10 mg PO DAILY ibandronate 150 mg tablet 150 mg PO MONTHLY Patient Comments: Give on 1st of the month Discontinued hydrocodone-acetaminophen 10-325 mg tablet 1 tablet PO Q6H PRN (Reason: pain) Qty: 30 0RF lorazepam [Ativan] 1 mg tablet 0.5 mg PO Q4H PRN (Reason: anxiety) Date of admission: 02/16/25 10:03 Primary Care Provider: Rigo Jules Admitting Provider: Sohail Li Attending physician on admission: Sohail Li Condition: Stable Quality VTE Prophylaxis VTE prophylaxis: mechanical ordered Pharmacological Therapy Reason no anticoagulant at DC if Afib or Aflutter: patient/caregiver refusal -Patient's previous records reviewed on admission -ER notes reviewed in detail on admission -discussed all findings and current treatment plan with patient/Family/POA -Consultations reviewed for recommendations -Patient's disposition for safe discharge discussed with counseling case manager Dictation performed by [employer] direct speech recognition software, therefore therapist respiratory variants and typographical errors may occur. Hospitalist MIPS Heart Failure (Exclusion) Patient has history of Heart Transplant or Left Ventricular Assistive Device?: No IF YES, STOP HERE Heart Failure (Qualifier) Patient has current or prior documentation of LVEF less than or equal to 40%, or mod/servere depressed LVSF?: No IF NO, STOP HERE
--- NOTE | 2025-02-19 11:20 | PC.NURSE ---
Automatic [employer]ider[employer] Machine Tender called report to [facility] at [facility] in [place]. [facility] voiced understanding of report. Nurse also called patient's son to inform him of patient's transfer to another facility. Message left on voicemail. Discharge paperwork faxed to [facility].
--- NOTE | 2025-02-19 11:45 | PC.NURSE ---
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 Paperwork, cell phone and docent coordinator sent with patient. Patient left unit accompanied by [facility] staff in w/c. Patient left hospital grounds in [facility] transport vehicle.
--- NOTE | 2025-02-21 09:31 | PC.NURSE ---
No discharge call back made r/t patient discharged to [facility].
== END 2025-02-19 11:45 | DRG 690 ==
LOC: CHSED 15:52 → CHS2ND 15:52
PROVIDERS: Nurse Practitioner; Nurse Practitioner Family; Admitting Provider Internal Medicine; Emergency Provider Emergency Medicine; PCP Family Medicine; Visit Provider Internal Medicine
DX: N39.0 Urinary tract infection, site not specified (principal); J96.11 Chronic respiratory failure with hypoxia; R64 Cachexia; J44.9 Chronic obstructive pulmonary disease, unspecified; R62.7 Adult failure to thrive; R53.1 Weakness; B96.4 Proteus (mirabilis) (morganii) as the cause of diseases classified elsewhere; Z66 Do not resuscitate; Z99.81 Dependence on supplemental oxygen
CPT/HCPCS: 36415; 70450; 71045; 80053; 81001; 81003; 83605; 83735; 84484; 85025; 85027; 87040; 87086; 90471; 90715; 93005; 94640; 96361; 96365; 97110; 97161; 97165; 97530; 97535; 99285; A9270; G0378; J0696; J7040; J7512